=== PATIENT | female | born 1985 | race Caucasian/White ===

== ENCOUNTER 2022-06-21 10:30 | Emergency (ER) | payer OTHER, MEDICAID, SELFPAY ==
--- NOTE | ~2022-06-21 | XR_ITS ---
EXAMINATION: XR ANKLE, LEFT XR FOOT, LEFT CLINICAL INFORMATION: Twisting injury with pain at the lateral malleolus COMPARISON: None TECHNIQUE: 3 views of the left foot. 2 additional views of the left ankle. FINDINGS: Left foot: No fracture or dislocation. Alignment is maintained. Joint spaces are maintained. There is mild lateral soft tissue swelling. Left ankle: No fracture or dislocation. The ankle mortise is congruent. No ankle joint effusion. Lateral soft tissue swelling. XR/XR foot LT min 3V IMPRESSION: Soft tissue swelling at the lateral ankle. No fracture or malalignment.
--- NOTE | ~2022-06-21 | XR_ITS ---
EXAMINATION: XR ANKLE, LEFT XR FOOT, LEFT CLINICAL INFORMATION: Twisting injury with pain at the lateral malleolus COMPARISON: None TECHNIQUE: 3 views of the left foot. 2 additional views of the left ankle. FINDINGS: Left foot: No fracture or dislocation. Alignment is maintained. Joint spaces are maintained. There is mild lateral soft tissue swelling. Left ankle: No fracture or dislocation. The ankle mortise is congruent. No ankle joint effusion. Lateral soft tissue swelling. XR/XR ankle LT min 3V IMPRESSION: Soft tissue swelling at the lateral ankle. No fracture or malalignment.
[2022-06-21 11:14] VITALS: BP 160/91; PULSE 109; RESP 18; TEMP 36.1; O2SAT 99; BMI 25.4
--- NOTE | 2022-06-21 11:19 | ED_ITS ---
HPI - Extremity Injury (Lower) General Chief Complaint: Extremity Injury, Lower <NATHAN Melendrez - Last Filed: 06/21/22 11:22> Stated Complaint: L ankle injury <NATHAN Melendrez - Last Filed: 06/21/22 11:22> Time Seen by Provider: 06/21/22 11:49 <NATHAN Melendrez - Last Filed: 06/21/22 11:22> Source: patient <NATHAN Cole Last Filed: 06/21/22 15:59> Mode of arrival: wheelchair <NATHAN Cole - Last Filed: 06/21/22 15:59> Limitations: no limitations <NATHAN Cole Last Filed: 06/21/22 15:59> History of Present Illness HPI Narrative: Patient is a 36 year old assigned female at with no reported medical history presenting to the emergency department today with left ankle pain. Patient states that she was at work pulling a palette when she rolled her left ankle. Patient denies hitting her head in the incident or any loss of con sciousness. Patient denies any dizziness, lightheadedness, abdominal pain, nausea, vomiting, fever, chills, blurry vision, double vision, loss of vision, chest pain, difficulty breathing, shortness of breath, back pain, night sweats, pain with urination, increased urinary frequency, increased urinary urgency, blood in her urine or stool, syncope or a near syncopal episode, bowel incontinence, bladder incontinence, bowel retention, bladder retention, or any other complaints at this time. <NATHAN Cole - Last Filed: 06/21/22 15:59> MD complaint: ankle injury <NATHAN Cole - Last Filed: 06/21/22 15:59> Onset (ago): minute(s) <NATHAN Cole Last Filed: 06/21/22 15:59> Place: work <NATHAN Cole Last Filed: 06/21/22 15:59> Severity: mild <NATHAN Cole Last Filed: 06/21/22 15:59> Severity scale (1-10): 3 <NATHAN Cole Last Filed: 06/21/22 15:59> Relieving factors: nothing <NATHAN Cole Last Filed: 06/21/22 15:59> Exacerbating factors: nothing <NATHAN Cole - Last Filed: 06/21/22 15:59> Other symptoms: none <NATHAN Cole - Last Filed: 06/21/22 15:59> Related Data Allergies/Adverse Reactions: Allergies Allergy/AdvReac Type Severity Reaction Status Date / Time No Known Allergies Allergy Mild NOT Verified 06/21/22 11:18 APPLICABLE <Norma Barrera [place] - Last Filed: 06/21/22 11:22> Review of Systems Constitutional: Constitutional: Reports no additional constitutional complaints, Denies chills, Denies fever(s) and Denies night sweats <NATHAN Cole - Last Filed: 06/21/22 15:59> Eyes: Eyes: Reports no additional eye complaints, Denies blurry vision, Denies change in vision, Denies diplopia, Denies eye discharge, Denies loss of vision and Denies eye pain <NATHAN Cole Last Filed: 06/21/22 15:59> ENT: Denies dizziness <NATHAN Cole Last Filed: 06/21/22 15:59> Cardiovascular: Cardiovascular: Reports no additional cardiovascular complaints, Denies chest pain, Denies lightheadedness, Denies Loss of Consciousness and Denies dyspnea <NATHAN Cole Last Filed: 06/21/22 15:59> Respiratory: Respiratory: Reports no additional respiratory complaints and Denies dyspnea <NATHAN Cole Last Filed: 06/21/22 15:59> Gastrointestinal: Gastrointestinal: Reports no additional gastrointestinal complaints, Denies abdominal pain, Denies melena, Denies hematochezia, Denies change in bowel habits and Denies change in stool character <NATHAN Cole Last Filed: 06/21/22 15:59> Genitourinary: Genitourinary: Denies hematuria, Denies urinary frequency, Denies dysuria, Denies urinary incontinence, Denies urinary hesitancy and Denies urinary urgency <NATHAN Cole Last Filed: 06/21/22 15:59> Musculoskeletal: Musculoskeletal: Reports no additional musculoskeletal complaints, Denies numbness and Denies tingling <NATHAN Cole - Last Filed: 06/21/22 15:59> Comments: left ankle pain <NATHAN Cole - Last Filed: 06/21/22 15:59> Neurologic: Denies dizziness, Denies loss of vision, Denies numbness and Denies tingling <NATHAN Cole - Last Filed: 06/21/22 15:59> Psychiatric: Psychiatric: Reports no additional psychiatric complaints <NATHAN Cole - Last Filed: 06/21/22 15:59> Endocrine: Endocrine: Reports no additional endocrine complaints <NATHAN Cole - Last Filed: 06/21/22 15:59> Hematologic/Lymphatic: Hematologic/Lymphatic: Reports no additional hematologic/lymphatic complaints <NATHAN Cole - Last Filed: 06/21/22 15:59> Allergic/Immunologic: Allergic/Immunologic: Reports no additional allergic/imm unologic complaints <NATHAN Cole - Last Filed: 06/21/22 15:59> PMF Past Medical History Attestation statement: The following information was validated with the patient. <NATHAN Cole - Last Filed: 06/21/22 15:59> Source: old records reviewed and nursing notes reviewed <NATHAN Cole - Last Filed: 06/21/22 15:59> Social History Social History: Social History Advance Directives: No Advance Directives Information Provided: No <NATHAN Melendrez - Last Filed: 06/21/22 11:22> Physical Exam Vital Signs: Vital Signs: Last Vital Signs Temp 98.1 F 06/21/22 11:47 Pulse 103 H 06/21/22 11:47 Resp 16 06/21/22 11:47 BP 149/86 H 06/21/22 11:47 Pulse Ox 97 06/21/22 11:47 O2 Del Method 06/21/22 11:47 BMI result Body Mass Index 25.4 <NATHAN Melendrez - Last Filed: 06/21/22 11:22> Vital Signs: Last Vital Signs Temp 98.1 F 06/21/22 11:47 Pulse 103 H 06/21/22 11:47 Resp 16 06/21/22 11:47 BP 149/86 H 06/21/22 11:47 Pulse Ox 97 06/21/22 11:47 O2 Del Method 06/21/22 11:47 BMI result Body Mass Index 25.4 <NATHAN Cole - Last Filed: 06/21/22 15:59> Const: General: cooperative, no acute distress, alert and awake <NATHAN Cole - Last Filed: 06/21/22 15:59> Nutritional Appearance: well nourished <NATHAN Cole - Last Filed: 06/21/22 15:59> Orientation/consciousness: patient oriented x3 <NATHAN Cole - Last Filed: 06/21/22 15:59> Limitations: no limitations <NATHAN Cole - Last Filed: 06/21/22 15:59> HEENT: Head: Yes normal to inspection and Yes atraumatic <NATHAN Cole - Last Filed: 06/21/22 15:59> Ears: hearing grossly normal bilaterally and external ears normal <Alona Rai PA - Last Filed: 06/21/22 15:59> General nose exam: Normal external nose present, no nasal discharge noted and no epistaxis <NATHAN Cole - Last Filed: 06/21/22 15:59> Face and sinus: Yes normal facial exam, No abrasion and No laceration <NATHAN Cole - Last Filed: 06/21/22 15:59> Mouth: Normal oral and palatal mucosa present, no drooling and no muffled voice <NATHAN Cole - Last Filed: 06/21/22 15:59> Eyes: General: appearance normal, both eyes and all related structures <Steve encinaseduard Rai PA - Last Filed: 06/21/22 15:59> Periorbital: periorbital findings normal <NATHAN Cole - Last Filed: 06/21/22 15:59> Eyelids: Yes eyelids normal <Alona Rai PA - Last Filed: 06/21/22 15:59> Conjunctivae: conjunctivae normal <NATHAN Cole - Last Filed: 06/21/22 15:59> Pupils: Equal, round and reactive pupils present <NATHAN Cole - Last Filed: 06/21/22 15:59> EOM: EOMs intact bilaterally <Alona Rai PA - Last Filed: 06/21/22 15:59> Neck: Neck: Yes normal visual inspection, Yes full ROM and Yes no lymphadenopathy <Alona Rai PA - Last Filed: 06/21/22 15:59> Chest: Chest palpation & inspection: normal inspection of the chest <Alona Rai PA - Last Filed: 06/21/22 15:59> Resp: Effort & Inspection: normal respiratory effort and able to speak in complete sentences <Alona Rai PA - Last Filed: 06/21/22 15:59> Auscultation: clear to auscultation bilaterally <Alona Rai PA - Last Filed: 06/21/22 15:59> Cardio: Rate: regular rate <Alona Rai PA - Last Filed: 06/21/22 15:59> Rhythm: regular rhythm <Alona Rai PA - Last Filed: 06/21/22 15:59> GI: Inspection: Yes normal to inspection <Alona Rai PA - Last Filed: 06/21/22 15:59> Neuro: General: patient oriented x3 and moves all extremities <Alona Rai PA - Last Filed: 06/21/22 15:59> Cranial nerves: Yes Equal, round and reactive pupils present <Alona Rai PA - Last Filed: 06/21/22 15:59> Cognition (Neuro): normal cognition <Alona Rai PA - Last Filed: 06/21/22 15:59> Motor exam (neuro): 5/5 motor strength present throughout <Alona Rai PA - Last Filed: 06/21/22 15:59> Sensory Exam: Normal double simultaneous stimulation for sensation <Alona Rai PA - Last Filed: 06/21/22 15:59> Coordination: [id number] test normal <Alona Rai PA - Last Filed: 06/21/22 15:59> Extrem: Other: minimal swelling present to the lateral left ankle <Alona Rai PA - Last Filed: 06/21/22 15:59> General: Yes full ROM and Yes capillary refill normal <NATHAN Cole - Last Filed: 06/21/22 15:59> Psych: Appearance: grossly normal <NATHAN Cole - Last Filed: 06/21/22 15:59> Mental Status: mental status grossly normal <NATHAN Cole - Last Filed: 06/21/22 15:59> Affect: normal affect <NATHAN Cole - Last Filed: 06/21/22 15:59> Attitude: cooperative <NATHAN Cole - Last Filed: 06/21/22 15:59> Thought process: Normal thought process present <NATHAN Cole - Last Filed: 06/21/22 15:59> Thought content: Normal thought content present <NATHAN Cole - Last Filed: 06/21/22 15:59> Insight: Good insight present (Psych) <NATHAN Cole - Last Filed: 06/21/22 15:59> Course Course Course Narrative: 11:20PM-ARIEL Reynolds 36yoTana who is Tuvaluan-speaking presenting to the ER with complaints of left ankle pain/swelling at the lateral malleolus that occurred prior to arrival while she was at work. 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 Since then she has been having burning sensation to the lateral malleolus. Denies actual fall to the ground. Denies any paresthesias or any weakness or any other symptoms complaints or concerns at this time. On exam patient has moderate tenderness palpation to left lateral malleolus with soft tissue swelling. No obvious ligamentous or tendon injury noted. X-ray ordered at this time patient will be sent back to the waiting room to be evaluated in emergency Minor Care. <NATHAN Melendrez - Last Filed: 06/21/22 11:22> Medical Decision Making Medical Decision Making MDM Narrative: Patient is a 36 year old assigned female at with no reported medical history presenting to the emergency department today with left ankle pain. Patient's physical exam showed minimal swelling to the left lateral ankle but was otherwise unremarkable. Patient's left ankle and foot x-rays showed no acute process. I explained my physical exam findings as well as all test results to the patient. I answered all questions asked by the patient. Patient's left ankle was placed in a walking boot and the patient was given crutches with crutch instructions, without incident. Patient's PMS was intact prior to and after boot placement. I stressed the importance of the patient taking her medication as prescribed. 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 I stressed the importance of the patient returning to the emergency department immediately if her symptoms were to worsen or if she were to develop any dizziness, shortness of breath, difficulty breathing, chest pain, blurry vision, loss of vision, nausea, vomiting, abdominal pain, fever, chills, back pain, or any other complaints. Patient verbalized agreement and understanding with this treatment plan and discharge. <NATHAN Cole - Last Filed: 06/21/22 15:59> Differential Diagnosis Differential Diagnoses: The differential diagnosis associated with the presentation includes <NATAHN Cole Last Filed: 06/21/22 15:59> ankle sprain, ankle strain, ankle injury <NATHAN Cole - Last Filed: 06/21/22 15:59> Independent Interpretation I performed an independent interpretation of an: Plain X-Ray <NATHAN Cole Last Filed: 06/21/22 15:59> Interpretation: My interpretation is in agreement with the radiologist's impression of these imaging studies. EXAMINATION: XR ANKLE, LEFT XR FOOT, LEFT CLINICAL INFORMATION: Twisting injury with pain at the lateral malleolus? COMPARISON: None? TECHNIQUE: 3 views of the left foot. 2 additional views of the left ankle.? FINDINGS: Left foot: No fracture or dislocation. Alignment is maintained. Joint spaces are maintained. There is mild lateral soft tissue swelling. Left ankle: No fracture or dislocation. The ankle mortise is congruent. No ankle joint effusion. Lateral soft tissue swelling.? XR/XR foot LT min 3V IMPRESSION: Soft tissue swelling at the lateral ankle. No fracture or malalignment. Dictated By: Kris Shetty MD Signed By: Electronically signed by Kris Shetty MD 06/21/22 1201 <NATHAN Cole - Last Filed: 06/21/22 15:59> Procedures Orthopedic Splinting/Casting Injury #1: Side: left <NATHAN Cole - Last Filed: 06/21/22 15:59> Lower Extremity Injury Location: ankle <NATHAN Cole - Last Filed: 06/21/22 15:59> Lower Extremity Immobilizer: boot orthosis <NATHAN Cole - Last Filed: 06/21/22 15:59> Other Orthopedic Equipment: crutches <NATHAN Cole - Last Filed: 06/21/22 15:59> Discharge Plan Discharge Clinical Impression: Ankle sprain and strain <NATHAN Melendrez - Last Filed: 06/21/22 11:22> Patient Disposition: Home, Self-Care <NATHAN Melendrez - Last Filed: 06/21/22 11:22> Instructions: Ankle Sprain (ED), Crutch Instructions (ED) <NATHAN Melendrez - Last Filed: 06/21/22 11:22> Additional Instructions: Follow up with your primary care provider and an orthopedic provider. Return to the emergency department immediately if your symptoms worsen or if you develop any dizziness, shortness of breath, difficulty breathing, chest pain, blurry vision, loss of vision, nausea, vomiting, abdominal pain, fever, chills, back pain, or any other complaints. <NATHAN Melendrez - Last Filed: 06/21/22 11:22> Referrals: [facility] [place] [facility] [Provider Group] (Call to establish and follow up with a primary care provider. If you already have a primary care provider, please follow up with them. ) [facility] [place] Primary [facility] [Provider Group] (Call to establish and follow up with a primary care provider. If you already have a primary care provider, please follow up with them. ) [facility] [place] Primary [facility] [Provider Group] (Call to establish and follow up with a primary care provider. If you already have a primary care provider, please follow up with them. ) [facility] [place] Group] (Call to establish and follow up with an orthopedic provider. ) <NATHAN Melendrez - Last Filed: 06/21/22 11:22> Stand Alone Forms: Work/School Release <NATHAN Melendrez - Last Filed: 06/21/22 11:22> Interventions: ED Discharge Assessment Last Done: 06/21/22 13:08 <NATHAN Melendrez - Last Filed: 06/21/22 11:22> Discharge Date/Time: 06/21/22 13:10 <NATHAN Melendrez - Last Filed: 06/21/22 11:22> Print Language: Mexican <NATHAN Melendrez - Last Filed: 06/21/22 11:22>
[2022-06-21 11:47] VITALS: BP 149/86; PULSE 103; RESP 16; TEMP 36.7; O2SAT 97
--- NOTE | 2022-06-21 13:05 | PC.NURSE ---
PT EVALUATED BY PROVIDER. PLAN IS FOR DC HOME. PT AWARE AND AGREEABLE TO PLAN. PLAN IS FOR WALKING BOOT AND CRUTCHES. EDUCATION PROVIDED. PT AGREEABLE TO PLAN.
== END 2022-06-21 13:10 | disposition home or self-care (01) ==
PROVIDERS: Emergency Provider Student in an Organized Health Care Education/Training Program
DX: S93.402A Sprain of unspecified ligament of left ankle, initial encounter (principal); M25.572 Pain in left ankle and joints of left foot; X50.0XXA Overexertion from strenuous movement or load, initial encounter; Y93.9 Activity, unspecified; Y92.9 Unspecified place or not applicable; Y99.0 Civilian activity done for income or pay
CPT/HCPCS: 73610; 73630; 99283

== ENCOUNTER 2022-06-30 13:11 | Emergency (ER) | payer OTHER, SELFPAY ==
[2022-06-30 13:16] VITALS: BP 165/84; PULSE 116; RESP 18; TEMP 36.6; O2SAT 99; BMI 24.8
--- NOTE | 2022-06-30 13:23 | ED_ITS ---
HPI - General Adult General Chief complaint: Extremity Injury, Lower Stated complaint: Toe Discoloration and Pain Source: patient and RN notes reviewed Mode of arrival: ambulatory Limitations: no limitations History of Present Illness HPI narrative: 36-year-old female presents for evaluation of left ankle pain and swelling. Patient was seen here on 06/21/2022 and had x-rays of the left ankle after twisting at work. She presents today because ?my foot is cold and discolored. She has an appointment with orthopedics the July 12. She was pain prescribed crutches and she has a walking boot She complains of 6/10 pain to the entire left foot No left leg swelling Related Data Previous Rx's Medication Instructions Recorded naproxen 500 mg tablet 500 mg PO BID PRN pain #14 tabs 06/30/22 Allergies Allergy/AdvReac Type Severity Reaction Status Date / Time No Known Allergies Allergy Mild NOT Verified 06/21/22 11:18 APPLICABLE Review of Systems Constitutional: Constitutional: Reports as per HPI, Denies chills and Denies fatigue Cardiovascular: Cardiovascular: Denies chest pain and Denies dyspnea Respiratory: Respiratory: Denies cough and Denies dyspnea Musculoskeletal: Musculoskeletal: Reports arthralgias and Reports joint swelling Endocrine: Endocrine: Denies fatigue Physical Exam ED Vital Signs: Vital Signs - 24 hr 06/30/22 13:16 Temperature 97.9 F Pulse Rate 116 H Respiratory Rate 118 H Blood Pressure 165/84 H Pulse Oximetry 99 Oxygen Delivery Method Room Air BMI result Body Mass Index 24.8 Const General: healthy appearing, comfortable, no acute distress, alert and awake Nutritional Appearance: well nourished Orientation/consciousness: patient oriented x3 Resp Effort & Inspection: normal respiratory effort, able to speak in complete sentences, no audible wheezes and not labored Skin General skin exam: no rashes or lesions noted and elasticity normal Lesions: no lesions Rashes: no rashes Neuro General: patient oriented x3 Extrem Other: Patient has some mild ecchymosis along the web spacing of the toes of the left foot. There is no significant tenderness or deformity to this area. 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 There is mild edema over this area. There is no calf tenderness. DP and PT pulses 2+ equal. Capillary refill less than 2 seconds to all digits of the left foot. The foot is cool to the touch Medical Decision Making Medical Decision Making MDM Narrative: 36-year-old female presents for evaluation of left ankle pain. She was diagnosed with a sprain 9 days ago. Patient has had no further injury, she follows with orthopedics within the next 2 weeks. I have very low suspicion for a DVT. The patient has no calf tenderness or edema. No discoloration above the ankle that she sprained. Patient be discharged with naproxen. No further imaging at this time Differential Diagnosis Ankle sprain Ankle fracture Contusion DVT less likely Discharge Plan Discharge Clinical Impression: Ankle sprain and strain Patient Disposition: Home, Self-Care Instructions: Ankle Sprain (ED) Additional Instructions: Use naproxen twice daily for the next 5 days to help with her pain and swelling. Follow-up with orthopedics as planned You do not need to wear the walking boot if it is uncomfortable, it is only use for your comfort Prescriptions: New naproxen 500 mg tablet 500 mg PO BID PRN (Reason: pain) Qty: 14 0RF
== END 2022-06-30 13:41 | disposition home or self-care (01) ==
PROVIDERS: Emergency Provider Emergency Medicine
DX: Z04.2 Encounter for examination and observation following work accident (principal); S93.402D Sprain of unspecified ligament of left ankle, subsequent encounter; S96.912D Strain of unspecified muscle and tendon at ankle and foot level, left foot, subsequent encounter; X50.1XXD Overexertion from prolonged static or awkward postures, subsequent encounter
CPT/HCPCS: 99282; 99283

== ENCOUNTER → 2022-07-12 10:01 | Outpatient (BNVA) | payer OTHER, SELFPAY | PROVIDERS: Visit Provider Physician Assistant | DX: Z13.89 Encounter for screening for other disorder (principal) ==

== ENCOUNTER 2022-08-19 14:00 | Outpatient (RCR) | payer OTHER, MEDICAID, SELFPAY ==
--- NOTE | 2022-08-06 13:36 | MHC.PT.EP ---
[facility] [place] Office [place] [facility] [place] Office [address] Alberto Sanchez [address] [phone] F: [phone] F: [phone] F: [phone] F: [phone] Physical Therapy Plan of Care Date of Evaluation: Date of Surgery: N/A Diagnosis: Sprain of unspecified ligament of left ankle Assessment: Pt is a 36yo F who presents s/p L ankle sprain on 06/21/22. She presents to PT with current impairments in pain, decreased L ankle ROM, decreased strength, decreased muscle length, decreased balance, and impaired gait. She is limited functionally by prolonged standing, walking, stair navigation, bending, and lifting. She is an excellent candidate for skilled PT in order to address current impairments to facilitate return to PLOF. She is recommended to be seen 2x/week for 4 weeks and will be reassessed at that time. Frequency and Duration: The patient will be seen 2x/week for 4 weeks Short Term Goals: Pt will be I with HEP to promote self management of symptoms Pt will improve L DF by at least 5 degrees Tool Pusher Goals: Pt will demonstrate full ROM and strength all planes of L ankle Pt will navigate stairs with reciprocal pattern with minimal to no compensation Pt will demonstrate improvements in function as evidenced by statistically significant improvement in LEFI outcome measure Treatment Plan: Modalities to reduce pain, spasms and effusion. Manual therapy to restore motion and function. Therapeutic exercise to improve strength and flexibility. Neuromuscular re-education for posture and balance. Therapeutic activities to return to functional activities of daily living. Electronically signed by: Lee Ann Ackerman, PT, DPT Please sign and return to therapist. Thank you for your referral.
--- NOTE | 2022-09-15 12:32 | MHC.PT.DC ---
[facility] [place] Office [place] Office [place] Office [address] Alberto Sanchez [address] [phone] F: [phone] F: [phone] F: [phone] F: [phone] Physical Therapy Discharge Report Diagnosis: Sprain of unspecified ligament of left ankle Date of Surgery: N/A Date of Evaluation: 08/04/22 Date of Discharge: 09/15/22 Treatments to Date: 3 Cancellations to Date: 2 No Shows to Date: 3 Discharge Status: Visit Non-compliance Discharge Summary: Pt was seen for PT from 08/04/22-08/19/22. Her last attended appointment was 08/19/22. She has had 3 no show appointments since SOC. Pt is being D/C from PT per [facility] [place] attendance policy and visit non compliance. Pt current level of function unknown at this time. Electronically signed by: Lee Ann Ackerman, PT, DPT Please sign and return to therapist. Thank you for your referral.
== END 2022-09-15 12:32 | disposition home or self-care (01) ==
LOC: HO.PT 14:00
PROVIDERS: Visit Provider Physician Assistant
DX: S93.402D Sprain of unspecified ligament of left ankle, subsequent encounter (principal)
CPT/HCPCS: 97110; 97140; 97162

== ENCOUNTER 2022-12-08 17:37 | Inpatient (IN) | payer OTHER, MEDICAID, SELFPAY ==
[2022-12-08] VITALS (7 sets, daily range): BP systolic 119–136; BP diastolic 63–86; PULSE 95–129; RESP 12–21; TEMP 36.4–37.6; O2SAT 96–100; BMI 25.4
--- NOTE | ~2022-12-08 | CT_ITS ---
EXAMINATION: CT HEAD WITHOUT CONTRAST CLINICAL INFORMATION: Headache. COMPARISON: No recent relevant comparison. TECHNIQUE: Contiguous axial imaging was performed from the skull base to vertex without intravenous administration of contrast. This CT examination was performed using dose optimization techniques as appropriate, variously including the following: *Automated exposure control *Adjustment of mA and/or kV according to patient size (this includes techniques or standardized protocols for targeted exams where dose is matched to indication/reason for exam; i.e. extremities or head) *Use of iterative reconstruction technique DLP: 747 mGy-cm FINDINGS: The brain parenchyma has normal attenuation. The cavazos-white matter differentiation is well preserved. No evidence of an acute major vascular territory infarction. No intracranial hemorrhage, extra-axial fluid collection, focal mass effect or midline shift. The ventricles have normal size and configuration; no hydrocephalus. The brainstem and cerebellum have a normal appearance. The cerebellar tonsils are in normal position. The calvarium is intact. Mild mucosal thickening of some of the ethmoid air cells. Otherwise, the visualized paranasal sinuses, mastoid air cells and middle ear cavities are well aerated. The orbits and globes are unremarkable. The temporomandibular joints are normal. CT/CT head/brain wo IV con IMPRESSION: No acute intracranial pathology.
--- NOTE | ~2022-12-08 | CT_ITS ---
EXAMINATION: CT ABDOMEN AND PELVIS WITHOUT CONTRAST CLINICAL INFORMATION: Persistent nausea and vomiting COMPARISON: Previous CT of the abdomen and pelvis 12/08/2022 TECHNIQUE: Multidetector volumetric imaging was performed from the superior aspect of the liver through the pubic symphysis. Sagittal and coronal reformatted images were obtained on the technologist's workstation. This CT examination was performed using dose optimization techniques as appropriate, variously including the following: *Automated exposure control *Adjustment of mA and/or kV according to patient size (this includes techniques or standardized protocols for targeted exams where dose is matched to indication/reason for exam; i.e. extremities or head) *Use of iterative reconstruction technique DLP: 631 mGy-cm FINDINGS: LUNG BASES: There are new small bilateral pleural effusions, right greater than left. There is new increased attenuation in both lower lobes and some air bronchograms in the right lower lobe. Appearance is suggestive of pneumonitis/pneumonia. This is new or increased from 12/08/2022 exam as well. LIVER, GALLBLADDER, AND BILIARY TREE: The liver is normal in size, shape, and attenuation. No focal hepatic lesion or biliary ductal dilatation is present. The gallbladder is unremarkable with no evidence of radiopaque gallstones, gallbladder wall thickening, or obvious pericholecystic inflammatory changes. PANCREAS: The pancreas appears unremarkable. There is interval increase in stranding of the peripancreatic fat adjacent to the head of the pancreas at the root of the small bowel mesentery and bilateral anterior pararenal fascia. Bladder changes may be more perinephric in origin however pancreatitis cannot be excluded. SPLEEN: Unremarkable. ADRENAL GLANDS: Unremarkable. KIDNEYS AND URETERS: There is increased bilateral perinephric fat stranding. A new finding compared to prior exam. There also appears to be interval increase in bilateral renal cortical thickening. There may be a small area of a scar or cortical thinning in the lower pole of the left kidney that is unchanged. No hydronephrosis. No stone. BLADDER: Unremarkable. GASTROINTESTINAL TRACT: The small and large bowel are unremarkable. The appendix is unremarkable. Low-attenuation soft tissue adjacent to the left lower rectum and anus extending to the left medial gluteal crease not appreciably changed. There is subcutaneous edema of the left buttock not appreciably changed. There is constipation. Small and large bowel is otherwise normal. The appendix is normal. ABDOMINAL WALL: No significant hernia is appreciated. LYMPH NODES: Normal. VASCULAR: Unremarkable. PELVIC VISCERA: Unremarkable. OSSEOUS STRUCTURES: Unremarkable. CT/CT abdomen pelvis wo IV con IMPRESSION: New bilateral lower lobe groundglass attenuation and denser air bronchogram in the right lower lobe suggestive of pneumonitis/small pneumonia. New small bilateral pleural effusions, right greater than left. New bilateral perinephric fat stranding. There also appears to be new bilateral renal cortical thickening. This can be seen in acute renal insufficiency. Correlate with kidney function recommended. New or increased fat stranding surrounding the head of the pancreas, root of the small bowel mesentery and bilateral anterior pararenal fascia. Clinically correlate for pancreatitis. The pancreas itself is normal-appearing. Stable low-attenuation soft tissue adjacent to the left lower rectum and anus likely representing abscess. Findings will be communicated by the [facility] work flow cover inspector. Fleischner guidelines were followed.
--- NOTE | ~2022-12-08 | US_ITS ---
EXAMINATION: US RETROPERITONEAL LIMITED (RENAL ONLY) CLINICAL INFORMATION: Acute kidney insufficiency. COMPARISON: Previous CT of the abdomen and pelvis 12/10/2022 TECHNIQUE: Grayscale and color imaging of the kidneys FINDINGS: RIGHT KIDNEY: 11 x 5 x 6 cm (SAG x AP x TRV). The kidney is normal in size, contour, and echogenicity. Renal cortical thickness may be slightly increased. No calculi or focal parenchymal lesions. No hydronephrosis. LEFT KIDNEY: 12 x 6 x 5 cm (SAG x AP x TRV). The kidney is normal in size, contour, and echogenicity. Renal cortical thickness may be slightly increased. No calculi or focal parenchymal lesions. No hydronephrosis. US/US renal BI IMPRESSION: No hydronephrosis. Question increased renal cortical thickening.
--- NOTE | ~2022-12-08 | CT_ITS ---
EXAMINATION: CT ABDOMEN AND PELVIS WITH CONTRAST CLINICAL INFORMATION: Mass and abscess felt near rectum COMPARISON: Previous CT of the abdomen and pelvis April 2015 TECHNIQUE: Multidetector volumetric images were obtained from the superior aspect of the liver through the pubic symphysis following administration 85 mL of Omnipaque 350 intravenous contrast. Sagittal and coronal reformatted images were obtained on the technologist's workstation. Oral contrast: Yes This CT examination was performed using dose optimization techniques as appropriate, variously including the following: *Automated exposure control *Adjustment of mA and/or kV according to patient size (this includes techniques or standardized protocols for targeted exams where dose is matched to indication/reason for exam; i.e. extremities or head) *Use of iterative reconstruction technique DLP: 584 mGy-cm FINDINGS: LUNG BASES: The visualized lung bases are unremarkable. LIVER, GALLBLADDER, AND BILIARY TREE: The liver is normal in size, shape, and attenuation. No focal hepatic lesion or biliary ductal dilatation is present. The gallbladder is unremarkable with no evidence of radiopaque gallstones, gallbladder wall thickening, or obvious pericholecystic inflammatory changes. PANCREAS: Unremarkable. SPLEEN: Unremarkable. ADRENAL GLANDS: Unremarkable. KIDNEYS AND URETERS: The kidneys are normal in. Mild cortical thinning or scarring in the lower pole of the left kidney.. No hydronephrosis, hydroureter, or calculi seen. No perinephric stranding. BLADDER: Unremarkable. GASTROINTESTINAL TRACT: Stool throughout the colon suggestive of constipation. The small and large bowel are otherwise unremarkable. The appendix is unremarkable. There is increased low-attenuation soft tissue seen adjacent to the left lower rectum/anus and the 4-5 o'clock axis. This measures 3 cm in longitudinal dimension and 1.5 x 2.5 cm in transverse and AP dimension. Probably represents a small abscess. There is adjacent skin thickening and stranding of the subcutaneous fat the left the medial buttock. ABDOMINAL WALL: No significant hernia is appreciated. LYMPH NODES: Normal. VASCULAR: Unremarkable. PELVIC VISCERA: Unremarkable. OSSEOUS STRUCTURES: Unremarkable. CT/CT abdomen pelvis w IV con IMPRESSION: Increased low-attenuation soft tissue adjacent to the left lower rectum and anus probably representing an abscess. Constipation. Fleischner guidelines were followed.
--- NOTE | 2022-12-08 18:08 | ED.GENADULT ---
HPI - General Adult General Chief complaint: General Medical Stated complaint: cyst on L buttock Time Seen by Provider: 12/08/22 18:49 Source: patient and family Mode of arrival: ambulatory Limitations: no limitations History of Present Illness HPI narrative: 36 yo female with hx of IDDM for 14 years out of medications for 1 year due to insurance issues reports she tries to eat well and checks her sugars at home. She was taking TID with meals and lantus prior to stopping it. She also notes since yesterday she noted a painful mass and area on L buttock and now feels feverish with chills and nausea / body aches. She states she does not have MRSA but 9 years ago had infection in R arm at [facility]. She does not know the name did have surgery but was told they weren't sure of the bacteria. MD complaint: hyperglycemia and L buttock lesion Onset (ago): day(s) (1) Location: buttocks and left Radiation: non-radiation Severity: severe Quality: aching and constant Pain Consistency: constant Relieving factors: rest Exacerbating factors: movement Associated symptoms: fever/chills, headaches, loss of appetite, malaise and nausea/vomiting Treatments prior to arrival: none Related Data Previous Rx's Medication Instructions Recorded naproxen 500 mg tablet 500 mg PO BID PRN pain #14 tabs 06/30/22 Allergies Allergy/AdvReac Type Severity Reaction Status Date / Time No Known Allergies Allergy Mild NOT Verified 12/08/22 18:04 APPLICABLE Review of Systems Review of Systems: Constitutional : No Fever, No Chills ENT/Mouth : No sore throat, No Rhinorrhea Eyes: No Eye Pain, No Swelling, No Redness Cardiovascular : No Chest Pain, No SOB Respiratory : No Cough, No Sputum Gastrointestinal : No Nausea, No Vomiting, No Diarrhea, No abdominal Pain Genitourinary : No Dysuria, No Hematuria Musculoskeletal : No joint pain, No Myalgias, No Joint Swelling Skin : No Skin Lesions, positive skin rash Neuro : No Weakness, No Numbness, No Headache Psych : No Anxiety, No Depression Heme/Lymph: No Bruising, No Bleeding,No Lymphadenopathy Endocrine : pos Polyuria, pos Polydipsia All other systems reviewed and are negative PMFSH Past Medical History Attestation statement: The following information was validated with the patient. 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 Physical Exam ED Vital Signs: Vital Signs - 24 hr 12/08/22 18:04 12/08/22 19:28 12/08/22 20:24 Temperature 99.5 F 99.7 F 98.3 F Pulse Rate 129 H 109 H 96 Respiratory Rate 18 16 12 Blood Pressure 136/86 132/70 128/82 Pulse Oximetry 98 96 100 Oxygen Delivery Method Room Air Room Air Room Air 12/08/22 21:06 12/08/22 21:48 12/08/22 22:38 Temperature 97.5 F Pulse Rate 100 103 H 95 Respiratory Rate 13 21 H 14 Blood Pressure 122/73 130/63 119/71 Pulse Oximetry 100 100 100 Oxygen Delivery Method Room Air Room Air Room Air 12/08/22 23:00 Temperature 98.2 F Pulse Rate 96 Respiratory Rate 16 Blood Pressure 123/73 Pulse Oximetry 100 Oxygen Delivery Method Room Air BMI result Body Mass Index 25.4 Appearance: Alert. Oriented X3. No acute distress. Eyes: Pupils equal, round and reactive to light. ENT: Pharynx normal. Neck: Normal inspection. Neck supple. CVS: tachycardic heart rate and rhythm. Pulses normal. Respiratory: No respiratory distress. Breath sounds normal. Abdomen: Soft and nontender. Rectal: firm tender area on L buttock area she is very tender to touch no pointed area or pustule noted no crepitus seen very reddened area surrounding abscess area noted about 3 to 4cm does not involve the anus itself Skin: Skin warm and dry. Normal skin color. Normal skin turgor. Extremities: No lower extremity edema. No calf ttp Neuro: Oriented X 3. No motor deficit. No sensory deficit. Course Course Course Narrative: This is an RME: Additional HPI, ROS, PE not included below will be deferred to primary provider. This is a [id number], hx of type 2 diabetes insulin dependent, presenting to the ER with complaints of ?abscess to rectal region. Has been without insulin for months due to insurance difficulties. Unable to visualize region in triage. POC obtained in triage and was 548. Pt tachycardic, low grade fever at 99.5. Unable to visualize region for due to limited privacy in triage. Plan: Labs ordered Reevaluation(s) Reevaluation #1: infection suspected 1919 Reevaluation #2: pain did improve with morphine but required more Medications Administered Discontinued Medications Generic Name Dose Route Start Last Admin Trade Name Chrisq PRN Reason Stop Dose Admin Sodium Chloride 1,000 mls @ 999 mls/hr 12/08/22 19:00 12/08/22 20:23 Ns IV 12/08/22 20:00 Infused .Q1H1M NAYA Infusion Piperacillin Sod/Tazobactam 50 mls @ 100 mls/hr 12/08/22 19:00 12/08/22 20:00 Sod 3.375 gm/ Sodium Chloride IV 12/08/22 19:29 Infused ONCE ONE Infusion Sodium Chloride 1,000 mls @ 999 mls/hr 12/08/22 20:30 12/08/22 21:46 Ns IV 12/08/22 21:30 Infused .Q1H1M NAYA Infusion Insulin Human Regular 10 unit 12/08/22 20:15 12/08/22 20:20 Insulin Regular, Human 100 Unit/Ml 3 Ml Vial IVPUSH 12/08/22 20:16 10 unit ONCE ONE Administration Iohexol 100 ml 12/08/22 21:45 12/08/22 21:46 Iohexol 350 Mg/Ml 100 Ml Infus..Btl IV 12/08/22 21:46 85 ml ONCE ONE Administration Ketorolac Tromethamine 15 mg 12/08/22 19:00 12/08/22 19:25 Ketorolac Tromethamine 15 Mg/Ml Vial IVPUSH 12/08/22 19:01 15 mg ONCE ONE Administration Morphine Sulfate 4 mg 12/08/22 19:00 12/08/22 19:24 Morphine Sulfate 4 Mg/Ml Cartridge IVPUSH 12/08/22 19:01 4 mg ONCE ONE Administration Protocol Morphine Sulfate 4 mg 12/08/22 22:43 12/08/22 22:51 Morphine Sulfate 4 Mg/Ml Cartridge IVPUSH 12/08/22 22:44 4 mg ONCE ONE Administration Protocol Ondansetron HCl 4 mg 12/08/22 19:00 12/08/22 19:24 Ondansetron Hcl 4 Mg/2 Ml Vial IVPUSH 12/08/22 19:01 4 mg ONCE ONE Administration Procedures Abscess I/D Site: other (buttock) Side (if applicable): left Sedation/analgesia: other (IV morphine) Local Anesthetic: lidocaine 1% Amount of anesthesia used (mL): 5 Technique: incised with blade Amount of fluid expressed (mL): 5 Sent for culture/gram staining?: No Irrigation: Yes Packing used?: [email or web address] Medical Decision Making Medical Decision Making [facility] Narrative: 36 yo female with hx of IDDM comes in with c/o elevated blood sugars for 1 year but now also L buttock lesion and systemic symptoms concerning for infection labs, cultures, lactic acid, IVF, IV morphine for pain, CT Scan to assess depth of infection and empiric zosyn ordered for possible abscess Differential Diagnosis Differential Diagnoses: The differential diagnosis associated with the presentation includes hyperglycemia, DKA, perirectal or perianal abscess Admission/Observation Consideration of admission/observation: Escalation of care including admission/observation considered plan to admit for IV antibiotics Consult Healthcare Provider Management of the patient was discussed with: Hospitalist agrees to admit Lab Data [facility] Lab Attestation statement: I reviewed the patient's lab results. 12/08/22 19:14 12/08/22 19:14 Labs: Lab Results 12/08/22 12/08/22 12/08/22 Range/Units 18:13 19:14 19:14 WBC 15.5 H (4.8-10.8) X10*3/uL RBC 4.60 (4.20-5.50) X10*6/uL Hgb 13.3 (12.0-16.0) g/dl Hct 39.3 (37.0-47.0) % MCV 85.4 (80.0-98.0) fL MCH 28.9 (27.0-33.0) pg MCHC 33.8 (31.0-35.0) g/dl RDW 11.9 (11.0-16.0) % Plt Count 178 (160-400) X10*3/uL MPV 12.6 H (9.4-12.3) fL Immature Gran % (Auto) 0.6 H (0.0-0.4) % Neut % (Auto) 76.7 H (45-73) % Lymph % (Auto) 15.2 L (20-40) % [place] % (Auto) 5.9 (2-11) % Eos % (Auto) 1.1 (0-4) % Baso % (Auto) 0.5 (0-2) % Lymph # (Auto) 2.4 (1.2-4.9) X10*3/uL [place] # (Auto) 0.9 (0.1-1.2) X10*3/uL Eos # (Auto) 0.2 (0.0-0.4) X10*3/uL Baso # (Auto) 0.1 (0.0-0.2) X10*3/uL Abs Immat Gran (auto) 0.09 H (0.00-0.03) X10*3/uL Absolute Neuts (auto) 11.9 H (2.0-8.3) x10*3/uL Absolute Nucleated RBC 0.000 (0.0-0.012) X10*3/uL Nucleated RBC % (auto) 0.0 (0.0-0.2) /100WBC VBG pH (7.32-7.43) VBG pCO2 mmHg VBG pO2 mmHg VBG HCO3 (22-26) mmol/L VBG O2 Saturation % VBG Base Excess mmol/L Sodium 134 L (135-145) mmol/L Potassium 3.9 (3.3-5.1) mmol/L Chloride 98 (96-108) mmol/L Carbon Dioxide 26 (22-29) mmol/L Anion Gap 14 (12-20) BUN 10 (9-16) mg/dL Creatinine 1.03 (0.5-1.4) mg/dL Estim Creat Clear Calc 76.5 Estimated GFR > 60 POC Glucose 548 H* (60-115) mg/dL Random Glucose 543 H* (60-115) mg/dL Lactic Acid (0.5-2.0) mmol/L Calcium 9.1 (8.4-10.2) mg/dL Magnesium 1.9 (1.6-2.6) mg/dL Total Bilirubin 1.4 H (0.0-1.0) mg/dL Direct Bilirubin 0.4 (0.0-0.5) mg/dL AST 10 (5-31) U/L ALT 11 (0-31) U/L Alkaline Phosphatase 98 (39-117) U/L Total Protein 7.6 (6.5-8.0) g/dL Albumin 3.9 (3.5-5.0) g/dL Beta-Hydroxybutyrate 0.09 (0.02-0.27) mmol/L Beta HCG, Quant < 2 mIU/mL 12/08/22 12/08/22 12/08/22 Range/Units 19:14 19:23 20:58 WBC (4.8-10.8) X10*3/uL RBC (4.20-5.50) X10*6/uL Hgb (12.0-16.0) g/dl Hct (37.0-47.0) % MCV (80.0-98.0) fL MCH (27.0-33.0) pg MCHC (31.0-35.0) g/dl RDW (11.0-16.0) % Plt Count (160-400) X10*3/uL MPV (9.4-12.3) fL Immature Gran % (Auto) (0.0-0.4) % Neut % (Auto) (45-73) % Lymph % (Auto) (20-40) % [place] % (Auto) (2-11) % Eos % (Auto) (0-4) % Baso % (Auto) (0-2) % Lymph # (Auto) (1.2-4.9) X10*3/uL [place] # (Auto) (0.1-1.2) X10*3/uL Eos # (Auto) (0.0-0.4) X10*3/uL Baso # (Auto) (0.0-0.2) X10*3/uL Abs Immat Gran (auto) (0.00-0.03) X10*3/uL Absolute Neuts (auto) (2.0-8.3) x10*3/uL Absolute Nucleated RBC (0.0-0.012) X10*3/uL Nucleated RBC % (auto) (0.0-0.2) /100WBC VBG pH 7.37 (7.32-7.43) VBG pCO2 48 mmHg VBG pO2 41 mmHg VBG HCO3 28 H (22-26) mmol/L VBG O2 Saturation 57.0 % VBG Base Excess 2.1 mmol/L Sodium (135-145) mmol/L Potassium (3.3-5.1) mmol/L Chloride (96-108) mmol/L Carbon Dioxide (22-29) mmol/L Anion Gap (12-20) BUN (9-16) mg/dL Creatinine (0.5-1.4) mg/dL Estim Creat Clear Calc Estimated GFR POC Glucose 261 H (60-115) mg/dL Random Glucose (60-115) mg/dL Lactic Acid 1.7 (0.5-2.0) mmol/L Calcium (8.4-10.2) mg/dL Magnesium (1.6-2.6) mg/dL Total Bilirubin (0.0-1.0) mg/dL Direct Bilirubin (0.0-0.5) mg/dL AST (5-31) U/L ALT (0-31) U/L Alkaline Phosphatase (39-117) U/L Total Protein (6.5-8.0) g/dL Albumin (3.5-5.0) g/dL Beta-Hydroxybutyrate (0.02-0.27) mmol/L Beta HCG, Quant mIU/mL 12/08/22 Range/Units 21:47 WBC (4.8-10.8) X10*3/uL RBC (4.20-5.50) X10*6/uL Hgb (12.0-16.0) g/dl Hct (37.0-47.0) % MCV (80.0-98.0) fL MCH (27.0-33.0) pg MCHC (31.0-35.0) g/dl RDW (11.0-16.0) % Plt Count (160-400) X10*3/uL MPV (9.4-12.3) fL Immature Gran % (Auto) (0.0-0.4) % Neut % (Auto) (45-73) % Lymph % (Auto) (20-40) % [place] % (Auto) (2-11) % Eos % (Auto) (0-4) % Baso % (Auto) (0-2) % Lymph # (Auto) (1.2-4.9) X10*3/uL [place] # (Auto) (0.1-1.2) X10*3/uL Eos # (Auto) (0.0-0.4) X10*3/uL Baso # (Auto) (0.0-0.2) X10*3/uL Abs Immat Gran (auto) (0.00-0.03) X10*3/uL Absolute Neuts (auto) (2.0-8.3) x10*3/uL Absolute Nucleated RBC (0.0-0.012) X10*3/uL Nucleated RBC % (auto) (0.0-0.2) /100WBC VBG pH (7.32-7.43) VBG pCO2 mmHg VBG pO2 mmHg VBG HCO3 (22-26) mmol/L VBG O2 Saturation % VBG Base Excess mmol/L Sodium (135-145) mmol/L Potassium (3.3-5.1) mmol/L Chloride (96-108) mmol/L Carbon Dioxide (22-29) mmol/L Anion Gap (12-20) BUN (9-16) mg/dL Creatinine (0.5-1.4) mg/dL Estim Creat Clear Calc Estimated GFR POC Glucose 205 H (60-115) mg/dL Random Glucose (60-115) mg/dL Lactic Acid (0.5-2.0) mmol/L Calcium (8.4-10.2) mg/dL Magnesium (1.6-2.6) mg/dL Total Bilirubin (0.0-1.0) mg/dL Direct Bilirubin (0.0-0.5) mg/dL AST (5-31) U/L ALT (0-31) U/L Alkaline Phosphatase (39-117) U/L Total Protein (6.5-8.0) g/dL Albumin (3.5-5.0) g/dL Beta-Hydroxybutyrate (0.02-0.27) mmol/L Beta HCG, Quant mIU/mL Independent Interpretation I performed an independent interpretation of an: CT Scan (+ abscess) Radiology Impression Discussion of test interpretation with radiology: I have reviewed the radiologist's reading. Independent Historian Clinical information obtained from an independent historian. History obtained from or confirmed by: Parent External Record Review External record reviewed: Inpatient record and Office record Chronic Conditions Patient?s care impacted by: Diabetes Critical Care Time Critical Care Time Critical Care Time: Yes Total Critical Care Time: 45 Attestation: IVF x 2L, IV morphine repeat doses improved pain I attest to this time spent taking care of the patient Discharge Plan Discharge Clinical Impression: Acute hyperglycemia, Elevated WBC count, Abscess of buttock, left, Cellulitis Patient Disposition: Admitted As Inpatient Prescriptions: No Action naproxen 500 mg tablet 500 mg PO BID PRN (Reason: pain) Qty: 14 0RF
[2022-12-08 18:20] LABS: Glucose, Whole Blood 548 mg/dL (60-115)
[2022-12-08] MEDS: 0.9 % Sodium Chloride 1,000 ML 999 ML IV ×2 (19:18→20:22)
[2022-12-08 19:23] LABS: MANUAL DIFF FLAG NO
[2022-12-08] MEDS: Piperacillin Sodium/Tazobactam 3.375 GM in 0.9 % Sodium Chloride 50 ML IV (19:24)
[2022-12-08] MEDS: ondansetron HCL 4 MG/2 ML VIAL IVPUSH (19:24)
[2022-12-08] MEDS: Morphine Sulfate 4 MG/ML CARTRIDGE IVPUSH ×2 (19:24→22:51)
[2022-12-08] MEDS: Ketorolac Tromethamine 15 MG/ML VIAL IVPUSH (19:25)
[2022-12-08 19:34] LABS: Basophils Absolute Auto 0.1 X10*3/uL (0.0-0.2); Basophils Percent Auto 0.5 % (0-2); Eosinophils Absolute Auto 0.2 X10*3/uL (0.0-0.4); Eosinophils Percent Auto 1.1 % (0-4); Hematocrit 39.3 % (37.0-47.0); Hemoglobin 13.3 g/dl (12.0-16.0); Imm Gran Abs Auto 0.09 X10*3/uL (0.00-0.03); Imm Gran Pct Auto 0.6 % (0.0-0.4); Lymphocytes Absolute Auto 2.4 X10*3/uL (1.2-4.9); Lymphocytes Percent Auto 15.2 % (20-40); Mean Corpuscular HGB Conc 33.8 g/dl (31.0-35.0); Mean Corpuscular Hemoglobin 28.9 pg (27.0-33.0); Mean Corpuscular Volume 85.4 fL (80.0-98.0); Mean Platelet Volume 12.6 fL (9.4-12.3); Monocytes Absolute Auto 0.9 X10*3/uL (0.1-1.2); Monocytes Percent Auto 5.9 % (2-11); Neutrophils Absolute Auto 11.9 x10*3/uL (2.0-8.3); Neutrophils Percent Auto 76.7 % (45-73); Platelet Count 178 X10*3/uL (160-400); Red Cell Distribution Width 11.9 % (11.0-16.0); White Blood Count 15.5 X10*3/uL (4.8-10.8)
[2022-12-08 19:35] LABS: Lactic Acid 1.7 mmol/L (0.5-2.0)
[2022-12-08 19:36] LABS: VBG Base Excess 2.1 mmol/L; VBG HCO3 28 mmol/L (22-26); VBG pCO2 48 mmHg; VBG pH 7.37 (7.32-7.43); VBG pO2 41 mmHg
[2022-12-08 19:54] LABS: Venous Blood Gas Refer to POC result
--- NOTE | 2022-12-08 19:56 | PC.NURSE ---
this rn assumed care of pt @ 1900 at which time bloodwork not yet obtained. this rn placed pt on mixer driver @ 1900, iv placed 20g in R AC. bloodwork obtained. sepsis alert called @ [address] boggs pt medicated according to mar. pt mother at bedside. per dr boggs awaiting to place additional orders until remaining blood work results come back
[2022-12-08 20:16] LABS: Alanine Aminotransferase 11 U/L (0-31); Albumin Level 3.9 g/dL (3.5-5.0); Alkaline Phosphatase 98 U/L (39-117); Anion Gap 14 (12-20); Aspartate Amino Transferase 10 U/L (5-31); Bilirubin Direct 0.4 mg/dL (0.0-0.5); Bilirubin Total 1.4 mg/dL (0.0-1.0); Blood Urea Nitrogen 10 mg/dL (9-16); Calcium 9.1 mg/dL (8.4-10.2); Carbon Dioxide 26 mmol/L (22-29); Chloride 98 mmol/L (96-108); Creatinine Clr Calc Pharmacy 76.5; Estimated Glomerular Filt Rate > 60; Glucose Random 543 mg/dL (60-115); Magnesium 1.9 mg/dL (1.6-2.6); Potassium 3.9 mmol/L (3.3-5.1); Sodium 134 mmol/L (135-145); Total Protein 7.6 g/dL (6.5-8.0)
[2022-12-08 20:20] LABS: Beta-Hydroxybutyrate 0.09 mmol/L (0.02-0.27)
[2022-12-08] MEDS: Insulin Regular, Human 100 UNIT/ML 3 ML VIAL 10 UNIT IVPUSH (20:20)
[2022-12-08 21:02] LABS: Glucose, Whole Blood 261 mg/dL (60-115)
[2022-12-08 21:19] LABS: HCG Quantitative < 2 mIU/mL
[2022-12-08] MEDS: iohexoL 350 MG/ML 100 ML INFUS..BTL IV (21:46)
[2022-12-08 21:51] LABS: Glucose, Whole Blood 205 mg/dL (60-115)
--- NOTE | 2022-12-08 23:40 | MHC.EDTECH ---
This tech assisted with an I&D of an abscess to LT buttocks,dressing applied to area. Patient tolerated procedure well,and is resting at this time.
[2022-12-08] MEDS: vancomycin HCL 1,000 MG, vancomycin HCL 750 MG in 0.9 % Sodium Chloride 500 ML 267.5 MG IV (23:52)
--- NOTE | 2022-12-09 00:08 | PM.IMHP ---
History of Present Illness Date of Service: 12/09/22 Chief Complaint: Fever This is a 36-year-old female with pertinent history of insulin-dependent diabetes mellitus who presents to the emergency department for evaluation of fevers and chills. Patient states about 1 day prior to presentation she noticed cyst on her buttock. It was painful and progressive. It is associated with fevers and chills. Patient states she was previously on insulin but lost her insurance 1 year ago and has not been able to afford it since. Also endorses nausea and vomiting on the day of presentation. No chest pain, palpitations, shortness of breath, abdominal pain, changes in urinary or bowel habits. In the emergency department, patient was found to be septic and imaging concerning for abscess. I&D done in the ER. Blood sugar in the ER found to be significantly elevated Review of Systems Constitutional: Constitutional: Reports chills, Reports fatigue, Reports fever(s), Reports lethargy and Reports malaise Cardiovascular: Cardiovascular: Reports no additional cardiovascular complaints Respiratory: Respiratory: Reports no additional respiratory complaints Gastrointestinal: Gastrointestinal: Reports nausea and Reports vomiting Genitourinary: Genitourinary: Reports no additional female genitourinary complaints Endocrine: Endocrine: Reports fatigue PMFSH Medical History Diabetes Pertinent family history: No family history of CAD Social History Patient Tobacco Use Status: Never used Tobacco Advance Directives: No Advance Directives Information Provided: Yes Current occupational status: employed 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 Meds Allergies Allergy/AdvReac Type Severity Reaction Status Date / Time No Known Allergies Allergy Mild NOT Verified 12/08/22 18:04 APPLICABLE Active Medications: Current Medications Vancomycin HCl 1,000 mg/Vancomycin HCl 750 mg/ Sodium Chloride 535 mls @ 267.5 mls/hr IV ONCE ONE Stop: 12/09/22 01:01 Last Admin: 12/08/22 23:52 Dose: 267.5 mls/hr Insulin Glargine (Insulin Glargine,Hum.Rec.Anlog 100 Unit/Ml 10 Ml Vial) 15 unit SUBCUT BEDTIME [facility] Pharmacy Consult (Consult Rx Vancomycin Dosing) 1 each MISCELLANE DAILY PRN PRN Reason: Consult order Physical Exam Vital Signs and Narrative: Vital Signs: Last Vital Signs Temp 98.2 F 12/08/22 23:00 Pulse 96 12/08/22 23:00 Resp 16 12/08/22 23:00 BP 123/73 12/08/22 23:00 Pulse Ox 100 12/08/22 23:00 O2 Del Method Room Air 12/08/22 23:00 BMI result Body Mass Index 25.4 Middle-aged female lying in bed in no distress Neck supple, no JVD Tachycardic with regular rhythm, S1-S2 heard Regular breath sounds bilaterally, no wheezing or crackles appreciated Abdomen soft nontender, no guarding, no rigidity Patient is awake, alert and oriented to self, place, time and person ; no focal motor deficit Psych: Normal mood No pedal edema Results Labs 12/08/22 19:14 12/08/22 19:14 Labs: Laboratory Results - last 24 hr 12/08/22 12/08/22 12/08/22 18:13 19:14 19:14 MCV 85.4 MCH 28.9 MCHC 33.8 RDW 11.9 Plt Count 178 MPV 12.6 H Immature Gran % (Auto) 0.6 H Neut % (Auto) 76.7 H Lymph % (Auto) 15.2 L [place] % (Auto) 5.9 Eos % (Auto) 1.1 Baso % (Auto) 0.5 Lymph # (Auto) 2.4 [place] # (Auto) 0.9 Eos # (Auto) 0.2 Baso # (Auto) 0.1 Abs Immat Gran (auto) 0.09 H Absolute Neuts (auto) 11.9 H Absolute Nucleated RBC 0.000 Nucleated RBC % (auto) 0.0 VBG pH VBG pCO2 VBG pO2 VBG HCO3 VBG O2 Saturation VBG Base Excess Anion Gap 14 Estim Creat Clear Calc 76.5 Estimated GFR > 60 POC Glucose 548 H* Random Glucose 543 H* Lactic Acid Calcium 9.1 Magnesium 1.9 Total Bilirubin 1.4 H Direct Bilirubin 0.4 AST 10 ALT 11 Alkaline Phosphatase 98 Total Protein 7.6 Albumin 3.9 Beta-Hydroxybutyrate 0.09 Beta HCG, Quant < 2 12/08/22 12/08/22 12/08/22 19:14 19:23 20:58 MCV MCH MCHC RDW Plt Count MPV Immature Gran % (Auto) Neut % (Auto) Lymph % (Auto) [place] % (Auto) Eos % (Auto) Baso % (Auto) Lymph # (Auto) [place] # (Auto) Eos # (Auto) Baso # (Auto) Abs Immat Gran (auto) Absolute Neuts (auto) Absolute Nucleated RBC Nucleated RBC % (auto) VBG pH 7.37 VBG pCO2 48 VBG pO2 41 VBG HCO3 28 H VBG O2 Saturation 57.0 VBG Base Excess 2.1 Anion Gap Estim Creat Clear Calc Estimated GFR POC Glucose 261 H Random Glucose Lactic Acid 1.7 Calcium Magnesium Total Bilirubin Direct Bilirubin AST ALT Alkaline Phosphatase Total Protein Albumin Beta-Hydroxybutyrate Beta HCG, Quant 12/08/22 21:47 MCV MCH MCHC RDW Plt Count MPV Immature Gran % (Auto) Neut % (Auto) Lymph % (Auto) [place] % (Auto) Eos % (Auto) Baso % (Auto) Lymph # (Auto) [place] # (Auto) Eos # (Auto) Baso # (Auto) Abs Immat Gran (auto) Absolute Neuts (auto) Absolute Nucleated RBC Nucleated RBC % (auto) VBG pH VBG pCO2 VBG pO2 VBG HCO3 VBG O2 Saturation VBG Base Excess Anion Gap Estim Creat Clear Calc Estimated GFR POC Glucose 205 H Random Glucose Lactic Acid Calcium Magnesium Total Bilirubin Direct Bilirubin AST ALT Alkaline Phosphatase Total Protein Albumin Beta-Hydroxybutyrate Beta HCG, Quant Imaging Radiologist's Impressions: Impressions Abdomen/Pelvis CT 12/08/22 21:46 IMPRESSION: Increased low-attenuation soft tissue adjacent to the left lower rectum and anus probably representing an abscess. Constipation. Fleischner guidelines were followed. Assessment and Plan (1) Abscess of buttock, left: Status: Acute (2) Acute hyperglycemia: Status: Acute Plan This is a 36-year-old female with pertinent history of insulin-dependent diabetes mellitus who presents to the emergency department for evaluation of fevers and chills. #. Sepsis due to left buttock abscess. Will admit patient with empiric IV antibiotics. Resuscitated with IV crystalloids. I&D done in the ER, also consulting general surgery. Appreciate assistance. Lactic acid and blood culture obtained #. Uncontrolled insulin-dependent diabetes mellitus with hyperglycemia. Due to noncompliance with insulin as patient lost insurance. Initiated basal plus insulin regimen. DVT prophylaxis: Lovenox Full code Admit as inpatient and will require two night minimum hospital stay for IV antibiotics Time Spent With Patient Time: Total time managing care of this patient today ____ minutes. Quality Stroke Does the patient have a stroke diagnosis?: No VTE Prior VTE?: No VTE Risk Level:: Medical - moderate - high VTE Device Contraindication: Treatment Not Indicated VTE Drug Contraindication: N/A - Med Ordered
[2022-12-09] MEDS: ondansetron HCL 4 MG/2 ML VIAL IVPUSH ×3 (00:32→23:48)
[2022-12-09 00:42] LABS: Glucose, Whole Blood 238 mg/dL (60-115)
[2022-12-09] MEDS: Insulin Glargine,Hum.rec.anlog 100 UNIT/ML 10 ML VIAL 15 UNIT SUBCUT ×2 (00:46→21:20)
--- NOTE | 2022-12-09 01:02 | PC.NURSE ---
late entry- pt had episode of nausea/ vomiting pt medicated according to bassam with prn zofran
[2022-12-09 01:38] VITALS: BP 126/77; PULSE 110; RESP 18; TEMP 37.6; O2SAT 100
[2022-12-09] MEDS: Piperacillin Sodium/Tazobactam 4.5 GM in 0.9 % Sodium Chloride 100 ML IV ×5 (02:01→23:22)
--- NOTE | 2022-12-09 02:34 | PC.NURSE ---
pt calm and cooperative. pt answers questions appropriately . lights dimmed awaiting for bed assignment
[2022-12-09 03:00] VITALS: BP 126/72; PULSE 108; RESP 17; TEMP 36.9; O2SAT 99
[2022-12-09] MEDS: Morphine Sulfate 4 MG/ML CARTRIDGE IVPUSH (03:13)
--- NOTE | 2022-12-09 03:20 | MHC.PIE ---
p; pt arrived from ed c/o n/v. note; prn zofran given in ed at 0032. i; dr johnson notified; new order give zofran early now p; pt c/o pain 01/18 to buttocks/i&d site. note; no prn pain med? i; dr johnson notfied; new order prn ultram po p; pt cont to c/o nausea at this time i; dr johnson notified; new order morphine iv now e; will cont to monitor
[2022-12-09 05:37] LABS: MANUAL DIFF FLAG NO
[2022-12-09 05:42] LABS: Basophils Percent Auto 0.3 % (0-2); Eosinophils Absolute Auto 0.2 X10*3/uL (0.0-0.4); Eosinophils Percent Auto 1.1 % (0-4); Hematocrit 33.2 % (37.0-47.0); Hemoglobin 10.8 g/dl (12.0-16.0); Imm Gran Abs Auto 0.07 X10*3/uL (0.00-0.03); Imm Gran Pct Auto 0.5 % (0.0-0.4); Lymphocytes Absolute Auto 2.8 X10*3/uL (1.2-4.9); Mean Corpuscular HGB Conc 32.5 g/dl (31.0-35.0); Mean Corpuscular Hemoglobin 28.1 pg (27.0-33.0); Mean Corpuscular Volume 86.5 fL (80.0-98.0); Mean Platelet Volume 12.9 fL (9.4-12.3); Neutrophils Absolute Auto 10.7 x10*3/uL (2.0-8.3); Neutrophils Percent Auto 72.1 % (45-73); Platelet Count 145 X10*3/uL (160-400); Red Blood Count 3.84 X10*6/uL (4.20-5.50); Red Cell Distribution Width 11.7 % (11.0-16.0); White Blood Count 14.8 X10*3/uL (4.8-10.8)
[2022-12-09 06:03] LABS: Anion Gap 9 (12-20); Blood Urea Nitrogen 8 mg/dL (9-16); Calcium 8.2 mg/dL (8.4-10.2); Carbon Dioxide 22 mmol/L (22-29); Chloride 106 mmol/L (96-108); Creatinine Clr Calc Pharmacy 112.5; Estimated Glomerular Filt Rate > 60; Glucose Random 287 mg/dL (60-115); Potassium 3.5 mmol/L (3.3-5.1); Sodium 133 mmol/L (135-145)
--- NOTE | 2022-12-09 06:20 | PHA.MEDREC ---
Pharmacy Consult ? Medication Reconciliation Pharmacy has reviewed the medication reconciliation done by RN.
--- NOTE | 2022-12-09 06:46 | PHA.PROG ---
Admission Date/Time: December 09, 2022 00:06 Indication: SKIN/STRUCTURE Weight in k.5 kg Adjusted body weight in Kg: [place] body weight in Kg: Obesity Dosing Indication % IBW: BMI 25.4 Serum Creatinine - Last 168 Hours 12/08/22 12/09/22 19:14 05:14 Creatinine 1.03 0.70 Estimated CrCl and GFR - Last 168 Hours 12/08/22 12/09/22 19:14 05:14 Estim Creat Clear Calc 76.5 112.5 Estimated GFR > 60 > 60 Vancomycin Loading Dose: 1750 MG Current Vancomycin Dosing Regimen: 1500 MG Q12 Vancomycin Monitoring using AUC goal of 400 - 600 range with trough as surrogate marker: 576 Date and Time for next Vancomycin Level to be drawn: 12/10 @0900 Pharmacist Comments on Vancomycin Plan: LOAD OF 24 MG/KG GIVEN OVERNIGHT IN ED. Vancomycin dosing will take advantage of [employer] as a clinical decision support tool that uses Bayesian modeling to calculate individual patient's pharmacokinetic parameters and forecast the patient's drug concentration time course with the target goal AUC 24 range of 400 - 600 mg/L/hr.
[2022-12-09 07:13] LABS: Estimated Average Glucose 318 mg/dL; Hemoglobin A1c % 12.7 % (<6.0)
[2022-12-09 07:27] LABS: Glucose, Whole Blood 273 mg/dL (60-115)
[2022-12-09] MEDS: traMADoL HCL 50 MG TABLET PO ×3 (07:28→21:21)
[2022-12-09] MEDS: 0.9 % Sodium Chloride Flush 3 ML SYRINGE IVFLUSH ×3 (07:29→21:22)
[2022-12-09 07:52] VITALS: BP 126/65; PULSE 65; RESP 18; TEMP 36.3; O2SAT 99
[2022-12-09] MEDS: Insulin Lispro 100 UNIT/ML 3 ML VIAL SUBCUT ×4 (07:57→21:20)
[2022-12-09] MEDS: Enoxaparin Sodium 40 MG/0.4 ML SYRINGE SUBCUT (07:58)
[2022-12-09] MEDS: Morphine Sulfate 2 MG/ML CARTRIDGE IVPUSH (10:49)
[2022-12-09] MEDS: vancomycin HCL 1,500 MG in 0.9 % Sodium Chloride 500 ML 333.33 MG IV ×2 (10:50→21:24)
--- NOTE | 2022-12-09 11:30 | PM.CNGS ---
History of Present Illness Consult details Consult date: 12/09/22 Narrative: 36-year-old female who came to the emergency room last night because of current chills. She also had described a cyst on her left buttock area that had become very swollen and tender. She was admitted for sepsis. She was noted to have an abscess on the left buttock and I&D was done in the ER by the ER staff. There was note of good drainage. She currently states he is still has pain on the area. She has an known history of diabetes. Review of Systems Constitutional: Constitutional: Reports chills and Reports fever(s) Cardiovascular: Cardiovascular: Denies chest pain Respiratory: Respiratory: Denies cough Gastrointestinal: Gastrointestinal: Denies abdominal pain Genitourinary: Genitourinary: Denies difficulty voiding PMFSH Past Medical History Medical History delivery delivered Diabetes Surgical History Surgical History H/O elbow surgery Hx of esophagogastroduodenoscopy Hx of hernia repair Social History Social History Household Members: Other Household Members Other:: daughter Housing: Apartment Do you presently have visiting nurse or other home services: No Patient Tobacco Use Status: Never used Tobacco service: No Current occupational status: employed 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 Enoxaparin Sodium (Enoxaparin Sodium 40 Mg/0.4 Ml Syringe) 40 mg SUBCUT Q24H [facility] Last Admin: 12/09/22 07:58 Dose: 40 mg Glucose (Glucose Gel 15 Gm Gel..Gram.) 15 gm PO Q15M PRN; Protocol PRN Reason: per Hypoglycemia Standing Ord. Piperacillin Sod/Tazobactam (Sod 4.5 gm/ Sodium Chloride) 100 mls @ 200 mls/hr IV 0000,0600,1200,1800 [facility] Last Infusion: 12/09/22 06:39 Dose: Infused Vancomycin HCl 1,500 mg/ (Sodium Chloride) 500 mls @ 333.333 mls/hr IV Q12H [facility] Last Admin: 12/09/22 10:50 Dose: 333.33 mls/hr Insulin Glargine (Insulin Glargine,Hum.Rec.Anlog 100 Unit/Ml 10 Ml Vial) 15 unit SUBCUT BEDTIME [facility] Last Admin: 12/09/22 00:46 Dose: 15 unit Insulin Human Lispro (Insulin Lispro 100 Unit/Ml 3 Ml Vial) 0 unit SUBCUT QIDACHS [facility]; Protocol Last Admin: 12/09/22 07:57 Dose: 6 unit Melatonin (Melatonin 3 Mg Tablet) 6 mg PO BEDTIME PRN PRN Reason: Insomnia Morphine Sulfate (Morphine Sulfate 2 Mg/Ml Cartridge) 2 mg IVPUSH Q4H PRN; Protocol PRN Reason: Pain, Severe (Pain Scale 7-10) Last Admin: 12/09/22 10:49 Dose: 2 mg Ondansetron HCl (Ondansetron Hcl 4 Mg/2 Ml Vial) 4 mg IVPUSH Q8H PRN PRN Reason: Nausea and Vomiting Last Admin: 12/09/22 02:54 Dose: 4 mg Pharmacy Consult (Consult Rx Vancomycin Dosing) 1 each MISCELLANE DAILY PRN PRN Reason: Consult order Sodium Chloride (0.9 % Sodium Chloride Flush 3 Ml Syringe) 3 ml IVFLUSH QSHI Last Admin: 12/09/22 07:29 Dose: 3 ml Tramadol HCl (Tramadol Hcl 50 Mg Tablet) 50 mg PO Q4H PRN PRN Reason: Pain, Severe (Pain Scale 7-10) Last Admin: 12/09/22 07:28 Dose: 50 mg Physical Exam Vital Signs: Vital Signs: Last Vital Signs Temp 97.4 F 12/09/22 07:52 Pulse 65 12/09/22 07:52 Resp 18 12/09/22 07:52 BP 126/65 12/09/22 07:52 Pulse Ox 99 12/09/22 07:52 O2 Del Method Room Air 12/09/22 07:52 BMI result Body Mass Index 25.4 Const: General: comfortable and no acute distress Resp: Effort & Inspection: normal respiratory effort Cardio: Rate: regular rate GI: Palpation (GI): Soft to palpation and nontender Back/Spine/Pelvis: Other: I&D site on the left buttock clean, packing in place, minimal residual induration no active discharge Results Labs 12/09/22 05:14 12/09/22 05:14 Labs: Abnormal lab results 12/08/22 12/08/22 12/08/22 Range/Units 18:13 19:14 19:14 WBC 15.5 H (4.8-10.8) X10*3/uL RBC (4.20-5.50) X10*6/uL Hgb (12.0-16.0) g/dl Hct (37.0-47.0) % Plt Count (160-400) X10*3/uL MPV 12.6 H (9.4-12.3) fL Immature Gran % (Auto) 0.6 H (0.0-0.4) % Neut % (Auto) 76.7 H (45-73) % Lymph % (Auto) 15.2 L (20-40) % Abs Immat Gran (auto) 0.09 H (0.00-0.03) X10*3/uL Absolute Neuts (auto) 11.9 H (2.0-8.3) x10*3/uL VBG HCO3 (22-26) mmol/L Sodium 134 L (135-145) mmol/L Anion Gap (12-20) BUN (9-16) mg/dL POC Glucose 548 H* (60-115) mg/dL Random Glucose 543 H* (60-115) mg/dL Hemoglobin A1c % (<6.0) % Calcium (8.4-10.2) mg/dL Total Bilirubin 1.4 H (0.0-1.0) mg/dL 12/08/22 12/08/22 12/08/22 Range/Units 19:23 20:58 21:47 WBC (4.8-10.8) X10*3/uL RBC (4.20-5.50) X10*6/uL Hgb (12.0-16.0) g/dl Hct (37.0-47.0) % Plt Count (160-400) X10*3/uL MPV (9.4-12.3) fL Immature Gran % (Auto) (0.0-0.4) % Neut % (Auto) (45-73) % Lymph % (Auto) (20-40) % Abs Immat Gran (auto) (0.00-0.03) X10*3/uL Absolute Neuts (auto) (2.0-8.3) x10*3/uL VBG HCO3 28 H (22-26) mmol/L Sodium (135-145) mmol/L Anion Gap (12-20) BUN (9-16) mg/dL POC Glucose 261 H 205 H (60-115) mg/dL Random Glucose (60-115) mg/dL Hemoglobin A1c % (<6.0) % Calcium (8.4-10.2) mg/dL Total Bilirubin (0.0-1.0) mg/dL 12/09/22 12/09/22 12/09/22 Range/Units 00:37 05:14 05:14 WBC 14.8 H (4.8-10.8) X10*3/uL RBC 3.84 L (4.20-5.50) X10*6/uL Hgb 10.8 L (12.0-16.0) g/dl Hct 33.2 L (37.0-47.0) % Plt Count 145 L (160-400) X10*3/uL MPV 12.9 H (9.4-12.3) fL Immature Gran % (Auto) 0.5 H (0.0-0.4) % Neut % (Auto) (45-73) % Lymph % (Auto) 19.0 L (20-40) % Abs Immat Gran (auto) 0.07 H (0.00-0.03) X10*3/uL Absolute Neuts (auto) 10.7 H (2.0-8.3) x10*3/uL VBG HCO3 (22-26) mmol/L Sodium 133 L (135-145) mmol/L Anion Gap 9 L (12-20) BUN 8 L (9-16) mg/dL POC Glucose 238 H (60-115) mg/dL Random Glucose 287 H (60-115) mg/dL Hemoglobin A1c % (<6.0) % Calcium 8.2 L D (8.4-10.2) mg/dL Total Bilirubin (0.0-1.0) mg/dL 12/09/22 12/09/22 Range/Units 05:14 07:23 WBC (4.8-10.8) X10*3/uL RBC (4.20-5.50) X10*6/uL Hgb (12.0-16.0) g/dl Hct (37.0-47.0) % Plt Count (160-400) X10*3/uL MPV (9.4-12.3) fL Immature Gran % (Auto) (0.0-0.4) % Neut % (Auto) (45-73) % Lymph % (Auto) (20-40) % Abs Immat Gran (auto) (0.00-0.03) X10*3/uL Absolute Neuts (auto) (2.0-8.3) x10*3/uL VBG HCO3 (22-26) mmol/L Sodium (135-145) mmol/L Anion Gap (12-20) BUN (9-16) mg/dL POC Glucose 273 H (60-115) mg/dL Random Glucose (60-115) mg/dL Hemoglobin A1c % 12.7 H (<6.0) % Calcium (8.4-10.2) mg/dL Total Bilirubin (0.0-1.0) mg/dL Short CBC 12/08/22 12/09/22 Range/Units 19:14 05:14 WBC 15.5 H 14.8 H (4.8-10.8) X10*3/uL Hgb 13.3 10.8 L (12.0-16.0) g/dl Hct 39.3 33.2 L (37.0-47.0) % Plt Count 178 145 L (160-400) X10*3/uL BMP 12/08/22 12/09/22 19:14 05:14 Sodium 134 L 133 L Potassium 3.9 3.5 Chloride 98 106 Carbon Dioxide 26 22 BUN 10 8 L Creatinine 1.03 0.70 Calcium 9.1 8.2 L D Liver Function 12/08/22 Range/Units 19:14 Total Bilirubin 1.4 H (0.0-1.0) mg/dL Direct Bilirubin 0.4 (0.0-0.5) mg/dL AST 10 (5-31) U/L ALT 11 (0-31) U/L Alkaline Phosphatase 98 (39-117) U/L Albumin 3.9 (3.5-5.0) g/dL All other labs normal. Laboratory Results WBC 14.8 X10*3/uL (4.8-10.8) H 12/09/22 05:14 RBC 3.84 X10*6/uL (4.20-5.50) L 12/09/22 05:14 Hgb 10.8 g/dl (12.0-16.0) L 12/09/22 05:14 Hct 33.2 % (37.0-47.0) L 12/09/22 05:14 MCV 86.5 fL (80.0-98.0) 12/09/22 05:14 MCH 28.1 pg (27.0-33.0) 12/09/22 05:14 MCHC 32.5 g/dl (31.0-35.0) 12/09/22 05:14 RDW 11.7 % (11.0-16.0) 12/09/22 05:14 Plt Count 145 X10*3/uL (160-400) L 12/09/22 05:14 MPV 12.9 fL (9.4-12.3) H 12/09/22 05:14 Immature Gran % (Auto) 0.5 % (0.0-0.4) H 12/09/22 05:14 Neut % (Auto) 72.1 % (45-73) 12/09/22 05:14 Lymph % (Auto) 19.0 % (20-40) L 12/09/22 05:14 [place] % (Auto) 7.0 % (2-11) 12/09/22 05:14 Eos % (Auto) 1.1 % (0-4) 12/09/22 05:14 Baso % (Auto) 0.3 % (0-2) 12/09/22 05:14 Lymph # (Auto) 2.8 X10*3/uL (1.2-4.9) 12/09/22 05:14 [place] # (Auto) 1.0 X10*3/uL (0.1-1.2) 12/09/22 05:14 Eos # (Auto) 0.2 X10*3/uL (0.0-0.4) 12/09/22 05:14 Baso # (Auto) 0.0 X10*3/uL (0.0-0.2) 12/09/22 05:14 Abs Immat Gran (auto) 0.07 X10*3/uL (0.00-0.03) H 12/09/22 05:14 Absolute Neuts (auto) 10.7 x10*3/uL (2.0-8.3) H 12/09/22 05:14 Absolute Nucleated RBC 0.000 X10*3/uL (0.0-0.012) 12/09/22 05:14 Nucleated RBC % (auto) 0.0 /100WBC (0.0-0.2) 12/09/22 05:14 VBG pH 7.37 (7.32-7.43) 12/08/22 19:23 VBG pCO2 48 mmHg 12/08/22 19:23 VBG pO2 41 mmHg 12/08/22 19:23 VBG HCO3 28 mmol/L (22-26) H 12/08/22 19:23 VBG O2 Saturation 57.0 % 12/08/22 19:23 VBG Base Excess 2.1 mmol/L 12/08/22 19:23 Sodium 133 mmol/L (135-145) L 12/09/22 05:14 Potassium 3.5 mmol/L (3.3-5.1) 12/09/22 05:14 Chloride 106 mmol/L (96-108) 12/09/22 05:14 Carbon Dioxide 22 mmol/L (22-29) 12/09/22 05:14 Anion Gap 9 (12-20) L 12/09/22 05:14 BUN 8 mg/dL (9-16) L 12/09/22 05:14 Creatinine 0.70 mg/dL (0.5-1.4) 12/09/22 05:14 Estim Creat Clear Calc 112.5 12/09/22 05:14 Estimated GFR > 60 12/09/22 05:14 POC Glucose 273 mg/dL (60-115) H 12/09/22 07:23 Random Glucose 287 mg/dL (60-115) H 12/09/22 05:14 Estimat Average Glucose 318 mg/dL 12/09/22 05:14 Hemoglobin A1c % 12.7 % (<6.0) H 12/09/22 05:14 Lactic Acid 1.7 mmol/L (0.5-2.0) 12/08/22 19:14 Calcium 8.2 mg/dL (8.4-10.2) L D 12/09/22 05:14 Magnesium 1.9 mg/dL (1.6-2.6) 12/08/22 19:14 Total Bilirubin 1.4 mg/dL (0.0-1.0) H 12/08/22 19:14 Direct Bilirubin 0.4 mg/dL (0.0-0.5) 12/08/22 19:14 AST 10 U/L (5-31) 12/08/22 19:14 ALT 11 U/L (0-31) 12/08/22 19:14 Alkaline Phosphatase 98 U/L (39-117) 12/08/22 19:14 Total Protein 7.6 g/dL (6.5-8.0) 12/08/22 19:14 Albumin 3.9 g/dL (3.5-5.0) 12/08/22 19:14 Beta-Hydroxybutyrate 0.09 mmol/L (0.02-0.27) 12/08/22 19:14 Beta HCG, Quant < 2 mIU/mL 12/08/22 19:14 Impressions Abdomen/Pelvis CT 12/08/22 21:46 IMPRESSION: Increased low-attenuation soft tissue adjacent to the left lower rectum and anus probably representing an abscess. Constipation. Fleischner guidelines were followed. Assessment and Plan (1) Abscess of buttock, left: Status: Acute Her CT scan suggested an abscess in the left buttock near the perianal area. I an I and D was done in the ER by the ER staff last night. There appeared to have been good quit drainage. The area looks clean. There is minimal induration. I removed her packing. Her culture should be followed up. The area should be kept clean and dry She may do hot Sitz baths 3 times a day as well as after bowel movements . She is on IV antibiotics. I will follow along while she is in the hospital. Time Spent With Patient Time: Total time managing care of this patient today ____ minutes. Procedures Date of Service Date of Service: 12/14/22
[2022-12-09 11:34] LABS: Glucose, Whole Blood 221 mg/dL (60-115)
--- NOTE | 2022-12-09 12:12 | P.PNIM_ITS ---
Subjective Subjective Date of Service: 12/09/22 Interval History: seen and examined this morning follow up for left buttock abscess reporting pain at the I&D site having nausea Review of Systems Review of Systems: Yes all other systems are reviewed and are negative Constitutional Constitutional: Denies chills and Denies fever(s) Cardiovascular Cardiovascular: Denies chest pain, Denies palpitations and Denies dyspnea Respiratory Respiratory: Denies cough and Denies dyspnea Gastrointestinal Gastrointestinal: Denies abdominal pain Endocrine Endocrine: Denies palpitations Physical Exam Vital Signs: Vital Signs: Last Vital Signs Temp 97.4 F 12/09/22 07:52 Pulse 65 12/09/22 07:52 Resp 18 12/09/22 07:52 BP 126/65 12/09/22 07:52 Pulse Ox 99 12/09/22 07:52 O2 Del Method Room Air 12/09/22 07:52 BMI result Body Mass Index 25.4 Const: General: alert and awake Nutritional Appearance: average body habitus Orientation/consciousness: patient oriented x3 Resp: Effort & Inspection: normal respiratory effort, able to speak in complete sentences, no respiratory distress and no use of accessory muscles Cardio: Rate: regular rate GI: Inspection: No distended Palpation (GI): Soft to palpation Skin: Other: left buttock I&D site with packing, minimal residual induration Neuro: General: patient oriented x3, moves all extremities and CN's II-XI intact bilaterally Extrem: General: Yes no pedal edema Objective Data Active Medications Acetaminophen (Acetaminophen 325 Mg Tablet) 650 mg PO Q6H PRN PRN Reason: Pain, Mild (Pain Scale 1-3) Dextrose (Dextrose 50 % 25 Gm/50 Ml Syringe) 25 gm IVPUSH Q15M PRN; Protocol PRN Reason: per Hypoglycemia Standing Ord. Enoxaparin Sodium (Enoxaparin Sodium 40 Mg/0.4 Ml Syringe) 40 mg SUBCUT Q24H [facility] Last Admin: 12/09/22 07:58 Dose: 40 mg Documented By: BETY Glucose (Glucose Gel 15 Gm Gel..Gram.) 15 gm PO Q15M PRN; Protocol PRN Reason: per Hypoglycemia Standing Ord. Piperacillin Sod/Tazobactam (Sod 4.5 gm/ Sodium Chloride) 100 mls @ 200 mls/hr IV 0000,0600,1200,1800 [facility] Last Infusion: 12/09/22 06:39 Dose: 0 mls/hr Documented By: PADMINI Vancomycin HCl 1,500 mg/ (Sodium Chloride) 500 mls @ 333.333 mls/hr IV Q12H [facility] Last Admin: 12/09/22 10:50 Dose: 333.33 mls/hr Documented By: BETY Insulin Glargine (Insulin Glargine,Hum.Rec.Anlog 100 Unit/Ml 10 Ml Vial) 15 unit SUBCUT BEDTIME [facility] Last Admin: 12/09/22 00:46 Dose: 15 unit Documented By: MANI Insulin Human Lispro (Insulin Lispro 100 Unit/Ml 3 Ml Vial) 0 unit SUBCUT QIDACHS [facility]; Protocol Last Admin: 12/09/22 12:01 Dose: 4 unit Documented By: BETY Melatonin (Melatonin 3 Mg Tablet) 6 mg PO BEDTIME PRN PRN Reason: Insomnia Morphine Sulfate (Morphine Sulfate 2 Mg/Ml Cartridge) 2 mg IVPUSH Q4H PRN; Protocol PRN Reason: Pain, Severe (Pain Scale 7-10) Last Admin: 12/09/22 10:49 Dose: 2 mg Documented By: BETY Ondansetron HCl (Ondansetron Hcl 4 Mg/2 Ml Vial) 4 mg IVPUSH Q8H PRN PRN Reason: Nausea and Vomiting Last Admin: 12/09/22 02:54 Dose: 4 mg Documented By: PADMINI Comments: early dose, md mcdonald Pharmacy Consult (Consult Rx Vancomycin Dosing) 1 each MISCELLANE DAILY PRN PRN Reason: Consult order Sodium Chloride (0.9 % Sodium Chloride Flush 3 Ml Sy[facility]) [facility] Last Admin: 12/09/22 07:29 Dose: 3 ml Documented By: BETY Tramadol HCl (Tramadol Hcl 50 Mg Tablet) 50 mg PO Q4H PRN PRN Reason: Pain, Severe (Pain Scale 7-10) Last Admin: 12/09/22 07:28 Dose: 50 mg Documented By: BETY Labs 12/09/22 05:14 12/09/22 05:14 Labs: Laboratory Results - last 24 hr 12/08/22 12/08/22 12/08/22 18:13 19:14 19:14 MCV 85.4 MCH 28.9 MCHC 33.8 RDW 11.9 Plt Count 178 MPV 12.6 H Immature Gran % (Auto) 0.6 H Neut % (Auto) 76.7 H Lymph % (Auto) 15.2 L [place] % (Auto) 5.9 Eos % (Auto) 1.1 Baso % (Auto) 0.5 Lymph # (Auto) 2.4 [place] # (Auto) 0.9 Eos # (Auto) 0.2 Baso # (Auto) 0.1 Abs Immat Gran (auto) 0.09 H Absolute Neuts (auto) 11.9 H Absolute Nucleated RBC 0.000 Nucleated RBC % (auto) 0.0 VBG pH VBG pCO2 VBG pO2 VBG HCO3 VBG O2 Saturation VBG Base Excess Anion Gap 14 Estim Creat Clear Calc 76.5 Estimated GFR > 60 POC Glucose 548 H* Random Glucose 543 H* Estimat Average Glucose Hemoglobin A1c % Lactic Acid Calcium 9.1 Magnesium 1.9 Total Bilirubin 1.4 H Direct Bilirubin 0.4 AST 10 ALT 11 Alkaline Phosphatase 98 Total Protein 7.6 Albumin 3.9 Beta-Hydroxybutyrate 0.09 Beta HCG, Quant < 2 12/08/22 12/08/22 12/08/22 19:14 19:23 20:58 MCV MCH MCHC RDW Plt Count MPV Immature Gran % (Auto) Neut % (Auto) Lymph % (Auto) [place] % (Auto) Eos % (Auto) Baso % (Auto) Lymph # (Auto) [place] # (Auto) Eos # (Auto) Baso # (Auto) Abs Immat Gran (auto) Absolute Neuts (auto) Absolute Nucleated RBC Nucleated RBC % (auto) VBG pH 7.37 VBG pCO2 48 VBG pO2 41 VBG HCO3 28 H VBG O2 Saturation 57.0 VBG Base Excess 2.1 Anion Gap Estim Creat Clear Calc Estimated GFR POC Glucose 261 H Random Glucose Estimat Average Glucose Hemoglobin A1c % Lactic Acid 1.7 Calcium Magnesium Total Bilirubin Direct Bilirubin AST ALT Alkaline Phosphatase Total Protein Albumin Beta-Hydroxybutyrate Beta HCG, Quant 12/08/22 12/09/22 12/09/22 21:47 00:37 05:14 MCV 86.5 MCH 28.1 MCHC 32.5 RDW 11.7 Plt Count 145 L MPV 12.9 H Immature Gran % (Auto) 0.5 H Neut % (Auto) 72.1 Lymph % (Auto) 19.0 L [place] % (Auto) 7.0 Eos % (Auto) 1.1 Baso % (Auto) 0.3 Lymph # (Auto) 2.8 [place] # (Auto) 1.0 Eos # (Auto) 0.2 Baso # (Auto) 0.0 Abs Immat Gran (auto) 0.07 H Absolute Neuts (auto) 10.7 H Absolute Nucleated RBC 0.000 Nucleated RBC % (auto) 0.0 VBG pH VBG pCO2 VBG pO2 VBG HCO3 VBG O2 Saturation VBG Base Excess Anion Gap Estim Creat Clear Calc Estimated GFR POC Glucose 205 H 238 H Random Glucose Estimat Average Glucose Hemoglobin A1c % Lactic Acid Calcium Magnesium Total Bilirubin Direct Bilirubin AST ALT Alkaline Phosphatase Total Protein Albumin Beta-Hydroxybutyrate Beta HCG, Quant 12/09/22 12/09/22 12/09/22 05:14 05:14 07:23 MCV MCH MCHC RDW Plt Count MPV Immature Gran % (Auto) Neut % (Auto) Lymph % (Auto) [place] % (Auto) Eos % (Auto) Baso % (Auto) Lymph # (Auto) [place] # (Auto) Eos # (Auto) Baso # (Auto) Abs Immat Gran (auto) Absolute Neuts (auto) Absolute Nucleated RBC Nucleated RBC % (auto) VBG pH VBG pCO2 VBG pO2 VBG HCO3 VBG O2 Saturation VBG Base Excess Anion Gap 9 L Estim Creat Clear Calc 112.5 Estimated GFR > 60 POC Glucose 273 H Random Glucose 287 H Estimat Average Glucose 318 Hemoglobin A1c % 12.7 H Lactic Acid Calcium 8.2 L D Magnesium Total Bilirubin Direct Bilirubin AST ALT Alkaline Phosphatase Total Protein Albumin Beta-Hydroxybutyrate Beta HCG, Quant 12/09/22 11:25 MCV MCH MCHC RDW Plt Count MPV Immature Gran % (Auto) Neut % (Auto) Lymph % (Auto) [place] % (Auto) Eos % (Auto) Baso % (Auto) Lymph # (Auto) [place] # (Auto) Eos # (Auto) Baso # (Auto) Abs Immat Gran (auto) Absolute Neuts (auto) Absolute Nucleated RBC Nucleated RBC % (auto) VBG pH VBG pCO2 VBG pO2 VBG HCO3 VBG O2 Saturation VBG Base Excess Anion Gap Estim Creat Clear Calc Estimated GFR POC Glucose 221 H Random Glucose Estimat Average Glucose Hemoglobin A1c % Lactic Acid Calcium Magnesium Total Bilirubin Direct Bilirubin AST ALT Alkaline Phosphatase Total Protein Albumin Beta-Hydroxybutyrate Beta HCG, Quant Assessment and Plan (1) Abscess of buttock, left: Status: Acute Plan This is a 36-year-old female with pertinent history of insulin-dependent diabetes mellitus who presents to the emergency department for evaluation of fevers and chills. Sepsis due to left buttock abscess met sepsis criteria with leukocytosis and tachycardia. LA wnl, no severe features. tachycardia resolved, leukocytosis trending down s/p I&D in the ER 12/08 continue IV vanco/zosyn - follow renal fxn while on vanco, follow vanco trough general surgery following follow blood cultures Uncontrolled insulin-dependent diabetes mellitus with hyperglycemia Due to noncompliance with insulin as patient lost insurance Hba1c 12.7 Initiated basal plus insulin regimen - follow POCs for insulin requirements DVT prophylaxis: Lovenox Full code attending - dr. Walton requires ongoing inpatient hospitalization for management of uncontrolled diabetes, IV antibiotics for buttock abscess Time Spent With Patient Time: Total time managing care of this patient today ____ minutes. Quality Stroke Does the patient have a stroke diagnosis?: No VTE Prior VTE?: No VTE Risk Level:: Medical - moderate - high VTE Device Contraindication: Treatment Not Indicated VTE Drug Contraindication: N/A - Med Ordered
[2022-12-09] MEDS: HYDROmorphone HCl 0.5 MG/0.5 ML SYRINGE 0.25 MG IVPUSH ×2 (14:35→23:48)
[2022-12-09 15:14] VITALS: BP 113/74; PULSE 101; RESP 18; TEMP 36.2; O2SAT 98
[2022-12-09 16:13] LABS: Glucose, Whole Blood 236 mg/dL (60-115)
--- NOTE | 2022-12-09 16:30 | MHC.CM.PN ---
36 yr old Female DX FEVER. She lives with her dtr. She is independent with all functional mobility. She declined the offer to document a HCP. DP home self care. Patient will arrange for a ride home at discharge.
[2022-12-09] MEDS: Acetaminophen 325 MG TABLET 650 MG PO (16:36)
[2022-12-09 19:42] LABS: Glucose, Whole Blood 186 mg/dL (60-115)
[2022-12-09] MEDS: Melatonin 3 MG TABLET 6 MG PO (21:21)
[2022-12-09 23:27] VITALS: BP 100/68; PULSE 91; RESP 18; TEMP 36.2; O2SAT 97
[2022-12-10 02:12] LABS: Glucose, Whole Blood 171 mg/dL (60-115)
--- NOTE | 2022-12-10 05:49 | MHC.PIE ---
p; pt noted dwith n/v, note; prn zofran given at 0000. i; dr johnson notified; give zofran early dose now e; will cont to monitor
[2022-12-10] MEDS: ondansetron HCL 4 MG/2 ML VIAL IVPUSH ×2 (05:51→15:50)
[2022-12-10] MEDS: HYDROmorphone HCl 0.5 MG/0.5 ML SYRINGE 0.25 MG IVPUSH (05:54)
[2022-12-10] MEDS: Piperacillin Sodium/Tazobactam 4.5 GM in 0.9 % Sodium Chloride 100 ML IV ×4 (05:55→23:44)
[2022-12-10 06:23] LABS: Estimated Glomerular Filt Rate 47
[2022-12-10 06:50] VITALS: BP 162/80; PULSE 86; RESP 16; TEMP 36.6; O2SAT 96
[2022-12-10 07:23] LABS: Glucose, Whole Blood 182 mg/dL (60-115)
[2022-12-10] MEDS: Insulin Lispro 100 UNIT/ML 3 ML VIAL SUBCUT ×3 (07:43→17:48)
[2022-12-10] MEDS: Lactated Ringers 1,000 ML 100 ML IVCONT ×2 (07:43→17:47)
[2022-12-10] MEDS: Famotidine/PF 20 MG/2 ML VIAL IVPUSH (09:31)
[2022-12-10] MEDS: Enoxaparin Sodium 40 MG/0.4 ML SYRINGE SUBCUT (09:31)
[2022-12-10 11:16] LABS: Glucose, Whole Blood 206 mg/dL (60-115)
[2022-12-10 11:23] LABS: Vancomycin Random 30.9 mcg/mL (15-20)
--- NOTE | 2022-12-10 11:36 | HE.PHANOTE ---
Re: vanco dosing Despite insight stating current dose would give trough of about 13.4, trough today came in at 30.9 even though it was drawn an hour late. There are problems in the lab right now but they seem to think this is a valid level and pt did experience a drastic change in renal function from 0.7 SCr yesterday to 1.29 today. Dose held and new level ordered for 2100 tonight to see if it's coming down at all and try to reassess for new dosing probably starting tomorrow morning.
[2022-12-10 11:41] LABS: Alanine Aminotransferase 16 U/L (0-31); Albumin Level 3.2 g/dL (3.5-5.0); Alkaline Phosphatase 93 U/L (39-117); Aspartate Amino Transferase 21 U/L (5-31); Bilirubin Direct 0.3 mg/dL (0.0-0.5); Bilirubin Total 0.9 mg/dL (0.0-1.0); Lipase 10 U/L (8-78); Total Protein 6.4 g/dL (6.5-8.0)
--- NOTE | 2022-12-10 12:34 | MHC.CM.PN ---
Per MD rounds no discharge today. Patient continues with N/V. Met with the patient to discuss discharge planning. Patient states that she will not need a visiting nurse. Patient informed that if there is a need for SN, CM will arrange. DP home self care. Patient will arrange for transport home.
--- NOTE | 2022-12-10 13:47 | HO.PM.IMPN ---
Subjective Subjective Date of Service: 12/10/22 Interval History: seen and examined this morning follow up for left buttock abscess having nausea, vomiting with pain meds not feeling well. no fever/chills Review of Systems Review of Systems: Yes all other systems are reviewed and are negative Constitutional Constitutional: Denies chills and Denies fever(s) Cardiovascular Cardiovascular: Denies chest pain, Denies palpitations and Denies dyspnea Respiratory Respiratory: Denies cough and Denies dyspnea Gastrointestinal Gastrointestinal: Denies abdominal pain, Denies diarrhea, Reports nausea and Reports vomiting Endocrine Endocrine: Denies palpitations Physical Exam Vital Signs: Vital Signs: Last Vital Signs Temp 98 F 12/10/22 06:50 Pulse 86 12/10/22 06:50 Resp 16 12/10/22 06:50 BP 162/80 H 12/10/22 06:50 Pulse Ox 96 12/10/22 06:50 O2 Del Method Room Air 12/10/22 06:50 BMI result Body Mass Index 25.4 Const: General: alert and awake Nutritional Appearance: average body habitus Orientation/consciousness: patient oriented x3 Resp: Effort & Inspection: normal respiratory effort, able to speak in complete sentences, no respiratory distress and no use of accessory muscles Cardio: Rate: regular rate GI: Inspection: No distended Palpation (GI): Soft to palpation Skin: Other: left buttock I&D site, minimal residual induration Neuro: General: patient oriented x3, moves all extremities and CN's II-XI intact bilaterally Extrem: General: Yes no pedal edema Objective Data Active Medications Acetaminophen (Acetaminophen 325 Mg Tablet) 650 mg PO Q6H PRN PRN Reason: Pain, Mild (Pain Scale 1-3) Last Admin: 12/09/22 16:36 Dose: 650 mg Documented By: GRETCHEN Dextrose (Dextrose 50 % 25 Gm/50 Ml Syringe) 25 gm IVPUSH Q15M PRN; Protocol PRN Reason: per Hypoglycemia Standing Ord. Enoxaparin Sodium (Enoxaparin Sodium 40 Mg/0.4 Ml Syringe) 40 mg SUBCUT Q24H [facility] Last Admin: 12/10/22 09:31 Dose: 40 mg Documented By: MAGGIENM Glucose (Glucose Gel 15 Gm Gel..Gram.) 15 gm PO Q15M PRN; Protocol PRN Reason: per Hypoglycemia Standing Ord. Piperacillin Sod/Tazobactam (Sod 4.5 gm/ Sodium Chloride) 100 mls @ 200 mls/hr IV 0000,0600,1200,1800 [facility] Last Infusion: 12/10/22 12:10 Dose: 0 mls/hr Documented By: YAZMIN Lactated Ringer's (Lr) 1,000 mls @ 100 mls/hr IVCONT .Q10H [facility] Last Admin: 12/10/22 07:43 Dose: 100 mls/hr Documented By: YAZMIN Insulin Glargine (Insulin Glargine,Hum.Rec.Anlog 100 Unit/Ml 10 Ml Vial) 15 unit SUBCUT BEDTIME [facility] Last Admin: 12/09/22 21:20 Dose: 15 unit Documented By: PADMINI Insulin Human Lispro (Insulin Lispro 100 Unit/Ml 3 Ml Vial) 0 unit SUBCUT QIDACHS [facility]; Protocol Last Admin: 12/10/22 11:38 Dose: 4 unit Documented By: YAZMIN Melatonin (Melatonin 3 Mg Tablet) 6 mg PO BEDTIME PRN PRN Reason: Insomnia Last Admin: 12/09/22 21:21 Dose: 6 mg Documented By: PADMINI Ondansetron HCl (Ondansetron Hcl 4 Mg/2 Ml Vial) 4 mg IVPUSH Q8H PRN PRN Reason: Nausea and Vomiting Last Admin: 12/10/22 05:51 Dose: 4 mg Documented By: PADMINI Comments: early dose, md mcdonald Oxycodone HCl (Oxycodone Hcl Immed Release 5 Mg Tablet) 5 mg PO Q6H PRN PRN Reason: Pain, Severe (Pain Scale 7-10) Pharmacy Consult (Consult Rx Vancomycin Dosing) 1 each MISCELLANE DAILY PRN PRN Reason: Consult order Sodium Chloride (0.9 % Sodium Chloride Flush 3 Ml Syringe) 3 ml IVFLUSH QSHIFT [facility] Last Admin: 12/10/22 08:33 Dose: Not Given Documented By: YAZMIN Non-Admin Reason: IV Running Tramadol HCl (Tramadol Hcl 50 Mg Tablet) 50 mg PO Q4H PRN PRN Reason: Pain, Moderate(Pain Scale 4-6) Last Admin: 12/09/22 21:21 Dose: 50 mg Documented By: PADMINI Labs 12/09/22 05:14 09/01/23 05:11 Labs: Laboratory Results - last 24 hr 12/09/22 12/09/22 12/10/22 16:01 19:36 02:06 Estim Creat Clear Calc Estimated GFR POC Glucose 236 H 186 H 171 H Total Bilirubin Direct Bilirubin AST ALT Alkaline Phosphatase Total Protein Albumin Lipase Random Vancomycin 12/10/22 12/10/22 12/10/22 05:11 06:54 09:52 Estim Creat Clear Calc 61.0 Estimated GFR 47 POC Glucose 182 H Total Bilirubin 0.9 Direct Bilirubin 0.3 AST 21 ALT 16 Alkaline Phosphatase 93 Total Protein 6.4 L Albumin 3.2 L Lipase 10 Random Vancomycin 30.9 H* 12/10/22 11:07 Estim Creat Clear Calc Estimated GFR POC Glucose 206 H Total Bilirubin Direct Bilirubin AST ALT Alkaline Phosphatase Total Protein Albumin Lipase Random Vancomycin Microbiology Microbiology Results: Microbiology 12/08/22 19:13 Blood Culture - Preliminary Blood - Venous No growth after 24 hours. 12/08/22 19:14 Blood Culture - Preliminary Blood - Venous No growth after 24 hours. Assessment and Plan (1) Abscess of buttock, left: Status: Acute Plan This is a 36-year-old female with pertinent history of insulin-dependent diabetes mellitus who presents to the emergency department for evaluation of fevers and chills. Sepsis due to left buttock abscess met sepsis criteria with leukocytosis and tachycardia. LA wnl, no severe features. tachycardia resolved, leukocytosis trending down s/p I&D in the ER 12/08 continue IV vanco/zosyn - follow renal fxn while on vanco, follow vanco trough general surgery following blood cultures negative to date Uncontrolled insulin-dependent diabetes mellitus with hyperglycemia Due to noncompliance with insulin as patient lost insurance Hba1c 12.7 Initiated basal plus insulin regimen - follow POCs for insulin requirements N/V most likely r/t pain meds lipase, LFTs negative continue antiemetics will adjust pain meds DVT prophylaxis: Lovenox Full code attending - dr. Walton requires ongoing inpatient hospitalization for management of uncontrolled diabetes, IV antibiotics for buttock abscess Time Spent With Patient Time: Total time managing care of this patient today ____ minutes. Quality Stroke Does the patient have a stroke diagnosis?: No VTE Prior VTE?: No VTE Risk Level:: Medical - moderate - high VTE Device Contraindication: Treatment Not Indicated VTE Drug Contraindication: N/A - Med Ordered
[2022-12-10 15:30] VITALS: PULSE 89; RESP 16; TEMP 36.2; O2SAT 96
[2022-12-10 15:54] VITALS: BP 188/90; PULSE 89
--- NOTE | 2022-12-10 16:13 | PM.PNGS ---
Subjective Subjective Date of Service: 12/10/22 Interval history: Says she is still sore No fever Physical Exam Vital Signs: Vital Signs: Last Vital Signs Temp 97.2 F 12/10/22 15:30 Pulse 89 12/10/22 15:54 Resp 16 12/10/22 15:30 BP 188/90 H 12/10/22 15:54 Pulse Ox 96 12/10/22 15:30 O2 Del Method Room Air 12/10/22 15:30 BMI result Body Mass Index 25.4 Const: Other: Complains of pain General: no acute distress Resp: Effort & Inspection: normal respiratory effort Cardio: Rate: regular rate GI: Other: Rectal exam - I&D site clean on the left buttock near the perianal area, some scanty drainage, minimal residual induration Objective Data Active Medications Acetaminophen (Acetaminophen 325 Mg Tablet) 650 mg PO Q6H PRN PRN Reason: Pain, Mild (Pain Scale 1-3) Last Admin: 12/09/22 16:36 Dose: 650 mg Documented By: GRETCHEN Dextrose (Dextrose 50 % 25 Gm/50 Ml Syringe) 25 gm IVPUSH Q15M PRN; Protocol PRN Reason: per Hypoglycemia Standing Ord. Enoxaparin Sodium (Enoxaparin Sodium 40 Mg/0.4 Ml Syringe) 40 mg SUBCUT Q24H [facility] Last Admin: 12/10/22 09:31 Dose: 40 mg Documented By: YAZMIN Famotidine (Famotidine/Pf 20 Mg/2 Ml Vial) 20 mg IVPUSH DAILY [facility] Glucose (Glucose Gel 15 Gm Gel..Gram.) 15 gm PO Q15M PRN; Protocol PRN Reason: per Hypoglycemia Standing Ord. Piperacillin Sod/Tazobactam (Sod 4.5 gm/ Sodium Chloride) 100 mls @ 200 mls/hr IV 0000,0600,1200,1800 [facility] Last Infusion: 12/10/22 12:10 Dose: 0 mls/hr Documented By: YAZMIN Lactated Ringer's (Lr) 1,000 mls @ 100 mls/hr IVCONT .Q10H [facility] Last Admin: 12/10/22 07:43 Dose: 100 mls/hr Documented By: YAZMIN Insulin Glargine (Insulin Glargine,Hum.Rec.Anlog 100 Unit/Ml 10 Ml Vial) 15 unit SUBCUT BEDTIME [facility] Last Admin: 12/09/22 21:20 Dose: 15 unit Documented By: PADMINI Insulin Human Lispro (Insulin Lispro 100 Unit/Ml 3 Ml Vial) 0 unit SUBCUT QIDACHS [facility]; Protocol Last Admin: 12/10/22 11:38 Dose: 4 unit Documented By: YAZMIN Melatonin (Melatonin 3 Mg Tablet) 6 mg PO BEDTIME PRN PRN Reason: Insomnia Last Admin: 12/09/22 21:21 Dose: 6 mg Documented By: PADMINI Ondansetron HCl (Ondansetron Hcl 4 Mg/2 Ml Vial) 4 mg IVPUSH Q8H PRN PRN Reason: Nausea and Vomiting Last Admin: 12/10/22 15:50 Dose: 4 mg Documented By: YAZMIN Oxycodone HCl (Oxycodone Hcl Immed Release 5 Mg Tablet) 5 mg PO Q6H PRN PRN Reason: Pain, Severe (Pain Scale 7-10) Pharmacy Consult (Consult Rx Vancomycin Dosing) 1 each MISCELLANE DAILY PRN PRN Reason: Consult order Sodium Chloride (0.9 % Sodium Chloride Flush 3 Ml Syringe) 3 ml IVFLUSH [facility] Last Admin: 12/10/22 08:33 Dose: Not Given Documented By: YAZMIN Non-Admin Reason: IV Running Tramadol HCl (Tramadol Hcl 50 Mg Tablet) 50 mg PO Q4H PRN PRN Reason: Pain, Moderate(Pain Scale 4-6) Last Admin: 12/09/22 21:21 Dose: 50 mg Documented By: PADMINI Labs 12/09/22 05:14 12/10/22 05:11 Labs: Laboratory Results - last 24 hr 12/09/22 12/09/22 12/10/22 16:01 19:36 02:06 Estim Creat Clear Calc Estimated GFR POC Glucose 236 H 186 H 171 H Total Bilirubin Direct Bilirubin AST ALT Alkaline Phosphatase Total Protein Albumin Lipase Random Vancomycin 12/10/22 12/10/22 12/10/22 05:11 06:54 09:52 Estim Creat Clear Calc 61.0 Estimated GFR 47 POC Glucose 182 H Total Bilirubin 0.9 Direct Bilirubin 0.3 AST 21 ALT 16 Alkaline Phosphatase 93 Total Protein 6.4 L Albumin 3.2 L Lipase 10 Random Vancomycin 30.9 H* 12/10/22 11:07 Estim Creat Clear Calc Estimated GFR POC Glucose 206 H Total Bilirubin Direct Bilirubin AST ALT Alkaline Phosphatase Total Protein Albumin Lipase Random Vancomycin Microbiology Microbiology Results: Microbiology 12/08/22 19:13 Blood Culture - Preliminary Blood - Venous No growth after 24 hours. 12/08/22 19:14 Blood Culture - Preliminary Blood - Venous No growth after 24 hours. Procedures Date of Service Date of Service: 12/10/22 Progress Note: A&P Assessment and plan (1) Abscess of buttock, left: Status: Acute Assessment and Plan: I&D done by the ED staff Continue pain management Antibiotics based on cultures I can see her in the office for follow-up as needed Time Spent With Patient Time: Total time managing care of this patient today ____ minutes. Quality Stroke Does the patient have a stroke diagnosis?: No VTE Prior VTE?: No VTE Risk Level:: Medical - moderate - high VTE Device Contraindication: Treatment Not Indicated VTE Drug Contraindication: N/A - Med Ordered
[2022-12-10 16:27] LABS: Glucose, Whole Blood 186 mg/dL (60-115)
--- NOTE | 2022-12-10 18:11 | PC.NURSE ---
Radha from [employer] assisted with giving family update and answering question
[2022-12-10 20:11] LABS: Glucose, Whole Blood 168 mg/dL (60-115)
[2022-12-10 23:39] VITALS: BP 168/98; PULSE 97; RESP 16; TEMP 37.4; O2SAT 94
[2022-12-10 23:39] LABS: Lipase 7 U/L (8-78)
[2022-12-11] MEDS: Lactated Ringers 1,000 ML 100 ML IVCONT (05:32)
[2022-12-11] MEDS: Piperacillin Sodium/Tazobactam 4.5 GM in 0.9 % Sodium Chloride 100 ML IV ×4 (05:32→23:54)
[2022-12-11 07:37] VITALS: BP 169/99; PULSE 100; RESP 16; TEMP 36.2; O2SAT 94
[2022-12-11 07:37] LABS: Glucose, Whole Blood 223 mg/dL (60-115)
[2022-12-11] MEDS: Insulin Lispro 100 UNIT/ML 3 ML VIAL SUBCUT ×7 (07:53→23:00)
[2022-12-11] MEDS: Famotidine/PF 20 MG/2 ML VIAL IVPUSH (07:53)
[2022-12-11] MEDS: Enoxaparin Sodium 40 MG/0.4 ML SYRINGE SUBCUT (07:53)
--- NOTE | 2022-12-11 08:43 | P.PNIM_ITS ---
Subjective Subjective Date of Service: 12/11/22 Interval History: seen and examined this morning follow up for left buttock abscess having nausea, vomiting with pain meds Review of Systems Review of Systems: Yes all other systems are reviewed and are negative Constitutional Constitutional: Denies chills and Denies fever(s) Cardiovascular Cardiovascular: Denies chest pain, Denies palpitations and Denies dyspnea Respiratory Respiratory: Denies cough and Denies dyspnea Gastrointestinal Gastrointestinal: Denies abdominal pain, Denies diarrhea, Reports nausea and Reports vomiting Endocrine Endocrine: Denies palpitations Physical Exam Vital Signs: Vital Signs: Last Vital Signs Temp 97.1 F 12/11/22 07:37 Pulse 100 12/11/22 07:37 Resp 16 12/11/22 07:37 BP 169/99 H 12/11/22 07:37 Pulse Ox 94 12/11/22 07:37 O2 Del Method Room Air 12/11/22 07:37 BMI result Body Mass Index 25.4 Appearing in no acute distress lung sounds are clear to auscultation heart regular rate rhythm, clear S1, S2 positive bowel sounds, abdomen is soft, nontender neuro patient is alert x3, no focal deficits Objective Data Active Medications Acetaminophen (Acetaminophen 325 Mg Tablet) 650 mg PO Q6H PRN PRN Reason: Pain, Mild (Pain Scale 1-3) Last Admin: 12/09/22 16:36 Dose: 650 mg Documented By: GRETCHEN Dextrose (Dextrose 50 % 25 Gm/50 Ml Syringe) 25 gm IVPUSH Q15M PRN; Protocol PRN Reason: per Hypoglycemia Standing Ord. Enoxaparin Sodium (Enoxaparin Sodium 40 Mg/0.4 Ml Syringe) 40 mg SUBCUT Q24H [facility] Last Admin: 12/11/22 07:53 Dose: 40 mg Documented By: NICHOLE Famotidine (Famotidine/Pf 20 Mg/2 Ml Vial) 20 mg IVPUSH DAILY [facility] Last Admin: 12/11/22 07:53 Dose: 20 mg Documented By: NICHOLE Glucose (Glucose Gel 15 Gm Gel..Gram.) 15 gm PO Q15M PRN; Protocol PRN Reason: per Hypoglycemia Standing Ord. Piperacillin Sod/Tazobactam (Sod 4.5 gm/ Sodium Chloride) 100 mls @ 200 mls/hr IV 0000,0600,1200,1800 [facility] Last Infusion: 12/11/22 06:13 Dose: 0 mls/hr Documented By: SHARRI Lactated Ringer's (Lr) 1,000 mls @ 100 mls/hr IVCONT .Q10H [facility] Last Admin: 12/11/22 05:32 Dose: 100 mls/hr Documented By: SHARRI Vancomycin HCl 750 mg/ Sodium (Chloride) 265 mls @ 265 mls/hr IV Q24H [facility] Insulin Glargine (Insulin Glargine,Hum.Rec.Anlog 100 Unit/Ml 10 Ml Vial) 15 unit SUBCUT BEDTIME [facility] Last Admin: 12/10/22 21:33 Dose: Not Given Documented By: SHARRI Non-Admin Reason: Patient Refused Insulin Human Lispro (Insulin Lispro 100 Unit/Ml 3 Ml Vial) 0 unit SUBCUT QIDACHS [facility]; Protocol Last Admin: 12/11/22 07:53 Dose: 4 unit Documented By: NICHOLE Melatonin (Melatonin 3 Mg Tablet) 6 mg PO BEDTIME PRN PRN Reason: Insomnia Last Admin: 12/09/22 21:21 Dose: 6 mg Documented By: PADMINI Ondansetron HCl (Ondansetron Hcl 4 Mg/2 Ml Vial) 4 mg IVPUSH Q8H PRN PRN Reason: Nausea and Vomiting Last Admin: 12/10/22 15:50 Dose: 4 mg Documented By: YAZMIN Oxycodone HCl (Oxycodone Hcl Immed Release 5 Mg Tablet) 5 mg PO Q6H PRN PRN Reason: Pain, Severe (Pain Scale 7-10) Pharmacy Consult (Consult Rx Vancomycin Dosing) 1 each MISCELLANE DAILY PRN PRN Reason: Consult order Sodium Chloride (0.9 % Sodium Chloride Flush 3 Ml Syringe) 3 ml IVFLUSH QSHIFT [facility] Last Admin: 12/11/22 07:44 Dose: Not Given Documented By: NICHOLE Non-Admin Reason: IV Running Tramadol HCl (Tramadol Hcl 50 Mg Tablet) 50 mg PO Q4H PRN PRN Reason: Pain, Moderate(Pain Scale 4-6) Last Admin: 12/09/22 21:21 Dose: 50 mg Documented By: PADMINI Labs 12/09/22 05:14 12/10/22 05:11 Labs: Laboratory Results - last 24 hr 12/10/22 12/10/22 12/10/22 05:11 09:52 11:07 POC Glucose 206 H Total Bilirubin 0.9 Direct Bilirubin 0.3 AST 21 ALT 16 Alkaline Phosphatase 93 Total Protein 6.4 L Albumin 3.2 L Lipase 10 Random Vancomycin 30.9 H* 12/10/22 12/10/22 12/10/22 16:23 19:10 20:07 POC Glucose 186 H 168 H Total Bilirubin Direct Bilirubin AST ALT Alkaline Phosphatase Total Protein Albumin Lipase Random Vancomycin 29.0 H* 12/10/22 12/11/22 23:12 07:34 POC Glucose 223 H Total Bilirubin Direct Bilirubin AST ALT Alkaline Phosphatase Total Protein Albumin Lipase 7 L Random Vancomycin Microbiology Microbiology Results: Microbiology 12/08/22 19:13 Blood Culture - Preliminary Blood - Venous No growth after 48 hours. 12/08/22 19:14 Blood Culture - Preliminary Blood - Venous No growth after 48 hours. Assessment and Plan (1) Abscess of buttock, left: Status: Acute Plan 36-year-old female with pertinent history of insulin-dependent diabetes mellitus who presents to the emergency department for evaluation of fevers and chills. Sepsis due to left buttock abscess s/p I&D in the ER 12/08 continue IV vanco/zosyn - follow renal fxn while on vanco, follow vanco trough general surgery following blood cultures negative to date Uncontrolled insulin-dependent diabetes mellitus with hyperglycemia Due to noncompliance with insulin as patient lost insurance Hba1c 12.7 Initiated basal plus insulin regimen - follow POCs for insulin requirements N/V most likely r/t pain meds lipase, LFTs negative continue antiemetics adjust pain meds DVT prophylaxis: Lovenox Full code attending - dr. Fleming requires ongoing inpatient hospitalization for management of uncontrolled diabetes, IV antibiotics for buttock abscess Time Spent With Patient Time: Total time managing care of this patient today ____ minutes. Quality Stroke Does the patient have a stroke diagnosis?: No VTE Prior VTE?: No VTE Risk Level:: Medical - moderate - high VTE Device Contraindication: Treatment Not Indicated VTE Drug Contraindication: N/A - Med Ordered
[2022-12-11 09:02] LABS: Hematocrit 37.1 % (37.0-47.0); Hemoglobin 12.6 g/dl (12.0-16.0); Mean Corpuscular Hemoglobin 28.6 pg (27.0-33.0); Mean Corpuscular Volume 84.3 fL (80.0-98.0); Mean Platelet Volume 12.6 fL (9.4-12.3); Platelet Count 152 X10*3/uL (160-400); Red Cell Distribution Width 11.9 % (11.0-16.0); White Blood Count 15.7 X10*3/uL (4.8-10.8)
[2022-12-11 10:26] LABS: Vancomycin Random 26.1 mcg/mL (15-20)
--- NOTE | 2022-12-11 10:27 | PC.NURSE ---
Mary Beth Stewart 26.1 critical from lab, message sent to [facility].
[2022-12-11 10:37] LABS: Anion Gap 19 (12-20); Blood Urea Nitrogen 27 mg/dL (9-16); Calcium 9.4 mg/dL (8.4-10.2); Carbon Dioxide 17 mmol/L (22-29); Chloride 101 mmol/L (96-108); Creatinine Clr Calc Pharmacy 24.3; Estimated Glomerular Filt Rate 16; Glucose Random 401 mg/dL (60-115); Potassium 4.4 mmol/L (3.3-5.1); Sodium 133 mmol/L (135-145)
[2022-12-11 10:40] VITALS: BP 140/70
[2022-12-11] MEDS: 0.9 % Sodium Chloride 1,000 ML 125 ML IVCONT (11:28)
[2022-12-11 11:32] LABS: Glucose, Whole Blood 397 mg/dL (60-115)
--- NOTE | 2022-12-11 15:51 | PC.NURSE ---
Pt lost IV access, three different staff members attempted to place a IV, unable, LABOR RELATIONS OR PERSONNEL NEGOTIATOR notified. ED Nurse asked to see if a provider from the ED can place a US guided IV for patient.
[2022-12-11 15:59] VITALS: BP 149/85; PULSE 94; RESP 18; TEMP 36.8; O2SAT 99
[2022-12-11 16:32] LABS: Glucose, Whole Blood 304 mg/dL (60-115)
[2022-12-11 16:42] VITALS: TEMP 37.2
[2022-12-11] MEDS: ondansetron HCL 4 MG/2 ML VIAL IVPUSH (18:14)
[2022-12-11 22:48] LABS: Glucose, Whole Blood 210 mg/dL (60-115)
[2022-12-11] MEDS: Insulin Glargine,Hum.rec.anlog 100 UNIT/ML 10 ML VIAL 15 UNIT SUBCUT (22:58)
[2022-12-11 23:52] VITALS: BP 145/89; PULSE 98; RESP 18; TEMP 36.5; O2SAT 97
[2022-12-12] MEDS: 0.9 % Sodium Chloride 1,000 ML 125 ML IVCONT ×2 (00:02→10:04)
[2022-12-12] MEDS: Piperacillin Sodium/Tazobactam 4.5 GM in 0.9 % Sodium Chloride 100 ML IV ×2 (05:58→13:54)
[2022-12-12] MEDS: Acetaminophen 325 MG TABLET 650 MG PO (06:02)
[2022-12-12 06:05] VITALS: BP 161/90
[2022-12-12 07:14] LABS: Vancomycin Random 20.1 mcg/mL (15-20)
[2022-12-12 07:16] LABS: Creatinine Clr Calc Pharmacy 20.8; Estimated Glomerular Filt Rate 14
[2022-12-12 08:00] VITALS: BP 158/90; PULSE 89; RESP 18; TEMP 36.5; O2SAT 92
[2022-12-12 08:02] LABS: Glucose, Whole Blood 248 mg/dL (60-115)
--- NOTE | 2022-12-12 08:21 | HO.PM.IMPN ---
Subjective Subjective Date of Service: 12/12/22 Interval History: seen and examined this morning follow up for left buttock abscess having nausea, vomiting with pain meds Review of Systems Review of Systems: Yes all other systems are reviewed and are negative Constitutional Constitutional: Denies chills and Denies fever(s) Cardiovascular Cardiovascular: Denies chest pain, Denies palpitations and Denies dyspnea Respiratory Respiratory: Denies cough and Denies dyspnea Gastrointestinal Gastrointestinal: Denies abdominal pain, Denies diarrhea, Reports nausea and Reports vomiting Endocrine Endocrine: Denies palpitations Physical Exam Vital Signs: Vital Signs: Last Vital Signs Temp 97.7 F 12/12/22 08:00 Pulse 89 12/12/22 08:00 Resp 18 12/12/22 08:00 BP 158/90 H 12/12/22 08:00 Pulse Ox 92 12/12/22 08:00 O2 Del Method Room Air 12/12/22 08:00 BMI result Body Mass Index 25.4 Appearing in no acute distress lung sounds are clear to auscultation heart regular rate rhythm, clear S1, S2 positive bowel sounds, abdomen is soft, nontender neuro patient is alert x3, no focal deficits Objective Data Active Medications Acetaminophen (Acetaminophen 325 Mg Tablet) 650 mg PO Q6H PRN PRN Reason: Pain, Mild (Pain Scale 1-3) Last Admin: 12/12/22 06:02 Dose: 650 mg Documented By: SHARRI Dextrose (Dextrose 50 % 25 Gm/50 Ml Syringe) 25 gm IVPUSH Q15M PRN; Protocol PRN Reason: per Hypoglycemia Standing Ord. Enoxaparin Sodium (Enoxaparin Sodium 40 Mg/0.4 Ml Syringe) 40 mg SUBCUT Q24H [facility] Last Admin: 12/11/22 07:53 Dose: 40 mg Documented By: NICHOLE Famotidine (Famotidine/Pf 20 Mg/2 Ml Vial) 20 mg IVPUSH DAILY [facility] Last Admin: 12/11/22 07:53 Dose: 20 mg Documented By: NICHOLE Glucose (Glucose Gel 15 Gm Gel..Gram.) 15 gm PO Q15M PRN; Protocol PRN Reason: per Hypoglycemia Standing Ord. Piperacillin Sod/Tazobactam (Sod 4.5 gm/ Sodium Chloride) 100 mls @ 200 mls/hr IV 0000,0600,1200,1800 [facility] Last Infusion: 12/12/22 06:34 Dose: 0 mls/hr Documented By: SHARRI Vancomycin HCl 750 mg/ Sodium (Chloride) 265 mls @ 265 mls/hr IV Q24H [facility] Sodium Chloride (Ns) 1,000 mls @ 125 mls/hr IVCONT .Q8H [facility] Last Admin: 12/12/22 00:02 Dose: 125 mls/hr Documented By: SHARRI Doxycycline Hyclate 100 mg/ (Sodium Chloride) 250 mls @ 166.67 mls/hr IV Q12H [facility] Insulin Glargine (Insulin Glargine,Hum.Rec.Anlog 100 Unit/Ml 10 Ml Vial) 15 unit SUBCUT BEDTIME [facility] Last Admin: 12/11/22 22:58 Dose: 15 unit Documented By: SHARRI Insulin Human Lispro (Insulin Lispro 100 Unit/Ml 3 Ml Vial) 0 unit SUBCUT QIDACHS [facility]; Protocol Last Admin: 12/11/22 22:59 Dose: 4 unit Documented By: SHARRI Insulin Human Lispro (Insulin Lispro 100 Unit/Ml 3 Ml Vial) 5 unit SUBCUT QIDAS [facility] Last Admin: 12/11/22 23:00 Dose: 5 unit Documented By: SHARRI Melatonin (Melatonin 3 Mg Tablet) 6 mg PO BEDTIME PRN PRN Reason: Insomnia Last Admin: 12/09/22 21:21 Dose: 6 mg Documented By: PADMINI Ondansetron HCl (Ondansetron Hcl 4 Mg/2 Ml Vial) 4 mg IVPUSH Q8H PRN PRN Reason: Nausea and Vomiting Last Admin: 12/11/22 18:14 Dose: 4 mg Documented By: NICHOLE Oxycodone HCl (Oxycodone Hcl Immed Release 5 Mg Tablet) 5 mg PO Q6H PRN PRN Reason: Pain, Severe (Pain Scale 7-10) Pharmacy Consult (Consult Rx Vancomycin Dosing) 1 each MISCELLANE DAILY PRN PRN Reason: Consult order Sodium Chloride (0.9 % Sodium Chloride Flush 3 Ml Syringe) 3 ml IVFLUSH QSHIFT [facility] Last Admin: 12/11/22 23:02 Dose: Not Given Documented By: SHARRI Non-Admin Reason: IV Running Tramadol HCl (Tramadol Hcl 50 Mg Tablet) 50 mg PO Q4H PRN PRN Reason: Pain, Moderate(Pain Scale 4-6) Last Admin: 12/09/22 21:21 Dose: 50 mg Documented By: PADMINI Labs 12/11/22 08:34 12/12/22 05:32 Labs: Laboratory Results - last 24 hr 12/11/22 12/11/22 12/11/22 08:34 08:34 08:43 MCV 84.3 MCH 28.6 MCHC 34.0 RDW 11.9 Plt Count 152 L MPV 12.6 H Absolute Nucleated RBC 0.000 Nucleated RBC % (auto) 0.0 Anion Gap 19 Estim Creat Clear Calc 24.3 Estimated GFR 16 POC Glucose Random Glucose 401 H* Calcium 9.4 D Random Vancomycin 26.1 H* 12/11/22 12/11/22 12/11/22 10:55 16:26 22:44 MCV MCH MCHC RDW Plt Count MPV Absolute Nucleated RBC Nucleated RBC % (auto) Anion Gap Estim Creat Clear Calc Estimated GFR POC Glucose 397 H* 304 H 210 H Random Glucose Calcium Random Vancomycin 12/12/22 12/12/22 12/12/22 05:32 05:32 07:56 MCV MCH MCHC RDW Plt Count MPV Absolute Nucleated RBC Nucleated RBC % (auto) Anion Gap Estim Creat Clear Calc 20.8 Estimated GFR 14 POC Glucose 248 H Random Glucose Calcium Random Vancomycin 20.1 H Assessment and Plan (1) Abscess of buttock, left: Status: Acute Plan 36-year-old female with pertinent history of insulin-dependent diabetes mellitus who presents to the emergency department for evaluation of fevers and chills. BONIFACIO with oliguria worsening renal function likely from vanco tox check C3, 4 and ua nephrology following continue IV fluids @150ml renal us> no hydronephrosis normal-appearing kidneys bladder scan and straight cath as needed epigastric burning likely from vomiting start prilosec antiemetic GI consult, ? gastritis Sepsis due to left buttock abscess s/p I&D in the ER 12/08 Vanco stopped due to worsening renal function started doxycycline and continue zosyn general surgery following blood cultures negative to date Uncontrolled insulin-dependent diabetes mellitus with hyperglycemia Due to noncompliance with insulin as patient lost insurance Hba1c 12.7 continue sliding scale, mealtime insulin started N/V. resolving most likely r/t pain meds lipase, LFTs negative continue antiemetics adjust pain meds DVT prophylaxis: Lovenox Full code attending - dr. Fleming requires ongoing inpatient hospitalization for management of uncontrolled diabetes, IV antibiotics for buttock abscess Time Spent With Patient Time: Total time managing care of this patient today ____ minutes. Quality Stroke Does the patient have a stroke diagnosis?: No VTE Prior VTE?: No VTE Risk Level:: Medical - moderate - high VTE Device Contraindication: Treatment Not Indicated VTE Drug Contraindication: N/A - Med Ordered
[2022-12-12] MEDS: Insulin Lispro 100 UNIT/ML 3 ML VIAL SUBCUT ×7 (09:08→22:04)
[2022-12-12] MEDS: Enoxaparin Sodium 40 MG/0.4 ML SYRINGE SUBCUT (09:09)
--- NOTE | 2022-12-12 09:15 | PM.CNNEP ---
History of Present Illness Reason for Consult Consult date: 12/12/22 Reason for consult: BONIFACIO Chief Complaint Chief complaint: Fever and buttock pain History of Present Illness Narrative: Ms. Jimenez is a 36 yo type II diabetic admitted with buttock abscess and since admission has been receiving vanco and zosyn. She had two high vanco levels on 12/09-12/10. She received in the ER a dose of Ketorolac IV. Her admission serum creat was 0.7-within 24 hrs it doubled to 1.3 and now has risen to 3.7. She remains nonoliguric. BCs thus far are negative. Vanco is on hold now. She has no rash. She does have some diarrhea which she attributes to the antibiotics. Her renal US is normal. Prior to admission, she had not been taking care of herself well in terms of her type II DM which she has had for 10 years or so: she was out of insulin due to insurance obstacles. Review of Systems Comments: generalized malaise Cardiovascular: Reports no additional cardiovascular complaints Respiratory: Reports no additional respiratory complaints Gastrointestinal: Reports constipation and Reports diarrhea Comments: no dysuria Comments: buttock discomfort Comments: no rash PMFSH Past Medical History Medical History Diabetes Family History Pertinent family history: No family history of CAD Social History Social History Household Members: Other Household Members Other:: daughter Housing: Apartment Do you presently have visiting nurse or other home services: No Patient Tobacco Use Status: Never used Tobacco service: No Current occupational status: employed 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 Enoxaparin Sodium (Enoxaparin Sodium 40 Mg/0.4 Ml Syringe) 40 mg SUBCUT Q24H [facility] Last Admin: 12/12/22 09:09 Dose: 40 mg Glucose (Glucose Gel 15 Gm Gel..Gram.) 15 gm PO Q15M PRN; Protocol PRN Reason: per Hypoglycemia Standing Ord. Piperacillin Sod/Tazobactam (Sod 4.5 gm/ Sodium Chloride) 100 mls @ 200 mls/hr IV 0000,0600,1200,1800 [facility] Last Infusion: 12/12/22 06:34 Dose: Infused Sodium Chloride (Ns) 1,000 mls @ 125 mls/hr IVCONT .Q8H [facility] Last Admin: 12/12/22 00:02 Dose: 125 mls/hr Doxycycline Hyclate 100 mg/ (Sodium Chloride) 250 mls @ 166.67 mls/hr IV Q12H [facility] Promethazine HCl 6.25 mg/ (Sodium Chloride) 50.25 mls @ 201 mls/hr IV Q6H PRN PRN Reason: Nausea Insulin Glargine (Insulin Glargine,Hum.Rec.Anlog 100 Unit/Ml 10 Ml Vial) 15 unit SUBCUT BEDTIME [facility] Last Admin: 12/11/22 22:58 Dose: 15 unit Insulin Human Lispro (Insulin Lispro 100 Unit/Ml 3 Ml Vial) 0 unit SUBCUT QIDACHS [facility]; Protocol Last Admin: 12/12/22 09:08 Dose: 4 unit Insulin Human Lispro (Insulin Lispro 100 Unit/Ml 3 Ml Vial) 5 unit SUBCUT QIDAS [facility] Last Admin: 12/12/22 09:08 Dose: 5 unit Lorazepam (Lorazepam 0.5 Mg Tablet) 0.5 mg PO Q8H PRN PRN Reason: anxiety Melatonin (Melatonin 3 Mg Tablet) 6 mg PO BEDTIME PRN PRN Reason: Insomnia Last Admin: 12/09/22 21:21 Dose: 6 mg Omeprazole (Omeprazole 20 Mg Capsule.Dr) 20 mg PO BID@0630,1630 [facility] Ondansetron HCl (Ondansetron Hcl 4 Mg/2 Ml Vial) 4 mg IVPUSH Q8H PRN PRN Reason: Nausea and Vomiting Last Admin: 12/11/22 18:14 Dose: 4 mg Oxycodone HCl (Oxycodone Hcl Immed Release 5 Mg Tablet) 5 mg PO Q6H PRN PRN Reason: Pain, Severe (Pain Scale 7-10) Pharmacy Consult (Consult Rx Vancomycin Dosing) 1 each MISCELLANE DAILY PRN PRN Reason: Consult order Sodium Chloride (0.9 % Sodium Chloride Flush 3 Ml Syringe) 3 ml IVFLUSH QSHIFT [facility] Last Admin: 12/12/22 09:09 Dose: Not Given Tramadol HCl (Tramadol Hcl 50 Mg Tablet) 50 mg PO Q4H PRN PRN Reason: Pain, Moderate(Pain Scale 4-6) Last Admin: 12/09/22 21:21 Dose: 50 mg Physical Exam Vital Signs: Last Vital Signs Temp 97.7 F 12/12/22 08:00 Pulse 89 12/12/22 08:00 Resp 18 12/12/22 08:00 BP 158/90 H 12/12/22 08:00 Pulse Ox 92 12/12/22 08:00 O2 Del Method Room Air 12/12/22 08:00 BMI result Body Mass Index 25.4 Const Other: Complains of pain General: comfortable, no acute distress, alert and awake Nutritional Appearance: average body habitus Orientation/consciousness: patient oriented x3 Resp Effort & Inspection: normal respiratory effort, able to speak in complete sentences, no respiratory distress and no use of accessory muscles Cardio Rate: regular rate GI Other: Rectal exam - I&D site clean on the left buttock near the perianal area, some scanty drainage, minimal residual induration Inspection: No distended Palpation (GI): Soft to palpation and nontender Back/Spine/Pelvis Other: I&D site on the left buttock clean, packing in place, minimal residual induration no active discharge Skin Other: left buttock I&D site, minimal residual induration Neuro General: patient oriented x3, moves all extremities and CN's II-XI intact bilaterally Extrem Other: no edema General: Yes no pedal edema Results Lab Results 12/11/22 08:34 12/12/22 05:32 Lab results: Chemistry 12/10/22 12/11/22 12/12/22 05:11 08:43 05:32 Sodium 133 L Potassium 4.4 D Carbon Dioxide 17 L BUN 27 H Creatinine 1.29 3.24 H 3.77 H Calcium 9.4 D Hematology 12/11/22 08:34 WBC 15.7 H Hgb 12.6 Plt Count 152 L Assessment and Plan (1) Acute kidney injury: Status: Acute In this setting, ddx includes ATN due to infection with exacerbation by use of NSAID in ER; Vanco toxicity is also possible though BONIFACIO started within 24 hrs of admission. Agree with holding vanco in any case. In addition, need to rule out rachel-post infectious process though doubt this given time course but can be seen early on with IgA dominant rachel-inectious GN (2) Metabolic acidosis: Status: Acute Due to BONIFACIO (3) Hyponatremia: Status: Acute Due to impaired water clearance in BONIFACIO (4) Abscess of buttock, left: Status: Acute Plan Recommendations: Hold vanco Monitor UO Check C3, C4 and IgA level (latter often elevated acutely in IgA dominant rachel-infectious GNs) Check urinalysis to assess for nephritic picture or proteinuria Oral sodium bicarb 650 bid Adequate oral intake of fluids Urine sodium, creat and osm Empiric IVF overnight 100/hr Time Spent With Patient Time: Total time managing care of this patient today ____ minutes. Procedures Date of Service Date of Service: 12/12/22
[2022-12-12 10:01] LABS: Hematocrit 34.2 % (37.0-47.0); Hemoglobin 11.6 g/dl (12.0-16.0); Mean Corpuscular HGB Conc 33.9 g/dl (31.0-35.0); Mean Corpuscular Volume 85.5 fL (80.0-98.0); Mean Platelet Volume 12.8 fL (9.4-12.3); Platelet Count 169 X10*3/uL (160-400); Red Cell Distribution Width 11.9 % (11.0-16.0); White Blood Count 10.9 X10*3/uL (4.8-10.8)
[2022-12-12] MEDS: Doxycycline Hyclate 100 MG in 0.9 % Sodium Chloride 250 ML 166.67 MG IV ×2 (10:04→22:03)
[2022-12-12] MEDS: Omeprazole 20 MG CAPSULE.DR PO ×2 (10:04→16:50)
[2022-12-12] MEDS: LORazepam 0.5 MG TABLET PO ×2 (10:16→17:11)
[2022-12-12 10:20] LABS: Anion Gap 13 (12-20); Blood Urea Nitrogen 31 mg/dL (9-16); Calcium 8.8 mg/dL (8.4-10.2); Carbon Dioxide 23 mmol/L (22-29); Chloride 105 mmol/L (96-108); Creatinine Clr Calc Pharmacy 20.6; Estimated Glomerular Filt Rate 13; Glucose Random 271 mg/dL (60-115); Magnesium 1.9 mg/dL (1.6-2.6); Potassium 3.7 mmol/L (3.3-5.1); Sodium 137 mmol/L (135-145)
[2022-12-12 11:54] LABS: Glucose, Whole Blood 244 mg/dL (60-115)
--- NOTE | 2022-12-12 12:54 | PC.NURSE ---
Peripheral IV placed by MD Pacheco via US guided. Pt tolerated well.
--- NOTE | 2022-12-12 13:52 | CONS_ITS ---
DATE OF SERVICE: 12/12/2022 REFERRING PHYSICIAN: Loree Wagner NP REASON FOR CONSULTATION: Epigastric pain. HISTORY OF PRESENT ILLNESS: The patient is a pleasant 36-year-old woman who was admitted to the hospital on December 09 with fevers and chills and was found to have sepsis due to left buttock abscess. She is currently being treated with antibiotics. Consultation is requested regarding the patient's complaints of epigastric pain. This morning, she developed nausea and vomiting after having pain medication orally. She was evaluated and started on omeprazole as well as anti emetics. Consultation is requested for possible underlying possibility of gastritis. The patient denies any prior history of peptic ulcer disease. She denies use of significant amounts of nonsteroidal anti-inflammatories. She has been started on omeprazole 20 mg b.i.d. and has also orders for Zofran p.r.n. she had been getting oxycodone as well for pain. She denies any hematemesis or melena. There is no current tobacco, alcohol, or substance abuse. PAST MEDICAL HISTORY: 1. Diabetes mellitus. 2. Buttock abscess as above. CURRENT MEDICATIONS: Current medication list is reviewed in the chart. ALLERGIES: THERE ARE NONE REPORTED. FAMILY HISTORY: This is reviewed with the patient and is noncontributory. SOCIAL HISTORY: There is no current tobacco, alcohol, or substance abuse. REVIEW OF SYSTEMS: SKIN: No pruritus. HEENT: Negative. CARDIOPULMONARY: She denies shortness of breath or chest pain. GASTROINTESTINAL: As above. GENITOURINARY: Negative. NEUROPSYCHIATRIC: Negative. PHYSICAL EXAMINATION: GENERAL: Shows a pleasant female, in no acute distress. VITAL SIGNS: Reviewed in the electronic medical record and are stable. She states she is not having epigastric pain at this time. SKIN: Anicteric. HEENT: Shows no scleral icterus. NECK: Without lymphadenopathy or thyromegaly. LUNGS: Clear. HEART: Shows a regular rate and rhythm. S1, S2. No murmur. ABDOMEN: Soft without focal masses or tenderness. Bowel sounds are present. No organomegaly is noted. EXTREMITIES: Without edema. LABORATORY DATA: Remarkable for a white blood cell count of 10.9, hematocrit 34.2. Chemistries showed normal liver profile on 12/10 as well as lipase. IMPRESSION: Epigastric pain. This may measure underlying gastritis, and I agree with treating her with a proton pump inhibitor. Some of her discomfort and nausea and vomiting could be related to pain medications. I discussed this with the patient. She will use these judiciously. If her symptoms do not improve, elective outpatient endoscopy could be considered. Thanks for asking me to see her. I will follow her in the hospital with you. MD KIMBERLY Simmons/JOVAN / [phone]
[2022-12-12 15:15] VITALS: BP 156/88; PULSE 88; RESP 18; TEMP 36.1; O2SAT 96
[2022-12-12 16:37] LABS: Glucose, Whole Blood 158 mg/dL (60-115)
[2022-12-12 17:05] LABS: Appearance Urine Cloudy; Color Urine Dark Yellow; Glucose Urine UA 100 mg/dL (Negative); Leukocyte Esterase Urine Large (3+) (Negative); Nitrite Urine Negative (Negative); PH 5.5 (5.0-9.0); UMIC TRIGGER UACC YES; Urine Blood Moderate (2+) (Negative); Urine Ketones Negative (Negative); Urine Protein Negative (Neg-Trace)
--- NOTE | 2022-12-12 17:09 | PC.NURSE ---
Addendum entered by Zeke Arango RN 12/12/22 17:15: Patient reporetd right groin pain with ambulation, resolved at rest, SUPERVISOR DUMPING notified. UA/cx pending Original Note: Assumed care at 07:00. Patient in distress this morning emotionally, emotional distress limited assessment, but eventually found to be alert and oriented x4, morning dry heaves again, poor appetite, reported urge to vomit when eating. Refused zofran and phenergran. Reports this is ongoing since tuesday and zofran makes stomach hurt. Reports discomfort in epigastric area, reports is not really pain like burning sensation. Declined medication for that either. RR was 48; 100% room air; BP was 184/99, but rechecked when not dry heaving and 167/98. Denied any urinary problem but she is oliguric over 24 hours, bladderscanned for 101 ccs. Notified SUPERVISOR DUMPING. New order PO ativan, S/P ativan, semed to be calming down HR 82. last BM today, diarrhea. Poor PO intake, a few bites of breakfast and 30% lunch, discussed question of holding any of the 9 units insulin ordered or adjust dose given 0% breakfast eaten, insulin given as ordered. Wound on left buttock assessed, and is a small pink papule with scant yellow exudate today, open to air, patient denies pain there. Patient also had a headache this morning that resolved spontaneously. SLight subjective improvement over course of day.
[2022-12-12 17:10] LABS: Bacteria Urine None Seen (None Seen); Hyaline Casts Urine 0-2 /LPF (0-2); RBC Urine >20 /HPF (0-2); UACC Culture Trigger YES
[2022-12-12 20:34] LABS: Vancomycin Random 15.1 mcg/mL (15-20)
[2022-12-12 20:37] LABS: Glucose, Whole Blood 153 mg/dL (60-115)
[2022-12-12] MEDS: Piperacillin Sodium/Tazobactam 2.25 GM in 0.9 % Sodium Chloride 50 ML IV (21:59)
[2022-12-12] MEDS: Insulin Glargine,Hum.rec.anlog 100 UNIT/ML 10 ML VIAL 15 UNIT SUBCUT (22:03)
[2022-12-12] MEDS: Melatonin 3 MG TABLET 6 MG PO (22:05)
[2022-12-12] MEDS: 0.9 % Sodium Chloride 1,000 ML 150 ML IVCONT (22:23)
[2022-12-12] MEDS: LORazepam 2 MG/ML VIAL 1 MG IVPUSH (22:26)
[2022-12-12 23:35] VITALS: BP 197/128; PULSE 97; RESP 18; TEMP 36.6; O2SAT 95
[2022-12-13] MEDS: Piperacillin Sodium/Tazobactam 2.25 GM in 0.9 % Sodium Chloride 50 ML IV ×4 (03:09→20:02)
[2022-12-13] MEDS: ondansetron HCL 4 MG/2 ML VIAL IVPUSH ×2 (03:54→13:18)
[2022-12-13] MEDS: traMADoL HCL 50 MG TABLET PO (03:54)
[2022-12-13] MEDS: Omeprazole 20 MG CAPSULE.DR PO ×2 (06:35→16:34)
[2022-12-13 06:45] LABS: Anion Gap 12 (12-20); Blood Urea Nitrogen 28 mg/dL (9-16); Calcium 8.4 mg/dL (8.4-10.2); Carbon Dioxide 18 mmol/L (22-29); Chloride 111 mmol/L (96-108); Creatinine Clr Calc Pharmacy 20.8; Estimated Glomerular Filt Rate 14; Glucose Random 196 mg/dL (60-115); Potassium 3.3 mmol/L (3.3-5.1); Sodium 138 mmol/L (135-145)
[2022-12-13 07:28] VITALS: BP 162/96; PULSE 87; RESP 12; TEMP 36.1; O2SAT 94
[2022-12-13 07:43] LABS: Glucose, Whole Blood 185 mg/dL (60-115)
[2022-12-13] MEDS: Insulin Lispro 100 UNIT/ML 3 ML VIAL SUBCUT ×2 (07:51→20:24)
[2022-12-13] MEDS: LORazepam 0.5 MG TABLET PO ×2 (07:51→19:57)
[2022-12-13] MEDS: hydrALAZINE HCl 10 MG TABLET PO (07:51)
[2022-12-13] MEDS: Enoxaparin Sodium 40 MG/0.4 ML SYRINGE SUBCUT (07:51)
[2022-12-13] MEDS: Doxycycline Hyclate 100 MG in 0.9 % Sodium Chloride 250 ML 166.67 MG IV ×2 (10:06→21:28)
[2022-12-13] MEDS: 0.9 % Sodium Chloride 1,000 ML 150 ML IVCONT ×2 (10:07→20:02)
--- NOTE | 2022-12-13 11:14 | P.PNIM_ITS ---
Subjective Subjective Date of Service: 12/13/22 Interval History: seen and examined this morning follow up for left buttock abscess having nausea, vomiting with pain meds Review of Systems Review of Systems: Yes all other systems are reviewed and are negative Constitutional Constitutional: Denies chills and Denies fever(s) Cardiovascular Cardiovascular: Denies chest pain, Denies palpitations and Denies dyspnea Respiratory Respiratory: Denies cough and Denies dyspnea Gastrointestinal Gastrointestinal: Denies abdominal pain, Denies diarrhea, Reports nausea and Reports vomiting Endocrine Endocrine: Denies palpitations Physical Exam Vital Signs: Vital Signs: Last Vital Signs Temp 97 F 12/13/22 07:28 Pulse 87 12/13/22 07:28 Resp 12 12/13/22 07:28 BP 162/96 H 12/13/22 07:28 Pulse Ox 94 12/13/22 07:28 O2 Del Method Room Air 12/13/22 07:28 BMI result Body Mass Index 25.4 Appearing in no acute distress lung sounds are clear to auscultation heart regular rate rhythm, clear S1, S2 positive bowel sounds, abdomen is soft, nontender neuro patient is alert x3, no focal deficits Objective Data Active Medications Acetaminophen (Acetaminophen 325 Mg Tablet) 650 mg PO Q6H PRN PRN Reason: Pain, Mild (Pain Scale 1-3) Last Admin: 12/12/22 06:02 Dose: 650 mg Documented By: SHARRI Dextrose (Dextrose 50 % 25 Gm/50 Ml Syringe) 25 gm IVPUSH Q15M PRN; Protocol PRN Reason: per Hypoglycemia Standing Ord. Enoxaparin Sodium (Enoxaparin Sodium 40 Mg/0.4 Ml Syringe) 40 mg SUBCUT Q24H [facility] Last Admin: 12/13/22 07:51 Dose: 40 mg Documented By: RACHELE Glucose (Glucose Gel 15 Gm Gel..Gram.) 15 gm PO Q15M PRN; Protocol PRN Reason: per Hypoglycemia Standing Ord. Sodium Chloride (Ns) 1,000 mls @ 150 mls/hr IVCONT .Q6H40M [facility] Last Admin: 12/13/22 10:07 Dose: 150 mls/hr Documented By: YAZMIN Promethazine HCl 6.25 mg/ (Sodium Chloride) 50.25 mls @ 201 mls/hr IV Q6H PRN PRN Reason: Nausea Last Admin: 12/13/22 10:49 Dose: 201 mls/hr Documented By: RACHELE Doxycycline Hyclate 100 mg/ (Sodium Chloride) 250 mls @ 166.67 mls/hr IV Q12H [facility] Last Admin: 12/13/22 10:06 Dose: 166.67 mls/hr Documented By: YAZMIN Piperacillin Sod/Tazobactam (Sod 2.25 gm/ Sodium Chloride) 50 mls @ 100 mls/hr IV Q6H [facility] Last Infusion: 12/13/22 08:22 Dose: 0 mls/hr Documented By: RACHELE Insulin Glargine (Insulin Glargine,Hum.Rec.Anlog 100 Unit/Ml 10 Ml Vial) 15 unit SUBCUT BEDTIME NAYA Last Admin: 12/12/22 22:03 Dose: 15 unit Documented By: SHARRI Insulin Human Lispro (Insulin Lispro 100 Unit/Ml 3 Ml Vial) 0 unit SUBCUT QIDACHS [facility]; Protocol Last Admin: 12/13/22 07:51 Dose: 2 unit Documented By: RACHELE Insulin Human Lispro (Insulin Lispro 100 Unit/Ml 3 Ml Vial) 5 unit SUBCUT QIDACHS [facility] Last Admin: 12/13/22 08:21 Dose: Not Given Documented By: RACHELE Non-Admin Reason: Physician Approved Lorazepam (Lorazepam 0.5 Mg Tablet) 0.5 mg PO Q8H PRN PRN Reason: anxiety Last Admin: 12/13/22 07:51 Dose: 0.5 mg Documented By: RACHELE Melatonin (Melatonin 3 Mg Tablet) 6 mg PO BEDTIME PRN PRN Reason: Insomnia Last Admin: 12/12/22 22:05 Dose: 6 mg Documented By: SHARRI Omeprazole (Omeprazole 20 Mg Capsule.) 20 mg PO BID@0630,1630 [facility] Last Admin: 12/13/22 06:35 Dose: 20 mg Documented By: SHARRI Ondansetron HCl (Ondansetron Hcl 4 Mg/2 Ml Vial) 4 mg IVPUSH Q8H PRN PRN Reason: Nausea and Vomiting Last Admin: 12/13/22 03:54 Dose: 4 mg Documented By: SHARRI Oxycodone HCl (Oxycodone Hcl Immed Release 5 Mg Tablet) 5 mg PO Q6H PRN PRN Reason: Pain, Severe (Pain Scale 7-10) Sodium Chloride (0.9 % Sodium Chloride Flush 3 Ml Syringe) 3 ml IVFLUSH [facility] Last Admin: 12/13/22 07:39 Dose: Not Given Documented By: RACHELE Non-Admin Reason: IV Running Tramadol HCl (Tramadol Hcl 50 Mg Tablet) 50 mg PO Q4H PRN PRN Reason: Pain, Moderate(Pain Scale 4-6) Last Admin: 12/13/22 03:54 Dose: 50 mg Documented By: SHARRI Labs 12/12/22 09:22 12/13/22 05:35 Labs: Laboratory Results - last 24 hr 12/12/22 12/12/22 12/12/22 11:49 16:33 16:56 Anion Gap Estim Creat Clear Calc Estimated GFR POC Glucose 244 H 158 H Random Glucose Calcium Urine Color Dark Yellow Urine Appearance Cloudy Urine pH 5.5 Ur Specific [place] 1.010 Urine Protein Negative Urine Glucose (UA) 100 H Urine Ketones Negative Urine Blood Moderate (2+) H Urine Nitrite Negative Ur Leukocyte Esterase Large (3+) H Urine RBC >20 H Urine WBC 6-10 H Ur Squamous Epith Cells 11-20 Urine Bacteria None Seen Hyaline Casts 0-2 Random Vancomycin 12/12/22 12/12/22 12/13/22 20:07 20:25 05:35 Anion Gap 12 Estim Creat Clear Calc 20.8 Estimated GFR 14 POC Glucose 153 H Random Glucose 196 H Calcium 8.4 Urine Color Urine Appearance Urine pH Ur Specific [place] Urine Protein Urine Glucose (UA) Urine Ketones Urine Blood Urine Nitrite Ur Leukocyte Esterase Urine RBC Urine WBC Ur Squamous Epith Cells Urine Bacteria Hyaline Casts Random Vancomycin 15.1 12/13/22 07:38 Anion Gap Estim Creat Clear Calc Estimated GFR POC Glucose 185 H Random Glucose Calcium Urine Color Urine Appearance Urine pH Ur Specific [place] Urine Protein Urine Glucose (UA) Urine Ketones Urine Blood Urine Nitrite Ur Leukocyte Esterase Urine RBC Urine WBC Ur Squamous Epith Cells Urine Bacteria Hyaline Casts Random Vancomycin Microbiology Microbiology Results: Microbiology 12/12/22 16:56 Urine Culture - Preliminary Urine clean catch - Urine cavazos top No growth to date. Assessment and Plan (1) Abscess of buttock, left: Status: Acute Plan 36-year-old female with pertinent history of insulin-dependent diabetes mellitus who presents to the emergency department for evaluation of fevers and chills. Elevated blood pressure reading no hx of HTN Hydralazine TID monitor BP closely BONIFACIO with oliguria. Slowly improving worsening renal function likely from vanco tox check C3, 4 and ua nephrology following continue IV fluids @150ml renal us> no hydronephrosis normal-appearing kidneys bladder scan and straight cath as needed UTI continue zosyn follow urine cx epigastric burning likely from vomiting continue prilosec antiemetic GI consult, ? gastritis Sepsis due to left buttock abscess. sepsis resolved s/p I&D in the ER 12/08 Vanco stopped due to worsening renal function started doxycycline and continue zosyn general surgery following blood cultures negative to date Uncontrolled insulin-dependent diabetes mellitus with hyperglycemia Due to noncompliance with insulin as patient lost insurance Hba1c 12.7 continue sliding scale, mealtime insulin started N/V. resolving most likely r/t pain meds lipase, LFTs negative continue antiemetics adjust pain meds DVT prophylaxis: Lovenox Full code attending - dr. Fleming requires ongoing inpatient hospitalization for management of uncontrolled diabetes, IV antibiotics for buttock abscess Time Spent With Patient Time: Total time managing care of this patient today ____ minutes. Quality Stroke Does the patient have a stroke diagnosis?: No VTE Prior VTE?: No VTE Risk Level:: Medical - moderate - high VTE Device Contraindication: Treatment Not Indicated VTE Drug Contraindication: N/A - Med Ordered
[2022-12-13 11:45] LABS: Glucose, Whole Blood 132 mg/dL (60-115)
--- NOTE | 2022-12-13 12:49 | P.PNGI_ITS ---
Subjective Subjective Date of Service: 12/13/22 Interval History: c/o epigastric pain with recurrent n/v Critical Care Time (minutes): 0 Physical Exam Vital Signs: Vital Signs: Last Vital Signs Temp 97 F 12/13/22 07:28 Pulse 87 12/13/22 07:28 Resp 12 12/13/22 07:28 BP 162/96 H 12/13/22 07:28 Pulse Ox 94 12/13/22 07:28 O2 Del Method Room Air 12/13/22 07:28 BMI result Body Mass Index 25.4 GI: Other: abdomen is soft with epigastric tenderness Objective Data Labs 12/12/22 09:22 12/13/22 05:35 Labs: Laboratory Results - last 24 hr 12/12/22 12/12/22 12/12/22 16:33 16:56 20:07 Sodium Potassium Chloride Carbon Dioxide Anion Gap BUN Creatinine Estim Creat Clear Calc Estimated GFR POC Glucose 158 H Random Glucose Calcium Urine Color Dark Yellow Urine Appearance Cloudy Urine pH 5.5 Ur Specific [place] 1.010 Urine Protein Negative Urine Glucose (UA) 100 H Urine Ketones Negative Urine Blood Moderate (2+) H Urine Nitrite Negative Ur Leukocyte Esterase Large (3+) H Urine RBC >20 H Urine WBC 6-10 H Ur Squamous Epith Cells 11-20 Urine Bacteria None Seen Hyaline Casts 0-2 Random Vancomycin 15.1 12/12/22 12/13/22 12/13/22 20:25 05:35 07:38 Sodium 138 Potassium 3.3 Chloride 111 H Carbon Dioxide 18 L Anion Gap 12 BUN 28 H Creatinine 3.78 H Estim Creat Clear Calc 20.8 Estimated GFR 14 POC Glucose 153 H 185 H Random Glucose 196 H Calcium 8.4 Urine Color Urine Appearance Urine pH Ur Specific [place] Urine Protein Urine Glucose (UA) Urine Ketones Urine Blood Urine Nitrite Ur Leukocyte Esterase Urine RBC Urine WBC Ur Squamous Epith Cells Urine Bacteria Hyaline Casts Random Vancomycin 12/13/22 11:40 Sodium Potassium Chloride Carbon Dioxide Anion Gap BUN Creatinine Estim Creat Clear Calc Estimated GFR POC Glucose 132 H Random Glucose Calcium Urine Color Urine Appearance Urine pH Ur Specific [place] Urine Protein Urine Glucose (UA) Urine Ketones Urine Blood Urine Nitrite Ur Leukocyte Esterase Urine RBC Urine WBC Ur Squamous Epith Cells Urine Bacteria Hyaline Casts Random Vancomycin Microbiology Microbiology Results: Microbiology 12/12/22 16:56 Urine clean catch - Urine cavazos top Urine Culture - Preliminary No growth to date. 12/08/22 19:13 Blood - Venous Blood Culture - Preliminary No growth after 48 hours. 12/08/22 19:14 Blood - Venous Blood Culture - Preliminary No growth after 48 hours. Procedures Date of Service Date of Service: 12/13/22 Progress Note: A&P Assessment and plan (1) Epigastric pain: Status: Acute Assessment and Plan: discussed EGD with patient for further evaulation of symptoms scheduled for 12/14. Time Spent With Patient Time: Total time managing care of this patient today ____ minutes. Quality Stroke Does the patient have a stroke diagnosis?: No VTE Prior VTE?: No VTE Risk Level:: Medical - moderate - high VTE Device Contraindication: Treatment Not Indicated VTE Drug Contraindication: N/A - Med Ordered
--- NOTE | 2022-12-13 12:53 | MHC.SHP ---
Pre-Procedural Eval Section A Date of Service: 12/13/22 The patient is an INPATIENT: Yes Changes since office visit: No Cold of Flu in the past 2 weeks, No New Medical Problems, No Changes in Medication and No Patient answered all questions The History & Physical has been completed within 30 days and I have reviewed it.: Yes Section B Chief Complaint: Fever and buttock pain Allergies: Allergies Allergy/AdvReac Type Severity Reaction Status Date / Time No Known Allergies Allergy Mild NOT Verified 12/08/22 18:04 APPLICABLE Plan I have reviewed the history and physical and performed a pertinent physical examination on my patient. No changes have occurred unless specified. Time Spent With Patient Time: Total time managing care of this patient today ____ minutes.
[2022-12-13 13:53] VITALS: BP 176/96; PULSE 95
[2022-12-13 15:10] VITALS: BP 148/108; PULSE 88; RESP 18; TEMP 36.4; O2SAT 98
[2022-12-13 16:17] LABS: Glucose, Whole Blood 125 mg/dL (60-115)
[2022-12-13] MEDS: hydrALAZINE HCl 25 MG TABLET PO ×2 (16:34→20:01)
[2022-12-13] MEDS: Insulin Glargine,Hum.rec.anlog 100 UNIT/ML 10 ML VIAL 15 UNIT SUBCUT (19:57)
[2022-12-13] MEDS: diphenhydrAMINE HCL 50 MG/ML VIAL 25 MG IVPUSH (19:58)
[2022-12-13] MEDS: 0.9 % Sodium Chloride Flush 3 ML SYRINGE IVFLUSH (20:03)
[2022-12-13 20:12] LABS: Glucose, Whole Blood 266 mg/dL (60-115)
[2022-12-14] VITALS (8 sets, daily range): BP systolic 118–176; BP diastolic 67–105; PULSE 99–113; RESP 16–20; TEMP 36–36.7; O2SAT 91–100
[2022-12-14] MEDS: Piperacillin Sodium/Tazobactam 2.25 GM in 0.9 % Sodium Chloride 50 ML IV ×4 (02:08→19:14)
[2022-12-14] MEDS: 0.9 % Sodium Chloride 1,000 ML 150 ML IVCONT (03:45)
[2022-12-14] MEDS: Omeprazole 20 MG CAPSULE.DR PO ×2 (05:28→15:30)
[2022-12-14 06:36] LABS: Anion Gap 13 (12-20); Blood Urea Nitrogen 27 mg/dL (9-16); Calcium 8.7 mg/dL (8.4-10.2); Carbon Dioxide 20 mmol/L (22-29); Chloride 111 mmol/L (96-108); Creatinine Clr Calc Pharmacy 21.3; Estimated Glomerular Filt Rate 14; Glucose Random 251 mg/dL (60-115); Potassium 3.9 mmol/L (3.3-5.1); Sodium 140 mmol/L (135-145)
[2022-12-14 07:36] LABS: Glucose, Whole Blood 238 mg/dL (60-115)
[2022-12-14] MEDS: hydrALAZINE HCl 25 MG TABLET PO (07:46)
[2022-12-14] MEDS: amLODIPine Besylate 5 MG TABLET PO (07:47)
[2022-12-14] MEDS: Insulin Lispro 100 UNIT/ML 3 ML VIAL SUBCUT ×3 (07:47→21:00)
[2022-12-14] MEDS: Doxycycline Hyclate 100 MG in 0.9 % Sodium Chloride 250 ML 166.67 MG IV ×2 (09:36→21:03)
--- NOTE | 2022-12-14 09:37 | P.PNIM_ITS ---
Subjective Subjective Date of Service: 12/14/22 Interval History: seen and examined this morning follow up for left buttock abscess having nausea, vomiting with pain meds Review of Systems Review of Systems: Yes all other systems are reviewed and are negative Constitutional Constitutional: Denies chills and Denies fever(s) Cardiovascular Cardiovascular: Denies chest pain, Denies palpitations and Denies dyspnea Respiratory Respiratory: Denies cough and Denies dyspnea Gastrointestinal Gastrointestinal: Denies abdominal pain, Denies diarrhea, Reports nausea and Reports vomiting Endocrine Endocrine: Denies palpitations Physical Exam Vital Signs: Vital Signs: Last Vital Signs Temp 97.3 F 12/14/22 08:00 Pulse 99 12/14/22 08:00 Resp 16 12/14/22 08:00 BP 176/105 H 12/14/22 08:00 Pulse Ox 98 12/14/22 08:00 O2 Del Method Room Air 12/14/22 08:00 BMI result Body Mass Index 25.4 Appearing in no acute distress lung sounds are clear to auscultation heart regular rate rhythm, clear S1, S2 positive bowel sounds, abdomen is soft, nontender neuro patient is alert x3, no focal deficits Objective Data Active Medications Acetaminophen (Acetaminophen 325 Mg Tablet) 650 mg PO Q6H PRN PRN Reason: Pain, Mild (Pain Scale 1-3) Last Admin: 12/12/22 06:02 Dose: 650 mg Documented By: SHARRI Amlodipine Besylate (Amlodipine Besylate 5 Mg Tablet) 5 mg PO DAILY [facility]; Protocol Last Admin: 12/14/22 07:47 Dose: 5 mg Documented By: TAVO Dextrose (Dextrose 50 % 25 Gm/50 Ml Syringe) 25 gm IVPUSH Q15M PRN; Protocol PRN Reason: per Hypoglycemia Standing Ord. Diphenhydramine HCl (Diphenhydramine Hcl 50 Mg/Ml Vial) 25 mg IVPUSH Q6H PRN PRN Reason: Nausea and Vomiting Last Admin: 12/13/22 19:58 Dose: 25 mg Documented By: SAMEER Enoxaparin Sodium (Enoxaparin Sodium 40 Mg/0.4 Ml Syringe) 40 mg SUBCUT Q24H [facility] Last Admin: 12/14/22 07:48 Dose: Not Given Documented By: TAVO Non-Admin Reason: hold due to surgery Glucose (Glucose Gel 15 Gm Gel..Gram.) 15 gm PO Q15M PRN; Protocol PRN Reason: per Hypoglycemia Standing Ord. Hydralazine HCl (Hydralazine Hcl 25 Mg Tablet) 25 mg PO TID [facility]; Protocol Last Admin: 12/14/22 07:46 Dose: 25 mg Documented By: TAVO Sodium Chloride (Ns) 1,000 mls @ 150 mls/hr IVCONT .Q6H40M [facility] Last Admin: 12/14/22 03:45 Dose: 150 mls/hr Documented By: HEATHER Promethazine HCl 6.25 mg/ (Sodium Chloride) 50.25 mls @ 201 mls/hr IV Q6H PRN PRN Reason: Nausea Last Infusion: 12/13/22 11:15 Dose: 0 mls/hr Documented By: RACHELE Doxycycline Hyclate 100 mg/ (Sodium Chloride) 250 mls @ 166.67 mls/hr IV Q12H [facility] Last Infusion: 12/13/22 23:00 Dose: 0 mls/hr Documented By: SAMEER Piperacillin Sod/Tazobactam (Sod 2.25 gm/ Sodium Chloride) 50 mls @ 100 mls/hr IV Q6H [facility] Last Infusion: 12/14/22 08:28 Dose: 0 mls/hr Documented By: TAVO Insulin Glargine (Insulin Glargine,Hum.Rec.Anlog 100 Unit/Ml 10 Ml Vial) 15 unit SUBCUT BEDTIME [facility] Last Admin: 12/13/22 19:57 Dose: 15 unit Documented By: SAMEER Insulin Human Lispro (Insulin Lispro 100 Unit/Ml 3 Ml Vial) 0 unit SUBCUT QIDACHS [facility]; Protocol Last Admin: 12/14/22 07:47 Dose: 4 unit Documented By: TAVO Lorazepam (Lorazepam 0.5 Mg Tablet) 0.5 mg PO Q8H PRN PRN Reason: anxiety Last Admin: 12/13/22 19:57 Dose: 0.5 mg Documented By: SAMEER Melatonin (Melatonin 3 Mg Tablet) 6 mg PO BEDTIME PRN PRN Reason: Insomnia Last Admin: 12/12/22 22:05 Dose: 6 mg Documented By: SHARRI Omeprazole (Omeprazole 20 Mg Capsule.) 20 mg PO BID@0630,1630 [facility] Last Admin: 12/14/22 05:28 Dose: 20 mg Documented By: SAMEER Ondansetron HCl (Ondansetron Hcl 4 Mg/2 Ml Vial) 4 mg IVPUSH Q8H PRN PRN Reason: Nausea and Vomiting Last Admin: 12/13/22 13:18 Dose: 4 mg Documented By: RACHELE Oxycodone HCl (Oxycodone Hcl Immed Release 5 Mg Tablet) 5 mg PO Q6H PRN PRN Reason: Pain, Severe (Pain Scale 7-10) Sodium Chloride (0.9 % Sodium Chloride Flush 3 Ml Syringe) 3 ml IVFLUSH QSHIFT [facility] Last Admin: 12/14/22 07:36 Dose: Not Given Documented By: TAVO Non-Admin Reason: IV Running Tramadol HCl (Tramadol Hcl 50 Mg Tablet) 50 mg PO Q4H PRN PRN Reason: Pain, Moderate(Pain Scale 4-6) Last Admin: 12/13/22 03:54 Dose: 50 mg Labs 12/12/22 09:22 12/14/22 06:04 Labs: Laboratory Results - last 24 hr 12/13/22 12/13/22 12/13/22 11:40 16:14 20:08 Anion Gap Estim Creat Clear Calc Estimated GFR POC Glucose 132 H 125 H 266 H Random Glucose Calcium 12/14/22 12/14/22 06:04 07:31 Anion Gap 13 Estim Creat Clear Calc 21.3 Estimated GFR 14 POC Glucose 238 H Random Glucose 251 H Calcium 8.7 Microbiology Microbiology Results: Microbiology 12/12/22 16:56 Urine Culture - Final Urine clean catch - Urine cavazos top 12/08/22 19:13 Blood Culture - Final Blood - Venous No growth after 5 days. 12/08/22 19:14 Blood Culture - Final Blood - Venous No growth after 5 days. Assessment and Plan (1) Abscess of buttock, left: Status: Acute Plan 36-year-old female with pertinent history of insulin-dependent diabetes mellitus who presents to the emergency department for evaluation of fevers and chills. Elevated blood pressure reading no hx of HTN Hydralazine 50 mg TID amlodipine 5 mg daily prn hydralazine for SBP >180 BONIFACIO with oliguria. Slowly improving worsening renal function likely from vanco tox check C3, 4 nephrology following> may need renal biopsy, wait 24hours to see if creat imp roves continue IV fluids @150ml renal us> no hydronephrosis normal-appearing kidneys bladder scan and straight cath as needed UTI continue zosyn (already on for perirectal abscess) urine cx neg epigastric burning with nausea and vomiting ? gastritis lipase, LFT normal continue prilosec antiemetic Plan for EGD today Sepsis due to left buttock abscess. sepsis resolved s/p I&D in the ER 12/08 Vanco stopped due to worsening renal function started doxycycline and continue zosyn general surgery following blood cultures negative to date Uncontrolled insulin-dependent diabetes mellitus with hyperglycemia Due to noncompliance with insulin as patient lost insurance Hba1c 12.7 continue sliding scale, mealtime insulin started DVT prophylaxis: Lovenox Full code attending - dr. Walton requires ongoing inpatient hospitalization for management of uncontrolled diabetes, IV antibiotics for buttock abscess Time Spent With Patient Time: Total time managing care of this patient today ____ minutes. Quality Stroke Does the patient have a stroke diagnosis?: No VTE Prior VTE?: No VTE Risk Level:: Medical - moderate - high VTE Device Contraindication: Treatment Not Indicated VTE Drug Contraindication: N/A - Med Ordered
[2022-12-14 11:16] LABS: Glucose, Whole Blood 161 mg/dL (60-115)
[2022-12-14 13:14] LABS: Glucose, Whole Blood 150 mg/dL (60-115)
--- NOTE | 2022-12-14 13:28 | P.CONAN_ITS ---
HPI - Anesthesia Eval Consult details Narrative: 36 yo F admitted with fevers, epigastric pain, recurrent nausea/vomiting, buttock abscess, and BONIFACIO. [facility] Active Problems Active Problems: All Active Problems (Updated 12/14/22 @ 13:22 by Yarelis Stanford RN) Left ankle sprain (Acute) Acute hyperglycemia (Acute) Elevated WBC count (Acute) Abscess of buttock, left (Acute) Cellulitis (Acute) Acute kidney injury (Acute) Metabolic acidosis (Acute) Hyponatremia (Acute) Epigastric pain (Acute) Past Medical History Medical History delivery delivered Diabetes Family History Family history of problems with anesthesia: No Surgical History Surgical History H/O elbow surgery Hx of esophagogastroduodenoscopy Hx of hernia repair History of Problems with Anesthesia: No Social History Social History Household Members: Other Household Members Other:: daughter Housing: Apartment Do you presently have visiting nurse or other home services: No Patient Tobacco Use Status: Never used Tobacco service: No Current occupational status: employed 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 Diphenhydramine HCl (Diphenhydramine Hcl 50 Mg/Ml Vial) 25 mg IVPUSH Q6H PRN PRN Reason: Nausea and Vomiting Last Admin: 12/13/22 19:58 Dose: 25 mg Enoxaparin Sodium (Enoxaparin Sodium 40 Mg/0.4 Ml Syringe) 40 mg SUBCUT Q24H NAYA Last Admin: 12/14/22 07:48 Dose: Not Given Glucose (Glucose Gel 15 Gm Gel..Gram.) 15 gm PO Q15M PRN; Protocol PRN Reason: per Hypoglycemia Standing Ord. Hydralazine HCl (Hydralazine Hcl 50 Mg Tablet) 50 mg PO TID NAYA; Protocol Hydralazine HCl (Hydralazine Hcl 20 Mg/Ml Vial) 10 mg IVPUSH Q4H PRN; Protocol PRN Reason: SBP>180 Promethazine HCl 6.25 mg/ (Sodium Chloride) 50.25 mls @ 201 mls/hr IV Q6H PRN PRN Reason: Nausea Last Infusion: 12/13/22 11:15 Dose: Infused Doxycycline Hyclate 100 mg/ (Sodium Chloride) 250 mls @ 166.67 mls/hr IV Q12H NAYA Last Infusion: 12/14/22 11:50 Dose: Infused Piperacillin Sod/Tazobactam (Sod 2.25 gm/ Sodium Chloride) 50 mls @ 100 mls/hr IV Q6H [facility] Last Infusion: 12/14/22 08:28 Dose: Infused Insulin Glargine (Insulin Glargine,Hum.Rec.Anlog 100 Unit/Ml 10 Ml Vial) 15 unit SUBCUT BEDTIME [facility] Last Admin: 12/13/22 19:57 Dose: 15 unit Insulin Human Lispro (Insulin Lispro 100 Unit/Ml 3 Ml Vial) 0 unit SUBCUT QIDACHS [facility]; Protocol Last Admin: 12/14/22 11:49 Dose: Not Given Lorazepam (Lorazepam 0.5 Mg Tablet) 0.5 mg PO Q8H PRN PRN Reason: anxiety Last Admin: 12/13/22 19:57 Dose: 0.5 mg Melatonin (Melatonin 3 Mg Tablet) 6 mg PO BEDTIME PRN PRN Reason: Insomnia Last Admin: 12/12/22 22:05 Dose: 6 mg Omeprazole (Omeprazole 20 Mg Capsule.Dr) 20 mg PO BID@0630,1630 [facility] Last Admin: 12/14/22 05:28 Dose: 20 mg Ondansetron HCl (Ondansetron Hcl 4 Mg/2 Ml Vial) 4 mg IVPUSH Q8H PRN PRN Reason: Nausea and Vomiting Last Admin: 12/13/22 13:18 Dose: 4 mg Oxycodone HCl (Oxycodone Hcl Immed Release 5 Mg Tablet) 5 mg PO Q6H PRN PRN Reason: Pain, Severe (Pain Scale 7-10) Sodium Chloride (0.9 % Sodium Chloride Flush 3 Ml Syringe) [facility] Last Admin: 12/14/22 07:36 Dose: Not Given Exam Exam Date and Time: December 14, 2022 1328 Height,Weight and Vital Signs: Height 5 ft 6 in Weight 71.5 kg Last Vital Signs Temp 97 F 12/14/22 12:34 Pulse 102 H 12/14/22 12:34 Resp 20 12/14/22 12:34 BP 157/84 H 12/14/22 12:34 Pulse Ox 98 12/14/22 12:34 O2 Del Method Room Air 12/14/22 12:34 Pertinent Lab Results Pertinent Lab Results: Laboratory Tests 12/08/22 12/08/22 12/08/22 18:13 19:14 19:14 WBC 15.5 H RBC 4.60 Hgb 13.3 Hct 39.3 MCV 85.4 MCH 28.9 MCHC 33.8 RDW 11.9 Plt Count 178 MPV 12.6 H Immature Gran % (Auto) 0.6 H Neut % (Auto) 76.7 H Lymph % (Auto) 15.2 L [place] % (Auto) 5.9 Eos % (Auto) 1.1 Baso % (Auto) 0.5 Lymph # (Auto) 2.4 [place] # (Auto) 0.9 Eos # (Auto) 0.2 Baso # (Auto) 0.1 Abs Immat Gran (auto) 0.09 H Absolute Neuts (auto) 11.9 H Absolute Nucleated RBC 0.000 Nucleated RBC % (auto) 0.0 VBG pH VBG pCO2 VBG pO2 VBG HCO3 VBG O2 Saturation VBG Base Excess Sodium 134 L Potassium 3.9 Chloride 98 Carbon Dioxide 26 Anion Gap 14 BUN 10 Creatinine 1.03 Estim Creat Clear Calc 76.5 Estimated GFR > 60 POC Glucose 548 H* Random Glucose 543 H* Estimat Average Glucose Hemoglobin A1c % Lactic Acid Calcium 9.1 Magnesium 1.9 Total Bilirubin 1.4 H Direct Bilirubin 0.4 AST 10 ALT 11 Alkaline Phosphatase 98 Total Protein 7.6 Albumin 3.9 Lipase Beta-Hydroxybutyrate 0.09 Beta HCG, Quant < 2 Urine Color Urine Appearance Urine pH Ur Specific [place] Urine Protein Urine Glucose (UA) Urine Ketones Urine Blood Urine Nitrite Ur Leukocyte Esterase Urine RBC Urine WBC Ur Squamous Epith Cells Urine Bacteria Hyaline Casts Random Vancomycin 12/08/22 12/08/22 12/08/22 19:14 19:23 20:58 WBC RBC Hgb Hct MCV MCH MCHC RDW Plt Count MPV Immature Gran % (Auto) Neut % (Auto) Lymph % (Auto) [place] % (Auto) Eos % (Auto) Baso % (Auto) Lymph # (Auto) [place] # (Auto) Eos # (Auto) Baso # (Auto) Abs Immat Gran (auto) Absolute Neuts (auto) Absolute Nucleated RBC Nucleated RBC % (auto) VBG pH 7.37 VBG pCO2 48 VBG pO2 41 VBG HCO3 28 H VBG O2 Saturation 57.0 VBG Base Excess 2.1 Sodium Potassium Chloride Carbon Dioxide Anion Gap BUN Creatinine Estim Creat Clear Calc Estimated GFR POC Glucose 261 H Random Glucose Estimat Average Glucose Hemoglobin A1c % Lactic Acid 1.7 Calcium Magnesium Total Bilirubin Direct Bilirubin AST ALT Alkaline Phosphatase Total Protein Albumin Lipase Beta-Hydroxybutyrate Beta HCG, Quant Urine Color Urine Appearance Urine pH Ur Specific [place] Urine Protein Urine Glucose (UA) Urine Ketones Urine Blood Urine Nitrite Ur Leukocyte Esterase Urine RBC Urine WBC Ur Squamous Epith Cells Urine Bacteria Hyaline Casts Random Vancomycin 12/08/22 12/09/22 12/09/22 21:47 00:37 05:14 WBC 14.8 H RBC 3.84 L Hgb 10.8 L Hct 33.2 L MCV 86.5 MCH 28.1 MCHC 32.5 RDW 11.7 Plt Count 145 L MPV 12.9 H Immature Gran % (Auto) 0.5 H Neut % (Auto) 72.1 Lymph % (Auto) 19.0 L [place] % (Auto) 7.0 Eos % (Auto) 1.1 Baso % (Auto) 0.3 Lymph # (Auto) 2.8 [place] # (Auto) 1.0 Eos # (Auto) 0.2 Baso # (Auto) 0.0 Abs Immat Gran (auto) 0.07 H Absolute Neuts (auto) 10.7 H Absolute Nucleated RBC 0.000 Nucleated RBC % (auto) 0.0 VBG pH VBG pCO2 VBG pO2 VBG HCO3 VBG O2 Saturation VBG Base Excess Sodium Potassium Chloride Carbon Dioxide Anion Gap BUN Creatinine Estim Creat Clear Calc Estimated GFR POC Glucose 205 H 238 H Random Glucose Estimat Average Glucose Hemoglobin A1c % Lactic Acid Calcium Magnesium Total Bilirubin Direct Bilirubin AST ALT Alkaline Phosphatase Total Protein Albumin Lipase Beta-Hydroxybutyrate Beta HCG, Quant Urine Color Urine Appearance Urine pH Ur Specific [place] Urine Protein Urine Glucose (UA) Urine Ketones Urine Blood Urine Nitrite Ur Leukocyte Esterase Urine RBC Urine WBC Ur Squamous Epith Cells Urine Bacteria Hyaline Casts Random Vancomycin 12/09/22 12/09/22 12/09/22 05:14 05:14 07:23 WBC RBC Hgb Hct MCV MCH MCHC RDW Plt Count MPV Immature Gran % (Auto) Neut % (Auto) Lymph % (Auto) [place] % (Auto) Eos % (Auto) Baso % (Auto) Lymph # (Auto) [place] # (Auto) Eos # (Auto) Baso # (Auto) Abs Immat Gran (auto) Absolute Neuts (auto) Absolute Nucleated RBC Nucleated RBC % (auto) VBG pH VBG pCO2 VBG pO2 VBG HCO3 VBG O2 Saturation VBG Base Excess Sodium 133 L Potassium 3.5 Chloride 106 Carbon Dioxide 22 Anion Gap 9 L BUN 8 L Creatinine 0.70 Estim Creat Clear Calc 112.5 Estimated GFR > 60 POC Glucose 273 H Random Glucose 287 H Estimat Average Glucose 318 Hemoglobin A1c % 12.7 H Lactic Acid Calcium 8.2 L D Magnesium Total Bilirubin Direct Bilirubin AST ALT Alkaline Phosphatase Total Protein Albumin Lipase Beta-Hydroxybutyrate Beta HCG, Quant Urine Color Urine Appearance Urine pH Ur Specific [place] Urine Protein Urine Glucose (UA) Urine Ketones Urine Blood Urine Nitrite Ur Leukocyte Esterase Urine RBC Urine WBC Ur Squamous Epith Cells Urine Bacteria Hyaline Casts Random Vancomycin 12/09/22 12/09/22 12/09/22 11:25 16:01 19:36 WBC RBC Hgb Hct MCV MCH MCHC RDW Plt Count MPV Immature Gran % (Auto) Neut % (Auto) Lymph % (Auto) [place] % (Auto) Eos % (Auto) Baso % (Auto) Lymph # (Auto) [place] # (Auto) Eos # (Auto) Baso # (Auto) Abs Immat Gran (auto) Absolute Neuts (auto) Absolute Nucleated RBC Nucleated RBC % (auto) VBG pH VBG pCO2 VBG pO2 VBG HCO3 VBG O2 Saturation VBG Base Excess Sodium Potassium Chloride Carbon Dioxide Anion Gap BUN Creatinine Estim Creat Clear Calc Estimated GFR POC Glucose 221 H 236 H 186 H Random Glucose Estimat Average Glucose Hemoglobin A1c % Lactic Acid Calcium Magnesium Total Bilirubin Direct Bilirubin AST ALT Alkaline Phosphatase Total Protein Albumin Lipase Beta-Hydroxybutyrate Beta HCG, Quant Urine Color Urine Appearance Urine pH Ur Specific [place] Urine Protein Urine Glucose (UA) Urine Ketones Urine Blood Urine Nitrite Ur Leukocyte Esterase Urine RBC Urine WBC Ur Squamous Epith Cells Urine Bacteria Hyaline Casts Random Vancomycin 12/10/22 12/10/22 12/10/22 02:06 05:11 06:54 WBC RBC Hgb Hct MCV MCH MCHC RDW Plt Count MPV Immature Gran % (Auto) Neut % (Auto) Lymph % (Auto) [place] % (Auto) Eos % (Auto) Baso % (Auto) Lymph # (Auto) [place] # (Auto) Eos # (Auto) Baso # (Auto) Abs Immat Gran (auto) Absolute Neuts (auto) Absolute Nucleated RBC Nucleated RBC % (auto) VBG pH VBG pCO2 VBG pO2 VBG HCO3 VBG O2 Saturation VBG Base Excess Sodium Potassium Chloride Carbon Dioxide Anion Gap BUN Creatinine 1.29 Estim Creat Clear Calc 61.0 Estimated GFR 47 POC Glucose 171 H 182 H Random Glucose Estimat Average Glucose Hemoglobin A1c % Lactic Acid Calcium Magnesium Total Bilirubin 0.9 Direct Bilirubin 0.3 AST 21 ALT 16 Alkaline Phosphatase 93 Total Protein 6.4 L Albumin 3.2 L Lipase 10 Beta-Hydroxybutyrate Beta HCG, Quant Urine Color Urine Appearance Urine pH Ur Specific [place] Urine Protein Urine Glucose (UA) Urine Ketones Urine Blood Urine Nitrite Ur Leukocyte Esterase Urine RBC Urine WBC Ur Squamous Epith Cells Urine Bacteria Hyaline Casts Random Vancomycin 12/10/22 12/10/22 12/10/22 09:52 11:07 16:23 WBC RBC Hgb Hct MCV MCH MCHC RDW Plt Count MPV Immature Gran % (Auto) Neut % (Auto) Lymph % (Auto) [place] % (Auto) Eos % (Auto) Baso % (Auto) Lymph # (Auto) [place] # (Auto) Eos # (Auto) Baso # (Auto) Abs Immat Gran (auto) Absolute Neuts (auto) Absolute Nucleated RBC Nucleated RBC % (auto) VBG pH VBG pCO2 VBG pO2 VBG HCO3 VBG O2 Saturation VBG Base Excess Sodium Potassium Chloride Carbon Dioxide Anion Gap BUN Creatinine Estim Creat Clear Calc Estimated GFR POC Glucose 206 H 186 H Random Glucose Estimat Average Glucose Hemoglobin A1c % Lactic Acid Calcium Magnesium Total Bilirubin Direct Bilirubin AST ALT Alkaline Phosphatase Total Protein Albumin Lipase Beta-Hydroxybutyrate Beta HCG, Quant Urine Color Urine Appearance Urine pH Ur Specific [place] Urine Protein Urine Glucose (UA) Urine Ketones Urine Blood Urine Nitrite Ur Leukocyte Esterase Urine RBC Urine WBC Ur Squamous Epith Cells Urine Bacteria Hyaline Casts Random Vancomycin 30.9 H* 12/10/22 12/10/22 12/10/22 19:10 20:07 23:12 WBC RBC Hgb Hct MCV MCH MCHC RDW Plt Count MPV Immature Gran % (Auto) Neut % (Auto) Lymph % (Auto) [place] % (Auto) Eos % (Auto) Baso % (Auto) Lymph # (Auto) [place] # (Auto) Eos # (Auto) Baso # (Auto) Abs Immat Gran (auto) Absolute Neuts (auto) Absolute Nucleated RBC Nucleated RBC % (auto) VBG pH VBG pCO2 VBG pO2 VBG HCO3 VBG O2 Saturation VBG Base Excess Sodium Potassium Chloride Carbon Dioxide Anion Gap BUN Creatinine Estim Creat Clear Calc Estimated GFR POC Glucose 168 H Random Glucose Estimat Average Glucose Hemoglobin A1c % Lactic Acid Calcium Magnesium Total Bilirubin Direct Bilirubin AST ALT Alkaline Phosphatase Total Protein Albumin Lipase 7 L Beta-Hydroxybutyrate Beta HCG, Quant Urine Color Urine Appearance Urine pH Ur Specific [place] Urine Protein Urine Glucose (UA) Urine Ketones Urine Blood Urine Nitrite Ur Leukocyte Esterase Urine RBC Urine WBC Ur Squamous Epith Cells Urine Bacteria Hyaline Casts Random Vancomycin 29.0 H* 12/11/22 12/11/22 12/11/22 07:34 08:34 08:34 WBC 15.7 H RBC 4.40 Hgb 12.6 Hct 37.1 MCV 84.3 MCH 28.6 MCHC 34.0 RDW 11.9 Plt Count 152 L MPV 12.6 H Immature Gran % (Auto) Neut % (Auto) Lymph % (Auto) [place] % (Auto) Eos % (Auto) Baso % (Auto) Lymph # (Auto) [place] # (Auto) Eos # (Auto) Baso # (Auto) Abs Immat Gran (auto) Absolute Neuts (auto) Absolute Nucleated RBC 0.000 Nucleated RBC % (auto) 0.0 VBG pH VBG pCO2 VBG pO2 VBG HCO3 VBG O2 Saturation VBG Base Excess Sodium Potassium Chloride Carbon Dioxide Anion Gap BUN Creatinine Estim Creat Clear Calc Estimated GFR POC Glucose 223 H Random Glucose Estimat Average Glucose Hemoglobin A1c % Lactic Acid Calcium Magnesium Total Bilirubin Direct Bilirubin AST ALT Alkaline Phosphatase Total Protein Albumin Lipase Beta-Hydroxybutyrate Beta HCG, Quant Urine Color Urine Appearance Urine pH Ur Specific [place] Urine Protein Urine Glucose (UA) Urine Ketones Urine Blood Urine Nitrite Ur Leukocyte Esterase Urine RBC Urine WBC Ur Squamous Epith Cells Urine Bacteria Hyaline Casts Random Vancomycin 26.1 H* 12/11/22 12/11/22 12/11/22 08:43 10:55 16:26 WBC RBC Hgb Hct MCV MCH MCHC RDW Plt Count MPV Immature Gran % (Auto) Neut % (Auto) Lymph % (Auto) [place] % (Auto) Eos % (Auto) Baso % (Auto) Lymph # (Auto) [place] # (Auto) Eos # (Auto) Baso # (Auto) Abs Immat Gran (auto) Absolute Neuts (auto) Absolute Nucleated RBC Nucleated RBC % (auto) VBG pH VBG pCO2 VBG pO2 VBG HCO3 VBG O2 Saturation VBG Base Excess Sodium 133 L Potassium 4.4 D Chloride 101 Carbon Dioxide 17 L Anion Gap 19 BUN 27 H Creatinine 3.24 H Estim Creat Clear Calc 24.3 Estimated GFR 16 POC Glucose 397 H* 304 H Random Glucose 401 H* Estimat Average Glucose Hemoglobin A1c % Lactic Acid Calcium 9.4 D Magnesium Total Bilirubin Direct Bilirubin AST ALT Alkaline Phosphatase Total Protein Albumin Lipase Beta-Hydroxybutyrate Beta HCG, Quant Urine Color Urine Appearance Urine pH Ur Specific [place] Urine Protein Urine Glucose (UA) Urine Ketones Urine Blood Urine Nitrite Ur Leukocyte Esterase Urine RBC Urine WBC Ur Squamous Epith Cells Urine Bacteria Hyaline Casts Random Vancomycin 12/11/22 12/12/22 12/12/22 22:44 05:32 05:32 WBC RBC Hgb Hct MCV MCH MCHC RDW Plt Count MPV Immature Gran % (Auto) Neut % (Auto) Lymph % (Auto) [place] % (Auto) Eos % (Auto) Baso % (Auto) Lymph # (Auto) [place] # (Auto) Eos # (Auto) Baso # (Auto) Abs Immat Gran (auto) Absolute Neuts (auto) Absolute Nucleated RBC Nucleated RBC % (auto) VBG pH VBG pCO2 VBG pO2 VBG HCO3 VBG O2 Saturation VBG Base Excess Sodium Potassium Chloride Carbon Dioxide Anion Gap BUN Creatinine 3.77 H Estim Creat Clear Calc 20.8 Estimated GFR 14 POC Glucose 210 H Random Glucose Estimat Average Glucose Hemoglobin A1c % Lactic Acid Calcium Magnesium Total Bilirubin Direct Bilirubin AST ALT Alkaline Phosphatase Total Protein Albumin Lipase Beta-Hydroxybutyrate Beta HCG, Quant Urine Color Urine Appearance Urine pH Ur Specific [place] Urine Protein Urine Glucose (UA) Urine Ketones Urine Blood Urine Nitrite Ur Leukocyte Esterase Urine RBC Urine WBC Ur Squamous Epith Cells Urine Bacteria Hyaline Casts Random Vancomycin 20.1 H 12/12/22 12/12/22 12/12/22 07:56 09:22 09:22 WBC 10.9 H RBC 4.00 L Hgb 11.6 L Hct 34.2 L MCV 85.5 MCH 29.0 MCHC 33.9 RDW 11.9 Plt Count 169 MPV 12.8 H Immature Gran % (Auto) Neut % (Auto) Lymph % (Auto) [place] % (Auto) Eos % (Auto) Baso % (Auto) Lymph # (Auto) [place] # (Auto) Eos # (Auto) Baso # (Auto) Abs Immat Gran (auto) Absolute Neuts (auto) Absolute Nucleated RBC 0.000 Nucleated RBC % (auto) 0.0 VBG pH VBG pCO2 VBG pO2 VBG HCO3 VBG O2 Saturation VBG Base Excess Sodium 137 Potassium 3.7 Chloride 105 Carbon Dioxide 23 Anion Gap 13 BUN 31 H Creatinine 3.83 H Estim Creat Clear Calc 20.6 Estimated GFR 13 POC Glucose 248 H Random Glucose 271 H Estimat Average Glucose Hemoglobin A1c % Lactic Acid Calcium 8.8 D Magnesium 1.9 Total Bilirubin Direct Bilirubin AST ALT Alkaline Phosphatase Total Protein Albumin Lipase Beta-Hydroxybutyrate Beta HCG, Quant Urine Color Urine Appearance Urine pH Ur Specific [place] Urine Protein Urine Glucose (UA) Urine Ketones Urine Blood Urine Nitrite Ur Leukocyte Esterase Urine RBC Urine WBC Ur Squamous Epith Cells Urine Bacteria Hyaline Casts Random Vancomycin 12/12/22 12/12/22 12/12/22 11:49 16:33 16:56 WBC RBC Hgb Hct MCV MCH MCHC RDW Plt Count MPV Immature Gran % (Auto) Neut % (Auto) Lymph % (Auto) [place] % (Auto) Eos % (Auto) Baso % (Auto) Lymph # (Auto) [place] # (Auto) Eos # (Auto) Baso # (Auto) Abs Immat Gran (auto) Absolute Neuts (auto) Absolute Nucleated RBC Nucleated RBC % (auto) VBG pH VBG pCO2 VBG pO2 VBG HCO3 VBG O2 Saturation VBG Base Excess Sodium Potassium Chloride Carbon Dioxide Anion Gap BUN Creatinine Estim Creat Clear Calc Estimated GFR POC Glucose 244 H 158 H Random Glucose Estimat Average Glucose Hemoglobin A1c % Lactic Acid Calcium Magnesium Total Bilirubin Direct Bilirubin AST ALT Alkaline Phosphatase Total Protein Albumin Lipase Beta-Hydroxybutyrate Beta HCG, Quant Urine Color Dark Yellow Urine Appearance Cloudy Urine pH 5.5 Ur Specific [place] 1.010 Urine Protein Negative Urine Glucose (UA) 100 H Urine Ketones Negative Urine Blood Moderate (2+) H Urine Nitrite Negative Ur Leukocyte Esterase Large (3+) H Urine RBC >20 H Urine WBC 6-10 H Ur Squamous Epith Cells 11-20 Urine Bacteria None Seen Hyaline Casts 0-2 Random Vancomycin 12/12/22 12/12/22 12/13/22 20:07 20:25 05:35 WBC RBC Hgb Hct MCV MCH MCHC RDW Plt Count MPV Immature Gran % (Auto) Neut % (Auto) Lymph % (Auto) [place] % (Auto) Eos % (Auto) Baso % (Auto) Lymph # (Auto) [place] # (Auto) Eos # (Auto) Baso # (Auto) Abs Immat Gran (auto) Absolute Neuts (auto) Absolute Nucleated RBC Nucleated RBC % (auto) VBG pH VBG pCO2 VBG pO2 VBG HCO3 VBG O2 Saturation VBG Base Excess Sodium 138 Potassium 3.3 Chloride 111 H Carbon Dioxide 18 L Anion Gap 12 BUN 28 H Creatinine 3.78 H Estim Creat Clear Calc 20.8 Estimated GFR 14 POC Glucose 153 H Random Glucose 196 H Estimat Average Glucose Hemoglobin A1c % Lactic Acid Calcium 8.4 Magnesium Total Bilirubin Direct Bilirubin AST ALT Alkaline Phosphatase Total Protein Albumin Lipase Beta-Hydroxybutyrate Beta HCG, Quant Urine Color Urine Appearance Urine pH Ur Specific [place] Urine Protein Urine Glucose (UA) Urine Ketones Urine Blood Urine Nitrite Ur Leukocyte Esterase Urine RBC Urine WBC Ur Squamous Epith Cells Urine Bacteria Hyaline Casts Random Vancomycin 15.1 12/13/22 12/13/22 12/13/22 07:38 11:40 16:14 WBC RBC Hgb Hct MCV MCH MCHC RDW Plt Count MPV Immature Gran % (Auto) Neut % (Auto) Lymph % (Auto) [place] % (Auto) Eos % (Auto) Baso % (Auto) Lymph # (Auto) [place] # (Auto) Eos # (Auto) Baso # (Auto) Abs Immat Gran (auto) Absolute Neuts (auto) Absolute Nucleated RBC Nucleated RBC % (auto) VBG pH VBG pCO2 VBG pO2 VBG HCO3 VBG O2 Saturation VBG Base Excess Sodium Potassium Chloride Carbon Dioxide Anion Gap BUN Creatinine Estim Creat Clear Calc Estimated GFR POC Glucose 185 H 132 H 125 H Random Glucose Estimat Average Glucose Hemoglobin A1c % Lactic Acid Calcium Magnesium Total Bilirubin Direct Bilirubin AST ALT Alkaline Phosphatase Total Protein Albumin Lipase Beta-Hydroxybutyrate Beta HCG, Quant Urine Color Urine Appearance Urine pH Ur Specific [place] Urine Protein Urine Glucose (UA) Urine Ketones Urine Blood Urine Nitrite Ur Leukocyte Esterase Urine RBC Urine WBC Ur Squamous Epith Cells Urine Bacteria Hyaline Casts Random Vancomycin 12/13/22 12/14/22 12/14/22 20:08 06:04 07:31 WBC RBC Hgb Hct MCV MCH MCHC RDW Plt Count MPV Immature Gran % (Auto) Neut % (Auto) Lymph % (Auto) [place] % (Auto) Eos % (Auto) Baso % (Auto) Lymph # (Auto) [place] # (Auto) Eos # (Auto) Baso # (Auto) Abs Immat Gran (auto) Absolute Neuts (auto) Absolute Nucleated RBC Nucleated RBC % (auto) VBG pH VBG pCO2 VBG pO2 VBG HCO3 VBG O2 Saturation VBG Base Excess Sodium 140 Potassium 3.9 Chloride 111 H Carbon Dioxide 20 L Anion Gap 13 BUN 27 H Creatinine 3.68 H Estim Creat Clear Calc 21.3 Estimated GFR 14 POC Glucose 266 H 238 H Random Glucose 251 H Estimat Average Glucose Hemoglobin A1c % Lactic Acid Calcium 8.7 Magnesium Total Bilirubin Direct Bilirubin AST ALT Alkaline Phosphatase Total Protein Albumin Lipase Beta-Hydroxybutyrate Beta HCG, Quant Urine Color Urine Appearance Urine pH Ur Specific [place] Urine Protein Urine Glucose (UA) Urine Ketones Urine Blood Urine Nitrite Ur Leukocyte Esterase Urine RBC Urine WBC Ur Squamous Epith Cells Urine Bacteria Hyaline Casts Random Vancomycin 12/14/22 12/14/22 11:12 13:10 WBC RBC Hgb Hct MCV MCH MCHC RDW Plt Count MPV Immature Gran % (Auto) Neut % (Auto) Lymph % (Auto) [place] % (Auto) Eos % (Auto) Baso % (Auto) Lymph # (Auto) [place] # (Auto) Eos # (Auto) Baso # (Auto) Abs Immat Gran (auto) Absolute Neuts (auto) Absolute Nucleated RBC Nucleated RBC % (auto) VBG pH VBG pCO2 VBG pO2 VBG HCO3 VBG O2 Saturation VBG Base Excess Sodium Potassium Chloride Carbon Dioxide Anion Gap BUN Creatinine Estim Creat Clear Calc Estimated GFR POC Glucose 161 H 150 H Random Glucose Estimat Average Glucose Hemoglobin A1c % Lactic Acid Calcium Magnesium Total Bilirubin Direct Bilirubin AST ALT Alkaline Phosphatase Total Protein Albumin Lipase Beta-Hydroxybutyrate Beta HCG, Quant Urine Color Urine Appearance Urine pH Ur Specific [place] Urine Protein Urine Glucose (UA) Urine Ketones Urine Blood Urine Nitrite Ur Leukocyte Esterase Urine RBC Urine WBC Ur Squamous Epith Cells Urine Bacteria Hyaline Casts Random Vancomycin Airway Mallampati Class: II TM Dist: >3cm Neck ROM: Full Loose/Missing/Broken Teeth: Yes (broken molar left top jaw) Heart: S1S2 Lungs: CTAB Assessment and Plan Assessment Anesthesia Assessment: Anesthesia Plan Discussed and Chart Reviewed Final Anesthetic Review Family History of Problems with Anesthesia: No History of Problems with Anesthesia: No NPO: Yes ASA Class: III Final Preanesthetic Review: No Changes in Pt Med Stat, Meds/Allgs Chart Reviewed, Consent Obtained/Reviewed and Anes Risks/Benef Reviewed Patient Risk: Low Procedure Risk: Low Anesthetic Plan Anesthetic Plan: MAC: and Agree w/ Assess. and Plan Disposition: Standard PACU
--- NOTE | 2022-12-14 14:18 | PM.EVENT ---
Event Note Date of Service: 12/14/22 Event Note: GI note dictated EGD is basically normal antral biopsies taken rec; advance diet cont ppi and prn anitemetics Time Spent With Patient Time: Total time managing care of this patient today ____ minutes.
--- NOTE | 2022-12-14 14:20 | PM.OP ---
Brief Operative Note Date of Service: 12/14/22 Pre-op diagnosis: n/v epigastric pain Post-op diagnosis: same Surgeon: Leobardo Prado Anesthesia: MAC Was an Warp Dyeing Vat Tender used for this Procedure?: No Estimated blood loss (mL): 2 Pathology: other Condition: stable Disposition: PACU
[2022-12-14] MEDS: hydrALAZINE HCl 50 MG TABLET PO ×2 (15:30→21:01)
[2022-12-14] MEDS: 0.9 % Sodium Chloride Flush 3 ML SYRINGE IVFLUSH ×2 (15:33→19:14)
--- NOTE | 2022-12-14 15:47 | PM.PNNEP ---
Subjective Subjective Date of Service: 12/14/22 Interval history: Seen and examined, events noted Physical Exam Vital Signs: Vital Signs: Last Vital Signs Temp 96.8 F 12/14/22 15:33 Pulse 106 H 12/14/22 15:33 Resp 20 12/14/22 15:33 BP 158/98 H 12/14/22 15:33 Pulse Ox 100 12/14/22 15:33 O2 Del Method Room Air 12/14/22 15:33 O2 Flow Rate 3 12/14/22 14:22 BMI result Body Mass Index 25.4 Const: Other: Complains of pain General: comfortable, no acute distress, alert and awake Nutritional Appearance: average body habitus Orientation/consciousness: patient oriented x3 Resp: Effort & Inspection: normal respiratory effort, able to speak in complete sentences, no respiratory distress and no use of accessory muscles Cardio: Rate: regular rate GI: Other: Rectal exam - I&D site clean on the left buttock near the perianal area, some scanty drainage, minimal residual induration Inspection: No distended Palpation (GI): Soft to palpation and nontender Back/Spine/Pelvis: Other: I&D site on the left buttock clean, packing in place, minimal residual induration no active discharge Skin: Other: left buttock I&D site, minimal residual induration Neuro: General: patient oriented x3, moves all extremities and CN's II-XI intact bilaterally Extrem: Other: no edema General: Yes no pedal edema Objective Data Labs 12/12/22 09:22 12/14/22 06:04 Labs: Laboratory Results - last 24 hr 12/13/22 12/13/22 12/14/22 16:14 20:08 06:04 Sodium 140 Potassium 3.9 Chloride 111 H Carbon Dioxide 20 L Anion Gap 13 BUN 27 H Creatinine 3.68 H Estim Creat Clear Calc 21.3 Estimated GFR 14 POC Glucose 125 H 266 H Random Glucose 251 H Calcium 8.7 12/14/22 12/14/22 12/14/22 07:31 11:12 13:10 Sodium Potassium Chloride Carbon Dioxide Anion Gap BUN Creatinine Estim Creat Clear Calc Estimated GFR POC Glucose 238 H 161 H 150 H Random Glucose Calcium Microbiology Microbiology Results: Microbiology 12/12/22 16:56 Urine clean catch - Urine cavazos top Urine Culture - Final 12/08/22 19:13 Blood - Venous Blood Culture - Final No growth after 5 days. 12/08/22 19:14 Blood - Venous Blood Culture - Final No growth after 5 days. Procedures Date of Service Date of Service: 12/14/22 Assessment & Plan Assessment and plan (1) Acute kidney injury: Status: Acute Assessment and Plan: 1.Non-Oliguric BONIFACIO: most c/w mulitfact ATN from tubular injurty fronm Vanco, Sepsis, NSAIDs but need to broiaden our SDDx OBS r/o by U/S Infectious assoc GN: c3/c4 pending; rare cases of inf assoc ANCA AIN: is aconcern from prior NSAID but also PPI 2. New onst HTN: ques realted to BONIFACIO REC: d/c PPI; additional sero as ordered; d/c IVF; incr norvasc 10 qd; possible kideny Bx later this week for definitive Dx; repeat urine studies as noted Will follow clsoley with team (2) Metabolic acidosis: Status: Acute Assessment and Plan: Due to BONIFACIO (3) Hyponatremia: Status: Acute Assessment and Plan: Due to impaired water clearance in BONIFACIO (4) Abscess of buttock, left: Status: Acute Time Spent With Patient Time: Total time managing care of this patient today ____ minutes. Progress Note: Quality Stroke Does the patient have a stroke diagnosis?: No
[2022-12-14 16:08] LABS: Glucose, Whole Blood 235 mg/dL (60-115)
[2022-12-14] MEDS: diphenhydrAMINE HCL 50 MG/ML VIAL 25 MG IVPUSH (16:45)
[2022-12-14] MEDS: LORazepam 0.5 MG TABLET PO (16:45)
--- NOTE | 2022-12-14 17:15 | OP_ITS ---
DATE OF SERVICE: 12/14/2022 SURGEON: Leobardo Prado MD INDICATIONS: Nausea, vomiting, and epigastric pain. PREOPERATIVE DIAGNOSIS: POSTOPERATIVE DIAGNOSIS: PROCEDURE PERFORMED: Upper endoscopy with biopsy. ESTIMATED BLOOD LOSS: COMPLICATIONS: ANESTHESIA: Monitored anesthesia care. ASSISTANTS: SPECIMENS: DESCRIPTION OF PROCEDURE: A history and physical was performed. The risks and benefits of the procedure were explained to the patient. Informed consent was obtained. The patient was placed in the left lateral decubitus position. The Olympus video gastroscope was introduced into the esophagus, stomach, and duodenum. Examination was performed. The scope was removed. She tolerated the procedure well and returned to the recovery area in stable condition. FINDINGS: Esophagus: The esophagus was normal. There was no esophagitis. Stomach: The stomach showed no evidence of masses, ulcers, or polyps. Antral biopsies were obtained to evaluate for H pylori. Duodenum: The bulb and 2nd portion were normal. IMPRESSION: Normal upper endoscopy. RECOMMENDATIONS: 1. Follow up the biopsy results. 2. Advance diet. 3. Continue acid suppressive therapy and antiemetics. MD KIMBERLY Simmons/JOVAN / [phone]
[2022-12-14] MEDS: Acetaminophen 325 MG TABLET 650 MG PO (19:14)
[2022-12-14 20:43] LABS: Glucose, Whole Blood 319 mg/dL (60-115)
[2022-12-14] MEDS: Insulin Glargine,Hum.rec.anlog 100 UNIT/ML 10 ML VIAL 15 UNIT SUBCUT (21:00)
[2022-12-14] MEDS: Melatonin 3 MG TABLET 6 MG PO (21:01)
[2022-12-14 21:41] LABS: Appearance Urine Clear; Color Urine Yellow; Glucose Urine UA 250 mg/dL (Negative); Leukocyte Esterase Urine Negative (Negative); Nitrite Urine Negative (Negative); PH 5.5 (5.0-9.0); Specific Gravity - Urine <= 1.005 (1.005-1.025); UMIC TRIGGER UA YES; Urine Blood Small (1+) (Negative); Urine Ketones Negative (Negative); Urine Protein Negative (Neg-Trace)
[2022-12-14 21:46] LABS: Bacteria Urine None Seen (None Seen); Hyaline Casts Urine 0-2 /LPF (0-2); Squamous Epithelial Cell Urine 0-2 /HPF (0-2); WBC Urine 0-5 /HPF (0-5)
[2022-12-14 21:57] LABS: Creatinine Urine 18.14 mg/dL; Total Protein Urine Random < 7 mg/dL (<12)
[2022-12-15] MEDS: Piperacillin Sodium/Tazobactam 2.25 GM in 0.9 % Sodium Chloride 50 ML IV ×2 (02:09→08:06)
[2022-12-15] MEDS: LORazepam 0.5 MG TABLET PO ×2 (02:49→12:05)
[2022-12-15] MEDS: diphenhydrAMINE HCL 50 MG/ML VIAL 25 MG IVPUSH ×3 (03:13→21:01)
[2022-12-15 03:27] VITALS: BP 142/90; PULSE 105; RESP 18; TEMP 36; O2SAT 98
[2022-12-15 04:05] LABS: HBS Num1 3.33 mIU/mL (0-7.99); HBc Num1 0.13 S/CO (0.00-0.79); HBsAGNum1 0.43 S/CO (0.00-0.99); Hepatitis B Core Antibody Nonreactive (Nonreactive); Hepatitis B Surface Antigen Negative (Negative); ~HepC Num1 0.07 S/CO (0.00-0.79); ~Hepatitis B Surface Antibody NONREACTIVE (Nonreactive); ~Hepatitis C Antibody Nonreactive (Nonreactive)
[2022-12-15 06:49] LABS: Creatinine Clr Calc Pharmacy 24.4; Estimated Glomerular Filt Rate 16
[2022-12-15 07:59] VITALS: BP 177/104; PULSE 104; RESP 18; TEMP 36.1; O2SAT 97
[2022-12-15] MEDS: amLODIPine Besylate 10 MG TABLET PO (08:05)
[2022-12-15] MEDS: hydrALAZINE HCl 50 MG TABLET PO ×4 (08:05→21:01)
[2022-12-15] MEDS: Enoxaparin Sodium 40 MG/0.4 ML SYRINGE SUBCUT (08:05)
[2022-12-15] MEDS: 0.9 % Sodium Chloride Flush 3 ML SYRINGE IVFLUSH ×3 (08:06→21:03)
[2022-12-15 09:14] LABS: EOS Counted 0 CELLS; EOS QC POS YES; EOS Stain Quality OK YES; WBC, Counted 0 CELLS
[2022-12-15] MEDS: hydrALAZINE HCl 20 MG/ML VIAL 10 MG IVPUSH (10:07)
[2022-12-15] MEDS: Butalb/Acetamin/Caff 50/325/40 TABLET 1 TAB PO (10:07)
[2022-12-15 10:15] VITALS: BP 152/85
--- NOTE | 2022-12-15 10:47 | HO.PM.IMPN ---
Subjective Subjective Date of Service: 12/15/22 Interval History: seen and examined this morning follow up for left buttock abscess having nausea, vomiting with pain meds Review of Systems Review of Systems: Yes all other systems are reviewed and are negative Constitutional Constitutional: Denies chills and Denies fever(s) Cardiovascular Cardiovascular: Denies chest pain, Denies palpitations and Denies dyspnea Respiratory Respiratory: Denies cough and Denies dyspnea Gastrointestinal Gastrointestinal: Denies abdominal pain, Denies diarrhea, Reports nausea and Reports vomiting Endocrine Endocrine: Denies palpitations Physical Exam Vital Signs: Vital Signs: Last Vital Signs Temp 96.9 F 12/15/22 07:59 Pulse 104 H 12/15/22 07:59 Resp 18 12/15/22 07:59 BP 152/85 H 12/15/22 10:15 Pulse Ox 97 12/15/22 07:59 O2 Del Method Room Air 12/15/22 07:59 O2 Flow Rate 3 12/14/22 14:22 BMI result Body Mass Index 25.4 Appearing in no acute distress lung sounds are clear to auscultation heart regular rate rhythm, clear S1, S2 positive bowel sounds, abdomen is soft, nontender neuro patient is alert x3, no focal deficits Objective Data Active Medications Acetaminophen (Acetaminophen 325 Mg Tablet) 650 mg PO Q6H PRN PRN Reason: Pain, Mild (Pain Scale 1-3) Last Admin: 12/14/22 19:14 Dose: 650 mg Documented By: SPENCER Acetaminophen/Butalbital/Caffeine (Butalb/Acetamin/Caff 50/325/40 Tablet) 1 tab PO Q4H PRN PRN Reason: hearache Last Admin: 12/15/22 10:07 Dose: 1 tab Documented By: TAVO Amlodipine Besylate (Amlodipine Besylate 10 Mg Tablet) 10 mg PO DAILY [facility]; Protocol Last Admin: 12/15/22 08:05 Dose: 10 mg Documented By: TAVO Dextrose (Dextrose 50 % 25 Gm/50 Ml Syringe) 25 gm IVPUSH Q15M PRN; Protocol PRN Reason: per Hypoglycemia Standing Ord. Diphenhydramine HCl (Diphenhydramine Hcl 50 Mg/Ml Vial) 25 mg IVPUSH Q6H PRN PRN Reason: Nausea and Vomiting Last Admin: 12/15/22 03:13 Dose: 25 mg Documented By: SPENCER Enoxaparin Sodium (Enoxaparin Sodium 40 Mg/0.4 Ml Syringe) 40 mg SUBCUT Q24H [facility] Last Admin: 12/15/22 08:05 Dose: 40 mg Documented By: TAVO Glucose (Glucose Gel 15 Gm Gel..Gram.) 15 gm PO Q15M PRN; Protocol PRN Reason: per Hypoglycemia Standing Ord. Hydralazine HCl (Hydralazine Hcl 50 Mg Tablet) 50 mg PO TID [facility]; Protocol Last Admin: 12/15/22 08:05 Dose: 50 mg Documented By: TAVO Hydralazine HCl (Hydralazine Hcl 20 Mg/Ml Vial) 10 mg IVPUSH Q4H PRN; Protocol PRN Reason: SBP>180 Promethazine HCl 6.25 mg/ (Sodium Chloride) 50.25 mls @ 201 mls/hr IV Q6H PRN PRN Reason: Nausea Last Infusion: 12/15/22 05:33 Dose: 0 mls/hr Documented By: SPENCER Insulin Glargine (Insulin Glargine,Hum.Rec.Anlog 100 Unit/Ml 10 Ml Vial) 15 unit SUBCUT BEDTIME [facility] Last Admin: 12/14/22 21:00 Dose: 15 unit Documented By: SPENCER Insulin Human Lispro (Insulin Lispro 100 Unit/Ml 3 Ml Vial) 0 unit SUBCUT QIDACHS [facility]; Protocol Last Admin: 12/15/22 07:55 Dose: Not Given Documented By: TAVO Non-Admin Reason: No Insulin Coverage Lorazepam (Lorazepam 0.5 Mg Tablet) 0.5 mg PO Q8H PRN PRN Reason: anxiety Last Admin: 12/15/22 02:49 Dose: 0.5 mg Documented By: SPENCER Melatonin (Melatonin 3 Mg Tablet) 6 mg PO BEDTIME PRN PRN Reason: Insomnia Last Admin: 12/14/22 21:01 Dose: 6 mg Documented By: SPENCER Ondansetron HCl (Ondansetron Hcl 4 Mg/2 Ml Vial) 4 mg IVPUSH Q8H PRN PRN Reason: Nausea and Vomiting Last Admin: 12/13/22 13:18 Dose: 4 mg Documented By: HO.SWEITZM Sodium Chloride (0.9 % Sodium Chloride Flush 3 Ml Syringe) 3 ml IVFLUSH QSHIFT [facility] Last Admin: 12/15/22 08:06 Dose: 3 ml Documented By: TAVO Labs 12/12/22 09:22 12/15/22 05:11 Labs: Laboratory Results - last 24 hr 12/14/22 12/14/22 12/14/22 11:12 13:10 16:01 Estim Creat Clear Calc Estimated GFR POC Glucose 161 H 150 H 235 H Urine Color Urine Appearance Urine pH Ur Specific [place] Urine Protein Urine Glucose (UA) Urine Ketones Urine Blood Urine Nitrite Ur Leukocyte Esterase Urine RBC Urine WBC Ur Squamous Epith Cells Urine Bacteria Hyaline Casts Urine Eosinophils % U Random Total Protein Urine Creatinine Hep Bs Antigen Hep Bs Antibody Hep B Core Total Ab Hepatitis C Ab (EIA) 12/14/22 12/14/22 12/14/22 16:58 20:40 21:12 Estim Creat Clear Calc Estimated GFR POC Glucose 319 H Urine Color Yellow Urine Appearance Clear Urine pH 5.5 Ur Specific [place] <= 1.005 Urine Protein Negative Urine Glucose (UA) 250 H Urine Ketones Negative Urine Blood Small (1+) H Urine Nitrite Negative Ur Leukocyte Esterase Negative Urine RBC 11-20 H Urine WBC 0-5 Ur Squamous Epith Cells 0-2 Urine Bacteria None Seen Hyaline Casts 0-2 Urine Eosinophils % 0.0 U Random Total Protein Urine Creatinine Hep Bs Antigen Negative Hep Bs Antibody NONREACTIVE Hep B Core Total Ab Nonreactive Hepatitis C Ab (EIA) Nonreactive 12/14/22 12/15/22 21:12 05:11 Estim Creat Clear Calc 24.4 Estimated GFR 16 POC Glucose Urine Color Urine Appearance Urine pH Ur Specific [place] Urine Protein Urine Glucose (UA) Urine Ketones Urine Blood Urine Nitrite Ur Leukocyte Esterase Urine RBC Urine WBC Ur Squamous Epith Cells Urine Bacteria Hyaline Casts Urine Eosinophils % U Random Total Protein < 7 Urine Creatinine 18.14 Hep Bs Antigen Hep Bs Antibody Hep B Core Total Ab Hepatitis C Ab (EIA) Microbiology Microbiology Results: Microbiology 12/12/22 16:56 Urine Culture - Final Urine clean catch - Urine cavazos top Assessment and Plan (1) Abscess of buttock, left: Status: Acute Plan 36-year-old female with pertinent history of insulin-dependent diabetes mellitus who presents to the emergency department for evaluation of fevers and chills. Elevated blood pressure reading no hx of HTN Hydralazine 50 mg QID increase amlodipine to 10 mg daily prn hydralazine for SBP >180 Headache nucal headache normal head CT start Fiorcet BONIFACIO with oliguria. Slowly improving worsening renal function likely from vanco tox check C3, 4, pending nephrology following> may need renal biopsy, wait 24hours to see if creat improves IV fluids stopped as it was thought that was contributing to elevated BP renal us> no hydronephrosis normal-appearing kidneys bladder scan and straight cath as needed UTI completed abx tx urine cx neg epigastric burning with nausea and vomiting ? gastritis lipase, LFT normal continue prilosec antiemetic Plan for EGD today Sepsis due to left buttock abscess. sepsis resolved s/p I&D in the ER 12/08 Vanco stopped due to worsening renal function started doxycycline and continue zosyn (stopped 12/15/22) general surgery following blood cultures negative to date Uncontrolled insulin-dependent diabetes mellitus with hyperglycemia Due to noncompliance with insulin as patient lost insurance Hba1c 12.7 continue sliding scale, mealtime insulin started DVT prophylaxis: Lovenox Full code attending - dr. Walton requires ongoing inpatient hospitalization for management of uncontrolled diabetes, IV antibiotics for buttock abscess Time Spent With Patient Time: Total time managing care of this patient today ____ minutes. Quality Stroke Does the patient have a stroke diagnosis?: No VTE Prior VTE?: No VTE Risk Level:: Medical - moderate - high VTE Device Contraindication: Treatment Not Indicated VTE Drug Contraindication: N/A - Med Ordered
[2022-12-15 11:07] LABS: Glucose, Whole Blood 141 mg/dL (60-115)
--- NOTE | 2022-12-15 11:21 | HO.POSTANES ---
Post Anesthesia Evaluation Post Anesthesia Evaluation Date of Service: 12/15/22 Vital Signs: Vital Signs Temp Pulse Resp BP Pulse Ox O2 Del Method 12/15/22 10:15 152/85 H 12/15/22 07:59 96.9 F 104 H 18 177/104 H 97 Room Air 12/15/22 03:27 96.8 F 105 H 18 142/90 H 98 Room Air 12/14/22 23:57 98.0 F 111 H 16 144/86 H 94 Room Air Anesthesia: Monitored Mental Status: Awake Pain Control: Satisfactory Nausea/Vomiting: None Hydration: Adequate Anesthesia-Related Issues: No Anes. Related Issues
[2022-12-15 11:31] LABS: Glucose, Whole Blood 174 mg/dL (60-115)
[2022-12-15] MEDS: Insulin Lispro 100 UNIT/ML 3 ML VIAL SUBCUT ×3 (12:06→21:02)
[2022-12-15 12:10] VITALS: BP 131/71
--- NOTE | 2022-12-15 14:16 | MHC.CM.PN ---
Per MD rounds no discharge today. Patient DX BONIFACIO. Nephrology has been consulted. DP home self care. Patient will arrange for transportation home.
[2022-12-15 16:00] VITALS: BP 132/76; PULSE 113; RESP 18; TEMP 36.9; O2SAT 97
[2022-12-15 16:28] LABS: Glucose, Whole Blood 162 mg/dL (60-115)
--- NOTE | 2022-12-15 16:28 | PM.PNNEP ---
Subjective Subjective Date of Service: 12/15/22 Interval history: Seen and examiend, events noted Physical Exam Vital Signs: Vital Signs: Last Vital Signs Temp 98.4 F 12/15/22 16:00 Pulse 113 H 12/15/22 16:00 Resp 18 12/15/22 16:00 BP 132/76 12/15/22 16:00 Pulse Ox 97 12/15/22 16:00 O2 Del Method Room Air 12/15/22 16:00 O2 Flow Rate 3 12/14/22 14:22 BMI result Body Mass Index 25.4 Const: Other: Complains of pain General: comfortable, no acute distress, alert and awake Nutritional Appearance: average body habitus Orientation/consciousness: patient oriented x3 Resp: Effort & Inspection: normal respiratory effort, able to speak in complete sentences, no respiratory distress and no use of accessory muscles Cardio: Rate: regular rate GI: Other: Rectal exam - I&D site clean on the left buttock near the perianal area, some scanty drainage, minimal residual induration Inspection: No distended Palpation (GI): Soft to palpation and nontender Back/Spine/Pelvis: Other: I&D site on the left buttock clean, packing in place, minimal residual induration no active discharge Skin: Other: left buttock I&D site, minimal residual induration Neuro: General: patient oriented x3, moves all extremities and CN's II-XI intact bilaterally Extrem: Other: no edema General: Yes no pedal edema Objective Data Labs 12/12/22 09:22 12/15/22 05:11 Labs: Laboratory Results - last 24 hr 12/14/22 12/14/22 12/14/22 16:58 20:40 21:12 Creatinine Estim Creat Clear Calc Estimated GFR POC Glucose 319 H Urine Color Yellow Urine Appearance Clear Urine pH 5.5 Ur Specific [place] <= 1.005 Urine Protein Negative Urine Glucose (UA) 250 H Urine Ketones Negative Urine Blood Small (1+) H Urine Nitrite Negative Ur Leukocyte Esterase Negative Urine RBC 11-20 H Urine WBC 0-5 Ur Squamous Epith Cells 0-2 Urine Bacteria None Seen Hyaline Casts 0-2 Urine Eosinophils % 0.0 U Random Total Protein Urine Creatinine Hep Bs Antigen Negative Hep Bs Antibody NONREACTIVE Hep B Core Total Ab Nonreactive Hepatitis C Ab (EIA) Nonreactive 12/14/22 12/15/22 12/15/22 21:12 05:11 07:29 Creatinine 3.23 H Estim Creat Clear Calc 24.4 Estimated GFR 16 POC Glucose 141 H Urine Color Urine Appearance Urine pH Ur Specific [place] Urine Protein Urine Glucose (UA) Urine Ketones Urine Blood Urine Nitrite Ur Leukocyte Esterase Urine RBC Urine WBC Ur Squamous Epith Cells Urine Bacteria Hyaline Casts Urine Eosinophils % U Random Total Protein < 7 Urine Creatinine 18.14 Hep Bs Antigen Hep Bs Antibody Hep B Core Total Ab Hepatitis C Ab (EIA) 12/15/22 11:24 Creatinine Estim Creat Clear Calc Estimated GFR POC Glucose 174 H Urine Color Urine Appearance Urine pH Ur Specific [place] Urine Protein Urine Glucose (UA) Urine Ketones Urine Blood Urine Nitrite Ur Leukocyte Esterase Urine RBC Urine WBC Ur Squamous Epith Cells Urine Bacteria Hyaline Casts Urine Eosinophils % U Random Total Protein Urine Creatinine Hep Bs Antigen Hep Bs Antibody Hep B Core Total Ab Hepatitis C Ab (EIA) Microbiology Microbiology Results: Microbiology 12/12/22 16:56 Urine clean catch - Urine cavazos top Urine Culture - Final 12/08/22 19:13 Blood - Venous Blood Culture - Final No growth after 5 days. 12/08/22 19:14 Blood - Venous Blood Culture - Final No growth after 5 days. Procedures Date of Service Date of Service: 12/15/22 Assessment & Plan Assessment and plan (1) Acute kidney injury: Status: Acute Assessment and Plan: 1.Non-Oliguric BONIFACIO: most c/w mulitfact ATN from tubular injurty fronm Vanco, Sepsis, NSAIDs and now SCR appears to be plateauing--> ? early pjhase of recovery we broaden our DDx OBS r/o by U/S Infectious assoc GN: c3/c4 pending; rare cases of inf assoc ANCA AIN: is aconcern from prior NSAID but also PPI 2. New onst HTN: ques realted to BONIFACIO REC: d/c PPI; additional sero as ordered; d/c IVF; incr norvasc 10 qd; possible kideny Bx later this week for definitive Dx; repeat urine studies as noted Will follow clsoley with team (2) Metabolic acidosis: Status: Acute Assessment and Plan: Due to BONIFACIO (3) Hyponatremia: Status: Acute Assessment and Plan: Due to impaired water clearance in BONIFACIO (4) Abscess of buttock, left: Status: Acute Time Spent With Patient Time: Total time managing care of this patient today ____ minutes. Progress Note: Quality Stroke Does the patient have a stroke diagnosis?: No
[2022-12-15 20:00] VITALS: BP 146/83; PULSE 110; RESP 18; TEMP 36.3; O2SAT 95
[2022-12-15 20:43] LABS: Glucose, Whole Blood 220 mg/dL (60-115)
[2022-12-15] MEDS: Melatonin 3 MG TABLET 6 MG PO (21:01)
[2022-12-15] MEDS: Insulin Glargine,Hum.rec.anlog 100 UNIT/ML 10 ML VIAL 15 UNIT SUBCUT (21:02)
[2022-12-15 23:08] LABS: Complement C3 152 mg/dL (83-193)
[2022-12-16 03:00] VITALS: BP 146/90; PULSE 112; RESP 18; TEMP 36.5; O2SAT 96
[2022-12-16 07:23] LABS: Estimated Glomerular Filt Rate 18
[2022-12-16 07:34] LABS: Glucose, Whole Blood 162 mg/dL (60-115)
[2022-12-16] MEDS: diphenhydrAMINE HCL 50 MG/ML VIAL 25 MG IVPUSH ×2 (07:41→20:07)
[2022-12-16] MEDS: hydrALAZINE HCl 50 MG TABLET PO ×4 (07:44→20:07)
[2022-12-16] MEDS: amLODIPine Besylate 10 MG TABLET PO (07:44)
[2022-12-16] MEDS: LORazepam 0.5 MG TABLET PO (07:44)
[2022-12-16] MEDS: Enoxaparin Sodium 40 MG/0.4 ML SYRINGE SUBCUT (07:44)
[2022-12-16] MEDS: 0.9 % Sodium Chloride Flush 3 ML SYRINGE IVFLUSH ×3 (07:45→20:07)
[2022-12-16] MEDS: Insulin Lispro 100 UNIT/ML 3 ML VIAL SUBCUT ×4 (07:45→20:08)
[2022-12-16 07:48] VITALS: BP 179/97; PULSE 108; RESP 18; TEMP 36.1; O2SAT 97
[2022-12-16 08:37] VITALS: BP 140/80
[2022-12-16 11:16] LABS: Glucose, Whole Blood 165 mg/dL (60-115)
--- NOTE | 2022-12-16 13:33 | HO.PM.IMPN ---
Subjective Subjective Date of Service: 12/16/22 Interval History: seen and examined this morning follow up for BONIFACIO N/V better, no abdominal pain POLLOCK better Review of Systems Review of Systems: Yes all other systems are reviewed and are negative Constitutional Constitutional: Denies chills and Denies fever(s) Cardiovascular Cardiovascular: Denies chest pain, Denies palpitations and Denies dyspnea Respiratory Respiratory: Denies cough and Denies dyspnea Gastrointestinal Gastrointestinal: Denies abdominal pain Endocrine Endocrine: Denies palpitations Physical Exam Vital Signs: Vital Signs: Last Vital Signs Temp 97.0 F 12/16/22 07:48 Pulse 108 H 12/16/22 07:48 Resp 18 12/16/22 07:48 BP 140/80 H 12/16/22 08:37 Pulse Ox 97 12/16/22 07:48 O2 Del Method Room Air 12/16/22 12:32 O2 Flow Rate 3 12/14/22 14:22 BMI result Body Mass Index 25.4 Const: General: cooperative, comfortable, alert and awake Nutritional Appearance: average body habitus Orientation/consciousness: patient oriented x3 Resp: Effort & Inspection: normal respiratory effort, able to speak in complete sentences, no respiratory distress and no use of accessory muscles Cardio: Rate: regular rate GI: Inspection: No distended Palpation (GI): Soft to palpation Skin: Other: declined eval of previous abscess site Neuro: General: patient oriented x3, moves all extremities and CN's II-XI intact bilaterally Objective Data Active Medications Acetaminophen (Acetaminophen 325 Mg Tablet) 650 mg PO Q6H PRN PRN Reason: Pain, Mild (Pain Scale 1-3) Last Admin: 12/14/22 19:14 Dose: 650 mg Documented By: SPENCER Acetaminophen/Butalbital/Caffeine (Butalb/Acetamin/Caff 50/325/40 Tablet) 1 tab PO Q4H PRN PRN Reason: hearache Last Admin: 12/15/22 10:07 Dose: 1 tab Documented By: TAVO Amlodipine Besylate (Amlodipine Besylate 10 Mg Tablet) 10 mg PO DAILY [facility]; Protocol Last Admin: 12/16/22 07:44 Dose: 10 mg Documented By: TAVO Dextrose (Dextrose 50 % 25 Gm/50 Ml Syringe) 25 gm IVPUSH Q15M PRN; Protocol PRN Reason: per Hypoglycemia Standing Ord. Diphenhydramine HCl (Diphenhydramine Hcl 50 Mg/Ml Vial) 25 mg IVPUSH Q6H PRN PRN Reason: Nausea and Vomiting Last Admin: 12/16/22 07:41 Dose: 25 mg Documented By: TAVO Enoxaparin Sodium (Enoxaparin Sodium 40 Mg/0.4 Ml Syringe) 40 mg SUBCUT Q24H [facility] Last Admin: 12/16/22 07:44 Dose: 40 mg Documented By: TAVO Glucose (Glucose Gel 15 Gm Gel..Gram.) 15 gm PO Q15M PRN; Protocol PRN Reason: per Hypoglycemia Standing Ord. Hydralazine HCl (Hydralazine Hcl 20 Mg/Ml Vial) 10 mg IVPUSH Q4H PRN; Protocol PRN Reason: SBP>180 Hydralazine HCl (Hydralazine Hcl 50 Mg Tablet) 50 mg PO QID [facility]; Protocol Last Admin: 12/16/22 13:03 Dose: 50 mg Documented By: TAVO Promethazine HCl 6.25 mg/ (Sodium Chloride) 50.25 mls @ 201 mls/hr IV Q6H PRN PRN Reason: Nausea Last Infusion: 12/15/22 05:33 Dose: Infused Documented By: SPENCER Insulin Glargine (Insulin Glargine,Hum.Rec.Anlog 100 Unit/Ml 10 Ml Vial) 15 unit SUBCUT BEDTIME [facility] Last Admin: 12/15/22 21:02 Dose: 15 unit Documented By: SPENCER Insulin Human Lispro (Insulin Lispro 100 Unit/Ml 3 Ml Vial) 0 unit SUBCUT QIDACHS [facility]; Protocol Last Admin: 12/16/22 11:44 Dose: 2 unit Documented By: TAVO Lorazepam (Lorazepam 0.5 Mg Tablet) 0.5 mg PO Q8H PRN PRN Reason: anxiety Last Admin: 12/16/22 07:44 Dose: 0.5 mg Documented By: TAVO Melatonin (Melatonin 3 Mg Tablet) 6 mg PO BEDTIME PRN PRN Reason: Insomnia Last Admin: 12/15/22 21:01 Dose: 6 mg Documented By: SPENCER Ondansetron HCl (Ondansetron Hcl 4 Mg/2 Ml Vial) 4 mg IVPUSH Q8H PRN PRN Reason: Nausea and Vomiting Last Admin: 12/13/22 13:18 Dose: 4 mg Documented By: RACHELE Sodium Chloride (0.9 % Sodium Chloride Flush 3 Ml Syringe) 3 ml IVFLUSH QSHIFT NAYA Last Admin: 12/16/22 13:03 Dose: 3 ml Documented By: TAVO Labs 12/12/22 09:22 12/16/22 06:01 Labs: Laboratory Results - last 24 hr 12/12/22 12/15/22 12/15/22 09:22 16:21 20:39 Estim Creat Clear Calc Estimated GFR POC Glucose 162 H 220 H Complement C3 152 Complement C4 31 12/16/22 12/16/22 12/16/22 06:01 07:20 11:12 Estim Creat Clear Calc 27.0 Estimated GFR 18 POC Glucose 162 H 165 H Complement C3 Complement C4 Assessment and Plan (1) Acute kidney injury: Status: Acute Plan 36-year-old female with pertinent history of insulin-dependent diabetes mellitus who presents to the emergency department for evaluation of fevers and chills. Elevated blood pressure reading no hx of HTN bp improving Hydralazine 50 mg QID increase amlodipine to 10 mg daily prn hydralazine for SBP >180 Headache. improved normal head CT prn Fiorcet BONIFACIO Slowly improving likely multifactorial ATN from tubular injurty fronm Vanco, Sepsis nephrology following IV fluids stopped as it was thought that was contributing to elevated BP renal us> no hydronephrosis normal-appearing kidneys UTI completed abx tx urine cx neg epigastric burning with nausea and vomiting lipase, LFT normal seen by GI, egd 12/14 wnl antiemetic Sepsis due to left buttock abscess. sepsis resolved s/p I&D in the ER 12/08 Vanco stopped due to worsening renal function started doxycycline and continue zosyn (stopped 12/15/22) seen by surgery - no further surgical intervention needed blood cultures negative to date Uncontrolled insulin-dependent diabetes mellitus with hyperglycemia Due to noncompliance with insulin as patient lost insurance blood sugar under better control Hba1c 12.7 continue sliding scale, mealtime insulin started DVT prophylaxis: Lovenox Full code attending - dr. Walton requires ongoing inpatient hospitalization for management of uncontrolled diabetes, IV antibiotics for buttock abscess Time Spent With Patient Time: Total time managing care of this patient today ____ minutes. Quality Stroke Does the patient have a stroke diagnosis?: No VTE Prior VTE?: No VTE Risk Level:: Medical - moderate - high VTE Device Contraindication: Treatment Not Indicated VTE Drug Contraindication: N/A - Med Ordered
--- NOTE | 2022-12-16 13:50 | P.PNNP_ITS ---
Subjective Subjective Date of Service: 12/16/22 Interval history: Seen and examined,events Physical Exam 2 Vital Signs: Vital Signs: Last Vital Signs Temp 97.0 F 12/16/22 07:48 Pulse 108 H 12/16/22 07:48 Resp 18 12/16/22 07:48 BP 140/80 H 12/16/22 08:37 Pulse Ox 97 12/16/22 07:48 O2 Del Method Room Air 12/16/22 12:32 O2 Flow Rate 3 12/14/22 14:22 BMI result Body Mass Index 25.4 Const: Other: Complains of pain General: comfortable, no acute distress, alert and awake Nutritional Appearance: average body habitus Orientation/consciousness: patient oriented x3 Resp: Effort & Inspection: normal respiratory effort, able to speak in complete sentences, no respiratory distress and no use of accessory muscles Cardio: Rate: regular rate GI: Other: Rectal exam - I&D site clean on the left buttock near the perianal area, some scanty drainage, minimal residual induration Inspection: No distended Palpation (GI): Soft to palpation and nontender Back/Spine/Pelvis: Other: I&D site on the left buttock clean, packing in place, minimal residual induration no active discharge Skin: Other: left buttock I&D site, minimal residual induration Neuro: General: patient oriented x3, moves all extremities and CN's II-XI intact bilaterally Extrem: Other: no edema General: Yes no pedal edema Objective Data Labs 12/12/22 09:22 12/16/22 06:01 Labs: Laboratory Results - last 24 hr 12/12/22 12/15/22 12/15/22 09:22 16:21 20:39 Creatinine Estim Creat Clear Calc Estimated GFR POC Glucose 162 H 220 H Complement C3 152 Complement C4 31 12/16/22 12/16/22 12/16/22 06:01 07:20 11:12 Creatinine 2.91 H Estim Creat Clear Calc 27.0 Estimated GFR 18 POC Glucose 162 H 165 H Complement C3 Complement C4 Microbiology Microbiology Results: Microbiology 12/12/22 16:56 Urine clean catch - Urine cavazos top Urine Culture - Final 12/08/22 19:13 Blood - Venous Blood Culture - Final No growth after 5 days. 12/08/22 19:14 Blood - Venous Blood Culture - Final No growth after 5 days. Procedures Date of Service Date of Service: 12/16/22 Assessment & Plan Assessment and plan (1) Acute kidney injury: Status: Acute Assessment and Plan: 1.Non-Oliguric BONIFACIO: most c/w mulitfact ATN from tubular injurty fronm Vanco, Sepsis, NSAIDs and now SCR plateaued and now downward trending--> c/w early phase of recovery we had broaden our DDx OBS r/o by U/S Infectious assoc GN: c3/c4nl; rare cases of inf assoc ANCA--pending AIN: is a concern from prior NSAID but also PPI can do this as well 2. New onst HTN: ques realted to BONIFACIO; responding to BP meds REC: avoid PPI; additional sero as ordered; d/c IVF; icont norvasc 10 qd; hold off on kideny Bx lgivne decr SCr Ok to d/c home t[place] if Scr < 3.0 and get outpt renal labs early next week and urgent f/u with me Will follow clsoley with team (2) Metabolic acidosis: Status: Acute Assessment and Plan: Due to BONIFACIO (3) Hyponatremia: Status: Acute Assessment and Plan: Due to impaired water clearance in BONIFACIO (4) Abscess of buttock, left: Status: Acute Time Spent With Patient Time: Total time managing care of this patient today ____ minutes. Progress Note: Quality Stroke Does the patient have a stroke diagnosis?: No
[2022-12-16 15:28] VITALS: BP 140/80; PULSE 110; RESP 18; TEMP 36.4; O2SAT 95
[2022-12-16 16:27] LABS: Glucose, Whole Blood 182 mg/dL (60-115)
[2022-12-16 19:41] VITALS: BP 138/81; PULSE 85; RESP 18; TEMP 36.3; O2SAT 98
[2022-12-16 19:54] LABS: Glucose, Whole Blood 207 mg/dL (60-115)
[2022-12-16] MEDS: Insulin Glargine,Hum.rec.anlog 100 UNIT/ML 10 ML VIAL 15 UNIT SUBCUT (20:08)
[2022-12-17] MEDS: Acetaminophen 325 MG TABLET 650 MG PO (00:01)
[2022-12-17 03:41] VITALS: BP 128/73; PULSE 100; RESP 18; TEMP 36.2; O2SAT 96
[2022-12-17 06:03] LABS: Anion Gap 13 (12-20); Blood Urea Nitrogen 21 mg/dL (9-16); Calcium 8.9 mg/dL (8.4-10.2); Carbon Dioxide 21 mmol/L (22-29); Chloride 106 mmol/L (96-108); Creatinine Clr Calc Pharmacy 29.7; Estimated Glomerular Filt Rate 20; Glucose Random 115 mg/dL (60-115); Sodium 137 mmol/L (135-145)
[2022-12-17 07:41] VITALS: BP 150/70; PULSE 106; RESP 18; TEMP 36.1; O2SAT 96
[2022-12-17 07:58] LABS: Glucose, Whole Blood 171 mg/dL (60-115)
[2022-12-17] MEDS: Enoxaparin Sodium 30 MG/0.3 ML SYRINGE SUBCUT (08:54)
[2022-12-17] MEDS: amLODIPine Besylate 10 MG TABLET PO (08:54)
[2022-12-17] MEDS: Insulin Lispro 100 UNIT/ML 3 ML VIAL SUBCUT ×2 (08:54→12:21)
[2022-12-17] MEDS: Potassium Chloride ER 20 MEQ TAB.ER.PRT 60 MEQ PO (08:54)
[2022-12-17] MEDS: hydrALAZINE HCl 50 MG TABLET PO ×2 (08:54→12:22)
[2022-12-17] MEDS: 0.9 % Sodium Chloride Flush 3 ML SYRINGE IVFLUSH (08:55)
[2022-12-17 12:01] LABS: Glucose, Whole Blood 178 mg/dL (60-115)
[2022-12-17 12:23] VITALS: BP 139/74; PULSE 102
--- NOTE | 2022-12-17 12:24 | P.DS_ITS ---
DS: Providers Provider Date of Service: 12/17/22 Date of admission: 12/09/22 00:06 Date of discharge: 12/17/22 Primary care physician: Jessica Physician Consults: 12/09/22 01:04 Consult to General Surgery Routine Consulting Provider: Victor Manuel Banerjee Reason for consultation: buttock abcsess 12/11/22 10:59 Consult to Nephrology Routine Consulting Provider: Nanci Bobo Reason for consultation: BONIFACIO 12/14/22 07:05 Consult to Gastroenterology Routine Consulting Provider: Leobardo Prado Reason for consultation: epigastric pain, nausea Attending physician on discharge: Lalo Walton Discharging clinician: Ewa Araujo DS: Diagnosis Discharge Diagnosis (1) Acute kidney injury: Status: Acute (2) Metabolic acidosis: Status: Acute (3) Hyponatremia: Status: Acute (4) Abscess of buttock, left: Status: Acute DS: Summary Hospital Course Hospital Course: From H&P on day of admission This is a 36-year-old female with pertinent history of insulin-dependent diabetes mellitus who presents to the emergency department for evaluation of fevers and chills. Patient states about 1 day prior to presentation she noticed cyst on her buttock. It was painful and progressive. It is associated with fevers and chills. Patient states she was previously on insulin but lost her insurance 1 year ago and has not been able to afford it since. Also endorses nausea and vomiting on the day of presentation. No chest pain, palpitations, shortness of breath, abdominal pain, changes in urinary or bowel habits. In the emergency department, patient was found to be septic and imaging concerning for abscess. I&D done in the ER. Blood sugar in the ER found to be significantly elevated Patient was initially admitted to the emergency department for sepsis secondary to left buttock abscess. Patient underwent I and D the abscess in the emergency department she was followed by surgery and no further surgical intervention was required. She was initially treated with IV vanco but this was discontinued and transitioned to doxycycline but due to worsening renal function. Blood cultures have remained negative and she completed antibiotics during her hospitalization. On admission she was noted to have hyperglycemia, hemoglobin A1c was checked and elevated at 12.7. She had not been taking medication as an outpatient due to insurance issue. She was re started on basal bolus insulin and blood sugars have improved. Patient had epigastric abdominal pain as well as persistent nausea vomiting. CT scan of the abdomen was unremarkable. She was seen by GI and underwent unremarkable EGD. PPI was discontinued due to renal failure and recommendation of Nephrology to avoid. She was treated symptomatically for nausea and vomiting and gradually this improved. She was also noted to have elevated blood pressure and was started on hydralazine and amlodipine with good improvement in blood pressure control. Patient was noted to have increase in her renal function. She was seen in consultation by Nephrology, likely multifactorial ATN from tubular injurty from Vanco, Sepsis. renal us showed no hydronephrosis normal-appearing kidneys. renal function has started to trend down to 2.65 on day of discharge. she should follow up with nephrology as outpatient and repeat BMP early next week. Time Spent with Patient Time attestation: Total time managing care of this patient today ____ minutes. Discharge coordination time: Greater than 30 minutes Quality: Safe Use of Opioids Does Pt have an Active Cancer Diagnosis on the Problem List?: No Quality: Stroke Does the patient have a stroke diagnosis?: No Physical Exam Vital Signs: Vital Signs: Last Vital Signs Temp 96.9 F 12/17/22 07:41 Pulse 102 H 12/17/22 12:23 Resp 18 12/17/22 07:41 BP 139/74 12/17/22 12:23 Pulse Ox 96 12/17/22 07:41 O2 Del Method Room Air 12/17/22 07:41 O2 Flow Rate 3 12/14/22 14:22 BMI result Body Mass Index 25.4 Const: General: cooperative, comfortable, no acute distress, alert and awake Nutritional Appearance: average body habitus Orientation/consciousness: patient oriented x3 Resp: Effort & Inspection: normal respiratory effort, able to speak in complete sentences, no respiratory distress and no use of accessory muscles GI: Inspection: No distended Palpation (GI): Soft to palpation and nontender Neuro: General: patient oriented x3, moves all extremities and CN's II-XI intact bilaterally Extrem: General: Yes no pedal edema DS: Data Data Completed and Pending Completed studies during hospitalization [Text1]: Pending at discharge 12/14/22 14:11 Surgical [PTH] Routine Labs on day of discharge: Laboratory Results - last 24 hr 12/16/22 12/16/22 12/17/22 16:20 19:32 05:12 Sodium 137 Potassium 3.0 L D Chloride 106 Carbon Dioxide 21 L Anion Gap 13 BUN 21 H Creatinine 2.65 H Estim Creat Clear Calc 29.7 Estimated GFR 20 POC Glucose 182 H 207 H Random Glucose 115 Calcium 8.9 12/17/22 12/17/22 07:30 11:51 Sodium Potassium Chloride Carbon Dioxide Anion Gap BUN Creatinine Estim Creat Clear Calc Estimated GFR POC Glucose 171 H 178 H Random Glucose Calcium Discharge Plan Discharge Anticipated Discharge Date/Time: 12/17/22 12:15 Patient Disposition: Home, Self-Care Discharge Diagnosis: dm with hyperglycemia perirectal abscess BONIFACIO Referrals: Physician,None [Primary Care Provider] - 1 Week Barry Modi MD [Physician] - 1 Week Discharge Medications: New amlodipine 10 mg Tablet 10 mg PO DAILY 30 Days Qty: 30 0RF Protocol: Hold for SBP< HOLD for SBP < : 90 hydralazine 50 mg Tablet 50 mg PO QID 30 Days Qty: 120 0RF Protocol: Hold for SBP< HOLD for SBP < : 90 (DME) FreeStyle Lite Strips Strip Qty: 100 0RF Rx Instructions: Test four times a day or as directed. (DME) blood-glucose meter [FreeStyle Lite Meter] Kit Qty: 1 0RF Rx Instructions: As Directed alcohol swabs Pads, Medicated 1 pad TOPICAL QIDACHS Qty: 100 0RF Rx Instructions: Use four times a day or as directed. insulin lispro [Humalog KwikPen Insulin] 100 unit/mL insulin pen 1 sliding scale dose SUBCUT QIDACHS MDD 30 units Qty: 15 0RF Rx Instructions: Blood Sugar: <150 - 0 units 151-200 - 2 units 201-250 - 4 units 251-300 - 6 units 301-350 - 8 units >350 - 10 units insulin glargine [Lantus Solostar U-100 Insulin] 100 unit/mL (3 mL) insulin pen 15 unit SUBCUT DAILY Qty: 15 0RF (DME) pen needle, diabetic 32 gauge x 1/4 needle Qty: 100 0RF Rx Instructions: Use four times a day or as directed. (DME) lancets [FreeStyle Lancets] 28 gauge misc Qty: 100 0RF Rx Instructions: Test four times a day or as directed. Discontinued naproxen 500 mg tablet 500 mg PO BID PRN (Reason: pain) Qty: 14 0RF Discharge Orders: Discharge Order (Routine); Ordered 12/17/22 Ordered By: Ewa Araujo Activity on Discharge: As tolerated Stand Alone Forms: Patient Portal Discharge page, Work/School Release Other Ambulatory Orders: Basic Metabolic Panel (Routine) Timeframe: 20221221 Facility: [facility] - Location: Laboratory Ordered By: Ewa Araujo Care Plan Goals: see below Health Concerns: perirectal abscess DM with hyperglycemia BONIFACIO Nausea and vomiting Plan of Treatment: check blood sugar before meals and at bedtime. keep a log of your blood sugar take insulin as prescribed call to schedule appointment to obtain PCP completed antibiotics in the hospital call to schedule follow up next week with survey research manager to monitor kidney function, repeat kidney labs early next week take blood pressure medications as prescribed do not use NSAIDs like naprosyn or motrin due to elevated kidney function Assessment: see discharge summary
[2022-12-17 13:00] VITALS: O2SAT 96
--- NOTE | 2022-12-17 13:26 | MHC.CM.PN ---
Patient is discharged to home self care. She has arranged for transportation home.
--- NOTE | 2022-12-17 14:23 | P.PNNP_ITS ---
Subjective Subjective Date of Service: 12/17/22 Interval history: cr better today Physical Exam 2 Vital Signs: Vital Signs: Last Vital Signs Temp 96.9 F 12/17/22 07:41 Pulse 102 H 12/17/22 12:23 Resp 18 12/17/22 07:41 BP 139/74 12/17/22 12:23 Pulse Ox 96 12/17/22 13:00 O2 Del Method Room Air 12/17/22 13:00 O2 Flow Rate 3 12/14/22 14:22 BMI result Body Mass Index 25.4 Const: General: comfortable, no acute distress, alert and awake Resp: Effort & Inspection: normal respiratory effort, able to speak in complete sentences, no respiratory distress and no use of accessory muscles Cardio: Rate: regular rate GI: Palpation (GI): Soft to palpation and nontender Extrem: General: Yes no pedal edema Objective Data Labs 12/12/22 09:22 12/17/22 05:12 Labs: Laboratory Results - last 24 hr 12/16/22 12/16/22 12/17/22 16:20 19:32 05:12 Sodium 137 Potassium 3.0 L D Chloride 106 Carbon Dioxide 21 L Anion Gap 13 BUN 21 H Creatinine 2.65 H Estim Creat Clear Calc 29.7 Estimated GFR 20 POC Glucose 182 H 207 H Random Glucose 115 Calcium 8.9 12/17/22 12/17/22 07:30 11:51 Sodium Potassium Chloride Carbon Dioxide Anion Gap BUN Creatinine Estim Creat Clear Calc Estimated GFR POC Glucose 171 H 178 H Random Glucose Calcium Microbiology Microbiology Results: Microbiology 12/12/22 16:56 Urine clean catch - Urine cavazos top Urine Culture - Final 12/08/22 19:13 Blood - Venous Blood Culture - Final No growth after 5 days. 12/08/22 19:14 Blood - Venous Blood Culture - Final No growth after 5 days. Procedures Date of Service Date of Service: 12/17/22 Assessment & Plan Assessment and plan (1) Acute kidney injury: Status: Acute Assessment and Plan: 1.Non-Oliguric BONIFACIO: most c/w mulitfact ATN from tubular injurty from Sepsis and Hemodynamic stress. Mediations may have also played a role in tubular toxicity. Renal U/S reassuring 2. New onst HTN: ques realted to BONIFACIO; responding to BP meds REC: - will set up f/u with Dr Modi upon discharge. (2) Metabolic acidosis: Status: Acute Assessment and Plan: Due to BONIFACIO (3) Hyponatremia: Status: Acute Assessment and Plan: Due to impaired water clearance in BONIFACIO (4) Abscess of buttock, left: Status: Acute Time Spent With Patient Time: Total time managing care of this patient today ____ minutes. Progress Note: Quality Stroke Does the patient have a stroke diagnosis?: No
[2022-12-17 18:08] LABS: Myeloperoxidase Antibody <1.0 AI; Proteinase 3 PR3 Antibodies <1.0 AI
[2022-12-20 13:04] LABS: Anti Nuclear Antibody Screen NEGATIVE (NEGATIVE)
== END 2022-12-17 14:25 | disposition home or self-care (01) | DRG 871 ==
LOC: HO.ED 23:43 → HO.EDOVER 12-09 00:11 → HO.S3 12-09 02:16
PROVIDERS: Internal Medicine Gastroenterology; Internal Medicine Nephrology; Nurse Practitioner Acute Care; Physician Assistant Medical; Admitting Provider Student in an Organized Health Care Education/Training Program; Emergency Provider Emergency Medicine; Visit Provider Physician Assistant Medical
PROC: 0DJ08ZZ Inspection of Upper Intestinal Tract, Via Natural or Artificial Opening Endoscopic (ICD-10-PCS; CPT 43235; principal; 2022-12-14 13:50)
DX: A41.9 Sepsis, unspecified organism (principal); N17.0 Acute kidney failure with tubular necrosis; L02.31 Cutaneous abscess of buttock; N39.0 Urinary tract infection, site not specified; E87.1 Hypo-osmolality and hyponatremia; E87.20 Acidosis, unspecified; L03.317 Cellulitis of buttock; R10.13 Epigastric pain; I10 Essential (primary) hypertension; R51.9 Headache, unspecified; T36.8X5A Adverse effect of other systemic antibiotics, initial encounter; Z91.141 Patient's other noncompliance with medication regimen due to financial hardship; E11.65 Type 2 diabetes mellitus with hyperglycemia; Z79.4 Long term (current) use of insulin; Z79.899 Other long term (current) drug therapy
CPT/HCPCS: 36415; 70450; 74176; 74177; 76775; 80048; 80076; 80202; 81001; 82010; 82565; 82570; 82803; 82947; 83036; 83605; 83690; 83735; 84156; 84702; 85025; 85027; 85999; 86021; 86038; 86160; 86704; 86706; 86803; 87040; 87086; 87340; 88305; 88342; 99285; J1170; J1200; J1650; J1885; J2060; J2250; J2270; J2405; J2543; J2550; J3370; J3371; Q9967

== ENCOUNTER → 2022-12-09 00:06 | Outpatient (BNV) | payer OTHER, SELFPAY | PROVIDERS: Admitting Provider Student in an Organized Health Care Education/Training Program; Emergency Provider Emergency Medicine; Visit Provider Student in an Organized Health Care Education/Training Program | DX: N17.9 Acute kidney failure, unspecified (principal); E87.20 Acidosis, unspecified; E87.1 Hypo-osmolality and hyponatremia; L02.31 Cutaneous abscess of buttock | CPT/HCPCS: 99222; 99232; 99239; 99499 ==

== ENCOUNTER → 2022-12-09 00:06 | Outpatient (BNV) | payer OTHER, MEDICAID, SELFPAY | PROVIDERS: Admitting Provider Student in an Organized Health Care Education/Training Program; Emergency Provider Emergency Medicine; Visit Provider Surgery | DX: L02.31 Cutaneous abscess of buttock (principal) | CPT/HCPCS: 99222; 99232 ==

== ENCOUNTER 2022-12-25 05:00 | Emergency (ER) | payer OTHER, MEDICAID, SELFPAY ==
[2022-12-25 05:18] LABS: Glucose, Whole Blood 236 mg/dL (60-115)
--- NOTE | 2022-12-25 05:30 | ED_ITS ---
HPI - General Adult General Chief complaint: Nausea/Vomiting/Diarrhea Stated complaint: Knee pain, vomiting, unsteady blood sugar Time Seen by Provider: 12/25/22 05:26 Source: patient Mode of arrival: EMS Limitations: no limitations History of Present Illness HPI narrative: Patient is type 1 diabetic on insulin discharge from the hospital on 12/17 for left gluteal abscess , ATN comes in for bilateral flank pain discharged on 12/17 from the hospital comes back as since discharge patient not able to drink liquids and been vomiting since then and still having bilateral flank pain no signal abdominal pain no fever no chills patient been checking her blood sugar last time was in 200 range patient been holding her bilateral flank areas in the kidneys are bothering her patient had a CT scan done on 12/10/2022 with negative for kidney stones Related Data Previous Rx's Medication Instructions Recorded alcohol swabs 1 pad topical QIDACHS #100 ea 12/17/22 amlodipine 10 mg tablet 10 mg PO DAILY 30 days #30 tabs 12/17/22 blood sugar diagnostic (FreeStyle #100 ea 12/17/22 Lite Strips) blood-glucose meter (FreeStyle #1 ea 12/17/22 Lite Meter kit) hydralazine 50 mg tablet 50 mg PO QID 30 days #120 tabs 12/17/22 insulin glargine 100 unit/mL (3 15 unit (0.15 mL) subcut DAILY #15 12/17/22 mL) subcutaneous pen (Lantus mL Solostar U-100 Insulin) insulin lispro 100 unit/mL 1 sliding scale dose subcut 12/17/22 subcutaneous pen (Humalog KwikPen QIDACHS #15 mL (U-100) Insulin) lancets 28 gauge (FreeStyle #100 ea 12/17/22 Lancets) pen needle, diabetic 32 gauge x #100 ea 12/17/22 1/4 metformin 500 mg tablet 500 mg PO DAILY #30 tabs 12/21/22 morphine 15 mg immediate release 15 mg PO Q8H PRN pain #15 tabs 12/25/22 tablet ondansetron 4 mg disintegrating 4 mg PO Q6-8H PRN nausea and 12/25/22 tablet vomiting #20 tabs Allergies Allergy/AdvReac Type Severity Reaction Status Date / Time No Known Allergies Allergy Mild NOT Verified 12/08/22 18:04 APPLICABLE Review of Systems 2 Review of Systems: Yes all other systems are reviewed and are negative [facility] Past Medical History Medical History delivery delivered Diabetes Surgical History Hx of hernia repair H/O elbow surgery Hx of esophagogastroduodenoscopy Social History Social History Household Members: Other Household Members Other:: daughter Housing: Apartment Do you presently have visiting nurse or other home services: No Patient Tobacco Use Status: Never used Tobacco Advance Directives: No Advance Directives Information Provided: Yes service: No Current occupational status: employed 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 Oriented X3. In moderate distress anxious Eyes: PERRLA, No Nystagmus ENT: Pharynx normal. Oral Mucosa moist Neck: Normal inspection. Neck supple. CVS: Normal heart rate and rhythm. Pulses normal. Respiratory: No respiratory distress. Equal air entry bilateral, no wheezing/rales/rhonchi Abdomen: Soft and nontender. Bowel sounds are present, no mass palpable, bilateral CVA tenderness Skin: Skin warm and dry. Normal skin color. Normal skin turgor. Extremities: No lower extremity edema. No calf tenderness Neuro: Oriented X 3. No motor deficit. No sensory deficit.No cerebellar signs , cranial nerves II-XII intact Medications Administered Discontinued Medications Generic Name Dose Route Start Last Admin Trade Name Freq PRN Reason Stop Dose Admin Sodium Chloride 1,000 mls @ 999 mls/hr 12/25/22 05:31 12/25/22 06:42 Ns IV 12/25/22 06:31 Infused .Q1H1M ONE Infusion Morphine Sulfate 4 mg 12/25/22 05:33 12/25/22 05:47 Morphine Sulfate 4 Mg/Ml Cartridge IVPUSH 12/25/22 05:34 4 mg ONCE ONE Administration Protocol Ondansetron HCl 4 mg 12/25/22 05:33 12/25/22 05:47 Ondansetron Hcl 4 Mg/2 Ml Vial IVPUSH 12/25/22 05:34 4 mg ONCE ONE Administration Medical Decision Making Medical Decision Making [facility] Narrative: Patient has bilateral flank pain with chronic kidney disease kidney functions have improved from the last visit on 12/17 it was 2.65 now it is 1.85 will give IV fluids advised to follow-up with outpatient Patient UA still pending Differential Diagnosis Differential Diagnoses: The differential diagnosis associated with the presentation includes UTI/cystitis/hyperglycemia/DKA/CKD/pyelonephritis Lab Data [facility] Lab Attestation statement: I reviewed the patient's lab results. 12/25/22 05:57 12/25/22 05:57 Labs: Lab Results 12/25/22 12/25/22 Range/Units 05:14 05:57 WBC 15.8 H (4.8-10.8) X10*3/uL RBC 3.64 L (4.20-5.50) X10*6/uL Hgb 10.3 L (12.0-16.0) g/dl Hct 31.5 L (37.0-47.0) % MCV 86.5 (80.0-98.0) fL MCH 28.3 (27.0-33.0) pg MCHC 32.7 (31.0-35.0) g/dl RDW 12.0 (11.0-16.0) % Plt Count 291 D (160-400) X10*3/uL MPV 11.5 (9.4-12.3) fL Immature Gran % (Auto) 0.5 H (0.0-0.4) % Neut % (Auto) 71.6 (45-73) % Lymph % (Auto) 17.3 L (20-40) % [place] % (Auto) 7.4 (2-11) % Eos % (Auto) 2.5 (0-4) % Baso % (Auto) 0.7 (0-2) % Lymph # (Auto) 2.7 (1.2-4.9) X10*3/uL [place] # (Auto) 1.2 (0.1-1.2) X10*3/uL Eos # (Auto) 0.4 (0.0-0.4) X10*3/uL Baso # (Auto) 0.1 (0.0-0.2) X10*3/uL Abs Immat Gran (auto) 0.08 H (0.00-0.03) X10*3/uL Absolute Neuts (auto) 11.3 H (2.0-8.3) x10*3/uL Absolute Nucleated RBC 0.000 (0.0-0.012) X10*3/uL Nucleated RBC % (auto) 0.0 (0.0-0.2) /100WBC Sodium 140 (135-145) mmol/L Potassium 3.4 (3.3-5.1) mmol/L Chloride 101 (96-108) mmol/L Carbon Dioxide 25 (22-29) mmol/L Anion Gap 17 (12-20) BUN 15 (9-16) mg/dL Creatinine 1.83 H (0.5-1.4) mg/dL Estim Creat Clear Calc 41.3 Estimated GFR 31 POC Glucose 236 H (60-115) mg/dL Random Glucose 243 H (60-115) mg/dL Lactic Acid 1.1 (0.5-2.0) mmol/L Calcium 9.4 (8.4-10.2) mg/dL Total Bilirubin 0.6 (0.0-1.0) mg/dL AST 15 (5-31) U/L ALT 20 (0-31) U/L Alkaline Phosphatase 85 (39-117) U/L Total Protein 8.0 (6.5-8.0) g/dL Albumin 4.0 (3.5-5.0) g/dL Beta-Hydroxybutyrate 0.10 (0.02-0.27) mmol/L Discharge Plan Discharge Clinical Impression: Nausea & vomiting, Back pain Patient Disposition: Still a Patient Instructions: Acute Nausea and Vomiting (ED), Back Pain (ED) Additional Instructions: Drink plenty of fluids Meds for nausea as prescribed Prescriptions: New morphine 15 mg tablet 15 mg PO Q8H PRN (Reason: pain) Qty: 15 0RF Rx Instructions: Partial Fill upon patient request. ondansetron 4 mg tablet,disintegrating 4 mg PO Q6-8H PRN (Reason: nausea and vomiting) Qty: 20 0RF No Action amlodipine 10 mg Tablet 10 mg PO DAILY 30 Days Qty: 30 0RF Protocol: Hold for SBP< HOLD for SBP < : 90 hydralazine 50 mg Tablet 50 mg PO QID 30 Days Qty: 120 0RF Protocol: Hold for SBP< HOLD for SBP < : 90 (DME) FreeStyle Lite Strips Strip Qty: 100 0RF Rx Instructions: Test four times a day or as directed. (DME) blood-glucose meter [FreeStyle Lite Meter] Kit Qty: 1 0RF Rx Instructions: As Directed alcohol swabs Pads, Medicated 1 pad TOPICAL QIDACHS Qty: 100 0RF Rx Instructions: Use four times a day or as directed. insulin lispro [Humalog KwikPen Insulin] 100 unit/mL insulin pen 1 sliding scale dose SUBCUT QIDACHS MDD 30 units Qty: 15 0RF Rx Instructions: Blood Sugar: <150 - 0 units 151-200 - 2 units 201-250 - 4 units 251-300 - 6 units 301-350 - 8 units >350 - 10 units insulin glargine [Lantus Solostar U-100 Insulin] 100 unit/mL (3 mL) insulin pen 15 unit SUBCUT DAILY Qty: 15 0RF (DME) pen needle, diabetic 32 gauge x 1/4 needle Qty: 100 0RF Rx Instructions: Use four times a day or as directed. (DME) lancets [FreeStyle Lancets] 28 gauge misc Qty: 100 0RF Rx Instructions: Test four times a day or as directed. metformin 500 mg tablet 500 mg PO DAILY Qty: 30 0RF
[2022-12-25 05:31] VITALS: BP 152/96; PULSE 112; RESP 17; TEMP 36.8; O2SAT 98; BMI 24.1
[2022-12-25] MEDS: 0.9 % Sodium Chloride 1,000 ML 999 ML IV ×2 (05:38→07:54)
[2022-12-25] MEDS: ondansetron HCL 4 MG/2 ML VIAL IVPUSH (05:47)
[2022-12-25] MEDS: Morphine Sulfate 4 MG/ML CARTRIDGE IVPUSH (05:47)
[2022-12-25 06:03] LABS: Basophils Absolute Auto 0.1 X10*3/uL (0.0-0.2); Basophils Percent Auto 0.7 % (0-2); Eosinophils Absolute Auto 0.4 X10*3/uL (0.0-0.4); Eosinophils Percent Auto 2.5 % (0-4); Hematocrit 31.5 % (37.0-47.0); Hemoglobin 10.3 g/dl (12.0-16.0); Imm Gran Abs Auto 0.08 X10*3/uL (0.00-0.03); Imm Gran Pct Auto 0.5 % (0.0-0.4); Lymphocytes Absolute Auto 2.7 X10*3/uL (1.2-4.9); Lymphocytes Percent Auto 17.3 % (20-40); MANUAL DIFF FLAG NO; Mean Corpuscular HGB Conc 32.7 g/dl (31.0-35.0); Mean Corpuscular Hemoglobin 28.3 pg (27.0-33.0); Mean Corpuscular Volume 86.5 fL (80.0-98.0); Mean Platelet Volume 11.5 fL (9.4-12.3); Monocytes Absolute Auto 1.2 X10*3/uL (0.1-1.2); Monocytes Percent Auto 7.4 % (2-11); Neutrophils Absolute Auto 11.3 x10*3/uL (2.0-8.3); Neutrophils Percent Auto 71.6 % (45-73); Platelet Count 291 X10*3/uL (160-400); Red Blood Count 3.64 X10*6/uL (4.20-5.50); White Blood Count 15.8 X10*3/uL (4.8-10.8)
[2022-12-25 06:17] LABS: Lactic Acid 1.1 mmol/L (0.5-2.0)
[2022-12-25 06:22] LABS: Alanine Aminotransferase 20 U/L (0-31); Alkaline Phosphatase 85 U/L (39-117); Anion Gap 17 (12-20); Aspartate Amino Transferase 15 U/L (5-31); Bilirubin Total 0.6 mg/dL (0.0-1.0); Blood Urea Nitrogen 15 mg/dL (9-16); Calcium 9.4 mg/dL (8.4-10.2); Carbon Dioxide 25 mmol/L (22-29); Chloride 101 mmol/L (96-108); Creatinine Clr Calc Pharmacy 41.3; Estimated Glomerular Filt Rate 31; Glucose Random 243 mg/dL (60-115); Potassium 3.4 mmol/L (3.3-5.1); Sodium 140 mmol/L (135-145)
[2022-12-25 06:35] VITALS: BP 155/93; PULSE 98; RESP 12; TEMP 36.8; O2SAT 95
[2022-12-25 07:53] LABS: Appearance Urine Clear; Color Urine Yellow; Glucose Urine UA Negative (Negative); Leukocyte Esterase Urine Trace (Negative); Nitrite Urine Negative (Negative); PH 6.5 (5.0-9.0); Specific Gravity - Urine <= 1.005 (1.005-1.025); UMIC TRIGGER UACC YES; Urine Blood Small (1+) (Negative); Urine Ketones Negative (Negative); Urine Protein Negative (Neg-Trace)
[2022-12-25 08:07] LABS: Bacteria Urine None Seen (None Seen); Hyaline Casts Urine 0-2 /LPF (0-2); WBC Urine 0-5 /HPF (0-5)
--- NOTE | 2022-12-25 08:53 | PC.NURSE ---
patient resting in bed, no episodes of vomiting
[2022-12-25 08:54] VITALS: BP 143/92; PULSE 98; RESP 16; TEMP 36.7; O2SAT 96
== END 2022-12-25 09:46 | disposition home or self-care (01) ==
PROVIDERS: Emergency Provider Internal Medicine
DX: R10.9 Unspecified abdominal pain (principal); R11.2 Nausea with vomiting, unspecified; E10.8 Type 1 diabetes mellitus with unspecified complications; Z79.4 Long term (current) use of insulin; D72.829 Elevated white blood cell count, unspecified; R82.90 Unspecified abnormal findings in urine
CPT/HCPCS: 36415; 80053; 81001; 82010; 82947; 83605; 85025; 87040; 96361; 96374; 96375; 99284; J2270; J2405

== ENCOUNTER 2023-03-17 09:51 | Outpatient (REF) | payer OTHER, MEDICAID, SELFPAY ==
[2023-03-17 10:21] LABS: MANUAL DIFF FLAG NO
[2023-03-17 11:11] LABS: Appearance Urine Clear; Color Urine Yellow; Glucose Urine UA >=1000 mg/dL (Negative); Leukocyte Esterase Urine Negative (Negative); Nitrite Urine Negative (Negative); PH 5.5 (5.0-9.0); Specific Gravity - Urine 1.025 (1.005-1.025); UMIC TRIGGER UA YES; Urine Blood Negative (Negative); Urine Ketones Negative (Negative); Urine Protein Negative (Neg-Trace)
[2023-03-17 11:20] LABS: Bacteria Urine Trace (None Seen); Hyaline Casts Urine 0-2 /LPF (0-2); RBC Urine 0-2 /HPF (0-2); WBC Urine 0-5 /HPF (0-5)
[2023-03-17 11:23] LABS: Basophils Absolute Auto 0.1 X10*3/uL (0.0-0.2); Basophils Percent Auto 0.6 % (0-2); Eosinophils Absolute Auto 0.4 X10*3/uL (0.0-0.4); Eosinophils Percent Auto 2.9 % (0-4); Hematocrit 36.7 % (37.0-47.0); Hemoglobin 12.1 g/dl (12.0-16.0); Imm Gran Abs Auto 0.07 X10*3/uL (0.00-0.03); Imm Gran Pct Auto 0.6 % (0.0-0.4); Lymphocytes Absolute Auto 3.1 X10*3/uL (1.2-4.9); Lymphocytes Percent Auto 26.2 % (20-40); Mean Corpuscular Hemoglobin 27.9 pg (27.0-33.0); Mean Corpuscular Volume 84.8 fL (80.0-98.0); Mean Platelet Volume 12.7 fL (9.4-12.3); Monocytes Absolute Auto 0.8 X10*3/uL (0.1-1.2); Monocytes Percent Auto 6.6 % (2-11); Neutrophils Absolute Auto 7.6 x10*3/uL (2.0-8.3); Neutrophils Percent Auto 63.1 % (45-73); Platelet Count 192 X10*3/uL (160-400); Red Blood Count 4.33 X10*6/uL (4.20-5.50); Red Cell Distribution Width 12.8 % (11.0-16.0)
[2023-03-17 12:01] LABS: Creatinine Urine 49.89 mg/dL; Microalbum/Creatinine Ratio Ur 82.1 ug/mg cr (<30); Protein/Creatinine Ratio, Ur 0.18 (<0.2); Total Protein Urine Random 9 mg/dL (<12)
[2023-03-17 12:09] LABS: Anion Gap 11 (12-20); Blood Urea Nitrogen 24 mg/dL (9-16); Calcium 9.6 mg/dL (8.4-10.2); Carbon Dioxide 28 mmol/L (22-29); Chloride 103 mmol/L (96-108); Estimated Glomerular Filt Rate > 60; Potassium 4.9 mmol/L (3.3-5.1); Sodium 137 mmol/L (135-145)
== END 2023-03-17 09:52 | disposition home or self-care (01) ==
LOC: HO.LAB 09:51
PROVIDERS: Visit Provider Internal Medicine Nephrology
DX: E11.22 Type 2 diabetes mellitus with diabetic chronic kidney disease (principal); N18.31 Chronic kidney disease, stage 3a; N17.9 Acute kidney failure, unspecified; R80.9 Proteinuria, unspecified
CPT/HCPCS: 36415; 80051; 81001; 82043; 82310; 82565; 82570; 84156; 84520; 85025

== ENCOUNTER 2023-04-23 20:19 | Emergency (ER) | payer OTHER, MEDICAID, SELFPAY ==
[2023-04-23 20:43] VITALS: BP 144/91; PULSE 116; RESP 17; TEMP 37.3; O2SAT 100; BMI 24.9
[2023-04-23 21:36] LABS: MANUAL DIFF FLAG NO
[2023-04-23 21:37] LABS: Basophils Absolute Auto 0.1 X10*3/uL (0.0-0.2); Basophils Percent Auto 0.5 % (0-2); Eosinophils Absolute Auto 0.2 X10*3/uL (0.0-0.4); Eosinophils Percent Auto 2.1 % (0-4); Hematocrit 36.3 % (37.0-47.0); Hemoglobin 12.4 g/dl (12.0-16.0); Imm Gran Abs Auto 0.08 X10*3/uL (0.00-0.03); Imm Gran Pct Auto 0.8 % (0.0-0.4); Lymphocytes Percent Auto 10.5 % (20-40); Mean Corpuscular HGB Conc 34.2 g/dl (31.0-35.0); Mean Corpuscular Hemoglobin 28.8 pg (27.0-33.0); Mean Corpuscular Volume 84.2 fL (80.0-98.0); Mean Platelet Volume 12.3 fL (9.4-12.3); Monocytes Percent Auto 10.2 % (2-11); Neutrophils Absolute Auto 7.3 x10*3/uL (2.0-8.3); Neutrophils Percent Auto 75.9 % (45-73); Platelet Count 163 X10*3/uL (160-400); Red Blood Count 4.31 X10*6/uL (4.20-5.50); Red Cell Distribution Width 12.5 % (11.0-16.0); White Blood Count 9.6 X10*3/uL (4.8-10.8)
[2023-04-23 21:40] LABS: Appearance Urine Clear; Color Urine Yellow; Glucose Urine UA >=1000 mg/dL (Negative); Leukocyte Esterase Urine Negative (Negative); Nitrite Urine Negative (Negative); Specific Gravity - Urine 1.025 (1.005-1.025); UMIC TRIGGER UACC YES; Urine Blood Negative (Negative); Urine Ketones Negative (Negative); Urine Protein 100 (2+) mg/dL (Neg-Trace)
[2023-04-23 21:41] LABS: UPreg QC Valid YES; Urine Pregnancy NEGATIVE (NEGATIVE)
--- NOTE | 2023-04-23 21:42 | MHC.EDTECH ---
patient brought into triage area,labs,and a urine obtained and sent to lab.
[2023-04-23 21:44] LABS: Bacteria Urine 1+ (None Seen); Hyaline Casts Urine 0-2 /LPF (0-2); RBC Urine 0-2 /HPF (0-2); WBC Urine 0-5 /HPF (0-5)
[2023-04-23 21:53] LABS: Alanine Aminotransferase 13 U/L (0-31); Albumin Level 4.1 g/dL (3.5-5.0); Alkaline Phosphatase 75 U/L (39-117); Anion Gap 14 (12-20); Aspartate Amino Transferase 12 U/L (5-31); Bilirubin Direct 0.3 mg/dL (0.0-0.5); Bilirubin Total 0.9 mg/dL (0.0-1.0); Blood Urea Nitrogen 15 mg/dL (9-16); Calcium 9.5 mg/dL (8.4-10.2); Carbon Dioxide 21 mmol/L (22-29); Chloride 102 mmol/L (96-108); Estimated Glomerular Filt Rate > 60; Glucose Random 332 mg/dL (60-115); Potassium 4.1 mmol/L (3.3-5.1); Sodium 133 mmol/L (135-145); Total Protein 7.9 g/dL (6.5-8.0)
[2023-04-24 00:13] VITALS: BP 119/73; PULSE 115; RESP 20; TEMP 37.4; O2SAT 97
[2023-04-24] MEDS: Acetaminophen 325 MG TABLET 650 MG PO (00:17)
[2023-04-24] MEDS: Ibuprofen 400 MG TABLET PO (00:19)
== END 2023-04-24 01:58 | disposition left against medical advice (07) ==
PROVIDERS: Emergency Provider Emergency Medicine
DX: R10.9 Unspecified abdominal pain (principal); R11.2 Nausea with vomiting, unspecified; E11.9 Type 2 diabetes mellitus without complications
CPT/HCPCS: 36415; 80048; 80076; 81001; 81025; 85025; 99283

== ENCOUNTER 2023-04-25 11:10 | Emergency (ER) | payer OTHER, MEDICAID, SELFPAY ==
[2023-04-25 11:29] VITALS: BP 104/70; PULSE 92; RESP 18; TEMP 36.7; O2SAT 99; BMI 24.9
--- NOTE | 2023-04-25 11:29 | ED.GENADULT ---
HPI - General Adult General Chief complaint: General Medical Stated complaint: pain in back of head History of Present Illness HPI narrative: The patient is a 37-year-old female with a history of type 2 diabetes. She is on Lantus and Humalog. She says that she has been feeling unwell for 3 days and her blood sugars have been running higher than usual. She came to the hospital 2 days ago for the same symptoms but there was a very long wait and she was not seen by a provider. She returned today. She does not know if she has had any fevers. She feels that she has pain in both flanks that she describes as kidney pain. She says she has been eating very little. She does not feel very well. Related Data Previous Rx's Medication Instructions Recorded alcohol swabs 1 pad topical QIDACHS #100 ea 12/17/22 amlodipine 10 mg tablet 10 mg PO DAILY 30 days #30 tabs 12/17/22 blood sugar diagnostic (FreeStyle #100 ea 12/17/22 Lite Strips) blood-glucose meter (FreeStyle #1 ea 12/17/22 Lite Meter kit) hydralazine 50 mg tablet 50 mg PO QID 30 days #120 tabs 12/17/22 insulin glargine 100 unit/mL (3 15 unit (0.15 mL) subcut DAILY #15 12/17/22 mL) subcutaneous pen (Lantus mL Solostar U-100 Insulin) insulin lispro 100 unit/mL 1 sliding scale dose subcut 12/17/22 subcutaneous pen (Humalog KwikPen QIDACHS #15 mL (U-100) Insulin) lancets 28 gauge (FreeStyle #100 ea 12/17/22 Lancets) pen needle, diabetic 32 gauge x #100 ea 12/17/22 1/ metformin 500 mg tablet 500 mg PO DAILY #30 tabs 12/21/22 morphine 15 mg immediate release 15 mg PO Q8H PRN pain #15 tabs 12/25/22 tablet ondansetron 4 mg disintegrating 4 mg PO Q6-8H PRN nausea and 12/25/22 tablet vomiting #20 tabs Allergies Allergy/AdvReac Type Severity Reaction Status Date / Time No Known Allergies Allergy Mild NOT Verified 04/25/23 11:29 APPLICABLE Review of Systems Review of Systems: Yes all other systems are reviewed and are negative PMFSH Past Medical History Onset Date is defined in the Problem List Problems that require an onset date and time if occurred within 24 hrs of arrival to the ED Aortic Dissection and Rupture; Neurologic impairment; Cardiopulmonary Arrest; Endotracheal Intubation; Insertion or Replacement of Mechanical Circulatory Assist Device Medical History delivery delivered Diabetes Surgical History Hx of hernia repair H/O elbow surgery Hx of esophagogastroduodenoscopy Social History Social History Household Members: Other Household Members Other:: daughter Housing: Apartment Do you presently have visiting nurse or other home services: No Patient Tobacco Use Status: Never used Tobacco Advance Directives: No Advance Directives Information Provided: No service: No Current occupational status: employed 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 HENMT Other: Face is symmetrical. Mucous membranes are moist. Posterior pharynx is unremarkable. Eyes Other: Pupils are round equal, conjunctivae are clear, extraocular movements intact Neck Other: No cervical adenopathy. Moving her neck easily. Neck is supple. Resp Effort & Inspection: normal respiratory effort Auscultation: clear to auscultation bilaterally Cardio Rate: regular rate Rhythm: regular rhythm Heart sounds: S1 normal heart sound present and S2 normal heart sound present GI Other: The abdomen seems soft and nontender. General: Yes no CVA tenderness Back/Spine/Pelvis Back: no CVA tenderness Skin Other: Pale and dry Neuro Other: The patient was tearful. The status was clear. Cranial nerves grossly intact. Moving all extremities normally. Grossly neurologically intact. Extrem Other: No peripheral edema, no calf swelling or tenderness Course Course Course Narrative: RME:?37 yo female hx T2D insulin dependent, here w/ right kidney pain . Assoc headache, cough, subjective fevers, chills, nausea without vomiting. No sick contacts. high sugars at home. last night 300s. Here tuesday for same. LWT d/t wait. No cvat. Plan for labs, ua, serology Full HPI, ROS and PE to be performed by the primary ED provider. Medications Administered Discontinued Medications Generic Name Dose Route Start Last Admin Trade Name Freq PRN Reason Stop Dose Admin Acetaminophen 975 mg 04/25/23 22:31 04/25/23 22:37 Acetaminophen 325 Mg Tablet PO 04/25/23 22:32 975 mg ONCE ONE Administration Medical Decision Making Medical Decision Making [facility] Narrative: Patient is a 37-year-old type 2 diabetic complaining of bilateral ?kidney pain in a general sense of feeling unwell. Vital signs are unremarkable and she does not appear obviously significantly ill. The patient has no history of kidney stones. She had a CT scan of the abdomen and pelvis that showed no kidney stones several months ago. She has no blood in her urine. She has no signs of infection in her urine. Her white count is normal at 7000 with an unremarkable differential. She is negative for COVID and the flu today. Folic panel and LFTs are unremarkable. Lipase is normal. CRP mildly elevated at 3.82, a very nonspecific finding. Overall my impression is that the patient is not acutely ill. She was given Tylenol for pain. She was reassured. She should follow-up with a primary care doctor or return if worse. Lab Data 04/25/23 11:46 04/25/23 11:46 Labs: Lab Results 04/25/23 04/25/23 04/25/23 Range/Units 11:46 17:11 19:04 WBC 7.0 (4.8-10.8) X10*3/uL RBC 4.45 (4.20-5.50) X10*6/uL Hgb 12.6 (12.0-16.0) g/dl Hct 38.3 (37.0-47.0) % MCV 86.1 (80.0-98.0) fL MCH 28.3 (27.0-33.0) pg MCHC 32.9 (31.0-35.0) g/dl RDW 12.5 (11.0-16.0) % Plt Count 148 L (160-400) X10*3/uL MPV 12.2 (9.4-12.3) fL Immature Gran % (Auto) 0.6 H (0.0-0.4) % Neut % (Auto) 55.8 (45-73) % Lymph % (Auto) 28.9 (20-40) % Lyman % (Auto) 13.9 H (2-11) % Eos % (Auto) 0.4 (0-4) % Baso % (Auto) 0.4 (0-2) % Lymph # (Auto) 2.0 (1.2-4.9) X10*3/uL Lyman # (Auto) 1.0 (0.1-1.2) X10*3/uL Eos # (Auto) 0.0 (0.0-0.4) X10*3/uL Baso # (Auto) 0.0 (0.0-0.2) X10*3/uL Abs Immat Gran (auto) 0.04 H (0.00-0.03) X10*3/uL Absolute Neuts (auto) 3.9 (2.0-8.3) x10*3/uL Absolute Nucleated RBC 0.000 (0.0-0.012) X10*3/uL Nucleated RBC % (auto) 0.0 (0.0-0.2) /100WBC Sodium 132 L (135-145) mmol/L Potassium 4.2 (3.3-5.1) mmol/L Chloride 100 (96-108) mmol/L Carbon Dioxide 25 (22-29) mmol/L Anion Gap 11 L (12-20) BUN 15 (9-16) mg/dL Creatinine 1.12 (0.5-1.4) mg/dL Estim Creat Clear Calc 64.3 Estimated GFR 55 POC Glucose 164 H (60-115) mg/dL Random Glucose 235 H (60-115) mg/dL Calcium 8.9 D (8.4-10.2) mg/dL Magnesium 1.8 (1.6-2.6) mg/dL Total Bilirubin 0.8 (0.0-1.0) mg/dL AST 16 (5-31) U/L ALT 12 (0-31) U/L Alkaline Phosphatase 60 (39-117) U/L C-Reactive Protein 3.82 H (< or = 0.50) mg/dL Total Protein 7.5 (6.5-8.0) g/dL Albumin 3.9 (3.5-5.0) g/dL Lipase 7 L (8-78) U/L Urine Color Yellow Urine Appearance Cloudy Urine pH 5.5 (5.0-9.0) Ur Specific [place] 1.025 (1.005-1.025) Urine Protein 100 (2+) H (Neg-Trace) mg/dL Urine Glucose (UA) >=1000 H (Negative) mg/dL Urine Ketones Trace (Negative) mg/dL Urine Blood Negative (Negative) Urine Nitrite Negative (Negative) Ur Leukocyte Esterase Negative (Negative) Urine RBC 0-2 (0-2) /HPF Urine WBC 0-5 (0-5) /HPF Ur Squamous Epith Cells >20 (0-2) /HPF Urine Bacteria 3+ (None Seen) Hyaline Casts 3-5 (0-2) /LPF Urine Test NEGATIVE (NEGATIVE) COVID-19 (TRICIA) (Negative) COVID-19 Clin Com Influenza Type A (JULIA) Negative (Negative) Influenza Type B (JULIA) Negative (Negative) Influenza A & B Note See Note 04/25/23 Range/Units 22:05 WBC (4.8-10.8) X10*3/uL RBC (4.20-5.50) X10*6/uL Hgb (12.0-16.0) g/dl Hct (37.0-47.0) % MCV (80.0-98.0) fL MCH (27.0-33.0) pg MCHC (31.0-35.0) g/dl RDW (11.0-16.0) % Plt Count (160-400) X10*3/uL MPV (9.4-12.3) fL Immature Gran % (Auto) (0.0-0.4) % Neut % (Auto) (45-73) % Lymph % (Auto) (20-40) % Lyman % (Auto) (2-11) % Eos % (Auto) (0-4) % Baso % (Auto) (0-2) % Lymph # (Auto) (1.2-4.9) X10*3/uL Lyman # (Auto) (0.1-1.2) X10*3/uL Eos # (Auto) (0.0-0.4) X10*3/uL Baso # (Auto) (0.0-0.2) X10*3/uL Abs Immat Gran (auto) (0.00-0.03) X10*3/uL Absolute Neuts (auto) (2.0-8.3) x10*3/uL Absolute Nucleated RBC (0.0-0.012) X10*3/uL Nucleated RBC % (auto) (0.0-0.2) /100WBC Sodium (135-145) mmol/L Potassium (3.3-5.1) mmol/L Chloride (96-108) mmol/L Carbon Dioxide (22-29) mmol/L Anion Gap (12-20) BUN (9-16) mg/dL Creatinine (0.5-1.4) mg/dL Estim Creat Clear Calc Estimated GFR POC Glucose (60-115) mg/dL Random Glucose (60-115) mg/dL Calcium (8.4-10.2) mg/dL Magnesium (1.6-2.6) mg/dL Total Bilirubin (0.0-1.0) mg/dL AST (5-31) U/L ALT (0-31) U/L Alkaline Phosphatase (39-117) U/L C-Reactive Protein (< or = 0.50) mg/dL Total Protein (6.5-8.0) g/dL Albumin (3.5-5.0) g/dL Lipase (8-78) U/L Urine Color Urine Appearance Urine pH (5.0-9.0) Ur Specific [place] (1.005-1.025) Urine Protein (Neg-Trace) mg/dL Urine Glucose (UA) (Negative) mg/dL Urine Ketones (Negative) mg/dL Urine Blood (Negative) Urine Nitrite (Negative) Ur Leukocyte Esterase (Negative) Urine RBC (0-2) /HPF Urine WBC (0-5) /HPF Ur Squamous Epith Cells (0-2) /HPF Urine Bacteria (None Seen) Hyaline Casts (0-2) /LPF Urine Test (NEGATIVE) COVID-19 (TRICIA) Negative (Negative) COVID-19 Clin Com See Note Influenza Type A (JULIA) (Negative) Influenza Type B (JULIA) (Negative) Influenza A & B Note Discharge Plan Discharge Clinical Impression: Bilateral flank pain, Body aches Patient Disposition: Home, Self-Care Additional Instructions: Your testing in the emergency department today is reassuring. Please use acetaminophen (Tylenol) as needed for discomfort. Please continue your efforts to get a new doctor at the [facility]. Return to the emergency room if worse. Prescriptions: No Action morphine 15 mg tablet 15 mg PO Q8H PRN (Reason: pain) Qty: 15 0RF Rx Instructions: Partial Fill upon patient request. ondansetron 4 mg tablet,disintegrating 4 mg PO Q6-8H PRN (Reason: nausea and vomiting) Qty: 20 0RF amlodipine 10 mg Tablet 10 mg PO DAILY 30 Days Qty: 30 0RF Protocol: Hold for SBP< HOLD for SBP < : 90 hydralazine 50 mg Tablet 50 mg PO QID 30 Days Qty: 120 0RF Protocol: Hold for SBP< HOLD for SBP < : 90 (DME) FreeStyle Lite Strips Strip Qty: 100 0RF Rx Instructions: Test four times a day or as directed. (DME) blood-glucose meter [FreeStyle Lite Meter] Kit Qty: 1 0RF Rx Instructions: As Directed alcohol swabs Pads, Medicated 1 pad TOPICAL QIDACHS Qty: 100 0RF Rx Instructions: Use four times a day or as directed. insulin lispro [Humalog KwikPen Insulin] 100 unit/mL insulin pen 1 sliding scale dose SUBCUT QIDACHS MDD 30 units Qty: 15 0RF Rx Instructions: Blood Sugar: <150 - 0 units 151-200 - 2 units 201-250 - 4 units 251-300 - 6 units 301-350 - 8 units >350 - 10 units insulin glargine [Lantus Solostar U-100 Insulin] 100 unit/mL (3 mL) insulin pen 15 unit SUBCUT DAILY Qty: 15 0RF (DME) pen needle, diabetic 32 gauge x 1/4 needle Qty: 100 0RF Rx Instructions: Use four times a day or as directed. (DME) lancets [FreeStyle Lancets] 28 gauge misc Qty: 100 0RF Rx Instructions: Test four times a day or as directed. metformin 500 mg tablet 500 mg PO DAILY Qty: 30 0RF Referrals: [facility] [Provider Group] (diabetes) Interventions: ED Discharge Assessment Last Done: 04/25/23 22:54 Discharge Date/Time: 04/25/23 22:55
[2023-04-25 11:51] LABS: MANUAL DIFF FLAG NO
[2023-04-25 11:55] LABS: Basophils Percent Auto 0.4 % (0-2); Eosinophils Percent Auto 0.4 % (0-4); Hematocrit 38.3 % (37.0-47.0); Hemoglobin 12.6 g/dl (12.0-16.0); Imm Gran Abs Auto 0.04 X10*3/uL (0.00-0.03); Imm Gran Pct Auto 0.6 % (0.0-0.4); Lymphocytes Percent Auto 28.9 % (20-40); Mean Corpuscular HGB Conc 32.9 g/dl (31.0-35.0); Mean Corpuscular Hemoglobin 28.3 pg (27.0-33.0); Mean Corpuscular Volume 86.1 fL (80.0-98.0); Mean Platelet Volume 12.2 fL (9.4-12.3); Monocytes Percent Auto 13.9 % (2-11); Neutrophils Absolute Auto 3.9 x10*3/uL (2.0-8.3); Neutrophils Percent Auto 55.8 % (45-73); Platelet Count 148 X10*3/uL (160-400); Red Blood Count 4.45 X10*6/uL (4.20-5.50); Red Cell Distribution Width 12.5 % (11.0-16.0)
[2023-04-25 12:05] LABS: Alanine Aminotransferase 12 U/L (0-31); Albumin Level 3.9 g/dL (3.5-5.0); Alkaline Phosphatase 60 U/L (39-117); Anion Gap 11 (12-20); Aspartate Amino Transferase 16 U/L (5-31); Bilirubin Total 0.8 mg/dL (0.0-1.0); Blood Urea Nitrogen 15 mg/dL (9-16); Calcium 8.9 mg/dL (8.4-10.2); Carbon Dioxide 25 mmol/L (22-29); Chloride 100 mmol/L (96-108); Creatinine Clr Calc Pharmacy 64.3; Estimated Glomerular Filt Rate 55; Glucose Random 235 mg/dL (60-115); Lipase 7 U/L (8-78); Magnesium 1.8 mg/dL (1.6-2.6); Potassium 4.2 mmol/L (3.3-5.1); Sodium 132 mmol/L (135-145); Total Protein 7.5 g/dL (6.5-8.0)
[2023-04-25 12:17] LABS: IDNOW Serial# 152EDE1D; Influenza A Negative (Negative); Influenza B2 Negative (Negative)
[2023-04-25 17:03] VITALS: BP 114/73; PULSE 87; RESP 18; TEMP 36.6; O2SAT 100
[2023-04-25 17:14] LABS: Glucose, Whole Blood 164 mg/dL (60-115)
[2023-04-25 19:11] VITALS: BP 117/68; PULSE 83; RESP 18; TEMP 36.5; O2SAT 100
[2023-04-25 19:14] LABS: Appearance Urine Cloudy; Color Urine Yellow; Glucose Urine UA >=1000 mg/dL (Negative); Leukocyte Esterase Urine Negative (Negative); Nitrite Urine Negative (Negative); PH 5.5 (5.0-9.0); Specific Gravity - Urine 1.025 (1.005-1.025); UMIC TRIGGER UACC YES; UPreg QC Valid YES; Urine Blood Negative (Negative); Urine Ketones Trace mg/dL (Negative); Urine Pregnancy NEGATIVE (NEGATIVE); Urine Protein 100 (2+) mg/dL (Neg-Trace)
[2023-04-25 19:34] LABS: Bacteria Urine 3+ (None Seen); RBC Urine 0-2 /HPF (0-2); Squamous Epithelial Cell Urine >20 /HPF (0-2); WBC Urine 0-5 /HPF (0-5)
[2023-04-25 21:49] VITALS: BP 118/74; PULSE 83; RESP 18; TEMP 36.6; O2SAT 100
[2023-04-25 22:13] LABS: C Reactive Protein 3.82 mg/dL (< or = 0.50)
[2023-04-25 22:32] LABS: COVID-19 Test Negative (Negative); IDNOW Serial# 08D9AD1C
[2023-04-25] MEDS: Acetaminophen 325 MG TABLET 975 MG PO (22:37)
== END 2023-04-25 22:55 | disposition home or self-care (01) ==
PROVIDERS: Physician Assistant Medical; Emergency Provider Emergency Medicine
DX: R10.9 Unspecified abdominal pain (principal); M79.10 Myalgia, unspecified site; E11.9 Type 2 diabetes mellitus without complications; R05.9 Cough, unspecified; R51.9 Headache, unspecified; R50.9 Fever, unspecified; Z11.52 Encounter for screening for COVID-19; Z20.828 Contact with and (suspected) exposure to other viral communicable diseases; Z79.4 Long term (current) use of insulin; Z79.899 Other long term (current) drug therapy
CPT/HCPCS: 36415; 80053; 81001; 81025; 82947; 83690; 83735; 85025; 86140; 87502; 87635; 99283; 99284

== ENCOUNTER 2024-03-28 16:52 | Emergency (ER) | payer OTHER, MEDICAID, SELFPAY ==
--- NOTE | ~2024-03-28 | US_ITS ---
EXAMINATION: US RETROPERITONEAL LIMITED, LEFT(RENAL ONLY) CLINICAL INFORMATION: Left flank pain.. COMPARISON: Bilateral renal ultrasound December 12, 2022 TECHNIQUE: Grayscale and color Doppler ultrasound exam of left kidney only. FINDINGS: LEFT KIDNEY: 9.8 x 5.5 x 4.3 cm (SAG x AP x TRV). The kidney is normal in size, contour, and echogenicity. Renal cortical thickness is normal. No calculi or focal parenchymal lesions. No hydronephrosis. US/US renal LT IMPRESSION: Normal left kidney. Electronically signed by: Vicente Mahoney MD 03/28/2024 11:36 PM EST
--- OUTSIDE RECORDS SUMMARY | 2024-03-28 16:54 | XMS_ITS ---
Author Organization [facility] Address [address] [place] [address] Care Team Providers Care Malariologist Name Role Phone NONE, NONE Primary Care Provider Unavailjocelyne e Leobardo Prado Jr Unavailable REASON FOR VISIT pathology Encounters Encounter Location Date Provider Diagnosis [facility] [address] [place] [address] 12/21/2022 Leobardo Prado Jr PLAN OF TREATMENT No Information
--- OUTSIDE RECORDS SUMMARY | 2024-03-28 16:55 | XMS_ITS | Patient Health Record ---
Author Organization [facility] Address [address] [place] [address] Care Team Providers Care Pricer Name Role Phone NONE, NONE Primary Care Provider Leobardo Young Jr Unavailable REASON FOR REFERRAL No Information SOCIAL HISTORY Sex Assigned At : Social History Observation Description Sex Assigned At Unknown PLAN OF TREATMENT No Information Insurance Providers Payer Name Payer Address Payer Phone Subscriber Number Group Number Insured Name Patient Relationship to Insured Coverage Start Date Coverage End Date [facility] [address] [place], [place] [id number] STEPHIE RIVERA Self - patient is the insured
[2024-03-28 17:00] VITALS: BP 155/83; PULSE 95; RESP 16; TEMP 37; O2SAT 100; BMI 26.1
--- NOTE | 2024-03-28 17:03 | ED.GENADULT ---
HPI - General Adult General Chief complaint: Abdominal Pain Stated complaint: back pain,?kidney pain nauseas Time Seen by Provider: 03/28/24 20:52 Source: patient and old records reviewed Mode of arrival: ambulatory Limitations: no limitations History of Present Illness ED Provider: CARROLL PINO narrative: 38 yo female with PMH of IDDM, HTN, prior BONIFACIO here with c/o headache yesterday that has resolved - no fevers, no trauma, headache resolved but now she has persistent nausea that will not go away. She note she gets this a lot when she gets sick this is not new. It was gradual in onset. She has no diarrhea, no fevers. Has L kidney pain which has also happened before. She was at work and people told her she was pale and she had to get checked out. She denies any trauma or injury - not on thinners. complaint: nausea, flank pain Onset (ago): day(s) (1) Location: left (flank) Radiation: non-radiation Severity: mild Quality: aching Pain Consistency: constant Relieving factors: none Exacerbating factors: none and other Associated symptoms: loss of appetite, malaise, nausea/vomiting and other (flank pain) Treatments prior to arrival: none Related Data Previous Rx's ?Medication ?Instructions ?Recorded alcohol swabs 1 pad topical QIDACHS #100 ea 12/17/22 amlodipine 10 mg tablet 10 mg PO DAILY 30 days #30 tabs 12/17/22 blood sugar diagnostic (FreeStyle #100 ea 12/17/22 Lite Strips) blood-glucose meter (FreeStyle #1 ea 12/17/22 Lite Meter kit) hydralazine 50 mg tablet 50 mg PO QID 30 days #120 tabs 12/17/22 insulin glargine 100 unit/mL (3 15 unit (0.15 mL) subcut DAILY #15 12/17/22 mL) subcutaneous pen (Lantus mL Solostar U-100 Insulin) insulin lispro 100 unit/mL 1 sliding scale dose subcut 12/17/22 subcutaneous pen (Humalog KwikPen QIDACHS #15 mL (U-100) Insulin) lancets 28 gauge (FreeStyle #100 ea 12/17/22 Lancets) pen needle, diabetic 32 gauge x #100 ea 12/17/2204/14 metformin 500 mg tablet 500 mg PO DAILY #30 tabs 12/21/22 morphine 15 mg immediate release 15 mg PO Q8H PRN pain #15 tabs 12/25/22 tablet ondansetron 4 mg disintegrating 4 mg PO Q6-8H PRN nausea and 12/25/22 tablet vomiting #20 tabs ondansetron 4 mg disintegrating 4 mg PO Q8H PRN nausea and 03/28/24 tablet vomiting #20 tabs Allergies Allergy/AdvReac Type Severity Reaction Status Date / Time No Known Allergies Allergy Mild NOT Verified 03/28/24 17:04 APPLICABLE Review of Systems Review of Systems: Constitutional : No Fever, No Chills, No Fatigue ENT/Mouth : No sore throat, No Rhinorrhea Eyes: No Eye Pain, No Swelling, No Redness Cardiovascular : No Chest Pain, No SOB, No Dyspnea on Exertion Respiratory : No Cough, No Sputum Gastrointestinal : pos Nausea, No Vomiting, No Diarrhea, No abdominal Pain, pos L flank pain Genitourinary : No Dysuria, No Urinary Frequency, No Hematuria, Musculoskeletal : No joint pain, No Myalgias, No Joint Swelling Skin : No Skin Lesions, No rash Neuro : No Weakness, No Numbness, No Dizziness, no Headache Psych : No Anxiety/Panic, No Depression All other systems reviewed and are negative [facility] Past Medical History Attestation statement: The following information was validated with the patient. 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 Oriented X3. No acute distress. Eyes: Pupils equal, round and reactive to light. ENT: Pharynx normal. Neck: Normal inspection. Neck supple. CVS: Normal heart rate and rhythm. Pulses normal. Respiratory: No respiratory distress. Breath sounds normal. Abdomen: Soft and nontender. Skin: Skin warm and dry. Normal skin color. Normal skin turgor. Extremities: No lower extremity edema. No calf ttp Neuro: Oriented X 3. No motor deficit. No sensory deficit. Course Course Course Narrative: RME, this is a rapid medical exam performed by Igor Medellin please refer to primary provider for complete H&P- 38-year-old female presents for evaluation of multiple complaints including burning with urination, dysuria, flank pain. Plan for labs, urinalysis. Medications Administered Discontinued Medications Generic Name Dose Route Start Last Admin Trade Name Freq PRN Reason Stop Dose Admin Diphenhydramine HCl 25 mg 03/28/24 21:03 03/28/24 21:21 Diphenhydramine Hcl 50 Mg/Ml Vial IVPUSH 03/28/24 21:04 25 mg ONCE ONE Administration Sodium Chloride 1,000 mls @ 999 mls/hr 03/28/24 21:03 03/28/24 22:35 Ns IV 03/28/24 22:03 Infused .Q1H1M ONE Infusion Insulin Human Regular 5 unit 03/28/24 21:53 03/28/24 22:34 Insulin Regular, Human 100 Unit/Ml 10 Ml Vial IVPUSH 03/28/24 21:54 5 unit ONCE ONE Administration Metoclopramide HCl 10 mg 03/28/24 21:03 03/28/24 21:22 Metoclopramide Hcl 10 Mg/2 Ml Vial IVPUSH 03/28/24 21:04 10 mg ONCE ONE Administration Medical Decision Making Medical Decision Making MDM Narrative: 38 yo female with PMH of IDDM, HTN, prior BONIFACIO here with c/o resolved headache but persistent nausea no fevers, no diarrhea, has intermittent L flank pain and frequency. She went to work and people stated she didn't look well and she came to the ED. She tells me she has had these headaches in the past with nausea and it is usually when she is sick. I have ordered US of L kidney, UA, labs and treat with IVF. 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 Differential Diagnosis Differential Diagnoses: The differential diagnosis associated with the presentation includes atypical migraine, urinary infection, dehydration, renal colic (less likely) Admission/Observation Consideration of admission/observation: Escalation of care including admission/observation considered Lab Data MDM Lab Attestation statement: I reviewed the patient's lab results. 03/28/24 17:24 03/28/24 17:24 Labs: Lab Results 03/28/24 03/28/24 Range/Units 17:24 17:35 WBC 11.0 H (4.8-10.8) X10*3/uL RBC 4.11 L (4.20-5.50) X10*6/uL Hgb 11.9 L (12.0-16.0) g/dl Hct 34.4 L (37.0-47.0) % MCV 83.7 (80.0-98.0) fL MCH 29.0 (27.0-33.0) pg MCHC 34.6 (31.0-35.0) g/dl RDW 12.3 (11.0-16.0) % Plt Count 187 D (160-400) X10*3/uL MPV 12.3 (9.4-12.3) fL Immature Gran % (Auto) 0.7 H (0.0-0.4) % Neut % (Auto) 66.3 (45-73) % Lymph % (Auto) 24.3 (20-40) % [place] % (Auto) 5.7 (2-11) % Eos % (Auto) 2.3 (0-4) % Baso % (Auto) 0.7 (0-2) % Lymph # (Auto) 2.7 (1.2-4.9) X10*3/uL [place] # (Auto) 0.6 (0.1-1.2) X10*3/uL Eos # (Auto) 0.3 (0.0-0.4) X10*3/uL Baso # (Auto) 0.1 (0.0-0.2) X10*3/uL Abs Immat Gran (auto) 0.08 H (0.00-0.03) X10*3/uL Absolute Neuts (auto) 7.3 (2.0-8.3) x10*3/uL Absolute Nucleated RBC 0.000 (0.0-0.012) X10*3/uL Nucleated RBC % (auto) 0.0 (0.0-0.2) /100WBC Sodium 134 L (135-145) mmol/L Potassium 4.1 (3.3-5.1) mmol/L Chloride 101 (96-108) mmol/L Carbon Dioxide 26 (22-29) mmol/L Anion Gap 11 L (12-20) BUN 12 (9-16) mg/dL Creatinine 1.08 (0.5-1.4) mg/dL Estim Creat Clear Calc 72.4 Estimated GFR 57 Random Glucose 421 H* (60-115) mg/dL Calcium 9.3 (8.4-10.2) mg/dL Total Bilirubin 1.2 H (0.0-1.0) mg/dL AST 17 (5-31) U/L ALT 19 (0-31) U/L Alkaline Phosphatase 86 (39-117) U/L Total Protein 7.5 (6.5-8.0) g/dL Albumin 3.8 (3.5-5.0) g/dL Lipase 19 (8-78) U/L Urine Color Yellow Urine Appearance Cloudy Urine pH 5.5 (5.0-9.0) Ur Specific [place] >= 1.030 H (1.005-1.025) Urine Protein 100 (2+) H (Neg-Trace) mg/dL Urine Glucose (UA) >=1000 H (Negative) mg/dL Urine Ketones Negative (Negative) mg/dL Urine Blood Negative (Negative) Urine Nitrite Negative (Negative) Ur Leukocyte Esterase Negative (Negative) Urine RBC 0-2 (0-2) /HPF Urine WBC 6-10 (0-5) /HPF Ur Squamous Epith Cells 11-20 (0-2) /HPF Urine Bacteria 2+ (None Seen) Hyaline Casts 0-2 (0-2) /LPF Influenza Type A (PCR) NEGATIVE (Negative) Influenza Type B (PCR) NEGATIVE (Negative) RSV RNA Qual (PCR) NEGATIVE (Negative) SARS-CoV-2 RNA (RT-PCR) NEGATIVE (Negative) S. pyogenes GrpA JULIA Negative (Negative) Independent Interpretation I performed an independent interpretation of an: Ultrasound Radiology Impression Discussion of test interpretation with radiology: I have reviewed the radiologist's reading. External Record Review External record reviewed: Inpatient record and Outpatient record Discharge Plan Discharge Clinical Impression: Nausea, Acute hyperglycemia, Left flank pain Patient Disposition: Home, Self-Care Instructions: Acute Nausea and Vomiting (ED), Flank Pain (ED), Diabetic Hyperglycemia (ED) Additional Instructions: other than elevated blood sugar your work up was reassuring no urinary infection US of L kidney was normal your kidney function blood work was normal rest, stay hydrated return for any worsening symptoms or concerns. TECHNIQUE: Grayscale and color Doppler ultrasound exam of left kidney only. FINDINGS: LEFT KIDNEY: 9.8 x 5.5 x 4.3 cm (SAG x AP x TRV). The kidney is normal in size, contour, and echogenicity. Renal cortical thickness is normal. No calculi or focal parenchymal lesions. No hydronephrosis. US/US renal LT IMPRESSION: Normal left kidney. Prescriptions: New ondansetron 4 mg tablet,disintegrating 4 mg PO Q8H PRN (Reason: nausea and vomiting) Qty: 20 0RF No Action morphine 15 mg tablet 15 mg PO Q8H PRN (Reason: pain) Qty: 15 0RF Rx Instructions: Partial Fill upon patient request. ondansetron 4 mg tablet,disintegrating 4 mg PO Q6-8H PRN (Reason: nausea and vomiting) Qty: 20 0RF amlodipine 10 mg Tablet 10 mg PO DAILY 30 Days Qty: 30 0RF Protocol: Hold for SBP< HOLD for SBP < : 90 hydralazine 50 mg Tablet 50 mg PO QID 30 Days Qty: 120 0RF Protocol: Hold for SBP< HOLD for SBP < : 90 (DME) FreeStyle Lite Strips Strip Qty: 100 0RF Rx Instructions: Test four times a day or as directed. (DME) blood-glucose meter [FreeStyle Lite Meter] Kit Qty: 1 0RF Rx Instructions: As Directed alcohol swabs Pads, Medicated 1 pad TOPICAL QIDACHS Qty: 100 0RF Rx Instructions: Use four times a day or as directed. insulin lispro [Humalog KwikPen Insulin] 100 unit/mL insulin pen 1 sliding scale dose SUBCUT QIDACHS MDD 30 units Qty: 15 0RF Rx Instructions: Blood Sugar: <150 - 0 units 151-200 - 2 units 201-250 - 4 units 251-300 - 6 units 301-350 - 8 units >350 - 10 units insulin glargine [Lantus Solostar U-100 Insulin] 100 unit/mL (3 mL) insulin pen 15 unit SUBCUT DAILY Qty: 15 0RF (DME) pen needle, diabetic 32 gauge x 1/4 needle Qty: 100 0RF Rx Instructions: Use four times a day or as directed. (DME) lancets [FreeStyle Lancets] 28 gauge misc Qty: 100 0RF Rx Instructions: Test four times a day or as directed. metformin 500 mg tablet 500 mg PO DAILY Qty: 30 0RF Stand Alone Forms: Work/School Release Print Language: Citizen Of [place]
[2024-03-28 17:29] LABS: MANUAL DIFF FLAG NO
[2024-03-28 17:39] LABS: IDNOW Serial# 58CA691E; Strep A Nucleic Acid Negative (Negative)
[2024-03-28 17:41] LABS: Basophils Absolute Auto 0.1 X10*3/uL (0.0-0.2); Basophils Percent Auto 0.7 % (0-2); Eosinophils Absolute Auto 0.3 X10*3/uL (0.0-0.4); Eosinophils Percent Auto 2.3 % (0-4); Hematocrit 34.4 % (37.0-47.0); Hemoglobin 11.9 g/dl (12.0-16.0); Imm Gran Abs Auto 0.08 X10*3/uL (0.00-0.03); Imm Gran Pct Auto 0.7 % (0.0-0.4); Lymphocytes Absolute Auto 2.7 X10*3/uL (1.2-4.9); Lymphocytes Percent Auto 24.3 % (20-40); Mean Corpuscular HGB Conc 34.6 g/dl (31.0-35.0); Mean Corpuscular Volume 83.7 fL (80.0-98.0); Mean Platelet Volume 12.3 fL (9.4-12.3); Monocytes Absolute Auto 0.6 X10*3/uL (0.1-1.2); Monocytes Percent Auto 5.7 % (2-11); Neutrophils Absolute Auto 7.3 x10*3/uL (2.0-8.3); Neutrophils Percent Auto 66.3 % (45-73); Platelet Count 187 X10*3/uL (160-400); Red Blood Count 4.11 X10*6/uL (4.20-5.50); Red Cell Distribution Width 12.3 % (11.0-16.0)
[2024-03-28 17:46] LABS: Appearance Urine Cloudy; Color Urine Yellow; Glucose Urine UA >=1000 mg/dL (Negative); Leukocyte Esterase Urine Negative (Negative); Nitrite Urine Negative (Negative); PH 5.5 (5.0-9.0); Specific Gravity - Urine >= 1.030 (1.005-1.025); UMIC TRIGGER UACC YES; Urine Blood Negative (Negative); Urine Ketones Negative (Negative); Urine Protein 100 (2+) mg/dL (Neg-Trace)
[2024-03-28 18:01] LABS: Alanine Aminotransferase 19 U/L (0-31); Albumin Level 3.8 g/dL (3.5-5.0); Alkaline Phosphatase 86 U/L (39-117); Anion Gap 11 (12-20); Aspartate Amino Transferase 17 U/L (5-31); Bilirubin Total 1.2 mg/dL (0.0-1.0); Blood Urea Nitrogen 12 mg/dL (9-16); Calcium 9.3 mg/dL (8.4-10.2); Carbon Dioxide 26 mmol/L (22-29); Chloride 101 mmol/L (96-108); Creatinine Clr Calc Pharmacy 72.4; Estimated Glomerular Filt Rate 57; Glucose Random 421 mg/dL (60-115); Lipase 19 U/L (8-78); Potassium 4.1 mmol/L (3.3-5.1); Sodium 134 mmol/L (135-145); Total Protein 7.5 g/dL (6.5-8.0)
[2024-03-28 18:06] LABS: Bacteria Urine 2+ (None Seen); Hyaline Casts Urine 0-2 /LPF (0-2); RBC Urine 0-2 /HPF (0-2); UACC Culture Trigger YES
[2024-03-28 18:11] LABS: Influenza A PCR NEGATIVE (Negative); Influenza B PCR NEGATIVE (Negative); Resp Syncy Virus RNA Qual PCR NEGATIVE (Negative); SARS COV2 PCR INHOUSE NEGATIVE (Negative)
[2024-03-28] MEDS: diphenhydrAMINE HCL 50 MG/ML VIAL 25 MG IVPUSH (21:21)
[2024-03-28] MEDS: Metoclopramide HCl 10 MG/2 ML VIAL IVPUSH (21:22)
[2024-03-28] MEDS: 0.9 % Sodium Chloride 1,000 ML 999 ML IV (21:22)
[2024-03-28 22:24] VITALS: BP 144/91; PULSE 91; RESP 12; TEMP 36.4; O2SAT 100
[2024-03-28] MEDS: Insulin Regular, Human 100 UNIT/ML 10 ML VIAL IVPUSH (22:34)
[2024-03-28 23:54] LABS: Glucose, Whole Blood 163 mg/dL (60-115)
[2024-03-29 00:08] VITALS: BP 144/91; PULSE 91; RESP 12; TEMP 36.4; O2SAT 100
== END 2024-03-29 00:09 | disposition home or self-care (01) ==
PROVIDERS: Physician Assistant; Emergency Provider Emergency Medicine
DX: R11.2 Nausea with vomiting, unspecified (principal); R10.2 Pelvic and perineal pain; E11.65 Type 2 diabetes mellitus with hyperglycemia; R30.0 Dysuria; Z79.4 Long term (current) use of insulin; Z79.899 Other long term (current) drug therapy; Z03.818 Encounter for observation for suspected exposure to other biological agents ruled out
CPT/HCPCS: 0241U; 76775; 80053; 81001; 82947; 83690; 85025; 87086; 87651; 96361; 96374; 96375; 99284; J1200; J2765

== ENCOUNTER 2024-03-30 14:36 | Emergency (ER) | payer OTHER, MEDICAID, SELFPAY ==
[2024-03-30] VITALS (8 sets, daily range): BP systolic 131–168; BP diastolic 86–101; PULSE 91–131; RESP 14–30; TEMP 36.4–37.4; O2SAT 95–100; BMI 28.9
--- NOTE | ~2024-03-30 | XR_ITS ---
EXAMINATION: XR CHEST CLINICAL INFORMATION: Vomiting, change in mental status, R/O pneumonia COMPARISON: None available. TECHNIQUE: Frontal view of the chest was obtained. FINDINGS: Hypoinflation with bibasilar atelectasis. No definite consolidation, edema, or effusion. Normal cardiomediastinal silhouette. XR/XR chest 1V IMPRESSION: Hypoinflation with bibasilar atelectasis. Electronically signed by: Omid Bassett MD 03/30/2024 07:45 PM EST
--- NOTE | ~2024-03-30 | CT_ITS ---
EXAMINATION: CT HEAD WITHOUT CONTRAST CLINICAL INFORMATION: Altered mental status. COMPARISON: CT head from 01/01/2023. TECHNIQUE: Contiguous axial imaging was performed from the skull base to vertex without intravenous administration of contrast. This CT examination was performed using dose optimization techniques as appropriate, variously including the following: *Automated exposure control. *Adjustment of mA and/or kV according to patient size (this includes techniques or standardized protocols for targeted exams where dose is matched to indication/reason for exam; i.e. extremities or head). *Use of iterative reconstruction technique. DLP: 723 mGy-cm FINDINGS: There is no evidence of acute intracranial hemorrhage or edematous territorial infarction. Ross-white matter differentiation is preserved. There is no abnormal attenuation within the brain parenchyma. The ventricles are normal in morphology and size. No evidence for obstructive hydrocephalus. No abnormal mass effect or midline shift. No extra-axial fluid collections. No acute soft tissue or osseous abnormalities. Mild mucosal thickening of the paranasal sinuses. Moderate leftward nasal septal deviation with spurring. The mastoid air cells and middle ear cavities are clear. Multifocal odontogenic enamel erosions and periapical lucencies. CT/CT head/brain wo IV con IMPRESSION: 1. No evidence of acute intracranial hemorrhage or edematous territorial infarction. 2. Moderate odontogenic disease. Electronically signed by: Marbin Lo DO 03/30/2024 07:13 PM EST
[2024-03-30 15:03] LABS: Glucose, Whole Blood 389 mg/dL (60-115)
--- NOTE | 2024-03-30 15:07 | ED_ITS ---
HPI - Nausea/Vomiting/Diarrhea General Chief complaint: Altered Mental Status Stated complaint: HYPERGLYCEMIC 491 PER EMS Time Seen by Provider: 03/30/24 14:56 Source: EMS and other (ED nurse) Mode of arrival: EMS Limitations: no limitations History of Present Illness ED Provider: Dr. Jd Chino HPI Narrative: 38-year-old female with a history of IDDM, HTN, BONIFACIO brought to emergency department by ambulance for evaluation of nausea, vomiting, altered mental status and possible ?blood infection ?. The patient was awake, tearful, told me her name but would not answer questions, did follow commands. EMS reported the patient had multiple episodes of vomiting, glucose was 400, patient was somnolent and not acting herself at home. No other information is obtainable from the patient or from EMS. Patient was evaluated here in the emergency department on 03/28/2024. Review the notes the patient had a headache which had resolved but she had persistent nausea. She was hyperglycemic with a glucose of 421 with otherwise normal labs. Urinalysis was positive for glucose but otherwise a non clean catch specimen. COVID-19, RSV and influenza were negative. She had an ultrasound of the left kidney which was negative. She was treated with normal saline x1 L, insulin 5 units IV, Reglan 10 mg IV and Benadryl 25 mg IV. Related Data Previous Rx's ?Medication ?Instructions ?Recorded alcohol swabs 1 pad topical QIDACHS #100 ea 12/17/22 amlodipine 10 mg tablet 10 mg PO DAILY 30 days #30 tabs 12/17/22 blood sugar diagnostic (FreeStyle #100 ea 12/17/22 Lite Strips) blood-glucose meter (FreeStyle #1 ea 12/17/22 Lite Meter kit) hydralazine 50 mg tablet 50 mg PO QID 30 days #120 tabs 12/17/22 insulin glargine 100 unit/mL (3 15 unit (0.15 mL) subcut DAILY #15 12/17/22 mL) subcutaneous pen (Lantus mL Solostar U-100 Insulin) insulin lispro 100 unit/mL 1 sliding scale dose subcut 12/17/22 subcutaneous pen (Humalog KwikPen QIDACHS #15 mL (U-100) Insulin) lancets 28 gauge (FreeStyle #100 ea 12/17/22 Lancets) pen needle, diabetic 32 gauge x #100 ea 12/17/22 1/4 metformin 500 mg tablet 500 mg PO DAILY #30 tabs 12/21/22 morphine 15 mg immediate release 15 mg PO Q8H PRN pain #15 tabs 12/25/22 tablet ondansetron 4 mg disintegrating 4 mg PO Q6-8H PRN nausea and 12/25/22 tablet vomiting #20 tabs ondansetron 4 mg disintegrating 4 mg PO Q8H PRN nausea and 03/28/24 tablet vomiting #20 tabs Allergies Allergy/AdvReac Type Severity Reaction Status Date / Time No Known Allergies Allergy Mild NOT Verified 03/30/24 14:53 APPLICABLE Review of Systems 2 Review of Systems: Yes Unobtainable due to mental status PMFSH Past Medical History Medical History delivery delivered Diabetes Surgical History Hx of hernia repair H/O elbow surgery Hx of esophagogastroduodenoscopy Social History Social History Household Members: Other Household Members Other:: daughter Housing: Apartment Do you presently have visiting nurse or other home services: No Patient Tobacco Use Status: Never used Tobacco Advance Directives: No Advance Directives Information Provided: No service: No Current occupational status: employed 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 Exam: General: Awake, tearful, sitting upright on the stretcher, not answering questions but following commands Head: Normocephalic, atraumatic EENT: PERRL, Lids normal, sclera normal, conjunctiva normal, nose normal , ears normal, throat without erythema or exudates Neck: Supple, I can move the patient's head from side to side with no rigidity, patient does not have any discomfort with neck movement, no adenopathy Lung: breath sounds symmetric, no wheezing, rales or rhonchi Chest: symmetric movement, nontender Heart: Tachycardia with a regular rhythm, normal S1-S2, no murmurs rubs or gallops Abdomen: soft, non-tender, nondistended, normal bowel sounds Back: no vertebral tenderness, no CVAT Extremities: no deformities, moves all extremities symmetrically Neuro: Oriented to person, not answering questions, cranial nerves intact, moves all extremities symmetrically Medications Administered Discontinued Medications Generic Name Dose Route Start Last Admin Trade Name Freq PRN Reason Stop Dose Admin Sodium Chloride 1,000 mls @ 999 mls/hr 03/30/24 15:08 03/30/24 15:18 Ns IV 03/30/24 16:08 999 mls/hr .Q1H1M STA Administration Lorazepam 1 mg 03/30/24 15:10 03/30/24 15:18 Lorazepam 2 Mg/Ml Vial IVPUSH 03/30/24 15:11 1 mg STAT STA Administration Ondansetron HCl 4 mg 03/30/24 15:08 03/30/24 15:18 Ondansetron Hcl 4 Mg/2 Ml Vial IVPUSH 03/30/24 15:09 4 mg ONCE ONE Administration Medical Decision Making Medical Decision Making [facility] Narrative: 38-year-old female with a history of IDDM, HTN, BONIFACIO brought to emergency department by ambulance for evaluation of nausea, vomiting, altered mental status and possible ?blood infection ?. Patient was not able to give a history secondary to altered mental status. Patient was seen in the emergency department on 03/28/2024 for headache which resolved, nausea and abdominal pain with negative workup. Vital signs revealed that she was tachycardic, tachypneic and had an elevated blood pressure. On physical examination she did appear to be anxious, she was able to tell me her name but was not answering questions but followed commands. Patient had no nuchal rigidity and her neurologic exam was nonfocal. Differential diagnosis: ?Includes but is not limited to anxiety, diabetic ketoacidosis, stroke, intracranial bleed, encephalopathy, drug ingestions, electrolyte abnormalities, anemia, urinary tract infection Following evaluation was ordered: CBC, CMP, quantitative beta-hCG, lactic acid, VBG, beta hydroxybutyrate, ethanol level, urine drug screen, COVID-19, influenza, RSV, VBG, blood cultures x2, urinalysis, EKG, chest x-ray one view, CT head without contrast. Patient was initially treated with the following: Normal saline x1 L, Zofran 4 mg IV, lorazepam 1 mg IV Course: 16:16 My interpretation patient's laboratory evaluation is as follows: Elevated WBC 08624. VBG revealed pH of 7.36 with a pCO2 of 49 she was consistent with mild metabolic acidosis. Ethanol was below detectable limits. COVID-19, influenza and RSV were negative. Lactic acid was elevated at 2.7. Quantitative beta-hCG was below detectable limits. Patient's comprehensive metabolic panel, CT scan of the head and chest x-ray are pending. Patient is still tearful but is calm after the above treatment. At the end of my shift, patient's care was turned over to my colleague, Dr. La Butterfield. Admission/Observation Consideration of admission/observation: Escalation of care including admission/observation considered (Yes) Lab Data MDM Lab Attestation statement: I reviewed the patient's lab results. 03/30/24 15:04 03/30/24 15:04 Labs: Lab Results 03/30/24 03/30/24 03/30/24 Range/Units 14:50 15:04 15:05 WBC 14.9 H (4.8-10.8) X10*3/uL RBC 4.61 (4.20-5.50) X10*6/uL Hgb 13.1 (12.0-16.0) g/dl Hct 38.9 (37.0-47.0) % MCV 84.4 (80.0-98.0) fL MCH 28.4 (27.0-33.0) pg MCHC 33.7 (31.0-35.0) g/dl RDW 12.4 (11.0-16.0) % Plt Count 189 (160-400) X10*3/uL MPV 12.5 H (9.4-12.3) fL Immature Gran % (Auto) 1.1 H (0.0-0.4) % Neut % (Auto) 75.6 H (45-73) % Lymph % (Auto) 15.9 L (20-40) % [place] % (Auto) 5.7 (2-11) % Eos % (Auto) 1.2 (0-4) % Baso % (Auto) 0.5 (0-2) % Lymph # (Auto) 2.4 (1.2-4.9) X10*3/uL [place] # (Auto) 0.9 (0.1-1.2) X10*3/uL Eos # (Auto) 0.2 (0.0-0.4) X10*3/uL Baso # (Auto) 0.1 (0.0-0.2) X10*3/uL Abs Immat Gran (auto) 0.17 H (0.00-0.03) X10*3/uL Absolute Neuts (auto) 11.2 H (2.0-8.3) x10*3/uL Absolute Nucleated RBC 0.000 (0.0-0.012) X10*3/uL Nucleated RBC % (auto) 0.0 (0.0-0.2) /100WBC VBG pH (7.32-7.43) VBG pCO2 mmHg VBG pO2 mmHg VBG HCO3 (22-26) mmol/L VBG O2 Saturation % VBG Base Excess mmol/L POC Glucose 389 H* (60-115) mg/dL Lactic Acid 2.7 H* (0.5-2.0) mmol/L Beta HCG, Quant < 2 mIU/mL Ethyl Alcohol < 10 mg/dL Influenza Type A (PCR) NEGATIVE (Negative) Influenza Type B (PCR) NEGATIVE (Negative) RSV RNA Qual (PCR) NEGATIVE (Negative) SARS-CoV-2 RNA (RT-PCR) NEGATIVE (Negative) 03/30/24 Range/Units 15:11 WBC (4.8-10.8) X10*3/uL RBC (4.20-5.50) X10*6/uL Hgb (12.0-16.0) g/dl Hct (37.0-47.0) % MCV (80.0-98.0) fL MCH (27.0-33.0) pg MCHC (31.0-35.0) g/dl RDW (11.0-16.0) % Plt Count (160-400) X10*3/uL MPV (9.4-12.3) fL Immature Gran % (Auto) (0.0-0.4) % Neut % (Auto) (45-73) % Lymph % (Auto) (20-40) % [place] % (Auto) (2-11) % Eos % (Auto) (0-4) % Baso % (Auto) (0-2) % Lymph # (Auto) (1.2-4.9) X10*3/uL [place] # (Auto) (0.1-1.2) X10*3/uL Eos # (Auto) (0.0-0.4) X10*3/uL Baso # (Auto) (0.0-0.2) X10*3/uL Abs Immat Gran (auto) (0.00-0.03) X10*3/uL Absolute Neuts (auto) (2.0-8.3) x10*3/uL Absolute Nucleated RBC (0.0-0.012) X10*3/uL Nucleated RBC % (auto) (0.0-0.2) /100WBC VBG pH 7.36 (7.32-7.43) VBG pCO2 49 mmHg VBG pO2 73 mmHg VBG HCO3 28 H (22-26) mmol/L VBG O2 Saturation 96.0 % VBG Base Excess 2.4 mmol/L POC Glucose (60-115) mg/dL Lactic Acid (0.5-2.0) mmol/L Beta HCG, Quant mIU/mL Ethyl Alcohol mg/dL Influenza Type A (PCR) (Negative) Influenza Type B (PCR) (Negative) RSV RNA Qual (PCR) (Negative) SARS-CoV-2 RNA (RT-PCR) (Negative) Independent Interpretation I performed an independent interpretation of an: EKG Interpretation: My independent interpretation patient's 12 EKG is as follows: Sinus tachycardia with a rate of 108, normal [place] interval, QRS duration QTC interval, no ST segment elevation, no ST segment depression, patient has large R-wave in V2, no significant T-wave abnormalities, no PACs, no PVCs. Chronic Conditions Patient?s care impacted by: Diabetes Discharge Plan Discharge Clinical Impression: Acute hyperglycemia, Nausea & vomiting, Acute alteration in mental status, Anxiety Patient Disposition: Still a Patient Prescriptions: No Action morphine 15 mg tablet 15 mg PO Q8H PRN (Reason: pain) Qty: 15 0RF Rx Instructions: Partial Fill upon patient request. ondansetron 4 mg tablet,disintegrating 4 mg PO Q6-8H PRN (Reason: nausea and vomiting) Qty: 20 0RF amlodipine 10 mg Tablet 10 mg PO DAILY 30 Days Qty: 30 0RF Protocol: Hold for SBP< HOLD for SBP < : 90 hydralazine 50 mg Tablet 50 mg PO QID 30 Days Qty: 120 0RF Protocol: Hold for SBP< HOLD for SBP < : 90 (DME) FreeStyle Lite Strips Strip Qty: 100 0RF Rx Instructions: Test four times a day or as directed. (DME) blood-glucose meter [FreeStyle Lite Meter] Kit Qty: 1 0RF Rx Instructions: As Directed alcohol swabs Pads, Medicated 1 pad TOPICAL QIDACHS Qty: 100 0RF Rx Instructions: Use four times a day or as directed. insulin lispro [Humalog KwikPen Insulin] 100 unit/mL insulin pen 1 sliding scale dose SUBCUT QIDACHS MDD 30 units Qty: 15 0RF Rx Instructions: Blood Sugar: <150 - 0 units 151-200 - 2 units 201-250 - 4 units 251-300 - 6 units 301-350 - 8 units >350 - 10 units insulin glargine [Lantus Solostar U-100 Insulin] 100 unit/mL (3 mL) insulin pen 15 unit SUBCUT DAILY Qty: 15 0RF (DME) pen needle, diabetic 32 gauge x 1/4 needle Qty: 100 0RF Rx Instructions: Use four times a day or as directed. (DME) lancets [FreeStyle Lancets] 28 gauge misc Qty: 100 0RF Rx Instructions: Test four times a day or as directed. metformin 500 mg tablet 500 mg PO DAILY Qty: 30 0RF ondansetron 4 mg tablet,disintegrating 4 mg PO Q8H PRN (Reason: nausea and vomiting) Qty: 20 0RF Print Language: [place]
--- NOTE | 2024-03-30 15:08 | ECG_ITS ---
Test Reason : DKA Blood Pressure : / mmHG Vent. Rate : 108 BPM Atrial Rate : 108 BPM P-R Int : 120 ms QRS Dur : 086 ms QT Int : 330 ms P-R-T Axes : 046 020 048 degrees QTc Int : 442 ms Sinus tachycardia Possible Left atrial enlargement Cannot rule out Anterior infarct , age undetermined Abnormal ECG When compared with ECG of 01-AUG-2014 16:43, No significant change was found Referred By: Jd Chino Electronically Signed By:CHRISTIANE LINDO
[2024-03-30 15:12] LABS: MANUAL DIFF FLAG NO
[2024-03-30 15:15] LABS: VBG Base Excess 2.4 mmol/L; VBG HCO3 28 mmol/L (22-26); VBG pCO2 49 mmHg; VBG pH 7.36 (7.32-7.43); VBG pO2 73 mmHg
[2024-03-30 15:15] LABS: Venous Blood Gas Refer to POC result
[2024-03-30 15:16] LABS: Basophils Absolute Auto 0.1 X10*3/uL (0.0-0.2); Basophils Percent Auto 0.5 % (0-2); Eosinophils Absolute Auto 0.2 X10*3/uL (0.0-0.4); Eosinophils Percent Auto 1.2 % (0-4); Hematocrit 38.9 % (37.0-47.0); Hemoglobin 13.1 g/dl (12.0-16.0); Imm Gran Abs Auto 0.17 X10*3/uL (0.00-0.03); Imm Gran Pct Auto 1.1 % (0.0-0.4); Lymphocytes Absolute Auto 2.4 X10*3/uL (1.2-4.9); Lymphocytes Percent Auto 15.9 % (20-40); Mean Corpuscular HGB Conc 33.7 g/dl (31.0-35.0); Mean Corpuscular Hemoglobin 28.4 pg (27.0-33.0); Mean Corpuscular Volume 84.4 fL (80.0-98.0); Mean Platelet Volume 12.5 fL (9.4-12.3); Monocytes Absolute Auto 0.9 X10*3/uL (0.1-1.2); Monocytes Percent Auto 5.7 % (2-11); Neutrophils Absolute Auto 11.2 x10*3/uL (2.0-8.3); Neutrophils Percent Auto 75.6 % (45-73); Platelet Count 189 X10*3/uL (160-400); Red Blood Count 4.61 X10*6/uL (4.20-5.50); Red Cell Distribution Width 12.4 % (11.0-16.0); White Blood Count 14.9 X10*3/uL (4.8-10.8)
--- OUTSIDE RECORDS SUMMARY | 2024-03-30 15:16 | XMS_ITS | Patient Health Record ---
Author Organization [facility] Address [address] [place] [address] Care Team Providers Care Office Administrative Assistant Name Role Phone NONE, NONE Primary Care Provider Leobardo Young Jr Unavailable REASON FOR REFERRAL No Information SOCIAL HISTORY Sex Assigned At : Social History Observation Description Sex Assigned At Unknown PLAN OF TREATMENT No Information Insurance Providers Payer Name Payer Address Payer Phone Subscriber Number Group Number Insured Name Patient Relationship to Insured Coverage Start Date Coverage End Date [facility] [address] [place], [place] [id number] STEPHIE RIVERA Self - patient is the insured
[2024-03-30] MEDS: 0.9 % Sodium Chloride 1,000 ML 999 ML IV (15:18)
[2024-03-30] MEDS: LORazepam 2 MG/ML VIAL 1 MG IVPUSH (15:18)
[2024-03-30] MEDS: ondansetron HCL 4 MG/2 ML VIAL IVPUSH (15:18)
[2024-03-30 15:38] LABS: Ethanol < 10 mg/dL
[2024-03-30 15:40] LABS: HCG Quantitative < 2 mIU/mL
[2024-03-30 15:41] LABS: Lactic Acid 2.7 mmol/L (0.5-2.0)
[2024-03-30 16:07] LABS: Influenza A PCR NEGATIVE (Negative); Influenza B PCR NEGATIVE (Negative); Resp Syncy Virus RNA Qual PCR NEGATIVE (Negative); SARS COV2 PCR INHOUSE NEGATIVE (Negative)
[2024-03-30 16:24] LABS: Lipase 10 U/L (8-78)
--- NOTE | 2024-03-30 17:07 | PC.NURSE ---
called lab to check on pending chemistry results. states they need to put it back on anaylizer and will result in next 20-30min. aware.
[2024-03-30 17:11] LABS: Reflex Lactate? Lactic Acid Added
[2024-03-30 17:28] LABS: Alanine Aminotransferase 21 U/L (0-31); Albumin Level 4.1 g/dL (3.5-5.0); Alkaline Phosphatase 92 U/L (39-117); Anion Gap 13 (12-20); Aspartate Amino Transferase 16 U/L (5-31); Beta-Hydroxybutyrate 0.11 mmol/L (0.02-0.27); Bilirubin Total 0.9 mg/dL (0.0-1.0); Blood Urea Nitrogen 11 mg/dL (9-16); Carbon Dioxide 26 mmol/L (22-29); Chloride 103 mmol/L (96-108); Creatinine Clr Calc Pharmacy 74.5; Estimated Glomerular Filt Rate 58; Potassium 4.7 mmol/L (3.3-5.1); Sodium 137 mmol/L (135-145)
[2024-03-30 19:44] LABS: ~Lactic Acid-LAB USE ONLY 1.8 mmol/L (0.5-2.0)
[2024-03-30 20:04] LABS: Glucose, Whole Blood 272 mg/dL (60-115)
[2024-03-30 20:22] LABS: Glucose Random 468 mg/dL (60-115)
--- NOTE | 2024-03-30 21:20 | PC.NURSE ---
this rn assumed care of pt, pt ambulatory to bathroom with 1A, urine sample obtained. pt not responding to questions at this time, family member at bedside reports pt has been like this for a few hours, reports she does not take any medications at this time. vss.
--- NOTE | 2024-03-30 21:21 | MHC.EDTECH ---
URINE SAMPLE OBTAINED AND SENT TO LAB AT THIS TIME
[2024-03-30 21:27] LABS: Appearance Urine Clear; Color Urine Yellow; Glucose Urine UA >=1000 mg/dL (Negative); Leukocyte Esterase Urine Negative (Negative); Nitrite Urine Negative (Negative); PH 7.5 (5.0-9.0); Specific Gravity - Urine >= 1.030 (1.005-1.025); UMIC TRIGGER UACC YES; Urine Blood Negative (Negative); Urine Ketones Negative (Negative); Urine Protein 30 (1+) mg/dL (Neg-Trace)
[2024-03-30 21:31] LABS: Bacteria Urine Trace (None Seen); Hyaline Casts Urine 0-2 /LPF (0-2); RBC Urine 0-2 /HPF (0-2); Squamous Epithelial Cell Urine 0-2 /HPF (0-2); WBC Urine 0-5 /HPF (0-5)
[2024-03-30 21:39] LABS: Amphetamine Screen Urine Not Detected (Not Detect); Barbiturates, Urine Not Detected (Not Detect); Benzodiazepines Screen Urine Not Detected (Not Detect); Buprenorphine Scr Not Detected (Not Detect); Cannabinoid Screen Urine POSITIVE (Not Detect); Cocaine Screen Urine Not Detected (Not Detect); Fentanyl, urine Not Detected (Not Detect); Methadone Screen, Urine Not Detected (Not Detect); Opiate Screen Urine Not Detected (Not Detect); Oxycodone Screen Urine Not Detected (Not Detect); Phencyclidine Screen Urine Not Detected (Not Detect)
--- NOTE | 2024-03-30 22:17 | PC.NURSE ---
attempted to ambulate pt, pt able to ambulate without assistance,pt reporting dizziness. provider aware, orthos obtained.
== END 2024-03-30 22:38 | disposition home or self-care (01) ==
PROVIDERS: Emergency Medicine Emergency Medical Services; Emergency Provider Emergency Medicine
DX: E11.65 Type 2 diabetes mellitus with hyperglycemia (principal); R41.82 Altered mental status, unspecified; F41.9 Anxiety disorder, unspecified; R11.2 Nausea with vomiting, unspecified; I10 Essential (primary) hypertension; Z79.4 Long term (current) use of insulin; Z79.899 Other long term (current) drug therapy; Z03.818 Encounter for observation for suspected exposure to other biological agents ruled out
CPT/HCPCS: 0241U; 36415; 70450; 71045; 80053; 80307; 81001; 82010; 82803; 82947; 83605; 83690; 84702; 85025; 87040; 93005; 96361; 96374; 96375; 99284; 99285; J2060; J2405

== ENCOUNTER → 2024-03-30 15:08 | Outpatient (BNV) | payer OTHER, MEDICAID, SELFPAY | PROVIDERS: Emergency Provider Emergency Medicine; Visit Provider Internal Medicine | DX: R00.0 Tachycardia, unspecified (principal); R94.31 Abnormal electrocardiogram [ECG] [EKG] | CPT/HCPCS: 93010 ==

== ENCOUNTER 2024-06-08 03:32 | Emergency (ER) | payer OTHER, MEDICAID, SELFPAY ==
--- NOTE | ~2024-06-08 | CT_ITS ---
CLINICAL HISTORY: left flank pain Exam: CT abdomen and pelvis without intravenous contrast. Comparison: December 10, 2022. Findings: CT abdomen: No infiltrates seen within the lung bases. No acute bony lesions. Air-filled distention of the distal esophagus with small hiatal hernia. [id number] amount of ingested contents within the stomach. No dilated small bowel. No focal lesions identified within the unenhanced liver, spleen, pancreas, gallbladder, or adrenal glands. No renal or ureteral calculi. No hydronephrosis or perinephric stranding. CT pelvis: Appendix is normal. Moderate to large amount of desiccated stool throughout the colon. No colonic wall thickening or pericolonic inflammatory stranding. No free fluid or free air. Impression: 1. No renal or ureteral calculi. 2. Prominent desiccated stool throughout the colon without findings of colitis or obstruction This document has been electronically signed by: Danish Jaramillo MD on 06/08/2024 06:26:06
[2024-06-08 03:36] VITALS: BP 171/96; PULSE 102; RESP 16; TEMP 36.6; O2SAT 100; BMI 25.9
[2024-06-08 04:07] LABS: Basophils Absolute Auto 0.1 X10*3/uL (0.0-0.2); Basophils Percent Auto 0.5 % (0-2); Eosinophils Absolute Auto 0.3 X10*3/uL (0.0-0.4); Eosinophils Percent Auto 2.6 % (0-4); Hematocrit 34.8 % (37.0-47.0); Hemoglobin 11.9 g/dl (12.0-16.0); Imm Gran Abs Auto 0.05 X10*3/uL (0.00-0.03); Imm Gran Pct Auto 0.5 % (0.0-0.4); Lymphocytes Absolute Auto 3.9 X10*3/uL (1.2-4.9); MANUAL DIFF FLAG NO; Mean Corpuscular HGB Conc 34.2 g/dl (31.0-35.0); Mean Corpuscular Hemoglobin 28.3 pg (27.0-33.0); Mean Corpuscular Volume 82.7 fL (80.0-98.0); Mean Platelet Volume 12.1 fL (9.4-12.3); Monocytes Absolute Auto 0.8 X10*3/uL (0.1-1.2); Monocytes Percent Auto 6.8 % (2-11); Neutrophils Absolute Auto 6.1 x10*3/uL (2.0-8.3); Neutrophils Percent Auto 54.6 % (45-73); Platelet Count 199 X10*3/uL (160-400); Red Blood Count 4.21 X10*6/uL (4.20-5.50); Red Cell Distribution Width 12.3 % (11.0-16.0); White Blood Count 11.1 X10*3/uL (4.8-10.8)
[2024-06-08 04:14] LABS: Appearance Urine Clear; Color Urine Yellow; Glucose Urine UA >=1000 mg/dL (Negative); Leukocyte Esterase Urine Negative (Negative); Nitrite Urine Negative (Negative); PH 6.5 (5.0-9.0); Specific Gravity - Urine 1.025 (1.005-1.025); UMIC TRIGGER UACC YES; Urine Blood Trace (Negative); Urine Ketones Negative (Negative); Urine Protein 100 (2+) mg/dL (Neg-Trace)
[2024-06-08 04:21] LABS: Anion Gap 12 (12-20); Blood Urea Nitrogen 19 mg/dL (9-16); Calcium 9.4 mg/dL (8.4-10.2); Carbon Dioxide 25 mmol/L (22-29); Chloride 103 mmol/L (96-108); Creatinine Clr Calc Pharmacy 93.8; Estimated Glomerular Filt Rate > 60; Glucose Random 290 mg/dL (60-115); Sodium 136 mmol/L (135-145)
[2024-06-08 04:45] LABS: Bacteria Urine None Seen (None Seen); Hyaline Casts Urine 0-2 /LPF (0-2); RBC Urine 0-2 /HPF (0-2); Squamous Epithelial Cell Urine 0-2 /HPF (0-2); WBC Urine 0-5 /HPF (0-5)
[2024-06-08 04:46] LABS: UPreg QC Valid YES; Urine Pregnancy NEGATIVE (NEGATIVE)
--- NOTE | 2024-06-08 05:01 | ED.FEMALEGU ---
HPI - Female Genitourinary General Chief complaint: Urogenital-Female Stated complaint: kidney pain Time Seen by Provider: 06/08/24 05:00 Source: patient Mode of arrival: ambulatory Limitations: no limitations History of Present Illness ED Provider: DR. Levy HPI Narrative: 38-year-old female came in for 3 days of left flank pain that is intermittent, patient seen developer advocate for Multifactorial ATN and kidney injury patient is been getting renal ultrasound that was unremarkable. the pain is associated with nausea and vomiting. No fever, no chills, No dysuria, no frequency urination, no hematuria. Related Data Previous Rx's ?Medication ?Instructions ?Recorded alcohol swabs 1 pad topical QIDACHS #100 ea 12/17/22 amlodipine 10 mg tablet 10 mg PO DAILY 30 days #30 tabs 12/17/22 blood sugar diagnostic (FreeStyle #100 ea 12/17/22 Lite Strips) blood-glucose meter (FreeStyle #1 ea 12/17/22 Lite Meter kit) hydralazine 50 mg tablet 50 mg PO QID 30 days #120 tabs 12/17/22 insulin glargine 100 unit/mL (3 15 unit (0.15 mL) subcut DAILY #15 12/17/22 mL) subcutaneous pen (Lantus mL Solostar U-100 Insulin) insulin lispro 100 unit/mL 1 sliding scale dose subcut 12/17/22 subcutaneous pen (Humalog KwikPen QIDACHS #15 mL (U-100) Insulin) lancets 28 gauge (FreeStyle #100 ea 12/17/22 Lancets) pen needle, diabetic 32 gauge x #100 ea 12/17/22 1/ metformin 500 mg tablet 500 mg PO DAILY #30 tabs 12/21/22 morphine 15 mg immediate release 15 mg PO Q8H PRN pain #15 tabs 12/25/22 tablet ondansetron 4 mg disintegrating 4 mg PO Q6-8H PRN nausea and 12/25/22 tablet vomiting #20 tabs ondansetron 4 mg disintegrating 4 mg PO Q8H PRN nausea and 03/28/24 tablet vomiting #20 tabs Allergies Allergy/AdvReac Type Severity Reaction Status Date / Time No Known Allergies Allergy Mild NOT Verified 06/08/24 03:39 APPLICABLE Review of Systems Review of Systems: All other systems are reviewed and are negative Constitutional: Reports as per HPI and Reports no additional constitutional complaints Eyes: Reports as per HPI and Reports no additional eye complaints Reports system reviewed and no additional complaints, except as documented Cardiovascular: Reports as per HPI and Reports no additional cardiovascular complaints Respiratory: Reports as per HPI and Reports no additional respiratory complaints Gastrointestinal: Reports as per HPI and Reports no additional gastrointestinal complaints Genitourinary: Reports no additional female genitourinary complaints Musculoskeletal: Reports no additional musculoskeletal complaints Skin/Breast: Reports system reviewed and no additional complaints, except as docu Psychiatric: Reports no additional psychiatric complaints Endocrine: Reports no additional endocrine complaints Hematologic/Lymphatic: Reports no additional hematologic/lymphatic complaints Allergic/Immunologic: Reports no additional allergic/immunologic complaints Reports system reviewed and no additional complaints, except as documented and Reports Abnormal speech present FORMERLY [facility], [facility] Past Medical History Medical History delivery delivered Diabetes Surgical History Hx of hernia repair H/O elbow surgery Hx of esophagogastroduodenoscopy Social History Social History Household Members: Other Household Members Other:: daughter Housing: Apartment Do you presently have visiting nurse or other home services: No Patient Tobacco Use Status: Never used Tobacco Do you have a plan to hurt others: No Plan service: No Current occupational status: employed 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 Blood pressure elevated. Heart rate normal. Respiratory rate normal. Temperature normal. Oxygen saturation normal. Appearance: Alert. Oriented X3. No acute distress. Head: Normal external exam. Normocephalic. Atraumatic. No Guy signs noted. No raccoon eyes noted Eyes: PERRLA. EOMI. Conjunctiva and sclera normal. Eyelids normal. ENT: TM's Normal. Pharynx normal. Uvula midline. Moist mucous membranes. No trismus noted. No drooling noted. No muffled voice noted. Neck: Normal inspection. Neck supple. FROM. No adenopathy. Thyroid Normal. No meningeal signs. No neck mass noted. CVS: Normal heart rate and rhythm. Heart sound normal. No murmurs noted. Pulses normal throughout. Respiratory: No respiratory distress. Painless inspiration. Breath sounds normal. No wheezes/rales/rhonchi noted. Chest nontender. No accessory muscle usage noted or decreased air movement noted. Abdomen: Soft and nontender. Bowel sounds normal in all 4 quadrants. No distention noted. No organomegaly noted. No visible injury noted. Back: Left CVA tenderness. Full range of motion noted. Skin: Skin warm and dry. Normal skin color. Normal skin turgor. No rashes/lesions/lacerations noted. Extremities: No lower extremity edema. Extremities exhibit normal range of motion. Extremities nontender. Neuro: Oriented X 3. Cranial nerve exam: II-XII are grossly intact No motor deficit. No sensory deficit. Reflexes normal. Course Reevaluation(s) Reevaluation #1: 38-year-old female with chronic ATN,, and with left flank pain x3 days, feels better after Toradol/ morphine CT abdomen pelvis shows no acute kidney pathology. Time: 06:30 Medications Administered Discontinued Medications Generic Name Dose Route Start Last Admin Trade Name Freq PRN Reason Stop Dose Admin Ketorolac Tromethamine 15 mg 06/08/24 05:01 06/08/24 05:12 Ketorolac Tromethamine 15 Mg/Ml Vial IM 06/08/24 05:02 15 mg ONCE ONE Administration Morphine Sulfate 1 mg 06/08/24 05:01 06/08/24 05:14 Morphine Sulfate 2 Mg/Ml Cartridge IM 06/08/24 05:02 1 mg ONCE ONE Administration Protocol Ondansetron HCl 4 mg 06/08/24 05:05 06/08/24 05:12 Ondansetron Odt 4 Mg Tab.Rapdis TRANSLINGU 06/08/24 05:06 4 mg ONCE ONE Administration Medical Decision Making Differential Diagnosis Differential Diagnoses: The differential diagnosis associated with the presentation includes ( Renal colic, ureteric calculi, pyelonephritis, UTI, colitis, diverticulitis, electrolyte derangement, severe anemia, .) Admission/Observation Consideration of admission/observation: Escalation of care including admission/observation considered Lab Data MDM Lab Attestation statement: I reviewed the patient's lab results. 06/08/24 04:02 06/08/24 04:02 Labs: Lab Results 06/08/24 06/08/24 Range/Units 04:02 04:06 WBC 11.1 H (4.8-10.8) X10*3/uL RBC 4.21 (4.20-5.50) X10*6/uL Hgb 11.9 L (12.0-16.0) g/dl Hct 34.8 L (37.0-47.0) % MCV 82.7 (80.0-98.0) fL MCH 28.3 (27.0-33.0) pg MCHC 34.2 (31.0-35.0) g/dl RDW 12.3 (11.0-16.0) % Plt Count 199 (160-400) X10*3/uL MPV 12.1 (9.4-12.3) fL Immature Gran % (Auto) 0.5 H (0.0-0.4) % Neut % (Auto) 54.6 (45-73) % Lymph % (Auto) 35.0 (20-40) % Collier % (Auto) 6.8 (2-11) % Eos % (Auto) 2.6 (0-4) % Baso % (Auto) 0.5 (0-2) % Lymph # (Auto) 3.9 (1.2-4.9) X10*3/uL Collier # (Auto) 0.8 (0.1-1.2) X10*3/uL Eos # (Auto) 0.3 (0.0-0.4) X10*3/uL Baso # (Auto) 0.1 (0.0-0.2) X10*3/uL Abs Immat Gran (auto) 0.05 H (0.00-0.03) X10*3/uL Absolute Neuts (auto) 6.1 (2.0-8.3) x10*3/uL Absolute Nucleated RBC 0.000 (0.0-0.012) X10*3/uL Nucleated RBC % (auto) 0.0 (0.0-0.2) /100WBC Sodium 136 (135-145) mmol/L Potassium 4.0 (3.3-5.1) mmol/L Chloride 103 (96-108) mmol/L Carbon Dioxide 25 (22-29) mmol/L Anion Gap 12 (12-20) BUN 19 H (9-16) mg/dL Creatinine 0.83 (0.5-1.4) mg/dL Estim Creat Clear Calc 93.8 Estimated GFR > 60 Random Glucose 290 H (60-115) mg/dL Calcium 9.4 (8.4-10.2) mg/dL Urine Color Yellow Urine Appearance Clear Urine pH 6.5 (5.0-9.0) Ur Specific Riva 1.025 (1.005-1.025) Urine Protein 100 (2+) H (Neg-Trace) mg/dL Urine Glucose (UA) >=1000 H (Negative) mg/dL Urine Ketones Negative (Negative) mg/dL Urine Blood Trace H (Negative) Urine Nitrite Negative (Negative) Ur Leukocyte Esterase Negative (Negative) Urine RBC 0-2 (0-2) /HPF Urine WBC 0-5 (0-5) /HPF Ur Squamous Epith Cells 0-2 (0-2) /HPF Urine Bacteria None Seen (None Seen) Hyaline Casts 0-2 (0-2) /LPF Urine Test NEGATIVE (NEGATIVE) Independent Interpretation I performed an independent interpretation of an: CT Scan ( Abdomen and pelvis: 1. No renal or ureteral calculi. 2. Prominent desiccated stool throughout the colon without findings of colitis or obstruction) Radiology Impression Discussion of test interpretation with radiology: I have reviewed the radiologist's reading. Discharge Plan Discharge Clinical Impression: Acute left flank pain Patient Disposition: Home, Self-Care Instructions: Flank Pain (ED) Prescriptions: No Action morphine 15 mg tablet 15 mg PO Q8H PRN (Reason: pain) Qty: 15 0RF Rx Instructions: Partial Fill upon patient request. ondansetron 4 mg tablet,disintegrating 4 mg PO Q6-8H PRN (Reason: nausea and vomiting) Qty: 20 0RF amlodipine 10 mg Tablet 10 mg PO DAILY 30 Days Qty: 30 0RF Protocol: Hold for SBP< HOLD for SBP < : 90 hydralazine 50 mg Tablet 50 mg PO QID 30 Days Qty: 120 0RF Protocol: Hold for SBP< HOLD for SBP < : 90 (DME) FreeStyle Lite Strips Strip Qty: 100 0RF Rx Instructions: Test four times a day or as directed. (DME) blood-glucose meter [FreeStyle Lite Meter] Kit Qty: 1 0RF Rx Instructions: As Directed alcohol swabs Pads, Medicated 1 pad TOPICAL QIDACHS Qty: 100 0RF Rx Instructions: Use four times a day or as directed. insulin lispro [Humalog KwikPen Insulin] 100 unit/mL insulin pen 1 sliding scale dose SUBCUT QIDACHS MDD 30 units Qty: 15 0RF Rx Instructions: Blood Sugar: <150 - 0 units 151-200 - 2 units 201-250 - 4 units 251-300 - 6 units 301-350 - 8 units >350 - 10 units insulin glargine [Lantus Solostar U-100 Insulin] 100 unit/mL (3 mL) insulin pen 15 unit SUBCUT DAILY Qty: 15 0RF (DME) pen needle, diabetic 32 gauge x 1/4 needle Qty: 100 0RF Rx Instructions: Use four times a day or as directed. (DME) lancets [FreeStyle Lancets] 28 gauge misc Qty: 100 0RF Rx Instructions: Test four times a day or as directed. metformin 500 mg tablet 500 mg PO DAILY Qty: 30 0RF ondansetron 4 mg tablet,disintegrating 4 mg PO Q8H PRN (Reason: nausea and vomiting) Qty: 20 0RF Referrals: Barry Modi MD [Physician] - Print Language: Estonian
[2024-06-08] MEDS: Ondansetron ODT 4 MG TAB.RAPDIS TRANSLINGU (05:12)
[2024-06-08] MEDS: Ketorolac Tromethamine 15 MG/ML VIAL IM (05:12)
[2024-06-08 05:14] VITALS: RESP 16
[2024-06-08] MEDS: Morphine Sulfate 2 MG/ML CARTRIDGE 1 MG IM (05:14)
--- NOTE | 2024-06-08 05:39 | PC.NURSE ---
pt medicated per mar, pt back from CT scan. Awaiting disposition and results.
[2024-06-08 05:45] VITALS: BP 151/88; PULSE 89; RESP 16; TEMP 36.7; O2SAT 99
--- OUTSIDE RECORDS SUMMARY | 2024-06-08 06:33 | XMS_ITS | Encounter Summary ---
Author Organization [facility] Address [address] [place] [address] Care Team Providers Care Dispatcher Service Name Role Phone Gavin Fine MD Primary Care Provider [phone] Encounter Details Date Type Department Care Team Description 10/31/2014 Steam Box Tender Report Medical Records [address] [place] [id number] [place] [address] [address] [place] [address] Social History Tobacco Use Types Packs/Day Years Used Date Smoking Tobacco: Never Smokeless Tobacco: Never Alcohol Use Standard Drinks/Week Comments No 0 (1 standard drink = 0.6 oz pur e alcohol) Sex Assigned at Date Recorded Not on file documented as of this encounter Plan of Treatment Not on file documented as of this encounter Visit Diagnoses Not on filedocumented in this encounter Care Teams Dispatcher Service Relationship Specialty Start Date End Date Gavin Fine MD [address] [place] [address] PCP - General Internal Medicine 05/06/14 documented as of this encounter
--- OUTSIDE RECORDS SUMMARY | 2024-06-08 06:33 | XMS_ITS | Encounter Summary ---
Author Organization [facility] Address [address] [place] [address] Care Team Providers Care E Commerce Architect Name Role Phone Vangie, Pcp Primary Care Provider Gvain Jung MD Primary Care Provider [phone] Encounter Details Date Type Department Care Team Description 05/02/2014 Hospital Medical Records [address] [place] [address] Stacey Berry Social History Tobacco Use Types Packs/Day Years [...] on filedocumented in this encounter Care Teams E Commerce Architect Relationship Specialty Start Date End Date Community, Pcp PCP - General 06/25/10 05/05/14 Gavin Fine MD [address] [place] [address] PCP - General Internal Medicine 05/06/14 documented as of this encounter
--- OUTSIDE RECORDS SUMMARY | 2024-06-08 06:33 | XMS_ITS | Clinical Summary ---
Author Organization [facility] Address [address] [place] [address] Care Team Providers Care Vendor Management Specialist Name Role Phone Gavin Fine MD Primary Care Provider [phone] Allergies No known active allergies Medications Medication Sig Dispensed Refills Start Date End Date Status SENNA 2 tablets daily 0 Active Metoprolol Tartrate 25 MG TABS 1 tablet bid 0 Active ibuprofen (IBU-200) 200 MG tablet Take 200 mg by mouth every 6 hours as needed. 0 Active lisinopril (PRINIVIL,ZESTRIL) 2.5 MG tablet Take 1 Tab by mouth daily. 30 Tab 5 05/22/2014 Active Omeprazole 20 MG Tab EC Take 1 Tab by mouth 2 times daily. 30 Tab 5 05/22/2014 Active pravastatin (PRAVACHOL) 40 MG tablet Take 1 Tab by mouth daily. 30 Tab 5 06/10/2014 Active FREESTYLE LANCETS MiscIndications:Diabet ic nephropathy associated with diabetes mellitus due to underlying condition (HCC) Use 4 times daily 200 Each 3 08/14/2014 Active Blood Glucose Calibration (FREESTYLE CONTROL SOLUTION) LiquidIndications:Diab etic nephropathy associated with diabetes mellitus due to underlying condition (HCC) As directed 1 Each 0 08/14/2014 Active Insulin Lispro, Human, (HUMALOG KWIKPEN) 100 UNIT/ML Solution Pen-injector 8 units before meals and as directed 5 Device 3 08/15/2014 Active insulin glargine (LANTUS) 100 UNIT/ML injection 39 UNITS AT 8 PM 5 Vial 5 08/15/2014 Active Insulin Pen Needle (B-D ULTRAFINE III SHORT PEN) 31G X 8 MM MiscIndications:Diabet es mellitus type II, uncontrolled Use BID to inject insulin. 60 Each 10 09/23/2014 Active lorazepam (ATIVAN) 0.5 MG tablet Take 1 Tab by mouth every 8 hours as needed for Anxiety. 30 Tab 0 09/23/2014 Active Insulin Syringe 31G X 5/16 1 ML Misc To use to inject insulin twice daily 100 Each 5 11/13/2014 Active atorvastatin (LIPITOR) 20 MG tablet Take 1 Tab by mouth daily. 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 Ertapenem. Work up for TB, cryptococal, HIV, ANCA and Fungal was negative. Deep wound culture showed E Coli. Gastroparesis 08/13/2009 DM (diabetes mellitus) type II uncontrol led with renal manifestation 08/13/2009 Family History Medical History Relation Name Comments Diabetes Father end stage renal after 5 yr diab dx Relation Name Status Comments Brother 1 Alive Brother 2 Alive Father Mother Alive Sister Alive Social History Tobacco Use Types Packs/Day Years Used Date Smoking Tobacco: Never Smokeless Tobacco: Never Alcohol Use Standard Drinks/Week Comments No 0 (1 standard drink = 0.6 oz pur e alcohol) Sex Assigned at Date Recorded Not on file Last Filed Vital Signs Vital Sign Reading Time Taken Comments Blood Pressure 110/70 11/13/2014 10:10 AM EDT Pulse 88 11/13/2014 10:10 AM EDT Temperature 36.8 ??C (98.2 ??F) 07/04/2014 2:03 PM ED T Respiratory Rate 20 07/04/2014 2:03 PM EDT Oxygen Saturation - - Inhaled Oxygen Concentration - - Weight 80.7 kg (178 lb) 11/13/2014 10:10 AM EDT Height 165.1 cm (5' 5 ) 11/13/2014 10:10 AM EDT Body Mass Index 29.62 11/13/2014 10:10 AM EDT Plan of Treatment Health Maintenance Due Date Last Done Comments Covid-19 Vaccine (#1) 06/30/1986 DIABETES: ANNUAL EYE EXAM 01/01/2004 DIABETES: ANNUAL FOOT EXAM 01/01/2004 TOBACCO CHECK/ADVISE 01/01/2004 BASELINE HEALTH EXAM 18-39 2004 DTAP/TDAP/TD (1 - Tdap) 2004 PNEUMOCOCCAL VACCINE FOR HIG H RISK PATIENTS (#1) 2004 CERVICAL CANCER SCREENING 2006 DIABETES: BLOOD SUGAR CONTRO L TEST (HGBA1C) 02/13/2015 11/13/2014, 09/23/2014, 05/22/2014 DIABETES: ANNUAL URINE PROTE IN TEST (MICROALBUMIN) 09/24/2015 09/23/2014, 05/22/2014 DIABETES/HEART DISEASE: MADDISON AL CHOLESTEROL (LDL) 11/14/2015 11/13/2014, 09/23/2014, 05/22/2014 INFLUENZA (#1) 2023 BMI CHECK/ADVISE 04/11/2024 11/13/2014, , 08/14/2014, Additional history exists Care Teams Vendor Management Specialist Relationship Specialty Start Date End Date Gavin Fine MD [address] [place] [id number] PCP - General Internal Medicine 05/06/14
--- OUTSIDE RECORDS SUMMARY | 2024-06-08 06:33 | XMS_ITS | Clinical Summary ---
Author Organization [facility] Address [id number] [place] [id number] Care Team Providers Care Steel Turner Name Role Phone Gavin Fine MD Primary Care Provider [phone] Surgical History Surgery Date Site/Laterality Comments ELBOW SURGERY PROCEDURE: HISTORICAL ELBOW SURGERY HYSTERECTOMY PROCEDURE: HISTORICAL HYSTERECTOMY Medical History Medical History Date Comments Hyperlipidemia 06/03/2014 DX:Hyperlipidemi a Microalbuminuria 06/03/2014 DX:Microalbumin uria Historical Medical DX 08/13/2009 DX:DM (renard betes mellitus) type II uncontrolled with renal manifestation Gastroparesis 08/13/2009 DX:Gastroparesis Diabetes mellitus type 2 wit h neurological manifestations (CMS/HCC) 06/03/2014 DX:Diabetes lobo itus type 2 with neurological manifestations (HCC) Vitamin D deficiency 06/03/2014 DX:Vitamin D deficiency Elevated LFTs 06/03/2014 DX:Elevated LFTs ; COMMENT: On transfer note Family History Medical History Relation Name Comments Diabetes Father end stage renal after 5 yr diab dx Relation Name Status Comments Brother 1 Alive Brother 2 Alive Father Mother Alive Sister Alive Social History Tobacco Use Types Packs/Day Years Used Date Smoking Tobacco: Never Smokeless Tobacco: Never Alcohol Use Standard Drinks/Week Comments No 0 (1 standard drink = 0.6 oz pur e alcohol) Comments Unknown Sex and Gender Information Value Date Recorded Sex Assigned at Not on file Legal Sex Female 3:31 PM EST Gender Identity Not on file Sexual Orientation Not on file Obstetrics History Plan of Treatment Health Maintenance Due Date Last Done Comments Diabetes: Annual GFR (Glomer ular Filtration Rate) 1985 Diabetes: Annual Foot Exam 01/01/1996 Diabetes: Annual Retina Eye Exam 01/01/1996 DTaP,Tdap,and Td Vaccines (1 - Tdap) 2004 Hepatitis B Vaccines (1 of 3 - 19+ 3-dose series) 2004 Cervical Cancer Screening: P ap Smear 2006 Cholesterol Screening (Lipid Panel) 03/10/2022 Depression Screening 03/10/2022 HIV Screening 03/10/2022 Hepatitis C Screening 03/10/2022 Social Influencers of Health Screening 03/10/2022 Diabetes: Annual Urine Albumin-Creatinine Ratio (uACR) 03/25/2022 Diabetes: Blood Sugar Contro l Test (HGBA1C) 03/25/2022 Hypertension/CHF/CAD Annual BMP Blood Test 03/25/2022 COVID-19 Vaccine ( - 2023-2 5 season) 2023 Influenza Vaccine (#1) 2023 HIB Vaccines Aged Out No longer eligi ble based on patient's age to complete this topic HPV Vaccines Aged Out No longer eligi ble based on patient's age to complete this topic Hepatitis A Vaccines Aged Out No long er eligible based on patient's age to complete this topic IPV Vaccines Aged Out No longer eligi ble based on patient's age to complete this topic MMR Vaccines Aged Out No longer eligi ble based on patient's age to complete this topic Meningococcal ACWY Vaccine Aged Out N o longer eligible based on patient's age to complete this topic Meningococcal B Vacine Aged Out No lo nger eligible based on patient's age to complete this topic Pneumococcal Vaccine: Pediat rics (0 to 5 Years) and At-Risk Patients (6 to 64 Years) Aged Out No longer eligible b ased on patient's age to complete this topic RSV Immunization Patients Un mignon 20 months Aged Out No longer eligible b ased on patient's age to complete this topic Varicella Vaccines Aged Out No longer eligible based on patient's age to complete this topic Care Teams Steel Turner Relationship Specialty Start Date End Date Gavin Fine MD PCP - General Internal Medicine 05/06/14
--- OUTSIDE RECORDS SUMMARY | 2024-06-08 06:33 | XMS_ITS | Encounter Summary ---
Author Organization [facility] Address [address] [place] [address] Care Team Providers Care Psychiatry Adult Physician Name Role Phone Gavin Fine MD Primary Care Provider [phone] Encounter Details Date Type Department Care Team Description 03/21/2015 LOOPING MACHINE OPERATOR/MassPat Report Medical Records [address] [place] [id number] Abstract, Provider Social History Tobacco Use Types Packs/Day Years [...] on filedocumented in this encounter Care Teams Psychiatry Adult Physician Relationship Specialty Start Date End Date Gavin Fine MD [address] [place] [id number] PCP - General Internal Medicine 05/06/14 documented as of this encounter
--- OUTSIDE RECORDS SUMMARY | 2024-06-08 06:33 | XMS_ITS | Clinical Summary ---
Author Organization [facility] Address [address] [place] [id number] Care Team Providers Care Tower Equipment Installer Name Role Phone Faraz Cho MD Primary Care Provider [phone] Allergies No known active allergies Medications insulin NPH-insulin regular (HumuLIN 70/30) (70-30) 100 UNIT/ML injection Active Insulin Lispro, 1 Unit Dial, (HumaLOG KWIKPEN) 100 UNIT/ML solution pen-injector 8 units before meals and as directed 08/15/2014 Active insulin glargine (Lantus) 100 UNIT/ML injection 08/15/2014 Active methocarbamol (ROBAXIN) 750 MG tabletIndicatio ns:Low back strain <Initial> Take 1 tablet (750 mg total) by mouth in the morning and 1 tablet (750 mg total) in the evening and 1 tablet (750 mg total) before bedtime. 15 tablet 04/29/2023 Active Active Problems Problem Noted Date Diagnosed Date Acute nontraumatic kidney injury 03/17/2023 Stage 3a chronic kidney disease 03/17/2023 Type 2 diabetes mellitus wit h diabetic chronic kidney disease 03/17/2023 Major depression, single episode 09/23/2014 01/21/2023 Disorder of kidney due to diabetes mellitus 09/2014 Hyperlipidemia 06/03/2014 01/21/2023 Liver function test above reference range 2014 Overview (01/21/2023): On transfer note Microalbuminuria 06/03/2014 01/21/2023 Type 2 diabetes mellitus wit h other diabetic neurological complication 06/03/2014 01/21/2023 Vitamin D deficiency 06/03/2014 01/21/2023 Abscess of lung 08/13/2009 01/21/2023 Overview (01/21/2023): CT-guided drainage at [facility] in July 2009. Ertapenem. Work up for TB, cryptococal, HIV, ANCA and Fungal was negative. Deep wound culture showed E Coli. Diabetes mellitus 08/13/2009 01/21/2023 Gastroparesis 08/13/2009 01/21/2023 Hypertensive disorder 08/13/2009 01/21/2023 Social History Tobacco Use Types Packs/Day Years Used Date Smoking Tobacco: Never Tobacco Cessation:Counseling Given: Not Answered Alcohol Use Standard Drinks/Week Comments Yes 0 (1 standard drink = 0.6 oz pur e alcohol) Comments Unknown Sex and Gender Information Value Date Recorded Sex Assigned at Not on file Legal Sex Female 5:02 PM EST Gender Identity Not on file Sexual Orientation Not on file Last Filed Vital Signs Vital Sign Reading Time Taken Comments Blood Pressure 128/80 04/28/2023 11:27 AM EST Pulse 86 04/28/2023 11:27 AM EST Temperature - - Respiratory Rate - - Oxygen Saturation 99% 03/17/2023 9:11 AM EST Inhaled Oxygen Concentration - - Weight 75.9 kg (167 lb 6.4 oz) 04/28/2023 11:27 AM EST Height - - Body Mass Index - - Plan of Treatment Upcoming Encounters Date Type Department Care Team (Late st Contact Info) Description 06/25/2024 1:30 PM EDT Office Visit [facility] [address] [place] [address] Barry Modi MD [address] [facility] [address] [place] [address] Health Maintenance Due Date Last Done Comments Pneumococcal Vaccine: Pediat rics (0 to 5 Years) and At-Risk Patients (6 to 64 Years) (1 of 2 - PCV) 01/01/1992 Hepatitis B Vaccine (1 of 3 - 19+ 3-dose series) 12/31 Diabetes: Hemoglobin A1C 12/18/2022 Diabetes: Ophthalmology Exam 12/18/2022 Diabetes: Pedal Pulse Checked 12/18/2022 Diabetes: Sensory Foot Exam 12/18/2022 Diabetes: Visual Foot Exam 12/18/2022 Influenza Vaccine (#1) 2023 Insurance [facility] [id number] [place] Care Teams Tower Equipment Installer Relationship Specialty Start Date End Date Faraz Cho MD [address] [place] [address] PCP - General 04/21/20
--- OUTSIDE RECORDS SUMMARY | 2024-06-08 06:33 | XMS_ITS | Encounter Summary ---
Author Organization [facility] Address [address] [place] [address] Care Team Providers Care Shirt Maker Name Role Phone Gavin Fine MD Primary Care Provider [phone] Encounter Details Date Type Department Care Team Description 12/26/2014 Brake Reliner Report Medical Records [address] [place] [id number] [place] [address] Social History Tobacco Use Types Packs/Day Years [...] on filedocumented in this encounter Care Teams Shirt Maker Relationship Specialty Start Date End Date Gavin Fine MD [address] [place] [id number] PCP - General Internal Medicine 05/06/14 documented as of this encounter
--- OUTSIDE RECORDS SUMMARY | 2024-06-08 06:33 | XMS_ITS | Patient Health Record ---
Author Organization [facility] Address [address] [place] [address] Care Team Providers Care Malt Specifications Control Assistant Name Role Phone NONE, NONE Primary Care Provider Leobardo Young Jr Unavailable REASON FOR REFERRAL No Information SOCIAL HISTORY Sex Assigned At : Social History Observation Description Sex Assigned At Unknown PLAN OF TREATMENT No Information Insurance Providers Payer Name Payer Address Payer Phone Subscriber Number Group Number Insured Name Patient Relationship to Insured Coverage Start Date Coverage End Date [facility] [address] [place], [place] [id number] STEPHIE RIVERA Self - patient is the insured
--- OUTSIDE RECORDS SUMMARY | 2024-06-08 06:33 | XMS_ITS ---
Author Organization [facility] Address [address] [place] [address] Care Team Providers Care Clinical Dietician Name Role Phone NONE, NONE Primary Care Provider Unavailjocelyne e Leobardo Prado Jr Unavailable [phone] REASON FOR VISIT pathology Encounters Encounter Location Date Provider Diagnosis [facility] [address] [place] [address] 12/21/2022 Leobardo Prado Jr PLAN OF TREATMENT No Information
--- OUTSIDE RECORDS SUMMARY | 2024-06-08 06:33 | XMS_ITS | Encounter Summary ---
Author Organization [facility] Address [address] [place] [address] Care Team Providers Care Account Support Associate Name Role Phone Gavin Fine MD Primary Care Provider [phone] Encounter Details Date Type Department Care Team Description 10/24/2014 Photographers' Model Report Medical Records [address] [place] [address] [address] [place] [address] Social History Tobacco Use Types Packs/Day Years [...] on filedocumented in this encounter Care Teams Account Support Associate Relationship Specialty Start Date End Date Gavin Fine MD [address] [place] [address] PCP - General Internal Medicine 05/06/14 documented as of this encounter
[2024-06-08 07:21] VITALS: BP 134/86; PULSE 90; RESP 16; TEMP 36.7; O2SAT 99
== END 2024-06-08 07:21 | disposition home or self-care (01) ==
PROVIDERS: Emergency Provider Emergency Medicine
DX: R10.9 Unspecified abdominal pain (principal); R11.2 Nausea with vomiting, unspecified; E11.9 Type 2 diabetes mellitus without complications; Z79.4 Long term (current) use of insulin; Z79.899 Other long term (current) drug therapy
CPT/HCPCS: 36415; 74176; 80048; 81001; 81025; 85025; 96372; 99284; J1885; J2270

== ENCOUNTER → 2024-06-08 05:04 | Outpatient (BNV) | payer OTHER, MEDICAID, SELFPAY | PROVIDERS: Emergency Provider Emergency Medicine; Visit Provider Radiology Diagnostic Radiology | DX: R10.9 Unspecified abdominal pain (principal); K59.00 Constipation, unspecified | CPT/HCPCS: 74176 ==

== ENCOUNTER 2024-09-17 09:56 | Emergency (ER) | payer OTHER, SELFPAY ==
[2024-09-17 09:59] VITALS: BP 187/97; PULSE 100; RESP 18; TEMP 36.1; O2SAT 99; BMI 25.1
[2024-09-17 10:11] VITALS: BP 147/84; PULSE 88; RESP 20; TEMP 36.6; O2SAT 100
[2024-09-17 10:55] VITALS: BP 156/92; PULSE 92; RESP 18; TEMP 36.5; O2SAT 100
--- NOTE | 2024-09-17 10:58 | ECG_ITS ---
Test Reason : nausea/HTN Blood Pressure : */* mmHG Vent. Rate : 84 BPM Atrial Rate : 84 BPM P-R Int : 132 ms QRS Dur : 86 ms QT Int : 368 ms P-R-T Axes : 51 34 67 degrees QTcB Int : 434 ms Normal sinus rhythm Normal ECG When compared with ECG of 30-Mar-2024 15:38, No significant change was found Referred By: Ayden Baca Electronically Signed By: RAFAELA FINN MD
[2024-09-17 11:30] VITALS: BP 134/79
[2024-09-17 11:32] LABS: MANUAL DIFF FLAG NO
--- NOTE | 2024-09-17 11:32 | ED.GENADULT ---
HPI - General Adult General Chief complaint: General Medical Stated complaint: High blood pressure Time Seen by Provider: 09/17/24 10:57 History of Present Illness ED Provider: Ayden Baca MD HPI narrative: 38-year-old female with diabetes hypertension. She is tearful on my initial evaluation she tells me ?my daughter is missing?. She tells me that her daughter left the house and there was a police report as a missing person's report. She reports fluctuating anterior chest tightness, diffuse generalized gradual-onset headache for about 2 days she is also experiencing associated nausea generalized abdominal discomfort stress, poor sleep, poor appetite. No vomiting no GI bleeding Related Data Previous Rx's ?Medication ?Instructions ?Recorded alcohol swabs 1 pad topical QIDACHS #100 ea 12/17/22 amlodipine 10 mg tablet 10 mg PO DAILY 30 days #30 tabs 12/17/22 blood sugar diagnostic (FreeStyle #100 ea 12/17/22 Lite Strips) blood-glucose meter (FreeStyle #1 ea 12/17/22 Lite Meter kit) hydralazine 50 mg tablet 50 mg PO QID 30 days #120 tabs 12/17/22 insulin glargine 100 unit/mL (3 15 unit (0.15 mL) subcut DAILY #15 12/17/22 mL) subcutaneous pen (Lantus mL Solostar U-100 Insulin) insulin lispro 100 unit/mL 1 sliding scale dose subcut 12/17/22 subcutaneous pen (Humalog KwikPen QIDACHS #15 mL (U-100) Insulin) lancets 28 gauge (FreeStyle #100 ea 12/17/22 Lancets) pen needle, diabetic 32 gauge x #100 ea 12/17/22 1/4 metformin 500 mg tablet 500 mg PO DAILY #30 tabs 12/21/22 morphine 15 mg immediate release 15 mg PO Q8H PRN pain #15 tabs 12/25/22 tablet ondansetron 4 mg disintegrating 4 mg PO Q6-8H PRN nausea and 12/25/22 tablet vomiting #20 tabs ondansetron 4 mg disintegrating 4 mg PO Q8H PRN nausea and 03/28/24 tablet vomiting #20 tabs metoclopramide HCl 10 mg tablet 10 mg PO Q6H PRN nausea and 09/17/24 (Reglan) vomiting #10 tabs Allergies Allergy/AdvReac Type Severity Reaction Status Date / Time No Known Allergies Allergy Mild NOT Verified 09/17/24 10:02 APPLICABLE [facility] Past Medical History Medical History delivery delivered Diabetes Surgical History Hx of hernia repair H/O elbow surgery Hx of esophagogastroduodenoscopy Social History Social History Household Members: Other Household Members Other:: daughter Housing: Apartment Do you presently have visiting nurse or other home services: No Patient Tobacco Use Status: Never used Tobacco Smoked in Last 30 Days: No Use of substances other than those prescribed or required for medical reasons: No Advance Directives: No Advance Directives Information Provided: No Do you have a plan to hurt others: No Plan Patient : No service: No Current occupational status: employed 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 ENT: Moist mucosa, no pallor. ? Neck: Supple. Skin: ?No observable rash or bruising on exposed or examined skin Respiratory: Breathing comfortably, No distress.Clear to auscultation bilaterally, symmetric chest expansion, No wheeze, rales, ronchi. Cardiovascular: Regular rate and rhythm. No murmurs or rub. Well perfused periphery, warm extremities. No edema. ? Abdominal: No FOCAL TENDERNESS. Soft, no objective distension. No palpable masses or obvious organomegaly. ?No guarding, no rebound tenderness or other peritoneal findings. : No flank tenderness. Neuro: Alert. Gross movement of all extremities intact. ? Psych: Calm. Cooperative. MSK: No grossly visible deformity. Vital signs: See flowsheet Medications Administered Discontinued Medications Generic Name Dose Route Start Last Admin Trade Name Juve PRN Reason Stop Dose Admin Diazepam 2.5 mg 09/17/24 11:38 09/17/24 12:25 Diazepam 10 Mg/2 Ml Cartridge IVPUSH 09/17/24 11:39 2.5 mg STAT STA Administration Sodium Chloride 1,000 mls @ 999 mls/hr 09/17/24 12:30 09/17/24 14:18 Ns IV 09/17/24 13:30 Infused .Q1H1M NAYA Infusion Insulin Human Regular 5 unit 09/17/24 12:11 09/17/24 12:25 Insulin Regular, Human 100 Unit/Ml 10 Ml Vial IVPUSH 09/17/24 12:12 5 unit ONCE ONE Administration Ondansetron HCl 4 mg 09/17/24 11:38 09/17/24 12:25 Ondansetron Hcl 4 Mg/2 Ml Vial IVPUSH 09/17/24 11:39 4 mg ONCE ONE Administration Medical Decision Making Medical Decision Making [facility] Narrative: 38-year-old female hypertension, diabetes with multitude of symptoms onset when her daughter left her house/ran away. There is a missing person's report on her and she seems very sad anxious unexpectedly has poor sleep. She does have atypical fluctuating chest discomfort but has a normal EKG I doubt ACS but we will get a troponin. She has generalized abdominal discomfort nausea and decreased appetite these could be stress related symptoms but we will make sure she has no signs of dehydration electrolyte derangement. Lab Data [facility] Lab Attestation statement: I reviewed the patient's lab results. 09/17/24 11:27 09/17/24 11:27 Labs: Lab Results 09/17/24 09/17/24 09/17/24 Range/Units 11:27 12:44 13:18 WBC 9.6 (4.8-10.8) X10*3/uL RBC 4.36 (4.20-5.50) X10*6/uL Hgb 12.4 (12.0-16.0) g/dl Hct 37.0 (37.0-47.0) % MCV 84.9 (80.0-98.0) fL MCH 28.4 (27.0-33.0) pg MCHC 33.5 (31.0-35.0) g/dl RDW 12.7 (11.0-16.0) % Plt Count 189 (160-400) X10*3/uL MPV 12.4 H (9.4-12.3) fL Immature Gran % (Auto) 0.5 H (0.0-0.4) % Neut % (Auto) 65.1 (45-73) % Lymph % (Auto) 26.1 (20-40) % Harnett % (Auto) 5.0 (2-11) % Eos % (Auto) 2.8 (0-4) % Baso % (Auto) 0.5 (0-2) % Lymph # (Auto) 2.5 (1.2-4.9) X10*3/uL Harnett # (Auto) 0.5 (0.1-1.2) X10*3/uL Eos # (Auto) 0.3 (0.0-0.4) X10*3/uL Baso # (Auto) 0.1 (0.0-0.2) X10*3/uL Abs Immat Gran (auto) 0.05 H (0.00-0.03) X10*3/uL Absolute Neuts (auto) 6.3 (2.0-8.3) x10*3/uL Absolute Nucleated RBC 0.000 (0.0-0.012) X10*3/uL Nucleated RBC % (auto) 0.0 (0.0-0.2) /100WBC Sodium 138 (135-145) mmol/L Potassium 4.2 (3.3-5.1) mmol/L Chloride 104 (96-108) mmol/L Carbon Dioxide 26 (22-29) mmol/L Anion Gap 12 (12-20) BUN 21 H (9-16) mg/dL Creatinine 0.75 (0.5-1.4) mg/dL Estim Creat Clear Calc 102.6 Estimated GFR > 60 POC Glucose 278 H 216 H (60-115) mg/dL Random Glucose 307 H (60-115) mg/dL Calcium 9.3 (8.4-10.2) mg/dL Independent Interpretation I performed an independent interpretation of an: EKG (Sinus rhythm no acute ischemic changes normal intervals and axis) Discharge Plan Discharge Clinical Impression: Nausea & vomiting, Diabetes Patient Disposition: Home, Self-Care Instructions: Acute Nausea and Vomiting (DC) Additional Instructions: DISCHARGE DIAGNOSES: ELEVATED BLOOD SUGAR NAUSEA UNCLEAR CAUSE COULD BE DUE TO DIABETES OR DIABETIC GASTRIC PARESIS HISTORY OF PRESENTATION: ?NAUSEA VOMITING HEADACHE HIGH BLOOD PRESSURE EMERGENCY DEPARTMENT COURSE,TESTS, TREATMENTS: While in the ED today YOU HAD LAB WORK WHICH SHOWED ELEVATED BLOOD GLUCOSE 300+ NO OTHER ACTIONABLE LAB FINDINGS. YOUR BLOOD PRESSURE WAS MINIMALLY ELEVATED THAT DID NOT REQUIRE EMERGENT REDUCTION IN THE ER YOU HAD A REASSURING NORMAL EKG DISCHARGE MEDICATIONS: ?[We have made no changes to your regular medication regimen] WE ADDED NAUSEA MEDICINE ONLY NEEDED FOLLOW-UP: ?Call your primary or general physician soon as possible to discuss your symptoms, your ED visit and to discuss follow up plans CALL YOUR PRIMARY DOCTOR FOR FOLLOW UP INSTRUCTIONS ?& RETURN PRECAUTIONS: If any symptoms change first call your primary physician, if it is after-hours your primary doctors office should have a provider identification technician you can speak with. If the symptoms are severe or very concerning to you then call 911 or return to the ED. Ayden Baca MD Emergency Physician [facility] Prescriptions: New metoclopramide HCl [Reglan] 10 mg tablet 10 mg PO Q6H PRN (Reason: nausea and vomiting) Qty: 10 0RF No Action morphine 15 mg tablet 15 mg PO Q8H PRN (Reason: pain) Qty: 15 0RF Rx Instructions: Partial Fill upon patient request. ondansetron 4 mg tablet,disintegrating 4 mg PO Q6-8H PRN (Reason: nausea and vomiting) Qty: 20 0RF amlodipine 10 mg Tablet 10 mg PO DAILY 30 Days Qty: 30 0RF Protocol: Hold for SBP< HOLD for SBP < : 90 hydralazine 50 mg Tablet 50 mg PO QID 30 Days Qty: 120 0RF Protocol: Hold for SBP< HOLD for SBP < : 90 (DME) FreeStyle Lite Strips Strip Qty: 100 0RF Rx Instructions: Test four times a day or as directed. (DME) blood-glucose meter [FreeStyle Lite Meter] Kit Qty: 1 0RF Rx Instructions: As Directed alcohol swabs Pads, Medicated 1 pad TOPICAL QIDACHS Qty: 100 0RF Rx Instructions: Use four times a day or as directed. insulin lispro [Humalog KwikPen Insulin] 100 unit/mL insulin pen 1 sliding scale dose SUBCUT QIDACHS MDD 30 units Qty: 15 0RF Rx Instructions: Blood Sugar: <150 - 0 units 151-200 - 2 units 201-250 - 4 units 251-300 - 6 units 301-350 - 8 units >350 - 10 units insulin glargine [Lantus Solostar U-100 Insulin] 100 unit/mL (3 mL) insulin pen 15 unit SUBCUT DAILY Qty: 15 0RF (DME) pen needle, diabetic 32 gauge x 1/4 needle Qty: 100 0RF Rx Instructions: Use four times a day or as directed. (DME) lancets [FreeStyle Lancets] 28 gauge misc Qty: 100 0RF Rx Instructions: Test four times a day or as directed. metformin 500 mg tablet 500 mg PO DAILY Qty: 30 0RF ondansetron 4 mg tablet,disintegrating 4 mg PO Q8H PRN (Reason: nausea and vomiting) Qty: 20 0RF Stand Alone Forms: Work/School Release Interventions: ED Discharge Assessment Last Done: 09/17/24 14:18 Discharge Date/Time: 09/17/24 14:20 Print Language: Albanian
[2024-09-17 11:35] LABS: Basophils Absolute Auto 0.1 X10*3/uL (0.0-0.2); Basophils Percent Auto 0.5 % (0-2); Eosinophils Absolute Auto 0.3 X10*3/uL (0.0-0.4); Eosinophils Percent Auto 2.8 % (0-4); Hemoglobin 12.4 g/dl (12.0-16.0); Imm Gran Abs Auto 0.05 X10*3/uL (0.00-0.03); Imm Gran Pct Auto 0.5 % (0.0-0.4); Lymphocytes Absolute Auto 2.5 X10*3/uL (1.2-4.9); Lymphocytes Percent Auto 26.1 % (20-40); Mean Corpuscular HGB Conc 33.5 g/dl (31.0-35.0); Mean Corpuscular Hemoglobin 28.4 pg (27.0-33.0); Mean Corpuscular Volume 84.9 fL (80.0-98.0); Mean Platelet Volume 12.4 fL (9.4-12.3); Monocytes Absolute Auto 0.5 X10*3/uL (0.1-1.2); Neutrophils Absolute Auto 6.3 x10*3/uL (2.0-8.3); Neutrophils Percent Auto 65.1 % (45-73); Platelet Count 189 X10*3/uL (160-400); Red Blood Count 4.36 X10*6/uL (4.20-5.50); Red Cell Distribution Width 12.7 % (11.0-16.0); White Blood Count 9.6 X10*3/uL (4.8-10.8)
[2024-09-17 11:47] LABS: Anion Gap 12 (12-20); Blood Urea Nitrogen 21 mg/dL (9-16); Calcium 9.3 mg/dL (8.4-10.2); Carbon Dioxide 26 mmol/L (22-29); Chloride 104 mmol/L (96-108); Creatinine Clr Calc Pharmacy 102.6; Estimated Glomerular Filt Rate > 60; Glucose Random 307 mg/dL (60-115); Potassium 4.2 mmol/L (3.3-5.1); Sodium 138 mmol/L (135-145)
--- NOTE | 2024-09-17 12:20 | PC.NURSE ---
pt is alert and oriented, skin appropriate for ethnicity, respirations even and unlabored, pt reports for the last two days having high bp at home ranging from 140-160 systolic pt denies hx of hypertension, lots of pressure in the back of the head and nausea/vomiting , pt is also having lots of stress at home lately
[2024-09-17] MEDS: ondansetron HCL 4 MG/2 ML VIAL IVPUSH (12:25)
[2024-09-17] MEDS: 0.9 % Sodium Chloride 1,000 ML 999 ML IV (12:25)
[2024-09-17] MEDS: diazePAM 10 MG/2 ML CARTRIDGE 2.5 MG IVPUSH (12:25)
[2024-09-17] MEDS: Insulin Regular, Human 100 UNIT/ML 10 ML VIAL IVPUSH (12:25)
[2024-09-17 12:48] LABS: Glucose, Whole Blood 278 mg/dL (60-115)
[2024-09-17 13:21] LABS: Glucose, Whole Blood 216 mg/dL (60-115)
[2024-09-17 14:18] VITALS: BP 145/92; PULSE 89; RESP 16; TEMP 36.6; O2SAT 97
== END 2024-09-17 14:20 | disposition home or self-care (01) ==
PROVIDERS: Emergency Provider Emergency Medicine
DX: R11.2 Nausea with vomiting, unspecified (principal); R07.89 Other chest pain; E11.9 Type 2 diabetes mellitus without complications; I10 Essential (primary) hypertension; Z79.899 Other long term (current) drug therapy; Z79.4 Long term (current) use of insulin
CPT/HCPCS: 36415; 80048; 82947; 85025; 93005; 96361; 96374; 96375; 99284; 99285; J2405; J3360

== ENCOUNTER → 2024-09-17 10:58 | Outpatient (BNV) | payer OTHER, SELFPAY | PROVIDERS: Emergency Provider Emergency Medicine; Visit Provider Internal Medicine Cardiovascular Disease | DX: I10 Essential (primary) hypertension (principal); R11.0 Nausea | CPT/HCPCS: 93010 ==

== ENCOUNTER 2024-12-04 22:25 | Emergency (ER) | payer OTHER, SELFPAY ==
--- NOTE | 2024-12-04 | ECG_ITS ---
Test Reason : HTN Blood Pressure : */* mmHG Vent. Rate : 96 BPM Atrial Rate : 96 BPM P-R Int : 126 ms QRS Dur : 82 ms QT Int : 330 ms P-R-T Axes : 55 48 55 degrees QTcB Int : 416 ms Normal sinus rhythm Normal ECG When compared with ECG of 17-Sep-2024 11:11, No significant change was found Referred By: Generic ED Physician Electronically Signed By: CHRISTIANE LINDO
--- NOTE | ~2024-12-04 | CT_ITS ---
CLINICAL HISTORY: Headache; N V CT head without contrast Comparison: CT/REG/SR - CT HEAD WITHOUT IV CONTRAST - 03/30/24 16:33 EST Findings: No intra-axial mass, midline shift, hydrocephalus, or acute hemorrhage. No significant atrophy-like change or white matter disease. The visualized paranasal sinuses and mastoid air cells are normal. The orbits are within normal limits. No skull fracture. IMPRESSION: 1. No acute intracranial findings. This document has been electronically signed by: Bernabe Isaac MD on 12/05/2024 02:26:24
[2024-12-04 22:27] VITALS: BP 187/101; PULSE 100; RESP 17; TEMP 36.7; O2SAT 99; BMI 26.4
--- NOTE | 2024-12-04 22:48 | MHC.EDTECH ---
@[id number] Unable to obtained patient is a difficult stick x2
--- NOTE | 2024-12-05 01:05 | ED_ITS ---
HPI - General Adult General Chief complaint: General Medical Stated complaint: headache, high blood pressure Time Seen by Provider: 12/05/24 01:00 Source: patient Mode of arrival: ambulatory Limitations: no limitations History of Present Illness ED Provider: Rickey EVANS HPI narrative: The patient is a 38-year-old female with history of diabetes and hypertension, not currently treated for either, presenting to the ED for evaluation of 3 days of elevated blood pressure with headache, nausea, and dry heaving with mild intermittent nonbloody vomiting. The patient denies any recent fall, car accident, or other blunt head trauma. The patient is not anticoagulated. The patient denies associated fever/chills, nausea, vomiting, chest pain, shortness of breath, focal neurological deficit or similar previous symptoms. The patient reports pain originates in the right sternocleidomastoid area and radiates throughout the head, described as a pressure. Patient states this is not the worst headache of her life. The patient has not taken any medication for her symptoms prior to arrival in the ED. Related Data Previous Rx's ?Medication ?Instructions ?Recorded alcohol swabs 1 pad topical QIDACHS #100 e a 12/17/22 amlodipine 10 mg tablet 10 mg PO DAILY 30 days #30 t abs 12/17/22 blood sugar diagnostic (FreeStyle #100 ea 12/17/22 Lite Strips) blood-glucose meter (FreeStyle #1 ea 12/17/22 Lite Meter kit) hydralazine 50 mg tablet 50 mg PO QID 30 days #120 ta bs 12/17/22 insulin glargine 100 unit/mL (3 15 unit (0.15 mL) subc ut DAILY #15 12/17/22 mL) subcutaneous pen (Lantus mL Solostar U-100 Insulin) insulin lispro 100 unit/mL 1 sliding scale dose subcut 12/17/22 subcutaneous pen (Humalog KwikPen QIDACHS #15 mL (U-100) Insulin) lancets 28 gauge (FreeStyle #100 ea 12/17/22 Lancets) pen needle, diabetic 32 gauge x #100 ea 12/17/22 1/ metformin 500 mg tablet 500 mg PO DAILY #30 tabs 04/02 morphine 15 mg immediate release 15 mg PO Q8H PRN pain #15 tabs 12/25/22 tablet ondansetron 4 mg disintegrating 4 mg PO Q6-8H PRN naus ea and 12/25/22 tablet vomiting #20 tabs ondansetron 4 mg disintegrating 4 mg PO Q8H PRN nausea and 03/28/24 tablet vomiting #20 tabs metoclopramide HCl 10 mg tablet 10 mg PO Q6H PRN nause a and 09/17/24 (Reglan) vomiting #10 tabs oqfnwasokt-wgzlzstjzfuon-ovnjfilm 1 cap PO TID PRN hea dache #10 caps 12/05/24 50 mg-300 mg-40 mg capsule (Fioricet) Allergies Allergy/AdvReac Type Severity Reaction Status Date / Time No Known Allergies Allergy Mild NOT Verified 12/04/24 22:29 APPLICABLE Review of Systems 2 Review of Systems: Yes all other systems are reviewed and are negative [facility] Past Medical History Medical History delivery delivered Diabetes Surgical History Hx of hernia repair H/O elbow surgery Hx of esophagogastroduodenoscopy Social History Social History Household Members: Other Household Members Other:: daughter Housing: Apartment Do you presently have visiting nurse or other home services: No Patient Tobacco Use Status: Never used Tobacco Smoked in Last 30 Days: No Use of substances other than those prescribed or required for medical reasons: No Advance Directives: No Do you have a plan to hurt others: No Plan Patient : No service: No Current occupational status: employed 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 Vital signs as documented. HEAD: Atraumatic, normocephalic. EYES: EOMs grossly intact, pupils equal, conjunctiva clear, no exudate. ENT: Nares patent, no discharge. Airway patent, no audible stridor, visible mucosa is pink and moist without noted lesions. NECK: Trachea is midline, no obvious masses or gross abnormalities. Full range of motion, lateral rotation of the left reproduces patient's pain, no meningismus. CHEST: Symmetric movement, normal appearance. LUNGS: LS present and CTAB, no w/r/r. Non-labored work of breathing. CARDIAC: Regular Rhythm, S1/S2 appreciated, no murmurs, rubs or gallops. ABDOMEN: Abdomen soft and non-tender x4 quadrants, no palpable masses or organomegaly. : Deferred. EXTREMITIES: Normal tone, moves all extremities spontaneously without reported pain. No obvious acute injury or deformity noted. NEURO: Alert and oriented x3, CN II-XII appear grossly intact. Cerebellar Functioning grossly intact. No obvious sensory or motor deficits. Speech clear and appropriate. PSYCH: normal affect, appropriate eye contact, fluid speech, with appropriate response to questioning. No reported suicidality or homicidality. SKIN: Warm, dry, color appropriate, normal turgor. No rashes noted. Medications Administered Discontinued Medications Generic Name Dose Route Start Last Admin Trade Name Freq PRN Reason Stop Dose Admin Acetaminophen/Butalbital/Caffeine 1 tab 12/05/24 06:33 12/05/24 07:03 Butalb/Acetamin/Caff 50/325/40 Tablet PO 12/05/24 06:34 1 tab ONCE ONE Administration Diazepam 5 mg 12/05/24 06:33 12/05/24 07:03 Diazepam 10 Mg/2 Ml Cartridge IVPUSH 12/05/24 06:34 5 mg STAT STA Administration Diphenhydramine HCl 50 mg 12/05/24 02:40 12/05/24 03:23 Diphenhydramine Hcl 50 Mg/Ml Vial IVPUSH 12/05/24 02:41 50 mg ONCE ONE Administration Sodium Chloride 1,000 mls @ 999 mls/hr 12/05/24 01:15 12/05/24 02:20 Ns IV 12/05/24 02:15 Infused .Q1H1M NAYA Infusion Ketorolac Tromethamine 15 mg 12/05/24 02:40 12/05/24 03:23 Ketorolac Tromethamine 15 Mg/Ml Vial IVPUSH 12/05/24 02:41 15 mg ONCE ONE Administration Metoclopramide HCl 10 mg 12/05/24 02:40 12/05/24 03:23 Metoclopramide Hcl 10 Mg/2 Ml Vial IVPUSH 12/05/24 02:41 10 mg ONCE ONE Administration Morphine Sulfate 4 mg 12/05/24 01:15 12/05/24 01:22 Morphine Sulfate 4 Mg/Ml Cartridge IVPUSH 12/05/24 01:16 4 mg ONCE ONE Administration Protocol Ondansetron HCl 4 mg 12/05/24 01:00 12/05/24 01:16 Ondansetron Hcl 4 Mg/2 Ml Vial IVPUSH 12/05/24 01:01 4 mg ONCE ONE Administration Medical Decision Making Medical Decision Making MDM Narrative: 3:53 AM 12/05/2024 (Colby EVANS): The patient is a 38-year-old female with history of diabetes and hypertension, not currently treated for either, presenting to the ED for evaluation of 3 days of elevated blood pressure with atraumatic headache, nausea, and mostly dry heaving with mild intermittent nonbloody vomiting. The patient's exam shows no focal findings, there is no tenderness to light touch of the right occiput, there is tenderness to palpation of the right sternocleidomastoid without swelling or erythema, no evidence of mastoiditis. No midline tenderness. The patient is able to touch chin to chest, no concern for meningismus. The patient was sent for CT head as well as laboratory workup, CT head shows no evidence of acute intracranial pathology. Laboratory evaluation shows leukocytosis of 13.4, without anemia. Chemistry evaluation shows mild hyponatremia of 134, with elevated glucose of 388, no other electrolyte abnormalities, carbon dioxide and anion gap are normal. LFTs and lipase are unremarkable. The patient arrives to the ED actively dry heaving/retching, this may be the source of the patient's elevated WBCs. Patient is afebrile. Given the patient's reassuring lab workup, and negative CT head, we will treat for suspected migraine versus tension headache with migraine cocktail. We will continue to monitor and reassess following interventions. 7:22 AM 12/05/2024 (Dr. Prachi Mcclure, D.O.) patient finally improving after several medications for migraine headache. The Valium and Fioricet seemed to work the best for her. I will send a script for Fioricet and have her follow up with primary care. Using shared decision making, plan for discharge home to follow-up with primary care and/or specialist. Patient understands and agrees with plan for discharge. Discharged home in stable condition. Differential Diagnosis Differential Diagnoses: The differential diagnosis associated with the presentation includes (As above) Admission/Observation Consideration of admission/observation: Escalation of care including admission/observation considered Lab Data MDM Lab Attestation statement: I reviewed the patient's lab results. 12/05/24 01:14 12/05/24 01:14 Labs: Lab Results 12/05/24 Range/Units 01:14 WBC 13.4 H (4.8-10.8) X10*3/uL RBC 4.35 (4.20-5.50) X10*6/uL Hgb 12.5 (12.0-16.0) g/dl Hct 36.1 L (37.0-47.0) % MCV 83.0 (80.0-98.0) fL MCH 28.7 (27.0-33.0) pg MCHC 34.6 (31.0-35.0) g/dl RDW 12.3 (11.0-16.0) % Plt Count 218 (160-400) X10*3/uL MPV 12.5 H (9.4-12.3) fL Immature Gran % (Auto) 0.6 H (0.0-0.4) % Neut % (Auto) 55.3 (45-73) % Lymph % (Auto) 34.2 (20-40) % [place] % (Auto) 6.4 (2-11) % Eos % (Auto) 2.8 (0-4) % Baso % (Auto) 0.7 (0-2) % Lymph # (Auto) 4.6 (1.2-4.9) X10*3/uL [place] # (Auto) 0.9 (0.1-1.2) X10*3/uL Eos # (Auto) 0.4 (0.0-0.4) X10*3/uL Baso # (Auto) 0.1 (0.0-0.2) X10*3/uL Abs Immat Gran (auto) 0.08 H (0.00-0.03) X10*3/uL Absolute Neuts (auto) 7.4 (2.0-8.3) x10*3/uL Absolute Nucleated RBC 0.000 (0.0-0.012) X10*3/uL Nucleated RBC % (auto) 0.0 (0.0-0.2) /100WBC Sodium 134 L (135-145) mmol/L Potassium 4.0 (3.3-5.1) mmol/L Chloride 100 (96-108) mmol/L Carbon Dioxide 26 (22-29) mmol/L Anion Gap 12 (12-20) BUN 16 (9-16) mg/dL Creatinine 0.95 (0.5-1.4) mg/dL Estim Creat Clear Calc 82.6 Estimated GFR > 60 Random Glucose 388 H* (60-115) mg/dL Calcium 9.6 (8.4-10.2) mg/dL Total Bilirubin 0.5 (0.0-1.0) mg/dL AST 19 (5-31) U/L ALT 19 (0-31) U/L Alkaline Phosphatase 91 (39-117) U/L Troponin I High Sens < 2.7 (<3.5-17.0) ng/L Total Protein 7.6 (6.5-8.0) g/dL Albumin 4.1 (3.5-5.0) g/dL Lipase 14 (8-78) U/L Independent Interpretation I performed an independent interpretation of an: EKG (EKG shows sinus rhythm with a rate of 96, no evidence of acute ischemia, no ST elevation, no ectopy. Compared to previous on 09/17/2024 there are no acute morphology changes.) Radiology Impression Discussion of test interpretation with radiology: I discussed test interpretation with the radiologist Radiologist Impression: CT head without contrast Comparison: CT/REG/SR - CT HEAD WITHOUT IV CONTRAST - 03/30/24 16:33 EST Findings: No intra-axial mass, midline shift, hydrocephalus, or acute hemorrhage. No significant atrophy-like change or white matter disease. The visualized paranasal sinuses and mastoid air cells are normal. The orbits are within normal limits. No skull fracture. IMPRESSION: 1. No acute intracranial findings. This document has been electronically signed by: Bernabe Isaac MD on 12/05/2024 02:26:24 External Record Review External record reviewed: Outpatient record Prescription Management I considered prescription management with: Pain Medication Chronic Conditions Patient?s care impacted by: Diabetes and Hypertension Discharge Plan Discharge Clinical Impression: Headache, migraine, with status migrainosus Patient Disposition: Home, Self-Care Instructions: Migraine Headache (ED) Additional Instructions: Follow up with your primary care doctor as soon as possible. Return to the emergency department with any new or worsening symptoms including: Worsening headache despite medication, fevers greater than 100 degrees, stiff neck, any new symptom that concerns you. Call 911 with any medical emergency. Prescriptions: New pkhuegrbsc-kdejesmgrftdk-gbjy [Fioricet] 50-300-40 mg capsule 1 cap PO TID PRN (Reason: headache) Qty: 10 0RF No Action morphine 15 mg tablet 15 mg PO Q8H PRN (Reason: pain) Qty: 15 0RF Rx Instructions: Partial Fill upon patient request. ondansetron 4 mg tablet,disintegrating 4 mg PO Q6-8H PRN (Reason: nausea and vomiting) Qty: 20 0RF metoclopramide HCl [Reglan] 10 mg tablet 10 mg PO Q6H PRN (Reason: nausea and vomiting) Qty: 10 0RF amlodipine 10 mg Tablet 10 mg PO DAILY 30 Days Qty: 30 0RF Protocol: Hold for SBP< HOLD for SBP < : 90 hydralazine 50 mg Tablet 50 mg PO QID 30 Days Qty: 120 0RF Protocol: Hold for SBP< HOLD for SBP < : 90 (DME) FreeStyle Lite Strips Strip Qty: 100 0RF Rx Instructions: Test four times a day or as directed. (DME) blood-glucose meter [FreeStyle Lite Meter] Kit Qty: 1 0RF Rx Instructions: As Directed alcohol swabs Pads, Medicated 1 pad TOPICAL QIDACHS Qty: 100 0RF Rx Instructions: Use four times a day or as directed. insulin lispro [Humalog KwikPen Insulin] 100 unit/mL insulin pen 1 sliding scale dose SUBCUT QIDACHS MDD 30 units Qty: 15 0RF Rx Instructions: Blood Sugar: <150 - 0 units 151-200 - 2 units 201-250 - 4 units 251-300 - 6 units 301-350 - 8 units >350 - 10 units insulin glargine [Lantus Solostar U-100 Insulin] 100 unit/mL (3 mL) insulin pen 15 unit SUBCUT DAILY Qty: 15 0RF (DME) pen needle, diabetic 32 gauge x 1/4 needle Qty: 100 0RF Rx Instructions: Use four times a day or as directed. (DME) lancets [FreeStyle Lancets] 28 gauge misc Qty: 100 0RF Rx Instructions: Test four times a day or as directed. metformin 500 mg tablet 500 mg PO DAILY Qty: 30 0RF ondansetron 4 mg tablet,disintegrating 4 mg PO Q8H PRN (Reason: nausea and vomiting) Qty: 20 0RF Stand Alone Forms: Work/School Release Print Language: Divehi
[2024-12-05 01:24] LABS: MANUAL DIFF FLAG NO
[2024-12-05 01:32] LABS: Hematocrit 36.1 % (37.0-47.0); Hemoglobin 12.5 g/dl (12.0-16.0); Imm Gran Abs Auto 0.08 X10*3/uL (0.00-0.03); Imm Gran Pct Auto 0.6 % (0.0-0.4); Lymphocytes Absolute Auto 4.6 X10*3/uL (1.2-4.9); Mean Corpuscular HGB Conc 34.6 g/dl (31.0-35.0); Mean Corpuscular Hemoglobin 28.7 pg (27.0-33.0); Mean Corpuscular Volume 83.0 fL (80.0-98.0); NRBC Abs Auto 0.000 X10*3/uL (0.0-0.012); NRBC Pct Auto 0.0 /100WBC (0.0-0.2); Platelet Count 218 X10*3/uL (160-400); Red Blood Count 4.35 X10*6/uL (4.20-5.50); White Blood Count 13.4 X10*3/uL (4.8-10.8)
[2024-12-05 01:56] LABS: Alanine Aminotransferase 19 U/L (0-31); Albumin Level 4.1 g/dL (3.5-5.0); Alkaline Phosphatase 91 U/L (39-117); Anion Gap 12 (12-20); Aspartate Amino Transferase 19 U/L (5-31); Blood Urea Nitrogen 16 mg/dL (9-16); Calcium 9.6 mg/dL (8.4-10.2); Carbon Dioxide 26 mmol/L (22-29); Chloride 100 mmol/L (96-108); Creatinine Clr Calc Pharmacy 82.6; Estimated Glomerular Filt Rate > 60; Lipase 14 U/L (8-78); Potassium 4.0 mmol/L (3.3-5.1); Sodium 134 mmol/L (135-145); Total Protein 7.6 g/dL (6.5-8.0); Troponin-I High Sensitivity < 2.7 ng/L (<3.5-17.0)
--- OUTSIDE RECORDS SUMMARY | 2024-12-05 02:11 | XMS_ITS | Clinical Summary ---
Author Organization [facility] ity Address [address] [place] [address] Care Team Providers Care Professor Of Kinesiology Name Role Phone Faraz Cho MD Primary Care Provider [phone] Surgical History Surgery Date Site/Laterality Comments ELBOW SURGERY PROCEDURE: HISTORICAL ELBOW SURGERY HYSTERECTOMY PROCEDURE: HISTORICAL HYSTERECTOMY Medical History Medical History Date Comments Hyperlipidemia 06/03/2014 DX:Hyperlipidemi a Microalbuminuria 06/03/2014 DX:Microalbumin uria Historical Medical DX 08/13/2009 DX:DM (renard betes mellitus) type II uncontrolled with renal manifestation Gastroparesis 08/13/2009 DX:Gastroparesis Diabetes mellitus type 2 wit h neurological manifestations (CMS/HCC V24, CMS/HCC V28) 06/03/2014 DX:Diabetes mellitus type 2 with neurological manifestations ([facility]) Vitamin D deficiency 06/03/2014 DX:Vitamin D deficiency [...] Health Maintenance Due Date Last Done Comments DTaP,Tdap,and Td Vaccines (1 - Tdap) 2004 Hepatitis B Vaccines (1 of 3 - 19+ 3-dose series) 2004 Cervical Cancer Screening: P ap Smear 2006 COVID-19 Vaccine ( - 2023-2 5 season) 2023 Depression Screening 04/11/2024 Influenza Vaccine (#1) 2024 HIB Vaccines Aged Out No longer eligi [...] age to complete this topic Meningococcal B Vaccine Aged Out No l onger eligible based on patient's age to complete this topic Pneumococcal Vaccine: Pediat rics (0 to 5 Years) and At-Risk Patients (6 to 49 Years) Aged Out No longer eligible b ased on patient's age to complete this topic RSV Immunization Patients Un mignon 20 months Aged Out No longer eligible b ased on patient's age to complete this topic Varicella Vaccines Aged Out No longer eligible based on patient's age to complete this topic Care Teams Professor Of Kinesiology Relationship Specialty Start Date End Date Faraz Cho MD [address] [place] [id number] PCP - General Internal Medicine 04/21/20
--- OUTSIDE RECORDS SUMMARY | 2024-12-05 02:11 | XMS_ITS | Clinical Summary ---
Author Organization [facility] Address [address] [place] [address] Care Team Providers Care Bowling Teacher Name Role Phone Gavin Fine MD Primary Care Provider [phone] Allergies No known active allergies Medications Medication [...] Lung abscess 08/13/2009 Overview: CT-guided drainage at [facility] in July 2009. Ertapenem. Work up [...] 88 11/13/2014 10:10 AM EDT Temperature 36.8 C (98.2 F) 07/04/2014 2:03 PM EDT Respiratory Rate 20 07/04/2014 2:03 PM EDT [...] AL CHOLESTEROL (LDL) 11/14/2015 11/13/2014, 09/23/2014, 05/22/2014 BMI CHECK/ADVISE 04/11/2024 11/13/2014, , 08/14/2014, Additional history exists INFLUENZA (#1) 2024 Care Teams Bowling Teacher Relationship Specialty Start Date End Date Gavin Fine MD [address] [place] [id number] PCP - General Internal Medicine 05/06/14
--- OUTSIDE RECORDS SUMMARY | 2024-12-05 02:11 | XMS_ITS | Encounter Summary ---
Author Organization [facility] Address [address] [place] [address] Care Team Providers Care Transportation Attendant Name Role Phone Vangie, Pcp Primary Care Provider Gavin Jung MD Primary Care Provider [phone] Encounter Details Date Type Department Care Team Description 05/02/2014 Hospital Medical Records [address] [place] [address] Stacey Berry Social History Tobacco Use Types [...] on filedocumented in this encounter Care Teams Transportation Attendant Relationship Specialty Start Date End Date Community, Pcp PCP - General 06/25/10 05/05/14 Gavin Fine MD [address] [place] [address] PCP - General Internal Medicine 05/06/14 documented as of this encounter
--- OUTSIDE RECORDS SUMMARY | 2024-12-05 02:11 | XMS_ITS | Encounter Summary ---
Author Organization [facility] Address [address] [place] [address] Care Team Providers Care Sales And Marketing Agent Name Role Phone Gavin Fine MD Primary Care Provider [phone] Encounter Details Date Type Department Care Team Description 10/24/2014 Director Of Housing Report Medical Records [address] [place] [address] Dia Billy [address] [place] [address] Social History Tobacco Use Types Packs/Day Years [...] on filedocumented in this encounter Care Teams Sales And Marketing Agent Relationship Specialty Start Date End Date Gavin Fine MD [address] [place] [address] PCP - General Internal Medicine 05/06/14 documented as of this encounter
--- OUTSIDE RECORDS SUMMARY | 2024-12-05 02:11 | XMS_ITS | Encounter Summary ---
Author Organization [facility] Address [address] [place] [address] Care Team Providers Care Packaging Machine Operator Name Role Phone Gavin Fine MD Primary Care Provider [phone] Encounter Details Date Type Department Care Team Description 10/31/2014 Rn Bsn Report Medical Records [address] [place] [id number] [place] [address] [address] [place] [address] Social History Tobacco Use Types Packs/Day Years [...] on filedocumented in this encounter Care Teams Packaging Machine Operator Relationship Specialty Start Date End Date Gavin Fine MD [address] [place] [address] PCP - General Internal Medicine 05/06/14 documented as of this encounter
--- OUTSIDE RECORDS SUMMARY | 2024-12-05 02:11 | XMS_ITS | Clinical Summary ---
Author Organization [facility] Address [address] [place] [address], [place] [address] Care Team Providers Care Planimeter Operator Name Role Phone Faraz Cho MD Primary Care Provider [phone] Allergies No known active allergies Medications insulin [...] 08/13/2009 01/21/2023 Overview (01/21/2023): CT-guided drainage at [facility] [place] July [place]. Ertapenem. Work up for [...] Sign Reading Time Taken Comments Blood Pressure 120/78 06/25/2024 1:09 PM EDT Pulse 95 06/25/2024 1:09 PM EDT Temperature - - Respiratory Rate - - Oxygen Saturation 99% 06/25/2024 1:09 PM EDT Inhaled Oxygen Concentration - - Weight 78.3 kg (172 lb 9.6 oz) 06/25/2024 1:09 P M EDT Height - - Body Mass Index - - Plan of Treatment Upcoming Encounters Date Type Department Care Team (Late st Contact Info) Description 07/01/2025 1:15 PM EDT Office Visit [facility] [address] [place] [address] Barry Modi MD [address] [facility] [address] [place] [address] Health Maintenance Due Date Last Done Comments Hepatitis B Vaccine (1 of 3 - 19+ 3-dose series) 12/31 Pneumococcal Vaccine: Peds ( 0 to 5 Years) and At-Risk Patients (6 to 49 Years) (1 of 2 - PCV) 2004 Diabetes: Hemoglobin A1C 12/18/2022 Diabetes: Ophthalmology Exam 12/18/2022 Diabetes: Pedal Pulse Checked 12/18/2022 Diabetes: Sensory Foot Exam 12/18/2022 Diabetes: Visual Foot Exam 12/18/2022 Influenza Vaccine (#1) 2024 Insurance Commercial Care Teams Planimeter Operator Relationship Specialty Start Date End Date Faraz Cho MD [address] [place] [address] PCP - General 04/21/20
--- OUTSIDE RECORDS SUMMARY | 2024-12-05 02:11 | XMS_ITS | Encounter Summary ---
Author Organization [facility] Address [address] [place] [address] Care Team Providers Care Shipping Point Inspector Name Role Phone Gavin Fine MD Primary Care Provider [phone] Encounter Details Date Type Department Care Team Description 12/26/2014 Pickle Sorter Report Medical Records [address] [place] [id number] [place] [address] Social History Tobacco Use Types Packs/Day Years [...] on filedocumented in this encounter Care Teams Shipping Point Inspector Relationship Specialty Start Date End Date Gavin Fine MD [address] [place] [id number] PCP - General Internal Medicine 05/06/14 documented as of this encounter
[2024-12-05 02:19] VITALS: BP 155/85; PULSE 91; RESP 14; TEMP 37.1; O2SAT 100
[2024-12-05 04:00] VITALS: BP 129/78; PULSE 80; RESP 13; TEMP 36.4; O2SAT 99
[2024-12-05 06:00] VITALS: BP 121/87; PULSE 100; RESP 18; TEMP 36.4; O2SAT 98
[2024-12-05] MEDS: diazePAM 10 MG/2 ML CARTRIDGE 5 MG IVPUSH (07:03)
[2024-12-05] MEDS: Butalb/Acetamin/Caff 50/325/40 TABLET 1 TAB PO (07:03)
[2024-12-05 07:40] VITALS: BP 116/80; PULSE 78; RESP 14; TEMP 36.4; O2SAT 98
== END 2024-12-05 07:41 | disposition home or self-care (01) ==
PROVIDERS: Emergency Provider Emergency Medicine
DX: G43.901 Migraine, unspecified, not intractable, with status migrainosus (principal); I10 Essential (primary) hypertension; R11.0 Nausea; E11.9 Type 2 diabetes mellitus without complications
CPT/HCPCS: 36415; 70450; 80053; 83690; 84484; 85025; 93005; 96361; 96374; 96375; 99284; 99285; J1200; J1885; J2270; J2405; J2765; J3360

== ENCOUNTER → 2024-12-04 22:40 | Outpatient (BNV) | payer OTHER, SELFPAY | PROVIDERS: Emergency Provider Emergency Medicine; Visit Provider Internal Medicine | DX: I10 Essential (primary) hypertension (principal) | CPT/HCPCS: 93010 ==

== ENCOUNTER → 2024-12-05 01:15 | Outpatient (BNV) | payer OTHER, SELFPAY | PROVIDERS: Emergency Provider Emergency Medicine; Visit Provider Radiology Diagnostic Radiology | DX: R51.9 Headache, unspecified (principal) | CPT/HCPCS: 70450 ==

== ENCOUNTER 2024-12-10 00:50 | Observation (INO) | payer OTHER, SELFPAY ==
[2024-12-10] VITALS (11 sets, daily range): BP systolic 116–197; BP diastolic 68–101; PULSE 84–106; RESP 12–20; TEMP 36.3–36.7; O2SAT 97–99; BMI 27.7; BMI 27.3
--- NOTE | ~2024-12-10 | CT_ITS ---
CLINICAL HISTORY: vision loss R eye, headache CT head without contrast Comparison: CT/REG/SR - CT HEAD/BRAIN WO IV CON - 12/05/24 01:43 EDT Findings: No intra-axial mass, midline shift, hydrocephalus, or acute hemorrhage. No significant atrophy-like change or white matter disease. The visualized paranasal sinuses and mastoid air cells are normal. The orbits are within normal limits. No skull fracture. IMPRESSION: 1. No acute intracranial findings. This document has been electronically signed by: Nick Mario MD on 12/10/2024 02:38:26
--- NOTE | ~2024-12-10 | CT_ITS ---
CLINICAL HISTORY: sudden vision loss, headache CT angiography head and neck with contrast. 3D Postprocessing. Comparison: CT/REG/SR - CT HEAD FOR STROKE - 12/10/24 02:21 EDT Findings: Aortic arch and cervical great vessels are patent with no aneurysm, dissection, hemodynamically significant stenoses, or occlusion. Intracranial arteries are patent. No aneurysm, dissection, hemodynamically significant stenoses, or occlusion. No abnormal intracranial enhancement. The visualized thyroid gland is unremarkable. No cervical mass or fluid collection. Lung apices clear. No acute fracture. IMPRESSION: Patent head and neck CTA. This document has been electronically signed by: Nick Mario MD on 12/10/2024 03:20:08
--- OUTSIDE RECORDS SUMMARY | 2024-12-10 01:57 | XMS_ITS | Clinical Summary ---
Author Organization [facility] Address [address] [place] [address] Care Team Providers Care Supervisor Beam Department Name Role Phone Faraz Cho MD Primary Care Provider Allergies No known active allergies Medications insulin [...] 08/13/2009 01/21/2023 Overview (01/21/2023): [place] [facility] [place]. Ertapenem. Work up for [...] Visit [facility] [address] [place] [address] Barry Modi MD [address] [facility] [address] [place] [address] Health Maintenance Due Date Last [...] Vaccine (#1) 2024 Insurance Commercial Care Teams Supervisor Beam Department Relationship Specialty Start Date End Date Faraz Cho MD [address] [place] [address] PCP - General 04/21/20
--- OUTSIDE RECORDS SUMMARY | 2024-12-10 01:57 | XMS_ITS | Encounter Summary ---
Author Organization [facility] Address [address] [place] [address] Care Team Providers Care Razor Grinder Name Role Phone Gavin Fine MD Primary Care Provider [phone] Encounter Details Date Type Department Care Team Description 11/13/2014 Controlled Substance Contract with [facility] Medical Records [address] [place] [id number] Abstract, Provider Social History Tobacco Use Types [...] on filedocumented in this encounter Care Teams Razor Grinder Relationship Specialty Start Date End Date Gavin Fine MD [address] [place] [id number] PCP - General Internal Medicine 05/06/14 documented as of this encounter
--- OUTSIDE RECORDS SUMMARY | 2024-12-10 01:57 | XMS_ITS | Clinical Summary ---
Author Organization [facility] ity Address [address] [place] [address] Care Team Providers Care Crime Laboratory Analyst Name Role Phone Faraz Cho MD Primary Care Provider [phone] Surgical History Surgery Date Site/Laterality Comments ELBOW [...] neurological manifestations ([facility]) Vitamin D deficiency 06/03/2014 DX:Vitamin D deficiency [...] age to complete this topic Care Teams Crime Laboratory Analyst Relationship Specialty Start Date End Date Faraz Cho MD [address] [place] [address] PCP - General Internal Medicine 04/21/20
--- OUTSIDE RECORDS SUMMARY | 2024-12-10 01:57 | XMS_ITS | Encounter Summary ---
Author Organization [facility] Address [address] [place] [address] Care Team Providers Care Salon Manager Name Role Phone Gavin Fine MD Primary Care Provider [phone] Encounter Details Date Type Department Care Team Description 12/26/2014 Organizational Development Consultant Report Medical Records [address] [place] [id number] [place] [address] Social History Tobacco Use Types Packs/Day Years [...] on filedocumented in this encounter Care Teams Salon Manager Relationship Specialty Start Date End Date Gavin Fine MD [address] [place] [id number] PCP - General Internal Medicine 05/06/14 documented as of this encounter
--- OUTSIDE RECORDS SUMMARY | 2024-12-10 01:57 | XMS_ITS | Encounter Summary ---
Author Organization [facility] Address [address] [place] [address] Care Team Providers Care Special Tester Name Role Phone Gavin Fine MD Primary Care Provider [phone] Encounter Details Date Type Department Care Team Description 10/24/2014 Sign Builder Supervisor Report Medical Records [address] [place] [address] Dia Billy [address] [place] [address] Social History Tobacco Use Types Packs/Day Years [...] on filedocumented in this encounter Care Teams Special Tester Relationship Specialty Start Date End Date Gavin Fine MD [address] [place] [address] PCP - General Internal Medicine 05/06/14 documented as of this encounter
--- OUTSIDE RECORDS SUMMARY | 2024-12-10 01:57 | XMS_ITS | Clinical Summary ---
Author Organization [facility] Address [address] [place] [address] Care Team Providers Care Market Research Associate Name Role Phone Gavin Fine MD Primary Care Provider Allergies No known active allergies Medications Medication [...] Lung abscess 08/13/2009 Overview: CT-guided drainage at [facility] in July 2009. Ertapenem. [...] history exists INFLUENZA (#1) 2024 Care Teams Market Research Associate Relationship Specialty Start Date End Date Gavin Fine MD [address] [place] [id number] PCP - General Internal Medicine 05/06/14
--- OUTSIDE RECORDS SUMMARY | 2024-12-10 01:57 | XMS_ITS | Encounter Summary ---
Author Organization [facility] Address [address] [place] [address] Care Team Providers Care Grader Operator Name Role Phone Gavin Fine MD Primary Care Provider [phone] Encounter Details Date Type Department Care Team Description 12/03/2015 Wood Barrel Reconditioner Report Medical Records [address] [place] [id number] Tesfaye Adames Social History Tobacco Use Types Packs/Day Years [...] on filedocumented in this encounter Care Teams Grader Operator Relationship Specialty Start Date End Date Gavin Fine MD [address] [place] [id number] PCP - General Internal Medicine 05/06/14 documented as of this encounter
--- OUTSIDE RECORDS SUMMARY | 2024-12-10 01:57 | XMS_ITS | Encounter Summary ---
Author Organization [facility] Address [address] [place] [address] Care Team Providers Care Electromechanical Technologist Name Role Phone Vangie, Pcp Primary Care Provider Gavin Jung MD Primary Care Provider [phone] Encounter Details Date Type Department Care Team Description 05/02/2014 [facility] Medical Records [address] [place] [address] Stacey Berry Social History Tobacco Use Types [...] on filedocumented in this encounter Care Teams Electromechanical Technologist Relationship Specialty Start Date End Date Community, Pcp PCP - General 06/25/10 05/05/14 Gavin Fine MD [address] [place] [address] PCP - General Internal Medicine 05/06/14 documented as of this encounter
--- NOTE | 2024-12-10 02:23 | ED_ITS ---
HPI - Eye Problem General Chief complaint: Eye Problems Stated complaint: High Blood Pressure and Blurred Vision Time Seen by Provider: 12/10/24 01:27 Source: patient and family Mode of arrival: ambulatory Limitations: no limitations History of Present Illness ED Provider: Dr. Prachi Mcclure HPI Narrative: 38-year-old female with history of uncontrolled diabetes and elevated blood pressure presenting with continued headaches new vision changes that began tonight around 10:30 p.m.. Patient admits that she was getting in the shower tonight when she suddenly developed total vision loss in the right eye where she was ?seeing red only?. She is unable to see objects but can see light. Has continued migraine headache. Similar to the headache she was seen for on 12/05/2024 which was described as a right-sided posterior/occipital headache radiating to the right orthodoxy and forehead. Pain has really been constant since she left the hospital last week however, she has been able to sleep. She has had mild relief with Fioricet at times but the pain and pressure never totally goes away. She has no history of trauma and does not take blood thinners. No new medications aside from the Fioricet. Has not seen floaters in her vision. In fact has never had vision problems prior to today. No numbness/tingling/weakness of the extremities. No speech deficits. No facial droop. She denies fever though she does have some sinus congestion and a slight cough. Related Data Previous Rx's ?Medication ?Instructions ?Recorded alcohol swabs 1 pad topical QIDACHS #100 e a 12/17/22 amlodipine 10 mg tablet 10 mg PO DAILY 30 days #30 t abs 12/17/22 blood sugar diagnostic (FreeStyle #100 ea 12/17/22 Lite Strips) blood-glucose meter (FreeStyle #1 ea 12/17/22 Lite Meter kit) hydralazine 50 mg tablet 50 mg PO QID 30 days #120 ta bs 12/17/22 insulin glargine 100 unit/mL (3 15 unit (0.15 mL) subc ut DAILY #15 12/17/22 mL) subcutaneous pen (Lantus mL Solostar U-100 Insulin) insulin lispro 100 unit/mL 1 sliding scale dose subcut 12/17/22 subcutaneous pen (Humalog KwikPen QIDACHS #15 mL (U-100) Insulin) lancets 28 gauge (FreeStyle #100 ea 12/17/22 Lancets) pen needle, diabetic 32 gauge x #100 ea 12/17/22 1/ metformin 500 mg tablet 500 mg PO DAILY #30 tabs 04/02 morphine 15 mg immediate release 15 mg PO Q8H PRN pain #15 tabs 12/25/22 tablet ondansetron 4 mg disintegrating 4 mg PO Q6-8H PRN naus ea and 12/25/22 tablet vomiting #20 tabs ondansetron 4 mg disintegrating 4 mg PO Q8H PRN nausea and 03/28/24 tablet vomiting #20 tabs metoclopramide HCl 10 mg tablet 10 mg PO Q6H PRN nause a and 09/17/24 (Reglan) vomiting #10 tabs wdbrrmhoht-frulvlkepwxcu-jgzfbeej 1 cap PO TID PRN hea dache #10 caps 12/05/24 50 mg-300 mg-40 mg capsule (Fioricet) Allergies Allergy/AdvReac Type Severity Reaction Status Date / Time No Known Allergies Allergy Mild NOT Verified 12/10/24 01:20 APPLICABLE Review of Systems 2 Review of Systems: as per HPI, full review of systems performed and negative but for the above mentioned pertinent positives and negatives. [facility] Past Medical History Medical History delivery delivered Diabetes Surgical History Hx of hernia repair H/O elbow surgery Hx of esophagogastroduodenoscopy Social History Social History Household Members: Other Household Members Other:: daughter Housing: Apartment Do you presently have visiting nurse or other home services: No Patient Tobacco Use Status: Never used Tobacco Smoked in Last 30 Days: No Use of substances other than those prescribed or required for medical reasons: No Advance Directives: No Advance Directives Information Provided: Yes Patient : No service: No Current occupational status: employed 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 SKIN: Normal skin color for ethnicity, warm, dry, intact, no rashes noted. HEENT: Normocephalic, atraumatic, no stridor, posterior oropharynx nonerythematous, dentition intact, EOMI, PERRLA, unable to see objects in the right eye, is able to see light and movement but no definitive objects, no left- sided visual field deficits, no conjunctival irritation, white sclera bilaterally, no hyphema. NECK: Soft, supple, full ROM, midline structures nontender, no step-offs, no deformities, no lymphadenopathy. CHEST: Heart regular tachycardia, no murmurs, symmetric chest rise and fall, no crepitus. PULMONARY: Clear to auscultation bilaterally, no labored breathing, no wheezes/rhales/ rhonchi. ABDOMINAL: Soft, nondistended, nontender, positive bowel sounds in all quadrants. : Deferred. MUSCULOSKELETAL: Normal tone, full range of motion, no deformities, no peripheral edema. NEURO: Alert and oriented x3, CN II through XII intact, equal strength and sensation bilateral upper and lower extremities, no focal neurologic deficits. PSYCHIATRIC: Anxious affect, tearful, fluid speech, good eye contact and appropriate demeanor. Vital Signs: Vital Signs: Last Vital Signs Temp 97.8 F 12/10/24 06:09 Pulse 90 12/10/24 06:09 Resp 12 12/10/24 06:09 BP 141/87 H 12/10/24 06:09 Pulse Ox 99 12/10/24 06:09 O2 Del Method Room Air 12/10/24 06:09 BMI result Body Mass Index 27.7 Medications Administered Discontinued Medications Generic Name Dose Route Start Last Admin Trade Name Freq PRN Reason Stop Dose Admin Diazepam 5 mg 12/10/24 02:03 12/10/24 02:42 Diazepam 10 Mg/2 Ml Cartridge IVPUSH 12/10/24 02:04 5 mg STAT STA Administration Lactated Ringer's 1,000 mls @ 999 mls/hr 12/10/24 02:03 12/10/24 04:10 Lr IV 12/10/24 03:03 Infused .Q1H1M ONE Infusion Iohexol 70 ml 12/10/24 02:35 12/10/24 02:36 Iohexol 350 Mg/Ml 100 Ml Infus..Btl IV 12/10/24 02:36 70 ml ONCE ONE Administration Prochlorperazine Edisylate 10 mg 12/10/24 03:46 12/10/24 03:57 Prochlorperazine Edisylate 10 Mg/2 Ml Vial IVPUSH 12/10/24 03:47 10 mg ONCE ONE Administration Medical Decision Making Medical Decision Making [facility] Narrative: 38-year-old female with a history of uncontrolled diabetes and hypertension presenting with continued headache and new vision loss with a red visual field that occurred tonight at about 10:30 p.m.. Differential diagnosis includes vitreous hemorrhage, hyphema, central retinal vein occlusion, retinal detachment with hemorrhage, intracranial hemorrhage, carotid artery dissection, ocular migraine, acute angle closure glaucoma, among others. Stroke workup initiated. She had an extensive workup completed on 12/05/2024 that was essentially negative. She had a slightly elevated white blood cell count which was thought to be related to demargination in the setting of vomiting. She has had no trauma to the eye, does not take blood thinners, no new medications aside from Fioricet, no photophobia or eye pain. Plan for funduscopic exam, ocular ultrasound, CTA brain and neck, IOP measurement. Medicated with Valium and fluids for the migraine. 1:28 AM 12/10/2024 (Dr. Prachi Mcclure, D.O.) case discussed with wic site coordinator on-call, Dr. Seo, who agrees this is likely vitreous hemorrhage. Recommended keeping her head of the bed elevated, measure IOP, follow up with Ophthalmology as an outpatient. Nothing emergent to be done. IOP is 21 in the right eye. Optic nerve sheath diameter 6 mm on the right, 5 mm on the left. 7:01 AM 12/10/2024 (Dr. Prachi Mcclure, D.O.) patient with continued headache despite multiple medications including Compazine, Valium, IV fluids. Her vision is unchanged. Plan for admission to hospitalist for further care and evaluation, brain MRI, for intractable migraine headaches and painless vision loss in the right eye. Differential Diagnosis Differential Diagnoses: The differential diagnosis associated with the presentation includes (As above) Admission/Observation Consideration of admission/observation: Escalation of care including admission/observation considered Consult Healthcare Provider Management of the patient was discussed with: Hospitalist Lab Data [facility] Lab Attestation statement: I reviewed the patient's lab results. 12/10/24 02:50 12/10/24 02:26 Labs: Lab Results 12/10/24 12/10/24 12/10/24 Range/Units 02:26 02:50 03:46 WBC 11.3 H (4.8-10.8) X10*3/uL RBC 3.92 L (4.20-5.50) X10*6/uL Hgb 11.2 L (12.0-16.0) g/dl Hct 32.2 L (37.0-47.0) % MCV 82.1 (80.0-98.0) fL MCH 28.6 (27.0-33.0) pg MCHC 34.8 (31.0-35.0) g/dl RDW 12.1 (11.0-16.0) % Plt Count 184 (160-400) X10*3/uL MPV 12.4 H (9.4-12.3) fL Immature Gran % (Auto) 0.7 H (0.0-0.4) % Neut % (Auto) 56.5 (45-73) % Lymph % (Auto) 32.7 (20-40) % Crosby % (Auto) 6.7 (2-11) % Eos % (Auto) 2.7 (0-4) % Baso % (Auto) 0.7 (0-2) % Lymph # (Auto) 3.7 (1.2-4.9) X10*3/uL Crosby # (Auto) 0.8 (0.1-1.2) X10*3/uL Eos # (Auto) 0.3 (0.0-0.4) X10*3/uL Baso # (Auto) 0.1 (0.0-0.2) X10*3/uL Abs Immat Gran (auto) 0.08 H (0.00-0.03) X10*3/uL Absolute Neuts (auto) 6.4 (2.0-8.3) x10*3/uL Absolute Nucleated RBC 0.000 (0.0-0.012) X10*3/uL Nucleated RBC % (auto) 0.0 (0.0-0.2) /100WBC PT 10.3 L (10.9-12.4) SEC INR 0.9 (0.9-1.1) Sodium 133 L (135-145) mmol/L Potassium 4.0 (3.3-5.1) mmol/L Chloride 96 (96-108) mmol/L Carbon Dioxide 24 (22-29) mmol/L Anion Gap 17 (12-20) BUN 20 H (9-16) mg/dL Creatinine 1.04 (0.5-1.4) mg/dL Estim Creat Clear Calc 77.3 Estimated GFR 59 Random Glucose 437 H* (60-115) mg/dL Calcium 9.1 (8.4-10.2) mg/dL Magnesium 1.8 (1.6-2.6) mg/dL Total Bilirubin 0.5 (0.0-1.0) mg/dL AST 16 (5-31) U/L ALT 18 (0-31) U/L Alkaline Phosphatase 89 (39-117) U/L C-Reactive Protein 1.35 H (< or = 0.50) mg/dL Total Protein 7.3 (6.5-8.0) g/dL Albumin 4.0 (3.5-5.0) g/dL COVID-19 (TRICIA) Negative (Negative) COVID-19 Clin Com See Note Influenza Type A (JULIA) Negative (Negative) Influenza Type B (JULIA) Negative (Negative) Influenza A & B Note See Note Radiology Impression Discussion of test interpretation with radiology: I have reviewed the radiologist's reading. Independent Historian Clinical information obtained from an independent historian. History obtained from or confirmed by: Spouse External Record Review External record reviewed: Inpatient record Chronic Conditions Patient?s care impacted by: Diabetes and Hypertension Procedures Ultrasound ED POC Ultrasound: EMERGENCY ULTRASOUND INTERPRETATION-Limited Ophthalmic US This study was ordered, performed, and interpreted by myself. The study reveals: Impression: vitreous hemorrhage, right Indication:? Acute, painless vision loss right eye Anterior Chamber: Vitreous hemorrhage on the right side, no pathology visualized in the left Posterior Chamber: ONSD 0.6cm (R) 0.5cm (L) Performed by:Dr. Prachi Mcclure D.O. Date: Time: 1:26 AM 12/10/2024 CPT: 46178 ; Reference Codes? https://bit.ly/[email or web address] Critical Care Time Critical Care Time Total Critical Care Time: 40 Attestation: CRITICAL CARE TIME: 40 minutes of critical care time was spent in direct patient care at the bedside or in the immediate area with this patient. Critical care was necessary to treat or prevent imminent or life-threatening deterioration of the following conditions acute vision loss due to poorly controlled diabetes, hypertensive emergency. This patient is high risk for decompensation and/or . This time was spent assessing and managing the patient, interpreting labs and imaging, coordinating care with other medical providers, gathering history from either the patient, their representatives, EMS or chart review, and discussing management with admitting team, Ophthalmology. Discharge Plan Discharge Clinical Impression: Type 2 diabetes mellitus with vitreous hemorrhage of right eye, Headache, migraine, Poorly controlled diabetes mellitus Patient Disposition: Admitted As Inpatient Print Language: Malay
[2024-12-10] MEDS: iohexoL 350 MG/ML 100 ML INFUS..BTL 70 ML IV (02:36)
[2024-12-10] MEDS: diazePAM 10 MG/2 ML CARTRIDGE 5 MG IVPUSH (02:42)
[2024-12-10] MEDS: Lactated Ringers 1,000 ML 999 ML IV (02:44)
[2024-12-10 02:47] LABS: COVID-19 Test Negative (Negative); IDNOW Serial# 55D5AD1C
[2024-12-10 02:48] LABS: IDNOW Serial# 58CA691E; Influenza B2 Negative (Negative)
[2024-12-10 02:56] LABS: Alanine Aminotransferase 18 U/L (0-31); Albumin Level 4.0 g/dL (3.5-5.0); Alkaline Phosphatase 89 U/L (39-117); Anion Gap 17 (12-20); Aspartate Amino Transferase 16 U/L (5-31); Blood Urea Nitrogen 20 mg/dL (9-16); Calcium 9.1 mg/dL (8.4-10.2); Carbon Dioxide 24 mmol/L (22-29); Chloride 96 mmol/L (96-108); Creatinine Clr Calc Pharmacy 77.3; Estimated Glomerular Filt Rate 59; Magnesium 1.8 mg/dL (1.6-2.6); Potassium 4.0 mmol/L (3.3-5.1); Sodium 133 mmol/L (135-145); Total Protein 7.3 g/dL (6.5-8.0)
[2024-12-10 02:57] LABS: MANUAL DIFF FLAG NO
[2024-12-10 02:58] LABS: Hematocrit 32.2 % (37.0-47.0); Hemoglobin 11.2 g/dl (12.0-16.0); Imm Gran Abs Auto 0.08 X10*3/uL (0.00-0.03); Imm Gran Pct Auto 0.7 % (0.0-0.4); Lymphocytes Absolute Auto 3.7 X10*3/uL (1.2-4.9); Mean Corpuscular HGB Conc 34.8 g/dl (31.0-35.0); Mean Corpuscular Hemoglobin 28.6 pg (27.0-33.0); Mean Corpuscular Volume 82.1 fL (80.0-98.0); NRBC Abs Auto 0.000 X10*3/uL (0.0-0.012); NRBC Pct Auto 0.0 /100WBC (0.0-0.2); Platelet Count 184 X10*3/uL (160-400); Red Blood Count 3.92 X10*6/uL (4.20-5.50); White Blood Count 11.3 X10*3/uL (4.8-10.8)
--- NOTE | 2024-12-10 03:23 | PC.NURSE ---
ambulated with light assist for balance to bathroom. now back in bed. significant other at bedside
[2024-12-10 03:56] LABS: INTERNATIONAL NORM RATIO 0.9 (0.9-1.1); Prothrombin Time 10.3 SEC (10.9-12.4)
--- NOTE | 2024-12-10 07:53 | P.HPHOSP_ITS ---
History of Present Illness Date of Service: 12/10/24 Attending physician on admission: Abel Ledezma Chief Complaint: Migraine headache Pt is a 38-year-old female with a PMH significant for?uncontrolled insulin- dependent type 2 diabetes, HTN, migraines, and hx of medication noncompliance who presents to the ED with?recurrent and intractable migraine headaches and sudden vision loss in right eye. Pt reports she was taking a shower at approximately 22:30 last night when she sudden onset of painless right eye vision loss. Pt reports that all she can see is ?red? and ?blood?. Has been experiencing right-sided headache that she describes as a pressure behind her eye. Left eye vision preserved. No other systemic symptoms. No nausea or vomiting. Denies fever or chills. No chest pain or pressure. No SOB or difficulty breathing. Pt has a long hx of medication noncompliance. He is no longer taking anything for HTN. Reports she ?sometimes? takes insulin. Overall pt is a vague and poor historian. When asked to clarify pt states she takes insulin ?when I feel like my sugars are really high? which apparently means to her when she begins to shake uncontrollably. Does not take insulin daily or weekly; last took insulin a few weeks ago when she administered 5 units. No longer appears to have a PCP. Of note, ED provider spoke to Ophthalmology about vision loss which is likely secondary to vitreous hemorrhage secondary to uncontrollable diabetes; no acute intervention indicated at this time and pt should follow up outpatient with Ophthalmology after discharge. In the ED pt's vitals were significant for tachycardia of 106 and hypertension of 197/96. Labs were significant for leukocytosis of 11.3, sodium 133, random glucose of 437, and CRP of 1.37. CT of head negative for acute intracranial findings. CTA of head/neck showed patent head and neck. Pt was treated in the ED with diazepam, IVF, and prochlorperazine. Pt is admitted to the hospital under observation for intractable migraine headache and hyperglycemia. Review of Systems 2 Review of Systems: Negative except for that which is stated in the [facility] Medical History delivery delivered Diabetes Surgical History Hx of hernia repair H/O elbow surgery Hx of esophagogastroduodenoscopy Social History Household Members: Other Household Members Other:: daughter Housing: Apartment Do you presently have visiting nurse or other home services: No Patient Tobacco Use Status: Never used Tobacco Smoked in Last 30 Days: No Use of substances other than those prescribed or required for medical reasons: No Advance Directives: No Advance Directives Information Provided: Yes Patient : No service: No Current occupational status: employed 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 Resp: CTA bilaterally Eye: Complete vision loss in right eye, preserved in left. Right eye with diminished red reflex. Sclerae nonicteric, no injection. No hyphema noted. CVS: S1, S2, RRR GI: +BS, NT, no distention Skin: Warm, dry Neuro: Cranial nerves II-XII grossly intact bilaterally. Motor grossly intact bilaterally Extremities: No edema Psych: Drowsy, reluctant to give hx Results Labs 12/10/24 02:50 12/10/24 08:33 Labs: Laboratory Results - last 24 hr 12/10/24 12/10/24 12/10/24 02:26 02:50 03:46 MCV 82.1 MCH 28.6 MCHC 34.8 RDW 12.1 Plt Count 184 MPV 12.4 H Immature Gran % (Auto) 0.7 H Neut % (Auto) 56.5 Lymph % (Auto) 32.7 Harrison % (Auto) 6.7 Eos % (Auto) 2.7 Baso % (Auto) 0.7 Lymph # (Auto) 3.7 Harrison # (Auto) 0.8 Eos # (Auto) 0.3 Baso # (Auto) 0.1 Abs Immat Gran (auto) 0.08 H Absolute Neuts (auto) 6.4 Absolute Nucleated RBC 0.000 Nucleated RBC % (auto) 0.0 PT 10.3 L INR 0.9 Anion Gap 17 Estim Creat Clear Calc 77.3 Estimated GFR 59 Random Glucose 437 H* Calcium 9.1 Magnesium 1.8 Total Bilirubin 0.5 AST 16 ALT 18 Alkaline Phosphatase 89 C-Reactive Protein 1.35 H Total Protein 7.3 Albumin 4.0 COVID-19 (TRICIA) Negative COVID-19 Clin Com See Note Influenza Type A (JULIA) Negative Influenza Type B (JULIA) Negative Influenza A & B Note See Note Assessment and Plan (1) Acute hyperglycemia: Status: Acute (2) Type 2 diabetes mellitus with vitreous hemorrhage of right eye: Status: Acute (3) Poorly controlled diabetes mellitus: Status: Acute Plan Pt is a 38-year-old female with a PMH significant for?uncontrolled insulin- dependent type 2 diabetes, HTN, migraines, and hx of medication noncompliance who presents to the ED with?recurrent and intractable migraine headaches and sudden vision loss in right eye. Pt is admitted to the hospital under observation for intractable migraine headache and hyperglycemia. Hyperglycemia in the setting of poorly controlled diabetes type 2 Pt noncompliant with insulin at home; occasionally takes 5 units insulin every once a while when she feels ?shaky? Random glucose 437 at time of presentation; POC currently 427, beta hydroxybutyrate WNL We will give regular insulin 10 units IV SSI, diabetic diet, diabetic counseling Vitreous hemorrhage of right eye Pt reports sudden onset, painless right eye vision loss at 22:30 last night Reports only seeing red/blood ED clinician reached out to Ophthalmology who reported no acute intervention indicated at this time Follow up outpatient with Ophthalmology Intractable migraine headache Fioricet and Compazine p.r.n. Hypertensive urgency Initial BP 197/96, currently 159/87 Pt previously prescribed amlodipine 10 mg which she has not been taking Will resume amlodipine Monitor BP Full Code Attending:?Dr. Ledezma DVT Prophylaxis: Pneumatic compression due to vitreous hemorrhage Pt will be admitted to the hospital under observation for treatment and further evaluation of intractable migraine headache and hyperglycemia in setting of HTN and insulin noncompliance. Quality Stroke Does the patient have a stroke diagnosis?: No VTE Prior VTE?: No VTE Risk Level:: Medical - moderate - high VTE Device Contraindication: Treatment Not Indicated VTE Drug Contraindication: N/A - Med Ordered
[2024-12-10 08:53] LABS: Glucose, Whole Blood 427 mg/dL (60-115)
--- NOTE | 2024-12-10 09:10 | MHC.CM.PN ---
PT REPORTS SHE LIVES WITH HER AND IS INDEPENDENT WITH CARE SHE HAS NO SERVICES OR DME SHE HAS NO PCP AND DECLINES A HCP OBSERVATION NOTICE DELIVERED DCP: HOME VIA PRIVATE TRANSPORT
[2024-12-10 09:17] LABS: Anion Gap 12 (12-20); Blood Urea Nitrogen 17 mg/dL (9-16); Calcium 8.7 mg/dL (8.4-10.2); Carbon Dioxide 23 mmol/L (22-29); Chloride 101 mmol/L (96-108); Creatinine Clr Calc Pharmacy 87.3; Estimated Glomerular Filt Rate > 60; Potassium 4.1 mmol/L (3.3-5.1); Sodium 132 mmol/L (135-145)
--- NOTE | 2024-12-10 09:25 | PC.NURSE ---
pt is resting in her bed, but appears extremely tired pt keeps falling back to sleep while speaking with this telegraphic typewriter repairer, pt states she is usually not like this, pt is reporting a headache-pressure and seeing shadows and blood what the pt is describing in her right eye, all other nuro intact, no visible hand drift, grasp equal and moving all extremities, no facial droop and speech is clear,
[2024-12-10 10:03] LABS: Hemoglobin A1C 365.5377 umol/L; Total Hemoglobin (HGBA1C) 2966.6586 umol/L
[2024-12-10 11:11] LABS: Glucose, Whole Blood 215 mg/dL (60-115)
--- NOTE | 2024-12-10 12:21 | PHA.MEDREC ---
Pharmacy Consult ? Medication Reconciliation Pharmacy has completed the medication reconciliation.MED REC DONE USING DISCHARGE INFORMATION AND PRIOR MED REC FROM 12/09/24.
[2024-12-10 12:29] LABS: Glucose, Whole Blood 239 mg/dL (60-115)
[2024-12-10] MEDS: Butalb/Acetamin/Caff 50/325/40 TABLET 1 TAB PO ×2 (13:13→21:15)
[2024-12-10 14:14] LABS: Glucose, Whole Blood 218 mg/dL (60-115)
[2024-12-10 16:18] LABS: Glucose, Whole Blood 289 mg/dL (60-115)
[2024-12-10] MEDS: 0.9 % Sodium Chloride Flush 3 ML SYRINGE IVFLUSH ×2 (16:30→21:18)
[2024-12-10 20:47] LABS: Glucose, Whole Blood 214 mg/dL (60-115)
--- NOTE | 2024-12-10 21:23 | PC.NURSE ---
Ok per MD Cole Herman for pt to come off monitor to take shower. Pt A&Ox4, calm/cooperative, c/o H/A but denies any dizziness.
[2024-12-11 03:41] VITALS: BP 133/78; PULSE 108; RESP 16; TEMP 36.9; O2SAT 99
[2024-12-11 07:41] LABS: Glucose, Whole Blood 267 mg/dL (60-115)
[2024-12-11 07:51] VITALS: BP 126/63; PULSE 96; RESP 18; TEMP 36.6; O2SAT 97
[2024-12-11] MEDS: Insulin Glargine,Hum.rec.anlog 100 UNIT/ML 10 ML VIAL 15 UNIT SUBCUT (07:55)
[2024-12-11] MEDS: 0.9 % Sodium Chloride Flush 3 ML SYRINGE IVFLUSH (07:56)
--- NOTE | 2024-12-11 08:31 | PM.DS ---
DS: Providers Provider Date of Service: 12/11/24 Date of admission: 12/10/24 06:59 Date of discharge: 12/11/24 Primary care physician: Unknown Physician DS: Diagnosis Discharge Diagnosis (1) Acute hyperglycemia: Status: Acute (2) Type 2 diabetes mellitus with vitreous hemorrhage of right eye: Status: Acute (3) Poorly controlled diabetes mellitus: Status: Acute DS: Summary Hospital Course Hospital Course: from initial hpi: 38-year-old female with a PMH significant for?uncontrolled insulin-dependent type 2 diabetes, HTN, migraines, and hx of medication noncompliance who presents to the ED with?recurrent and intractable migraine headaches and sudden vision loss in right eye. Pt reports she was taking a shower at approximately 22:30 last night when she sudden onset of painless right eye vision loss. Pt reports that all she can see is ?red? and ?blood?. Has been experiencing right-sided headache that she describes as a pressure behind her eye. Left eye vision preserved. No other systemic symptoms. No nausea or vomiting. Denies fever or chills. No chest pain or pressure. No SOB or difficulty breathing. Pt has a long hx of medication noncompliance. He is no longer taking anything for HTN. Reports she ?sometimes? takes insulin. Overall pt is a vague and poor historian. When asked to clarify pt states she takes insulin ?when I feel like my sugars are really high? which apparently means to her when she begins to shake uncontrollably. Does not take insulin daily or weekly; last took insulin a few weeks ago when she administered 5 units. No longer appears to have a PCP. Of note, ED provider spoke to Ophthalmology about vision loss which is likely secondary to vitreous hemorrhage secondary to uncontrollable diabetes; no acute intervention indicated at this time and pt should follow up outpatient with Ophthalmology after discharge. In the ED pt's vitals were significant for tachycardia of 106 and hypertension of 197/96. Labs were significant for leukocytosis of 11.3, sodium 133, random glucose of 437, and CRP of 1.37. CT of head negative for acute intracranial findings. CTA of head/neck showed patent head and neck. Pt was treated in the ED with diazepam, IVF, and prochlorperazine. Pt is admitted to the hospital under observation for intractable migraine headache and hyperglycemia. hospital course: Patient was admitted for hyperglycemia in the setting of poorly controlled type 2 diabetes due to noncompliance. She was put on basal bolus insulin and sugars improved. She was given diabetic counseling and on discharge will start on metformin 1 g b.i.d. and continue basal bolus insulin. For vitreous hemorrhage of the right eye she will follow up Ophthalmology as outpatient. She should avoid anticoagulation, antiplatelets, NSAIDs. For migraine she received Fioricet and improved. For hypertensive urgency she was restarted on amlodipine and hydralazine with improvement in blood pressure. Patient is feeling better and will be discharged home. Time Attestation Discharge Coordination Time (in mins): 32 Quality: Safe Use of Opioids Does Pt have an Active Cancer Diagnosis on the Problem List?: No Quality: Stroke Does the patient have a stroke diagnosis?: No Physical Exam Exam: Exam: General: AO X 3, no acute distress Resp: CTA bilateral, no accessory muscles used CVS: S1,S2,RRR GI: soft, non tender, non distended Neuro: motor grossly intact, alert Psych: appropriate affect, appropriate insight Vital Signs: Vital Signs: Last Vital Signs Temp 97.9 F 12/11/24 07:51 Pulse 96 12/11/24 07:51 Resp 18 12/11/24 07:51 BP 126/63 12/11/24 07:51 Pulse Ox 97 12/11/24 07:51 O2 Del Method Room Air 12/11/24 07:51 BMI result Body Mass Index 27.3 DS: Data Data Completed and Pending Completed studies during hospitalization [Text1]: Procedures Drainage of Buttock Skin, External Approach (12/09/22) Excision of Stomach, Pylorus, Via Natural or Artificial Opening Endoscopic, Diagnostic (12/09/22) Labs on day of discharge: Laboratory Results - last 24 hr 12/10/24 12/10/24 12/10/24 08:33 08:34 08:50 Hold Purple Top SEE NOTE Sodium 132 L Potassium 4.1 Chloride 101 Carbon Dioxide 23 Anion Gap 12 BUN 17 H Creatinine 0.92 Estim Creat Clear Calc 87.3 Estimated GFR > 60 POC Glucose 427 H* Random Glucose 463 H* Estimat Average Glucose 338 Hemoglobin A1c % 13.4 H Calcium 8.7 Beta-Hydroxybutyrate 0.09 12/10/24 12/10/24 12/10/24 11:06 12:21 14:10 Hold Purple Top Sodium Potassium Chloride Carbon Dioxide Anion Gap BUN Creatinine Estim Creat Clear Calc Estimated GFR POC Glucose 215 H 239 H 218 H Random Glucose Estimat Average Glucose Hemoglobin A1c % Calcium Beta-Hydroxybutyrate 12/10/24 12/10/24 12/11/24 16:05 20:36 07:05 Hold Purple Top SEE NOTE Sodium Potassium Chloride Carbon Dioxide Anion Gap BUN Creatinine Estim Creat Clear Calc Estimated GFR POC Glucose 289 H 214 H Random Glucose Estimat Average Glucose Hemoglobin A1c % Calcium Beta-Hydroxybutyrate 12/11/24 07:22 Hold Purple Top Sodium Potassium Chloride Carbon Dioxide Anion Gap BUN Creatinine Estim Creat Clear Calc Estimated GFR POC Glucose 267 H Random Glucose Estimat Average Glucose Hemoglobin A1c % Calcium Beta-Hydroxybutyrate Discharge Plan Discharge Anticipated Discharge Date/Time: 12/11/24 08:26 Patient Disposition: Home, Self-Care Discharge Diagnosis: uncontrolled dm, htn, migraine, vitreous hemorrhage Referrals: Frederic Seo [Physician, Ophthalmology] - 1 Week Referral Note: vitreous hemorrhage Physician,Unknown J [Primary Care Provider, Medical] - 1 Week Discharge Medications: New metformin 1,000 mg tablet 1,000 mg PO BIDWMEAL Qty: 180 0RF Continued morphine 15 mg tablet 15 mg PO Q8H PRN (Reason: pain) Qty: 15 0RF Rx Instructions: Partial Fill upon patient request. metoclopramide HCl [Reglan] 10 mg tablet 10 mg PO Q6H PRN (Reason: nausea and vomiting) Qty: 10 0RF (DME) FreeStyle Lite Strips Strip Qty: 100 0RF Rx Instructions: Test four times a day or as directed. (DME) blood-glucose meter [FreeStyle Lite Meter] Kit Qty: 1 0RF Rx Instructions: As Directed insulin lispro [Humalog KwikPen Insulin] 100 unit/mL insulin pen 1 sliding scale dose SUBCUT QIDACHS MDD 30 units Qty: 15 0RF Rx Instructions: Blood Sugar: <150 - 0 units 151-200 - 2 units 201-250 - 4 units 251-300 - 6 units 301-350 - 8 units >350 - 10 units insulin glargine [Lantus Solostar U-100 Insulin] 100 unit/mL (3 mL) insulin pen 15 unit SUBCUT DAILY Qty: 15 0RF (DME) pen needle, diabetic 32 gauge x 1/4 needle Qty: 100 0RF Rx Instructions: Use four times a day or as directed. (DME) lancets [FreeStyle Lancets] 28 gauge misc Qty: 100 0RF Rx Instructions: Test four times a day or as directed. ondansetron 4 mg tablet,disintegrating 4 mg PO Q8H PRN (Reason: nausea and vomiting) Qty: 20 0RF [id number] [Fioricet] 50-300-40 mg capsule 1 cap PO TID PRN (Reason: headache) Qty: 10 0RF amlodipine 10 mg Tablet 10 mg PO DAILY 30 Days Qty: 90 0RF Protocol: Hold for SBP< HOLD for SBP < : 90 hydralazine 50 mg Tablet 50 mg PO QID 30 Days Qty: 360 0RF Protocol: Hold for SBP< HOLD for SBP < : 90 Discontinued metformin 500 mg tablet 500 mg PO DAILY Qty: 30 0RF Discharge Orders: Discharge Order (Routine); Ordered 12/11/24 Ordered By: Abel Ledezma Diet: Advance to usual diet Activity on Discharge: As tolerated Stand Alone Forms: Patient Portal Discharge page Print Language: Kinyarwanda Care Plan Goals: manage htn, dm Health Concerns: dm, htn Plan of Treatment: it is very important to monitor your DM and HTN take meds as prescribed follow up with opthamology and pcp Assessment: see above
[2024-12-11 08:32] LABS: Anion Gap 10 (12-20); Blood Urea Nitrogen 23 mg/dL (9-16); Calcium 8.9 mg/dL (8.4-10.2); Carbon Dioxide 26 mmol/L (22-29); Chloride 105 mmol/L (96-108); Creatinine Clr Calc Pharmacy 85.8; Estimated Glomerular Filt Rate > 60; Potassium 4.0 mmol/L (3.3-5.1); Sodium 137 mmol/L (135-145)
--- NOTE | 2024-12-11 08:54 | MHC.CM.PN ---
Pt has been medically cleared to [facility], she will go home via private transport, plan is self care.
== END 2024-12-11 10:43 | disposition home or self-care (01) ==
LOC: HO.ED 01:53 → HO.EDOVER 08:00 → HO.IMC 13:54
PROVIDERS: Student in an Organized Health Care Education/Training Program; Admitting Provider Internal Medicine; Emergency Provider Emergency Medicine; Visit Provider Internal Medicine
DX: E11.39 Type 2 diabetes mellitus with other diabetic ophthalmic complication (principal); H43.11 Vitreous hemorrhage, right eye; R00.0 Tachycardia, unspecified; G43.909 Migraine, unspecified, not intractable, without status migrainosus; Z79.4 Long term (current) use of insulin; Z79.84 Long term (current) use of oral hypoglycemic drugs; Z91.199 Patient's noncompliance with other medical treatment and regimen due to unspecified reason
CPT/HCPCS: 36415; 70450; 70496; 70498; 80048; 80053; 82010; 82947; 83036; 83735; 85025; 85610; 86140; 87502; 87635; 96361; 96374; 96375; 96376; 99222; 99285; J0737; J3360; J7120; Q9967

== ENCOUNTER → 2024-12-10 02:14 | Outpatient (BNV) | payer OTHER, SELFPAY | PROVIDERS: Emergency Provider Emergency Medicine; Visit Provider Student in an Organized Health Care Education/Training Program | DX: R51.9 Headache, unspecified (principal); H53.131 Sudden visual loss, right eye | CPT/HCPCS: 70450; 70496; 70498 ==

== ENCOUNTER → 2024-12-10 06:59 | Outpatient (BNV) | payer OTHER, SELFPAY | PROVIDERS: Admitting Provider Internal Medicine; Emergency Provider Emergency Medicine; Visit Provider Student in an Organized Health Care Education/Training Program | DX: E11.39 Type 2 diabetes mellitus with other diabetic ophthalmic complication (principal); E11.65 Type 2 diabetes mellitus with hyperglycemia; H43.11 Vitreous hemorrhage, right eye | CPT/HCPCS: 99222; 99239 ==